=== PATIENT | male | born 1975 | race African-American/Black ===

== ENCOUNTER 2017-08-15 21:26 | Emergency (ER) | payer MEDICAID | END 2017-08-15 21:45 | disposition left against medical advice (07) | LOC: ER 21:26 | DX: Z53.21 Procedure and treatment not carried out due to patient leaving prior to being seen by health care provider (principal) ==

== ENCOUNTER 2017-10-02 15:57 | Inpatient (IN) | payer MEDICAID ==
--- NOTE | 2017-10-02 17:03 | ER Document Report ---
HPI - HPI Pain Level: 4 Past Medical History - Social History Family History: Reviewed & Not Pertinent Pulmonary Medical History: Reports: Hx Pneumonia Denies: Hx Asthma - denies Psychiatric Medical History: Reports: Hx Depression - not clinically diagnosed Infectious Medical History: Reports: Hx HIV Past Surgical History: Reports: Hx Kidney (Renal Surgery) - left removed - Immunizations Hx Diphtheria, Pertussis, Tetanus Vaccination: Yes Hx Pneumococcal Vaccination: 05/28/12 Vertical Provider Document - INFECTION CONTROL TRAVEL OUTSIDE OF THE [place] IN LAST 30 DAYS: No Discharge - Discharge Referrals: DORIE COHEN MD [Primary Care Provider] - Follow up as needed
--- NOTE | 2017-10-02 17:37 | ER Document Report ---
ED Medical Screen (RME) - General Chief Complaint: Rash Stated Complaint: POSSIBLE RASH Time Seen by Provider: 10/02/17 17:02 Mode of Arrival: Ambulatory Information source: Patient Notes: 42 yo HIV male since 1992 with hx of PCP pneumonia 2016, sent to [facility]. Woke up this morning feeling weak, thirsty, dizzy with urniation, layed back down, had his usual oxygen on 2lpm, very short of breath which is not normal on the 2lpm (PCP scarring). Coughing up mucous last night- green and thick. No fever or chills. Dry rash he noticed yesterday. oxygen now 92% on 4lpm.. Meds: Trazadone, Vireda, Tivicay, Prezcibux, valacyclovir, azithromycin. Pulse ox was 86% on room air here in room 32. 89% on 3lpm nc. TRAVEL OUTSIDE OF THE [place] IN LAST 30 DAYS: No - Related Data Allergies/Adverse Reactions: Sulfa (Sulfonamide Antibiotics) Allergy (Verified 01/30/15 15:26) Past Medical History Pulmonary Medical History: Reports: Hx Pneumonia Denies: Hx Asthma - denies Psychiatric Medical History: Reports: Hx Depression - not clinically diagnosed Infectious Medical History: Reports: Hx HIV Past Surgical History: Reports: Hx Kidney (Renal Surgery) - left removed - Immunizations Hx Diphtheria, Pertussis, Tetanus Vaccination: Yes Physical Exam - Vital signs Vitals: Temp Pulse Resp BP Pulse Ox 98.1 F 106 H 24 H 122/74 86 L 10/02/17 17:06 10/02/17 17:06 10/02/17 17:06 10/02/17 17:06 10/02/17 17:06 Course - Vital Signs Vital signs: Temp Pulse Resp BP Pulse Ox 98.1 F 106 H 24 H 122/74 86 L 10/02/17 17:06 10/02/17 17:06 10/02/17 17:06 10/02/17 17:06 10/02/17 17:06 Doctor's Discharge - Discharge Referrals: DORIE COHEN MD [Primary Care Provider] - Follow up as needed
--- NOTE | 2017-10-02 17:59 | RADIOLOGY REPORT (SQ) ---
EXAM DESCRIPTION: CHEST SINGLE VIEW COMPLETED DATE/TIME: 10/02/2017 5:48 pm REASON FOR STUDY: sob, hypoxic COMPARISON: April 2015 EXAM PARAMETERS: NUMBER OF VIEWS: One view. TECHNIQUE: Single frontal radiographic view of the chest acquired. RADIATION DOSE: NA LIMITATIONS: None. FINDINGS: LUNGS AND PLEURA: No masses or pneumothorax. No pleural effusion. There is a nonspecific prominence of interstitial markings. I cannot exclude a component of obstructive lung disease. Ther e is some minimal confluent density in the left lung base which I cannot exclude as an acute process superimposed on the chronic underlying changes MEDIASTINUM AND HILAR STRUCTURES: No masses. Contour normal. HEART AND VASCULAR STRUCTURES: Heart normal in size. Normal vasculature. BONES: No acute findings. HARDWARE: None in the chest. OTHER: No other significant finding. IMPRESSION: Chronic appearing changes as noted above. There is a minimal focal confluent density in the left lung base which I cannot exclude as an acute process superimposed on the chronic underlying changes. I cannot exclude a component of obstructive lung disease. Other findings as noted above TECHNICAL DOCUMENTATION: JOB ID: [id number] [employer]- All Rights Reserved Reading location - IP/workstation name: [email or web address]
[2017-10-02] MEDS ORDERED: NORMAL SALINE 1000 ML 1,000 ML IV ONE (18:19)
--- NOTE | 2017-10-02 18:20 | ER Document Report ---
ED General - General Chief Complaint: Shortness Of Breath Stated Complaint: POSSIBLE RASH Time Seen by Provider: 10/02/17 17:02 Mode of Arrival: Ambulatory TRAVEL OUTSIDE OF THE [place] IN LAST 30 DAYS: No - HPI Patient complains to provider of: cough, shortness of breath and rash Onset: This morning - Related Data Allergies/Adverse Reactions: Sulfa (Sulfonamide Antibiotics) Allergy (Verified 01/30/15 15:26) Past Medical History - General Information source: Patient - Social History Smoking Status: Smoker,Current Status Unk Chew tobacco use (# tins/day): No Frequency of alcohol use: None Drug Abuse: None Family History: Reviewed & Not Pertinent Patient has suicidal ideation: No Patient has homicidal ideation: No Pulmonary Medical History: Reports: Hx Pneumonia Denies: Hx Asthma - denies Renal/ Medical History: Denies: Hx Peritoneal Dialysis Psychiatric Medical History: Reports: Hx Depression - not clinically diagnosed Infectious Medical History: Reports: Hx HIV Past Surgical History: Reports: Hx Kidney (Renal Surgery) - left removed - Immunizations Hx Diphtheria, Pertussis, Tetanus Vaccination: Yes Hx Pneumococcal Vaccination: 05/28/12 Physical Exam - Vital signs Vitals: Temp Pulse Resp BP Pulse Ox 98.1 F 106 H 24 H 122/74 86 L 10/02/17 17:06 10/02/17 17:06 10/02/17 17:06 10/02/17 17:06 10/02/17 17:06 Course - Vital Signs Vital signs: Temp Pulse Resp BP Pulse Ox 98.1 F 106 H 18 122/74 95 10/02/17 17:06 10/02/17 17:06 10/02/17 18:07 10/02/17 17:06 10/02/17 18:07 - EKG Interpretation by Ms EKG shows normal: Sinus rhythm Rate: Normal - Normal axis, no appreciable ST segment changes Discharge - Discharge Referrals: DORIE COHEN MD [Primary Care Provider] - Follow up as needed
[2017-10-02 18:35] LABS: HEMATOCRIT 38.7 % (37.9-51.0); HEMOGLOBIN 12.6 g/dL (13.5-17.0); MEAN CORPUSCULAR HGB CONC 32.6 g/dL (32.0-36.0); MEAN CORPUSCULAR VOLUME 80 fl (80-97); RED BLOOD COUNT 4.86 10^6/uL (4.35-5.55); RED CELL DISTRIBUTION WIDTH 17.8 % (11.5-14.0); WHITE BLOOD COUNT 3.1 10^3/uL (4.0-10.5)
[2017-10-02 18:45] LABS: ALANINE AMINOTRANSFERASE 35 U/L (21-72); ALBUMIN 3.3 g/dL (3.5-5.0); ALKALINE PHOSPHATASE 175 U/L (38-126); ANION GAP 8 (5-19); ASPARTATE AMINO TRANSFERASE 79 U/L (17-59); BILIRUBIN,DIRECT 0.3 mg/dL (0.0-0.4); BILIRUBIN,TOTAL 0.5 mg/dL (0.2-1.3); BLOOD UREA NITROGEN 13 mg/dL (7-20); CALCIUM 8.7 mg/dL (8.4-10.2); CARBON DIOXIDE 27 mmol/L (22-30); CHLORIDE 106 mmol/L (98-107); CREATINE KINASE 130 U/L (55-170); GLUCOSE 115 mg/dL (75-110); SODIUM 140.7 mmol/L (137-145); TOTAL PROTEIN 9.2 g/dL (6.3-8.2)
[2017-10-02 18:54] LABS: PLATELET COUNT 63 10^3/uL (150-450)
[2017-10-02 18:57] LABS: CREATINE KINASE MB 1.07 ng/mL (<4.55)
[2017-10-02 18:59] LABS: TROPONIN I < 0.012 ng/mL
[2017-10-02 19:00] LABS: ABSOLUTE LYMPHOCYTES# (MANUAL) 1.1 10^3/uL (0.5-4.7); ABSOLUTE MONOCYTES # (MANUAL) 0.3 10^3/uL (0.1-1.4); ABSOLUTE NEUTROPHILS# (MANUAL) 1.6 10^3/uL (1.7-8.2); BAND NEUTROPHILS % (MANUAL) 1 % (3-5); BASOPHILS % (MANUAL) 0 % (0-2); EOSINOPHILS % (MANUAL) 5 % (0-6); LYMPHOCYTES % (MANUAL) 29 % (13-45); MONOCYTES % (MANUAL) 9 % (3-13); SEGMENTED NEUTROPHILS % (MAN) 51 % (42-78); TOTAL CELLS COUNTED 100
[2017-10-02 19:03] LABS: ANISOCYTOSIS 1+; PLATELET COMMENT DECREASED; PLATELET LARGE PRESENT
[2017-10-02] MEDS ORDERED: CEFTRIAXONE INJ 1000 MG VIAL IV ONE (19:07)
[2017-10-02] MEDS ORDERED: AZITHROMYCIN INJ 500 MG VIAL IV ONE (19:09)
--- NOTE | 2017-10-02 19:36 | ER Document Report ---
ED General - General Chief Complaint: Rash Stated Complaint: POSSIBLE RASH Time Seen by Provider: 10/02/17 17:02 Mode of Arrival: Ambulatory TRAVEL OUTSIDE OF THE [place] IN LAST 30 DAYS: No - HPI Patient complains to provider of: Shortness of breath and cough Onset: Other - This 42-year-old man presented for evaluation of shortness of breath as well as productive cough over the last 2 days and now a rash. He notes that he has a history of HIV and has had 3 episodes of pneumonia in the past once requiring BiPAP never requiring intubation. He has had similar episodes in the past which have worsened. Today he began to feel much weaker than yesterday he has got a cough which is productive of sputum he feels generally fatigued, nothing seemed to make it any better but exertion seems make it worse. He has been taking medications and does note that it appears that the rashes developed after he was sitting outside for some time. He has had episodes of shingles in the past but does not believe this is shingles that is currently not painful or itchy. - Related Data Allergies/Adverse Reactions: Sulfa (Sulfonamide Antibiotics) Allergy (Verified 01/30/15 15:26) Past Medical History - General Information source: Patient - Social History Smoking Status: Smoker,Current Status Unk Chew tobacco use (# tins/day): No Frequency of alcohol use: None Drug Abuse: None Family History: Reviewed & Not Pertinent Patient has suicidal ideation: No Patient has homicidal ideation: No - Medical History Medical History: Other - HIV Pulmonary Medical History: Reports: Hx Pneumonia Denies: Hx Asthma - denies Renal/ Medical History: Denies: Hx Peritoneal Dialysis Psychiatric Medical History: Reports: Hx Depression - not clinically diagnosed Infectious Medical History: Reports: Hx HIV Past Surgical History: Reports: Hx Kidney (Renal Surgery) - left removed - Immunizations Hx Diphtheria, Pertussis, Tetanus Vaccination: Yes Hx Pneumococcal Vaccination: 05/28/12 Review of Systems - Review of Systems -: Yes All other systems reviewed and negative Physical Exam - Vital signs Vitals: Temp Pulse Resp BP Pulse Ox 98.1 F 106 H 24 H 122/74 86 L 10/02/17 17:06 10/02/17 17:06 10/02/17 17:06 10/02/17 17:06 10/02/17 17:06 - General General appearance: Alert In distress: Mild - HEENT Head: Normocephalic Eyes: Normal - Respiratory Respiratory status: Tachypnea Chest status: Nontender Breath sounds: Rhonchi Chest palpation: Normal - Cardiovascular Rhythm: Tachycardia Heart sounds: Normal auscultation Murmur: No - Abdominal Inspection: Normal Distension: No distension Bowel sounds: Normal - Genitourinary Inspection: Normal Tenderness: Nontender - Back Back: Normal - Extremities General upper extremity: Other General lower extremity: Other - The upper and lower extremities demonstrate an erythematous slightly raised papular rash which is non-petechial and blanching - Neurological Neuro grossly intact: Yes Course - Re-evaluation Re-evalutation: 10/03/17 00:04 This 42-year-old HIV positive man presents for evaluation of productive sputum 3 days. He does note that he has had 3 episodes of pneumonia in the past and has been hospitalized for it once requiring CPAP or BiPAP to help him breathe. His developed a rash over the last day over his arms and legs which is a little bit itchy has been dried out. Says this is not reminiscent of previous episodes of zoster which she has had in the past. Clinically this patient likely has pneumonia as he does demonstrate an oxygen requirement at this time with some tachypnea and systemic signs of infection. We will initiate IV fluids for this patient as well as antibiotics as he does have an infiltrate on x-ray. Patient does have new onset thrombocytopenia as well. He has been compliant with his medications per him in the past, I am uncertain what this etiology is at this time he does not appear to be in DIC at this time however. We will plan for further monitoring, have contacted the on-call hospitalist for admission of this patient. We will plan for monitored bed administration of oxygen currently on 3 L nasal cannula, will reassess as necessary. He is not actively bleeding at this time and as such we will defer administration of platelets. - Vital Signs Vital signs: Temp Pulse Resp BP Pulse Ox 98.1 F 106 H 33 H 119/76 90 L 10/02/17 17:06 10/02/17 17:06 10/02/17 22:01 10/02/17 22:00 10/02/17 22:00 - Laboratory Result Diagrams: 10/02/17 18:03 10/02/17 18:03 Laboratory results interpreted by me: 08/08/1410/02/17 10/02/17 18:03 18:03 18:03 WBC 3.1 L Hgb 12.6 L MCH 26.0 L RDW 17.8 H Plt Count 63 L Band Neutrophils % 1 L Abs Neuts (Manual) 1.6 L D-Dimer 1.53 H Glucose 115 H AST 79 H Alkaline Phosphatase 175 H Total Protein 9.2 H Albumin 3.3 L Discharge - Discharge Clinical Impression: Pneumonia, Photosensitivity, Pneumonia, community acquired, HIV (human immunodeficiency virus infection), Hypoxic Condition: Fair Disposition: ADMITTED INPATIENT Admitting Provider: Hospitalist Unit Admitted: [facility]
[2017-10-02] MEDS ORDERED: IPRATROPIUM/ALBUTEROL 0.5-2.5 MG/3 ML AMPUL NEB PRN (20:20)
[2017-10-02] MEDS ORDERED: ACETAMINOPHEN 325 MG TABLET PO PRN (20:20)
[2017-10-02] MEDS ORDERED: EFAVIRENZ/EMTRICITAB/TENOFOVIR (600-200-300 MG) TABLET PO SCH (22:00)
--- NOTE | 2017-10-02 22:28 | EKG REPORT ---
SEVERITY:- NORMAL ECG - SINUS RHYTHM : Confirmed by: Nanette Hart MD 02-Oct-2017 22:27:49
[2017-10-02] MEDS: GUAIFENESIN 600 MG TABLET.SA PO SCH (22:49)
[2017-10-02] MEDS: NORMAL SALINE 1000 ML 1,000 ML IV PRN (22:50)
[2017-10-03] MEDS ORDERED: METHYLPREDNISOLONE INJ 125 MG/2 ML SDV IV ONE (01:22)
--- NOTE | 2017-10-03 01:22 | PDOC H&P ---
History of Present Illness Admission Date/PCP: 10/02/17 19:54 KENNETH BEE Patient complains of: Cough and weakness History of Present Illness: BART MCCRACKEN is a 42 year old -Y[place]i male with history of HIV who presented to the emergency room with acute onset of cough productive of greenish sputum with associated weakness and fatigue as well as dyspnea and wheezing for the last couple of days. He denied any fever or chills. He denies any abdominal pain or nausea or vomiting or melena or bright red bleeding per rectum. No chest pain or palpitations. Denies any diarrhea. He takes Truvada for his HIV and was sitting in the sun today when he developed maculopapular rash all over his body. When he came to the ER his EKG showed normal sinus rhythm with a rate of 79 with T-wave inversion in aVL. His vital signs reveal a temperature of 98.1 and heart rate 106 with a respiratory rate of 24, blood pressure of 122/74 and pulse oximetry of 86% on room air. As revealed mild leukopenia and thrombocytopenia. D-dimer was 1.53 and AST was 79 with alk phos 175 with lactic acid 1.7. The patient was given hydration with IV normal saline as well as IV Rocephin and from X. He will be admitted to medical monitored bed for further evaluation and management. Past Medical History Pulmonary Medical History: Reports: Pneumonia Denies: Asthma - denies Psychiatric Medical History: Reports: Depression - not clinically diagnosed Infectious Medical History: Reports: HIV Past Surgical History Past Surgical History: Reports: None Social History Smoking Status: Never Smoker Frequency of Alcohol Use: Social Hx Recreational Drug Use: No Hx Prescription Drug Abuse: No Family History Family History: CAD, CVA Parental Family History Reviewed: Yes Children Family History Reviewed: Yes Sibling(s) Family History Reviewed.: Yes Medication/Allergy Home Medications: Darunavir/Cobicistat [Prezcobix 800 mg-150 mg Tablet] 1 tab PO DAILY 10/02/17 Dolutegravir Sodium [Tivicay] 50 mg PO DAILY 10/02/17 Tenofovir Disoproxil Fumarate [Viread] 300 mg PO DAILY 10/02/17 Allergies/Adverse Reactions: Sulfa (Sulfonamide Antibiotics) Allergy (Verified 01/30/15 15:26) Review of Systems Review of Systems: As per history of present illness. All pertinent systems were reviewed above. Constitutional, HEENT, cardiovascular, respiratory, GI, , musculoskeletal, neuro, psychiatric, endocrine, integumentary and hematologic systems were reviewed and are otherwise negative/unremarkable except for positive findings mentioned above in the HPI. Physical Exam Vital Signs: Temp Pulse Resp BP Pulse Ox 98.1 F 106 H 33 H 119/76 90 L 10/02/17 17:06 10/02/17 17:06 10/02/17 22:01 10/02/17 22:00 10/02/17 22:00 Pulse Oximeter Continuous Start: 10/02/17 20: 20 Freq: RTQ4 Status: Active Document 10/03/17 00:00 EST (Rec: 10/03/17 00:14 EST [id number]) Pulse Oximetry Assessment Equipment Usage Equipment Standby Continuous SpO2 Machine # ED Exam: Generally: Pleasant middle-aged -[place] male in mild respiratory distress with conversational dyspnea. Vital signs-as listed Head - atraumatic, normocephalic. Pupils - equal, round and reactive to light and accommodation. Extraocular movements are intact. No scleral icterus. Oropharynx - moist mucous membranes and tongue. No pharyngeal erythema or exudate. Neck - supple. No JVD. Carotid pulses 2+ bilaterally. No carotid bruits. No palpable thyromegaly or lymphadenopathy. Cardiovascular - regular rate and rhythm. Normal S1 and S2. No murmurs, gallops or rubs. Lungs -bibasilar crackles with diminished bibasilar breath sounds with mild left midlung zone crackles Abdomen - soft and nontender. Positive bowel sounds. No palpable organomegaly or masses. Extremities - no pitting edema, clubbing or cyanosis. Neuro - grossly non-focal. Skin -he had diffuse macular papular eruption with mild scaling specially over both upper and lower extremities and rectal exam - deferred. Results Impressions: Chest X-Ray 10/02/17 17:38 IMPRESSION: Chronic appearing changes as noted above. There is a minimal focal confluent density in the left lung base which I cannot exclude as an acute process superimposed on the chronic underlying changes. I cannot exclude a component of obstructive lung disease. Other findings as noted above Assessment & Plan - Diagnosis (1) Pneumonia, community acquired Qualifiers: Laterality: left Is this a current diagnosis for this admission?: Yes Plan: The patient will be admitted to a medically monitored bed for community- acquired pneumonia and will be placed on IV Rocephin and Zithromax. Mucolytic therapy be provided as well as duo nebs q.i.d. and q.4 hours p.r.n.. Sputum Gram stain culture and sensitivity will be obtained. Will follow Blood Cultures. (2) HIV (human immunodeficiency virus infection) Is this a current diagnosis for this admission?: Yes Plan: His HAART will be continued (3) Hypoxic Is this a current diagnosis for this admission?: Yes Plan: O2 protocol will be provided. (4) Photosensitivity Is this a current diagnosis for this admission?: Yes Plan: This is likely the culprit for his maculopapular rash. Will add steroids, Benadryl and H2 blockers. (5) DVT prophylaxis Is this a current diagnosis for this admission?: Yes Plan: Subcutaneous Lovenox - Plan Summary Plan Summary: The plan of care was discussed in details with the patient. I answered all questions. The patient agreed to proceed with the above-mentioned plan. The patient is presumably full code. This note was created by [employer] software and may contain typo errors that may have not been proofread.
[2017-10-03] MEDS ORDERED: FAMOTIDINE 20 MG TABLET PO ONE (01:24)
[2017-10-03] MEDS ORDERED: DIPHENHYDRAMINE HCL 25 MG CAPSULE PO SCH (01:30)
--- NOTE | 2017-10-03 02:53 | RADIOLOGY REPORT (SQ) ---
EXAM DESCRIPTION: CT CHEST ANGIOGRAPHY WITH IV CONTRAST COMPLETED DATE/TME: 10/03/2017 00:00 CLINICAL HISTORY: elevated d-dimer(1.53) COMPARISON: 01/31/2015 TECHNIQUE: CTA of the chest obtained following the uncomplicated intravenous administration of 100 mL Omnipaque 350. 3-D/MIP reformatted images of the chest available for evaluation. DLP: 542.91 mGycm FINDINGS: Chest: Pulmonary arteries: Contrast bolus is adequate.No filling defects identified in the pulmonary arteries to suggest pulmonary embolus. Thyroid:No abnormalities of the visualized thyroid. Great Vessels:Great vessels have normal anatomic configuration. Thoracic Aorta:No abnormalities of the thoracic aorta identified. Heart:No cardiomegaly, significant pericardial effusion, or coronary artery atherosclerosis Lymph Nodes: Enlarged paratracheal and bilateral hilar lymph nodes. Esophagus:No abnormalities of the esophagus identified. Other: Possible residual thymus. Lungs: Diffuse groundglass opacities throughout the lungs bilaterally as well as diffuse cystic change. Linear bibasilar opacities. Pleura:No pleural effusion or pneumothorax. Trachea/Airways: Bibasilar bronchiectasis and peribronchial thickening. No acute abnormalities of the trachea. Bones:No destructive osseous lesions. Upper Abdomen: Limited images of the upper abdomen demonstrate no abnormalities of visualized liver, adrenal glands, right kidney. Postoperative change in the left upper abdomen. Splenomegaly. IMPRESSION: 1. No pulmonary embolus identified. 2. Scattered groundglass opacity and cystic change throughout the lungs as well as peribronchial interstitial thickening and mild cylindrical bronchiectasis. These findings may be postinfectious or related to chronic infection/inflammation such as chronic bronchitis or obstructive lung disease. These findings could also be seen with developing interstitial lung disease. 3. Mild hilar and mediastinal lymphadenopathy. This may be reactive. Based on these findings follow-up CT of the chest in 6-12 months recommended for continued surveillance. 4. Mild bibasilar linear opacities may be related to subsegmental atelectasis. A component of developing pneumonia is also a consideration. 5. Splenomegaly. This exam was performed according to our departmental dose-optimization program, which includes automated exposure control, adjustment of the mA and/or kV according to patient size and/or use of iterative reconstruction technique.
[2017-10-03] MEDS: METHYLPREDNISOLONE INJ 40 MG/1 ML SDV IV SCH ×3 (05:38→21:26)
[2017-10-03 06:48] LABS: HEMATOCRIT 37.6 % (37.9-51.0); HEMOGLOBIN 12.3 g/dL (13.5-17.0); MEAN CORPUSCULAR HGB CONC 32.8 g/dL (32.0-36.0); MEAN CORPUSCULAR VOLUME 79 fl (80-97); RED BLOOD COUNT 4.74 10^6/uL (4.35-5.55); RED CELL DISTRIBUTION WIDTH 17.8 % (11.5-14.0); WHITE BLOOD COUNT 2.8 10^3/uL (4.0-10.5)
[2017-10-03 07:00] LABS: ANION GAP 6 (5-19); BLOOD UREA NITROGEN 10 mg/dL (7-20); CALCIUM 8.3 mg/dL (8.4-10.2); CARBON DIOXIDE 24 mmol/L (22-30); CHLORIDE 113 mmol/L (98-107); GLUCOSE 117 mg/dL (75-110); POTASSIUM 4.8 mmol/L (3.6-5.0); SODIUM 142.8 mmol/L (137-145)
[2017-10-03 07:15] LABS: PLATELET COUNT 44 10^3/uL (150-450)
[2017-10-03 07:54] LABS: ABSOLUTE LYMPHOCYTES# (MANUAL) 0.8 10^3/uL (0.5-4.7); ABSOLUTE MONOCYTES # (MANUAL) 0.1 10^3/uL (0.1-1.4); ABSOLUTE NEUTROPHILS# (MANUAL) 1.9 10^3/uL (1.7-8.2); ANISOCYTOSIS 2+; BAND NEUTROPHILS % (MANUAL) 1 % (3-5); BASOPHILS % (MANUAL) 0 % (0-2); EOSINOPHILS % (MANUAL) 3 % (0-6); HYPOCHROMASIA SLIGHT; LYMPHOCYTES % (MANUAL) 25 % (13-45); MONOCYTES % (MANUAL) 2 % (3-13); POLYCHROMASIA SLIGHT; ROULEAUX SLIGHT; SEGMENTED NEUTROPHILS % (MAN) 66 % (42-78); TOTAL CELLS COUNTED 100
[2017-10-03 07:55] LABS: PLATELET COMMENT DECREASED
[2017-10-03] MEDS: IPRATROPIUM/ALBUTEROL 0.5-2.5 MG/3 ML AMPUL NEB SCH ×4 (08:43→20:10)
[2017-10-03] MEDS ORDERED: DAPSONE 100 MG PO SCH (10:00)
[2017-10-03] MEDS: DAPSONE 25 MG TABLET PO SCH (10:41)
[2017-10-03] MEDS: AZITHROMYCIN 500 MG in DEXTROSE 5%-WATER 250 ML IV SCH (10:41)
[2017-10-03] MEDS: GUAIFENESIN 600 MG TABLET.SA PO SCH ×2 (10:42→21:26)
[2017-10-03] MEDS: FAMOTIDINE 20 MG TABLET PO SCH ×2 (10:42→21:26)
[2017-10-03] MEDS: ENOXAPARIN SODIUM INJ 40 MG/0.4 ML DISP.SYRIN SUBCUT SCH (10:42)
[2017-10-03] MEDS: NORMAL SALINE 1000 ML 1,000 ML IV PRN ×2 (10:43→23:25)
[2017-10-03] MEDS: VALACYCLOVIR HCL 500 MG TABLET PO SCH (10:50)
[2017-10-03] MEDS: CEFTRIAXONE 2 GM/D5W RTU 2 GM/50 ML RTUPB IV SCH (13:04)
--- NOTE | 2017-10-03 17:51 | PDOC PROGRESS REPORT ---
Subjective Progress Note for:: 10/03/17 Subjective:: BART MCCRACKEN is a 42 year old -[place] male with history of HIV and PNA (2017) who wears home O2 (2-4L NC) presented to the ED 10/02/2017 with SOB. The patient was seen this morning on rounds. He is resting comfortably in bed on room air. He endorses a productive cough, but states he is too weak to expel his sputum. The patient appears in good spirits, he states his 'lungs have never been the same' since diagnosed with PNA last year. Upon assessment, rhonchi wheezing can be heard in all lung manzo. The patient is not tachypneic , his respirations are equal and symmetrical, he does not appear to be in any respiratory distress. Plan to increase steroid frequency and schedule nebulizer treatments. Reason For Visit: PNEUMONIA Physical Exam Vital Signs: Temp Pulse Resp BP Pulse Ox 97.8 F 90 18 119/68 94 10/03/17 12:10 10/03/17 14:00 10/03/17 12:10 10/03/17 12:10 10/03/17 12:10 Pulse Oximeter Continuous Start: 10/02/17 20: 20 Freq: RTQ4 Status: Active Document 10/03/17 11:41 [facility] (Rec: 10/03/17 11:49 [facility] [id number]) Pulse Oximetry Assessment Oxygen Saturation (92-100) 95 Oxygen Flow Rate (L/min) 2 Equipment Usage Equipment in Use Continuous SpO2 Machine # [id number] Intake & Output 10/02/17 10/03/17 10/04/17 06:59 06:59 06:59 Intake Total 0 1296 Output Total 0 Balance 0 1296 Weight 65.9 kg General appearance: PRESENT: no acute distress Head exam: PRESENT: atraumatic Eye exam: PRESENT: conjunctiva pink, PERRLA Mouth exam: PRESENT: moist, neck supple Neck exam: PRESENT: full ROM Respiratory exam: PRESENT: rhonchi, symmetrical, wheezes. ABSENT: tachypnea Cardiovascular exam: PRESENT: +S1, +S2 Pulses: PRESENT: normal radial pulses, normal dorsalis pedis pul GI/Abdominal exam: PRESENT: normal bowel sounds, soft. ABSENT: tenderness Rectal exam: PRESENT: deferred Extremities exam: PRESENT: full ROM Musculoskeletal exam: PRESENT: ambulatory - with o2, full ROM Neurological exam: PRESENT: alert, awake, oriented to person, oriented to place , oriented to time, oriented to situation Psychiatric exam: PRESENT: appropriate affect Skin exam: PRESENT: dry, intact, normal color Results Laboratory Results: 10/03/17 05:30 10/03/17 05:30 10/03/17 10/03/17 05:30 05:30 WBC 2.8 L RBC 4.74 Hgb 12.3 L Hct 37.6 L MCV 79 L MCH 26.0 L MCHC 32.8 RDW 17.8 H Plt Count 44 L Seg Neutrophils % Not Reportable Lymphocytes % Not Reportable Monocytes % Not Reportable Eosinophils % Not Reportable Basophils % Not Reportable Absolute Neutrophils Not Reportable Absolute Lymphocytes Not Reportable Absolute Monocytes Not Reportable Absolute Eosinophils Not Reportable Absolute Basophils Not Reportable Sodium 142.8 Potassium 4.8 Chloride 113 H Carbon Dioxide 24 Anion Gap 6 BUN 10 Creatinine 0.81 Est GFR ( Amer) > 60 Est GFR (Non-Af Amer) > 60 Glucose 117 H Calcium 8.3 L Impressions: Chest X-Ray 10/02/17 17:38 IMPRESSION: Chronic appearing changes as noted above. There is a minimal focal confluent density in the left lung base which I cannot exclude as an acute process superimposed on the chronic underlying changes. I cannot exclude a component of obstructive lung disease. Other findings as noted above Chest/Abdomen CTA 10/03/17 00:00 IMPRESSION: 1. No pulmonary embolus identified. 2. Scattered groundglass opacity and cystic change throughout the lungs as well as peribronchial interstitial thickening and mild cylindrical bronchiectasis. These findings may be postinfectious or related to chronic infection/inflammation such as chronic bronchitis or obstructive lung disease. These findings could also be seen with developing interstitial lung disease. 3. Mild hilar and mediastinal lymphadenopathy. This may be reactive. Based on these findings follow-up CT of the chest in 6-12 months recommended for continued surveillance. 4. Mild bibasilar linear opacities may be related to subsegmental atelectasis. A component of developing pneumonia is also a consideration. 5. Splenomegaly. This exam was performed according to our departmental dose-optimization program, which includes automated exposure control, adjustment of the mA and/or kV according to patient size and/or use of iterative reconstruction technique. Status: Imported from PACS Assessment & Plan - Diagnosis (1) Pneumonia Is this a current diagnosis for this admission?: Yes Plan: As seen on radiological imaging Ground glass opacities on CTA +Productive cough Scheduled and as needed duo nebs Increase frequency of IV Solu-Medrol from every 8 hours to every 6 hours for wheezing History of multidrug resistant strep pneumoniae Currently treated with Rocephin and Azithromycin for community acquired PNA but history of azithromycin resistance Discontinue azithromycin and initiate doxycycline Consulted ID for further antibiotic recommendations (2) HIV (human immunodeficiency virus infection) Is this a current diagnosis for this admission?: Yes Plan: Previously on Truvada therapy Patient's pharmacist states the patient has not refilled rx in over a month Placed on Atripla while at [facility] since Truvada is non-formulary but patient's pharmacist (at [facility]) states the patient would be better off taking no HAART therapy in order to prevent development of resistance Plan for family to bring patient's Truvada to [facility] tomorrow and resume at that time Currently, the patient is not on HAART therapy (3) Photosensitivity Is this a current diagnosis for this admission?: Yes Plan: Patient endorses spending a great deal of time outside recently Presents to [facility] with photosensitivity rash to upper extremities and posterior neck No papules, pustules, or blisters Keep skin clean with soap and water, no occlusive dressings - Time Time Spent with patient: 15-24 minutes Medications reviewed and adjusted accordingly: Yes Anticipated discharge: Home Within: within 48 hours - Inpatient Certification Based on my medical assessment, after consideration of the patient's comorbidities, presenting symptoms, or acuity I expect that the services needed warrant INPATIENT care.: Yes I certify that my determination is in accordance with my understanding of Medicare's requirements for reasonable and necessary INPATIENT services [42 CFR 412.3e].: Yes Medical Necessity: Need for IV Antibiotics, Risk of Complication if Not Cared For in Hospital - Plan Summary Plan Summary: DISCONTINUE AZITHROMYCIN DUE TO HX OF RESISTANCE. INITIATE DOXYCYCLINE. CONSULT ID.
[2017-10-04] MEDS: IPRATROPIUM/ALBUTEROL 0.5-2.5 MG/3 ML AMPUL NEB SCH ×4 (02:07→19:42)
[2017-10-04] MEDS: METHYLPREDNISOLONE INJ 40 MG/1 ML SDV IV SCH ×4 (02:41→21:42)
[2017-10-04 05:54] LABS: HEMATOCRIT 32.7 % (37.9-51.0); HEMOGLOBIN 10.6 g/dL (13.5-17.0); MEAN CORPUSCULAR HGB CONC 32.4 g/dL (32.0-36.0); MEAN CORPUSCULAR VOLUME 80 fl (80-97); RED BLOOD COUNT 4.08 10^6/uL (4.35-5.55); RED CELL DISTRIBUTION WIDTH 17.8 % (11.5-14.0); WHITE BLOOD COUNT 4.4 10^3/uL (4.0-10.5)
[2017-10-04 06:07] LABS: ANION GAP 10 (5-19); BLOOD UREA NITROGEN 11 mg/dL (7-20); CALCIUM 8.3 mg/dL (8.4-10.2); CARBON DIOXIDE 20 mmol/L (22-30); CHLORIDE 118 mmol/L (98-107); GLUCOSE 206 mg/dL (75-110); SODIUM 148.1 mmol/L (137-145)
[2017-10-04 06:09] LABS: PLATELET COUNT 66 10^3/uL (150-450)
[2017-10-04 06:16] LABS: ABSOLUTE LYMPHOCYTES# (MANUAL) 0.5 10^3/uL (0.5-4.7); ABSOLUTE MONOCYTES # (MANUAL) 0.4 10^3/uL (0.1-1.4); ABSOLUTE NEUTROPHILS# (MANUAL) 3.6 10^3/uL (1.7-8.2); BAND NEUTROPHILS % (MANUAL) 2 % (3-5); BASOPHILS % (MANUAL) 0 % (0-2); EOSINOPHILS % (MANUAL) 0 % (0-6); LYMPHOCYTES % (MANUAL) 11 % (13-45); MONOCYTES % (MANUAL) 8 % (3-13); SEGMENTED NEUTROPHILS % (MAN) 79 % (42-78); TOTAL CELLS COUNTED 100
[2017-10-04 06:18] LABS: ANISOCYTOSIS 1+; PLATELET COMMENT DECREASED
[2017-10-04 06:19] LABS: PLATELET LARGE PRESENT
[2017-10-04 06:31] LABS: POTASSIUM 3.8 mmol/L (3.6-5.0)
[2017-10-04] MEDS ORDERED: DOXYCYCLINE HYCLATE INJ 100 MG VIAL IV ONE (08:44)
[2017-10-04] MEDS: AZITHROMYCIN 500 MG in DEXTROSE 5%-WATER 250 ML IV SCH (09:20)
[2017-10-04] MEDS: FAMOTIDINE 20 MG TABLET PO SCH ×2 (09:24→21:42)
[2017-10-04] MEDS: CEFTRIAXONE 2 GM/D5W RTU 2 GM/50 ML RTUPB IV SCH (09:24)
[2017-10-04] MEDS: GUAIFENESIN 600 MG TABLET.SA PO SCH ×2 (09:24→21:42)
[2017-10-04] MEDS: VALACYCLOVIR HCL 500 MG TABLET PO SCH (09:25)
[2017-10-04] MEDS: DAPSONE 25 MG TABLET PO SCH (09:25)
[2017-10-04] MEDS: ENOXAPARIN SODIUM INJ 40 MG/0.4 ML DISP.SYRIN SUBCUT SCH (09:38)
[2017-10-04] MEDS: NORMAL SALINE 1000 ML 1,000 ML IV PRN (10:47)
[2017-10-04] MEDS: DOXYCYCLINE HYCLATE 100 MG in DEXTROSE 5%-WATER 250 ML IV SCH ×2 (10:47→21:39)
--- NOTE | 2017-10-04 13:54 | PDOC PROGRESS REPORT ---
Subjective Progress Note for:: 10/04/17 Subjective:: BART MCCRACKEN is a 42 year old -[place] male with history of HIV and PNA (2017) who wears home O2 (2-4L NC) presented to the ED 10/02/2017 with SOB. The patient was seen this morning on rounds. He is resting comfortably in bed on supplemental oxygen. He still endorses a productive cough, but states he feels so much better today. The patient appears in good spirits, he denies fever or chills. Upon assessment, rhonchi can be heard in B/L bases, wheezing has resolved. Nursing staff reports that the patient becomes tacypneic when ambulating to the restroom. Plan to consult ID for antibiotic recommendations. Reason For Visit: PNEUMONIA Physical Exam Vital Signs: Temp Pulse Resp BP Pulse Ox 98.4 F 91 16 124/69 94 10/04/17 04:22 10/04/17 08:27 10/04/17 08:27 10/04/17 04:22 10/04/17 12:39 Pulse Oximeter Continuous Start: 10/02/17 20: 20 Freq: RTQ4 Status: Active Document 10/04/17 12:39 [facility] [place]Rec: 10/04/17 12:40 [id number] Pulse Oximetry Assessment Oxygen Saturation (92-100) 94 Oxygen Flow Rate (L/min) 2 Oxygen Delivery Method Nasal Cannula Equipment Usage Equipment in Use Continuous SpO2 Machine # N 3 Intake & Output 10/03/17 10/04/17 10/05/17 06:59 06:59 06:59 Intake Total 0 3154 1050 Output Total 0 1400 Balance 0 1754 1050 Weight 65.9 kg 67.2 kg General appearance: PRESENT: no acute distress, well-developed, well-nourished Eye exam: PRESENT: conjunctiva pink, PERRLA Mouth exam: PRESENT: moist, tongue midline Neck exam: PRESENT: full ROM Respiratory exam: PRESENT: rhonchi, symmetrical, unlabored Cardiovascular exam: PRESENT: +S1, +S2 Pulses: PRESENT: normal radial pulses, normal dorsalis pedis pul GI/Abdominal exam: PRESENT: normal bowel sounds, soft. ABSENT: tenderness Rectal exam: PRESENT: deferred Extremities exam: PRESENT: full ROM Musculoskeletal exam: PRESENT: ambulatory, full ROM Neurological exam: PRESENT: alert, awake, oriented to person, oriented to place , oriented to time, oriented to situation Psychiatric exam: PRESENT: appropriate affect Skin exam: PRESENT: intact, normal color, warm Results Laboratory Results: 10/04/17 04:39 10/04/17 04:39 10/04/17 10/04/17 04:39 04:39 WBC 4.4 RBC 4.08 L Hgb 10.6 L Hct 32.7 L MCV 80 MCH 26.0 L MCHC 32.4 RDW 17.8 H Plt Count 66 L Seg Neutrophils % Not Reportable Lymphocytes % Not Reportable Monocytes % Not Reportable Eosinophils % Not Reportable Basophils % Not Reportable Absolute Neutrophils Not Reportable Absolute Lymphocytes Not Reportable Absolute Monocytes Not Reportable Absolute Eosinophils Not Reportable Absolute Basophils Not Reportable Sodium 148.1 H Potassium 3.8 D Chloride 118 H Carbon Dioxide 20 L Anion Gap 10 BUN 11 Creatinine 0.80 Est GFR ( Amer) > 60 Est GFR (Non-Af Amer) > 60 Glucose 206 H Calcium 8.3 L Impressions: Chest X-Ray 10/02/17 17:38 IMPRESSION: Chronic appearing changes as noted above. There is a minimal focal confluent density in the left lung base which I cannot exclude as an acute process superimposed on the chronic underlying changes. I cannot exclude a component of obstructive lung disease. Other findings as noted above Chest/Abdomen CTA 10/03/17 00:00 IMPRESSION: 1. No pulmonary embolus identified. 2. Scattered groundglass opacity and cystic change throughout the lungs as well as peribronchial interstitial thickening and mild cylindrical bronchiectasis. These findings may be postinfectious or related to chronic infection/inflammation such as chronic bronchitis or obstructive lung disease. These findings could also be seen with developing interstitial lung disease. 3. Mild hilar and mediastinal lymphadenopathy. This may be reactive. Based on these findings follow-up CT of the chest in 6-12 months recommended for continued surveillance. 4. Mild bibasilar linear opacities may be related to subsegmental atelectasis. A component of developing pneumonia is also a consideration. 5. Splenomegaly. This exam was performed according to our departmental dose-optimization program, which includes automated exposure control, adjustment of the mA and/or kV according to patient size and/or use of iterative reconstruction technique. Status: Imported from PACS Assessment & Plan - Diagnosis (1) Pneumonia Is this a current diagnosis for this admission?: Yes Plan: As seen on radiological imaging Ground glass opacities on CTA +Productive cough Scheduled and as needed duo nebs Continue IV Solu-Medrol from every 6 hours for wheezing, begin weaning tomorrow History of multidrug resistant strep pneumoniae Currently treated with Rocephin and doxycycline for community acquired PNA - history of azithromycin resistance Consulted ID for further antibiotic recommendations (2) HIV (human immunodeficiency virus infection) Is this a current diagnosis for this admission?: Yes Plan: Previously on Truvada therapy Patient's pharmacist states the patient has not refilled rx in over a month Placed on Atripla while at [facility] since Truvada is non-formulary but patient's pharmacist (at [facility]) states the patient would be better off taking no HAART therapy in order to prevent development of resistance Plan for [place] pharmacist to bring patient's Truvada to [facility] today Currently, the patient is not on HAART therapy ANC 1800 CD4 count pending (3) Photosensitivity Is this a current diagnosis for this admission?: Yes Plan: Patient endorses spending a great deal of time outside recently Presents to [facility] with photosensitivity rash to upper extremities and posterior neck No papules, pustules, or blisters Keep skin clean with soap and water, no occlusive dressings - Time Time Spent with patient: 15-24 minutes Medications reviewed and adjusted accordingly: Yes Anticipated discharge: Home Within: within 24 hours - Inpatient Certification Based on my medical assessment, after consideration of the patient's comorbidities, presenting symptoms, or acuity I expect that the services needed warrant INPATIENT care.: Yes I certify that my determination is in accordance with my understanding of Medicare's requirements for reasonable and necessary INPATIENT services [42 CFR 412.3e].: Yes Medical Necessity: Need for Nebulizer Therapy and Monitoring of Response, Need for IV Antibiotics, Risk of Complication if Not Cared For in Hospital - Plan Summary Plan Summary: ANTIBIOTIC RECOMMENDATIONS FROM ID. INITIATE TRUVADA HAART THERAPY.
--- NOTE | 2017-10-04 18:38 | Progress Note ---
Provider Note Provider Note: ID Consult Note Asked to review patient's chart and spoke with Nidia Juarez NP, via telephone. Pt not seen or examined. Mr. Ramírez is a 42 year old man with HIV since 1992, bacteremic pneumococcal pneumonia in April 2015, and a prior episode of PJP pneumonia in 2016. He also has some chronic hypoxic respiratory failure for which he is on home O2. Pt presented to the hospital on 10/02/17 due to increased weakness, fatigue, SOB, and wheezing x a few days prior to admission with productive cough with greenish sputum. He denied fever, chills, or GI symptoms. Pt has no fever. He was appreciated as having bibasilar crackles on admission with diminished breath sounds and hypoxia, requiring intially supplemental O2 at 4L to maintain O2 sats in the 90s. His labs were notable for mild leukopenia with WBC 3.1 on presentation and platelt count 63k. Cr normal, AST 79, ALT 35. Imaging included CXR which was read as showing nonspecific prominence of interstitial markings and minimal confluent density L lung base. CTA chest showed no PE, some enlarged paratracheal and bilateral hilar lymph nodes, and diffuse GGO b/l with diffuse cystic change that "may be postinfectious or related to chronic infection/inflammation such as chronic bronchitis or obstructive lung disease. These findings could also be seen with developing interstitial lung disease." Pt's home HIV regimen is dolutegravir, darunavir/cobicistat, and tenofovir and dapsone. Pt's most recent CD4 count is unknown, although patient recalls he had labs in July 2017. He reportedly has not picked up his prescriptions in at least 1 month. BCx were drawn, which have not shown any growth x 24h. No sputum was sent. Empirically, Rocephin and doxycycline were started along with patient's home dapsone for PJP prophylaxis. Pt is also receiving steroids. Impression: Possible PJP pneumonia vs typical causes of CAP - Pt with HIV with hypoxia, ground glass opacities, SOB. Pt is reportedly feeling much better currently on treatment for CAP, but the response might also be a reflection of steroids and dapsone that could be partially treating PJP. The patient's imaging and presentation (apart from the purulent character of his sputum) is compatible with PJP pneumonia if he is known to have a recent low CD4 count <200 and been noncompliant with all of his HIV medications, including PJP prophylaxis with dapsone. Recommendations: - Suggest contacting patient's outpatient HIV provider to confirm what his most recent CD4 count was. The fact that dapsone is listed among his home HIV medications implies that his CD4 count is probably low, but this should be confirmed with his outpatient HIV provider if possible. - Send sputum for culture since he has a productive cough with purulent sputum and the diagnosis is in question of whether the patient needs treatment for typical bacterial causes of community acquired pneumonia. - Sputum fungal stain to look for PJP but sensitivity varies widely. - Check LDH. - With the patient's sulfa allergy, the patient cannot be presumptively treated with Bactrim. Suggest starting trimethoprim 300 mg TID PO in addition to the patient's dapsone 100 mg once daily. Austin Kiran MD [facility] Infectious Diseases pager [phone]
[2017-10-05] MEDS: IPRATROPIUM/ALBUTEROL 0.5-2.5 MG/3 ML AMPUL NEB SCH ×4 (02:19→19:32)
[2017-10-05] MEDS: METHYLPREDNISOLONE INJ 40 MG/1 ML SDV IV SCH ×4 (04:42→21:30)
[2017-10-05] MEDS: NORMAL SALINE 1000 ML 1,000 ML IV PRN (05:29)
[2017-10-05 06:22] LABS: HEMATOCRIT 32.1 % (37.9-51.0); HEMOGLOBIN 10.5 g/dL (13.5-17.0); MEAN CORPUSCULAR HEMOGLOBIN 26.3 pg (27.0-33.4); MEAN CORPUSCULAR HGB CONC 32.8 g/dL (32.0-36.0); MEAN CORPUSCULAR VOLUME 80 fl (80-97); RED BLOOD COUNT 4.01 10^6/uL (4.35-5.55); RED CELL DISTRIBUTION WIDTH 17.7 % (11.5-14.0); WHITE BLOOD COUNT 4.6 10^3/uL (4.0-10.5)
[2017-10-05 06:33] LABS: ANION GAP 9 (5-19); BLOOD UREA NITROGEN 12 mg/dL (7-20); CALCIUM 8.4 mg/dL (8.4-10.2); CARBON DIOXIDE 22 mmol/L (22-30); CHLORIDE 115 mmol/L (98-107); GLUCOSE 139 mg/dL (75-110); POTASSIUM 4.4 mmol/L (3.6-5.0); SODIUM 145.9 mmol/L (137-145)
[2017-10-05 07:46] LABS: PLATELET COUNT 54 10^3/uL (150-450)
[2017-10-05 07:53] LABS: ABSOLUTE LYMPHOCYTES# (MANUAL) 0.3 10^3/uL (0.5-4.7); ABSOLUTE NEUTROPHILS# (MANUAL) 3.9 10^3/uL (1.7-8.2); BASOPHILS % (MANUAL) 0 % (0-2); EOSINOPHILS % (MANUAL) 0 % (0-6); LYMPHOCYTES % (MANUAL) 7 % (13-45); SEGMENTED NEUTROPHILS % (MAN) 85 % (42-78); TOTAL CELLS COUNTED 100
[2017-10-05 07:54] LABS: ABSOLUTE MONOCYTES # (MANUAL) 0.4 10^3/uL (0.1-1.4); ANISOCYTOSIS 1+; HYPERSEGMENTED NEUTROPHILS PRESENT; HYPOCHROMASIA SLIGHT; MONOCYTES % (MANUAL) 8 % (3-13); POLYCHROMASIA SLIGHT; ROULEAUX 1+; TOXIC GRANULATION 1+; TOXIC VACUOLATION PRESENT
[2017-10-05 07:55] LABS: PLATELET COMMENT DECREASED; PLATELET LARGE PRESENT
[2017-10-05] MEDS: CEFTRIAXONE 2 GM/D5W RTU 2 GM/50 ML RTUPB IV SCH (09:44)
[2017-10-05] MEDS: FAMOTIDINE 20 MG TABLET PO SCH ×2 (09:45→21:34)
[2017-10-05] MEDS: GUAIFENESIN 600 MG TABLET.SA PO SCH ×2 (09:46→21:34)
[2017-10-05] MEDS: DOXYCYCLINE HYCLATE 100 MG in DEXTROSE 5%-WATER 250 ML IV SCH ×2 (09:47→21:30)
[2017-10-05] MEDS: ENOXAPARIN SODIUM INJ 40 MG/0.4 ML DISP.SYRIN SUBCUT SCH (09:48)
[2017-10-05 15:16] LABS: PATH REVIEW PATHOLOGIST REVIEWED
--- NOTE | 2017-10-05 16:18 | PDOC PROGRESS REPORT ---
Subjective Progress Note for:: 10/05/17 Subjective:: BART MCCRACKEN is a 42 year old -[place] male with history of HIV and PNA (2017) who wears home O2 (2-4L NC) presented to the ED 10/02/2017 with SOB. The patient was seen this morning on rounds. He is resting comfortably in bed on room air. He still endorses a productive cough, states he was able to cough up a large green mucous specimen yesterday. The patient states he does not feel well today, his fatigue and weakness are worse today and he has not had the energy to walk around the unit today. He denies fever or chills. Upon assessment, rhonchi can be heard in B/L bases, wheezing has resolved. Talked to patient's PMD today, was able to get information about latest lab work from May 2017. CD4 count: 73. Viral load: 930. Consulted ID yesterday, recommended adding antibiotic coverage for PJP pneumonia. Reason For Visit: PNEUMONIA Physical Exam Vital Signs: Temp Pulse Resp BP Pulse Ox 97.6 F 102 H 18 121/65 90 L 10/05/17 15:03 10/05/17 15:03 10/05/17 15:03 10/05/17 15:03 10/05/17 15:03 Pulse Oximeter Continuous Start: 10/02/17 20: 20 Freq: RTQ4 Status: Active Document 10/05/17 14:40 [facility] [place]Rec: 10/05/17 14:50 [facility] [place] [id number]) Pulse Oximetry Assessment Oxygen Saturation (92-100) 91 Oxygen Delivery Method Room Air Fraction of Inspired Oxygen (FIO2) 21 Equipment Usage Equipment in Use Continuous SpO2 Machine # N 3 Intake & Output 10/04/17 10/05/17 10/06/17 06:59 06:59 06:59 Intake Total 3154 5494 700 Output Total 1400 2530 500 Balance 1754 2964 200 Weight 67.2 kg 62.9 kg General appearance: PRESENT: no acute distress, well-developed, well-nourished Eye exam: PRESENT: conjunctiva pink, PERRLA Mouth exam: PRESENT: moist, tongue midline Neck exam: PRESENT: full ROM Respiratory exam: PRESENT: rhonchi - bilateral lower bases, symmetrical, unlabored, other - +PRODUCTIVE COUGH Cardiovascular exam: PRESENT: +S1, +S2 Pulses: PRESENT: normal radial pulses, normal dorsalis pedis pul GI/Abdominal exam: PRESENT: normal bowel sounds, soft. ABSENT: tenderness Rectal exam: PRESENT: deferred Extremities exam: PRESENT: full ROM Musculoskeletal exam: PRESENT: ambulatory, full ROM Neurological exam: PRESENT: alert, awake, oriented to person, oriented to place , oriented to time, oriented to situation Psychiatric exam: PRESENT: appropriate affect Skin exam: PRESENT: dry, intact, normal color Results Laboratory Results: 10/05/17 06:02 10/05/17 06:02 10/05/17 10/05/17 06:02 06:02 WBC 4.6 RBC 4.01 L Hgb 10.5 L Hct 32.1 L MCV 80 MCH 26.3 L MCHC 32.8 RDW 17.7 H Plt Count 54 L Seg Neutrophils % Not Reportable Lymphocytes % Not Reportable Monocytes % Not Reportable Eosinophils % Not Reportable Basophils % Not Reportable Absolute Neutrophils Not Reportable Absolute Lymphocytes Not Reportable Absolute Monocytes Not Reportable Absolute Eosinophils Not Reportable Absolute Basophils Not Reportable Sodium 145.9 H Potassium 4.4 Chloride 115 H Carbon Dioxide 22 Anion Gap 9 BUN 12 Creatinine 0.78 Est GFR ( Amer) > 60 Est GFR (Non-Af Amer) > 60 Glucose 139 H Calcium 8.4 Impressions: Chest X-Ray 10/02/17 17:38 IMPRESSION: Chronic appearing changes as noted above. There is a minimal focal confluent density in the left lung base which I cannot exclude as an acute process superimposed on the chronic underlying changes. I cannot exclude a component of obstructive lung disease. Other findings as noted above Chest/Abdomen CTA 10/03/17 00:00 IMPRESSION: 1. No pulmonary embolus identified. 2. Scattered groundglass opacity and cystic change throughout the lungs as well as peribronchial interstitial thickening and mild cylindrical bronchiectasis. These findings may be postinfectious or related to chronic infection/inflammation such as chronic bronchitis or obstructive lung disease. These findings could also be seen with developing interstitial lung disease. 3. Mild hilar and mediastinal lymphadenopathy. This may be reactive. Based on these findings follow-up CT of the chest in 6-12 months recommended for continued surveillance. 4. Mild bibasilar linear opacities may be related to subsegmental atelectasis. A component of developing pneumonia is also a consideration. 5. Splenomegaly. This exam was performed according to our departmental dose-optimization program, which includes automated exposure control, adjustment of the mA and/or kV according to patient size and/or use of iterative reconstruction technique. Status: Imported from PACS Assessment & Plan - Diagnosis (1) Pneumonia Is this a current diagnosis for this admission?: Yes Plan: As seen on radiological imaging Ground glass opacities on CTA +Productive cough - sputum culture pending Scheduled and as needed duo nebs Continue IV Solu-Medrol, wean to q12h History of multidrug resistant strep pneumoniae Currently treated with Rocephin and doxycycline for community acquired PNA - history of azithromycin resistance Recent CD4 count 73 Viral load 930. After consultation with ID, Dr. Kiran, recommends initiating PO antibiotics for PJP pneumonia coverage. Initiate trimethoprim 300mg PO TID, will need 21 days of treatment (2) HIV (human immunodeficiency virus infection) Is this a current diagnosis for this admission?: Yes Plan: Continue Truvada HAART therapy ANC 1800 CD4 73 Viral load 930 (3) Photosensitivity Is this a current diagnosis for this admission?: Yes Plan: Patient endorses spending a great deal of time outside recently Presents to [facility] with photosensitivity rash to upper extremities and posterior neck No papules, pustules, or blisters Keep skin clean with soap and water, no occlusive dressings - Time Time Spent with patient: 15-24 minutes Medications reviewed and adjusted accordingly: Yes Anticipated discharge: Home - Inpatient Certification Based on my medical assessment, after consideration of the patient's comorbidities, presenting symptoms, or acuity I expect that the services needed warrant INPATIENT care.: Yes I certify that my determination is in accordance with my understanding of Medicare's requirements for reasonable and necessary INPATIENT services [42 CFR 412.3e].: Yes Medical Necessity: Need for IV Antibiotics, Risk of Complication if Not Cared For in Hospital - Plan Summary Plan Summary: INITIATE PO ANTIBIOTICS FOR PJP PNA. PLAN FOR DISCHARGE HOME IN 24-48HRS
[2017-10-05] MEDS: TRIMETHOPRIM 100 MG TABLET PO SCH (21:34)
[2017-10-05] MEDS: DAPSONE 25 MG TABLET PO SCH (21:35)
[2017-10-06] MEDS: NORMAL SALINE 1000 ML 1,000 ML IV PRN ×2 (01:35→21:42)
[2017-10-06] MEDS: IPRATROPIUM/ALBUTEROL 0.5-2.5 MG/3 ML AMPUL NEB SCH ×4 (01:37→19:48)
[2017-10-06] MEDS: METHYLPREDNISOLONE INJ 40 MG/1 ML SDV IV SCH ×3 (04:47→21:37)
[2017-10-06] MEDS: TRIMETHOPRIM 100 MG TABLET PO SCH ×3 (05:45→21:37)
[2017-10-06 07:15] LABS: HEMATOCRIT 31.5 % (37.9-51.0); HEMOGLOBIN 10.1 g/dL (13.5-17.0); MEAN CORPUSCULAR HEMOGLOBIN 25.6 pg (27.0-33.4); MEAN CORPUSCULAR HGB CONC 32.2 g/dL (32.0-36.0); MEAN CORPUSCULAR VOLUME 80 fl (80-97); RED BLOOD COUNT 3.96 10^6/uL (4.35-5.55); WHITE BLOOD COUNT 3.4 10^3/uL (4.0-10.5)
[2017-10-06 08:05] LABS: PLATELET COUNT 74 10^3/uL (150-450)
[2017-10-06] MEDS: ENOXAPARIN SODIUM INJ 40 MG/0.4 ML DISP.SYRIN SUBCUT SCH (09:18)
[2017-10-06] MEDS: DOXYCYCLINE HYCLATE 100 MG in DEXTROSE 5%-WATER 250 ML IV SCH ×2 (09:25→21:40)
[2017-10-06] MEDS: CEFTRIAXONE 2 GM/D5W RTU 2 GM/50 ML RTUPB IV SCH (09:25)
[2017-10-06] MEDS: GUAIFENESIN 600 MG TABLET.SA PO SCH ×2 (09:26→21:37)
[2017-10-06] MEDS: FAMOTIDINE 20 MG TABLET PO SCH ×2 (09:26→21:37)
[2017-10-06 12:38] LABS: % CD 4 POS LYMPH 4.1 % (30.8-58.5); ABSOLUTE CD 4 HELPER 33 /uL (359-1519); CD BASOPHILS 0 % (Not Estab.); CD EOSINOPHILS 1 % (Not Estab.); CD MONOCYTES 13 % (Not Estab.); CD NEUTROPHILS 67 % (Not Estab.); HEMOGLOBIN 10.2 g/dL (13.0-17.7); IMMATURE GRANULOCYTES 2 % (Not Estab.); IMMATURE GRANULOCYTES (ABS) 0.1 x10E3/uL (0.0-0.1); LYMPHS(ABSOLUTE) 0.8 x10E3/uL (0.7-3.1); MCH 25.1 pg (26.6-33.0); MCHC 30.7 g/dL (31.5-35.7); MCV 82 fL (79-97); MONOCYTES(ABSOLUTE) 0.6 x10E3/uL (0.1-0.9); NEUTROPHILS(ABSOLUTE) 3.3 x10E3/uL (1.4-7.0); RBC 4.06 x10E6/uL (4.14-5.80); RDW 17.4 % (12.3-15.4); WBC 4.9 x10E3/uL (3.4-10.8)
--- NOTE | 2017-10-06 17:25 | PDOC PROGRESS REPORT ---
Subjective Progress Note for:: 10/06/17 Subjective:: BART MCCRACKEN is a 42 year old -English male with history of HIV and PNA (2017) who wears home O2 (2-4L NC) presented to the ED 10/02/2017 with SOB. The patient was seen this morning on rounds. He is resting comfortably in bed on supplemental oxygen. He endorses a dry cough but states feels much better today. He denies fatigue, weakness, fever or chills. Upon assessment, rhonchi can be heard in B/L bases but it has improved since admission, wheezing has completely resolved. The patient was started on treatment for pneumocystis PNA ( PO Dapsone & trimethoprim) yesterday and has been tolerating the treatment well. Sputum culture and PJP PCR currently pending. Awaiting results. Reason For Visit: PNEUMONIA Physical Exam Vital Signs: Temp Pulse Resp BP Pulse Ox 97.8 F 93 19 122/74 92 10/06/17 11:18 10/06/17 11:18 10/06/17 11:18 10/06/17 11:18 10/06/17 12:22 Pulse Oximeter Continuous Start: 10/02/17 20: 20 Freq: RTQ4 Status: Active Document 10/06/17 12:22 [facility] [place] (Rec: 10/06/17 12:22 [facility] [place] [id number]) Pulse Oximetry Assessment Oxygen Saturation (92-100) 92 Oxygen Delivery Method Room Air Fraction of Inspired Oxygen (FIO2) 28 Equipment Usage Equipment in Use Continuous SpO2 Machine # N 3 Intake & Output 10/05/17 10/06/17 10/07/17 06:59 06:59 06:59 Intake Total 5494 3495 600 Output Total 2530 3375 1300 Balance 2964 120 -700 Weight 62.9 kg 69.7 kg General appearance: PRESENT: no acute distress, well-developed, well-nourished Eye exam: PRESENT: conjunctiva pink, PERRLA Mouth exam: PRESENT: moist, tongue midline Neck exam: PRESENT: full ROM Respiratory exam: PRESENT: rhonchi - bilateral lower bases, symmetrical, unlabored. ABSENT: tachypnea, wheezes Cardiovascular exam: PRESENT: RRR, +S1, +S2 Pulses: PRESENT: normal radial pulses, normal dorsalis pedis pul Vascular exam: PRESENT: normal capillary refill GI/Abdominal exam: PRESENT: normal bowel sounds, soft. ABSENT: tenderness Rectal exam: PRESENT: deferred Extremities exam: PRESENT: full ROM. ABSENT: joint swelling, pedal edema Musculoskeletal exam: PRESENT: ambulatory, full ROM Neurological exam: PRESENT: alert, awake, oriented to person, oriented to place , oriented to time, oriented to situation Psychiatric exam: PRESENT: appropriate affect Skin exam: PRESENT: dry, rash - ARMS AND POSTERIOR NECK. NO PAPULES, BOILS, LESIONS OR VESICLES.. ABSENT: vesicles Results Laboratory Results: 10/06/17 07:07 10/05/17 06:02 10/06/17 10/06/17 04:46 07:07 WBC Cancelled 3.4 L RBC Cancelled 3.96 L Hgb Cancelled 10.1 L Hct Cancelled 31.5 L MCV Cancelled 80 MCH Cancelled 25.6 L MCHC Cancelled 32.2 RDW Cancelled 18.0 H Plt Count Cancelled 74 L 10/04/17 18:30 Sputum Gram Stain - Final 10/04/17 18:30 Sputum Sputum Culture - Final C.albicans/C.dubliniensis Reduced Normal Radha Impressions: Chest X-Ray 10/02/17 17:38 IMPRESSION: Chronic appearing changes as noted above. There is a minimal focal confluent density in the left lung base which I cannot exclude as an acute process superimposed on the chronic underlying changes. I cannot exclude a component of obstructive lung disease. Other findings as noted above Chest/Abdomen CTA 10/03/17 00:00 IMPRESSION: 1. No pulmonary embolus identified. 2. Scattered groundglass opacity and cystic change throughout the lungs as well as peribronchial interstitial thickening and mild cylindrical bronchiectasis. These findings may be postinfectious or related to chronic infection/inflammation such as chronic bronchitis or obstructive lung disease. These findings could also be seen with developing interstitial lung disease. 3. Mild hilar and mediastinal lymphadenopathy. This may be reactive. Based on these findings follow-up CT of the chest in 6-12 months recommended for continued surveillance. 4. Mild bibasilar linear opacities may be related to subsegmental atelectasis. A component of developing pneumonia is also a consideration. 5. Splenomegaly. This exam was performed according to our departmental dose-optimization program, which includes automated exposure control, adjustment of the mA and/or kV according to patient size and/or use of iterative reconstruction technique. Assessment & Plan - Diagnosis (1) Pneumonia Is this a current diagnosis for this admission?: Yes Plan: As seen on radiological imaging Ground glass opacities on CTA Elevated LDH 309 U/L +Productive cough - sputum culture pending Scheduled and as needed duo nebs Continue IV Solu-Medrol q12h History of multidrug resistant strep pneumoniae Currently treated with Rocephin and doxycycline for community acquired PNA - history of azithromycin resistance Recent CD4 count 73 Viral load 930. After consultation with ID, Dr. Kiran, recommends initiating PO antibiotics for PJP pneumonia coverage. Continue trimethoprim 300mg PO TID and Dapsone 100mg PO daily. Will need 21 days of treatment (last day 10/26/2017). (2) HIV (human immunodeficiency virus infection) Is this a current diagnosis for this admission?: Yes Plan: Continue Truvada HAART therapy Recent lab work from MAY 2017: CD4 73. Viral load 930. Recheck while at [facility], results pending (3) Photosensitivity Is this a current diagnosis for this admission?: Yes Plan: Patient endorses spending a great deal of time outside recently Presents to [facility] with photosensitivity rash to upper extremities and posterior neck No papules, pustules, or blisters Keep skin clean with soap and water, no occlusive dressings - Time Time Spent with patient: 15-24 minutes Medications reviewed and adjusted accordingly: Yes Anticipated discharge: Home - Inpatient Certification Based on my medical assessment, after consideration of the patient's comorbidities, presenting symptoms, or acuity I expect that the services needed warrant INPATIENT care.: Yes I certify that my determination is in accordance with my understanding of Medicare's requirements for reasonable and necessary INPATIENT services [42 CFR 412.3e].: Yes Medical Necessity: Need for IV Antibiotics, Risk of Complication if Not Cared For in Hospital - Plan Summary Plan Summary: CONTINUE COVERAGE FOR CAP AND PNEUMOCYSTITIS PNA. SPUTUM STUDIES PENDING.
[2017-10-06] MEDS: DAPSONE 25 MG TABLET PO SCH (21:38)
[2017-10-07] MEDS: IPRATROPIUM/ALBUTEROL 0.5-2.5 MG/3 ML AMPUL NEB SCH ×2 (02:08→07:57)
[2017-10-07] MEDS: TRIMETHOPRIM 100 MG TABLET PO SCH ×2 (05:18→14:12)
[2017-10-07 05:44] LABS: HEMOGLOBIN 10.5 g/dL (13.5-17.0); MEAN CORPUSCULAR HEMOGLOBIN 25.8 pg (27.0-33.4); MEAN CORPUSCULAR VOLUME 80 fl (80-97)
[2017-10-07 06:47] LABS: HEMATOCRIT 32.5 % (37.9-51.0); RED BLOOD COUNT 4.08 10^6/uL (4.35-5.55); WHITE BLOOD COUNT 3.2 10^3/uL (4.0-10.5)
[2017-10-07 06:48] LABS: MEAN CORPUSCULAR HGB CONC 32.4 g/dL (32.0-36.0); RED CELL DISTRIBUTION WIDTH 17.7 % (11.5-14.0)
[2017-10-07 06:51] LABS: PLATELET COUNT 70 10^3/uL (150-450)
[2017-10-07] MEDS: CEFTRIAXONE 2 GM/D5W RTU 2 GM/50 ML RTUPB IV SCH (09:51)
[2017-10-07] MEDS: FAMOTIDINE 20 MG TABLET PO SCH (09:51)
[2017-10-07] MEDS: GUAIFENESIN 600 MG TABLET.SA PO SCH (09:51)
[2017-10-07] MEDS: METHYLPREDNISOLONE INJ 40 MG/1 ML SDV IV SCH (09:52)
[2017-10-07] MEDS: ENOXAPARIN SODIUM INJ 40 MG/0.4 ML DISP.SYRIN SUBCUT SCH (09:52)
[2017-10-07] MEDS: DOXYCYCLINE HYCLATE 100 MG in DEXTROSE 5%-WATER 250 ML IV SCH (10:52)
[2017-10-07 14:00] VITALS: BP 122/74
--- NOTE | 2017-10-16 14:24 | PDOC DISCHARGE SUMMARY ---
General - Admit/Disc Date/PCP Admission Date/Primary Care Provider: 10/02/17 19:54 MARIAH KENNETH KEITA Discharge Date: 10/07/17 - Discharge Diagnosis (1) Pneumonia Is this a current diagnosis for this admission?: Yes (2) HIV (human immunodeficiency virus infection) Is this a current diagnosis for this admission?: Yes (3) Photosensitivity Is this a current diagnosis for this admission?: Yes - Additional Information Resuscitation Status: Full Code Discharge Diet: As Tolerated Discharge Activity: Activity As Tolerated Prescriptions: Dapsone 100 mg PO DAILY #20 tablet Guaifenesin [Mucinex Sr 600 mg Tablet.sa] 600 mg PO Q12 7 Days #14 tablet.sa Prednisone 20 mg PO DAILY #41 tablet Trimethoprim [Trimpex 100 mg Tablet] 300 mg PO Q8 #180 tablet Home Medications: Darunavir/Cobicistat [Prezcobix 800 mg-150 mg Tablet] 1 tab PO DAILY 10/02/17 Dolutegravir Sodium [Tivicay] 50 mg PO DAILY 10/02/17 Tenofovir Disoproxil Fumarate [Viread] 300 mg PO DAILY 10/02/17 Valacyclovir HCl [Valacyclovir] 500 mg PO DAILY 10/03/17 Dapsone 100 mg PO DAILY #20 tablet 10/07/17 Guaifenesin [Mucinex Sr 600 mg Tablet.sa] 600 mg PO Q12 7 Days #14 tablet.sa 01/14 Prednisone 20 mg PO DAILY #41 tablet 10/07/17 Trimethoprim [Trimpex 100 mg Tablet] 300 mg PO Q8 #180 tablet 10/07/17 History of Present Illness History of Present Illness: BART MCCRACKEN is a 42 year old -[place] male with history of HIV who presented to the emergency room with acute onset of cough productive of greenish sputum with associated weakness and fatigue as well as dyspnea and wheezing for the last couple of days. He denied any fever or chills. He denies any abdominal pain or nausea or vomiting or melena or bright red bleeding per rectum. No chest pain or palpitations. Denies any diarrhea. He takes Truvada for his HIV and was sitting in the sun today when he developed maculopapular rash all over his body. When he came to the ER his EKG showed normal sinus rhythm with a rate of 79 with T-wave inversion in aVL. His vital signs reveal a temperature of 98.1 and heart rate 106 with a respiratory rate of 24, blood pressure of 122/74 and pulse oximetry of 86% on room air. As revealed mild leukopenia and thrombocytopenia. D-dimer was 1.53 and AST was 79 with alk phos 175 with lactic acid 1.7. The patient was given hydration with IV normal saline as well as IV Rocephin and from X. He will be admitted to medical monitored bed for further evaluation and management. Hospital Course Hospital Course: BART MCCRACKEN is a 42 year old -[place] male with history of HIV and PNA (2016) who wears home O2 (2-4L NC) as needed presented to the ED 10/02/2017 with SOB and a rash to bilateral upper extremities and posterior neck. Initial CXR revealed chronic interstitial lung disease and a L lung opacity, likely an acute finding superimposed on chronic lung disease. Chest CTA revealed diffuse ground glass opacities and mild bibasilar linear opacities suggestive of PNA. Looking back through the patient's records, he has a history of multidrug resistant strep pneumoniae, including resistance to azithromycin. The patient was initially placed on empiric treatment for community acquired PNA with Rocephin and doxycycline. The patient reported that he normally receives follow up care at the [facility]. They were contacted in order to obtain records regarding recent CD4 count and a up-to-date medication list. The clinic revealed that the patient has not been compliant with his HAART therapy and has not been seen by a provider in over a year. His most recent lab work was from MAY 2017 - revealing a CD4 count 73 and viral load 930. Infectious disease MD, Dr. Kiran, was consulted regarding appropriate antibiotic therapy. Given the CTA findings, recent low CD4 count (73), and lack of treatment compliance, Dr. Kiran recommended initiating PO antibiotics for PJP pneumonia coverage. The patient was placed on trimethoprim 300mg PO TID and Dapsone 100mg PO daily. He was instructed that these medications would need to be continued for 21 days (last day 10/26/2017). In addition to the antibiotics, the patient was treated with steroids (IV -> PO) for his interstitial inflammation and persistent wheezing. The patient's rash was thought to be a photosensitivity reaction. He endorsed spending a great deal of time outside recently. No papules, pustules, or blisters were present. The skin was cleaned with soap and water, no occlusive dressings required. It significantly improved over the course of his hospitalization. During his hospital stay, the retail planner and [facility] pharmacy were able to coordinate delivery of the patient's HAART therapy, Truvada. The patient received enough to last him 1 month. Arrangements were made with [facility] pharmacy to continue delivery service of his medications. After 5 days in the hospital, the patient was deemed safe for discharge. His vital signs had stabilized, he was able to tolerate ambulating without symptoms of dyspnea, and he was tolerating his antibiotic/steroid regimen. The patient received 5 days of antibiotic coverage for community acquired PNA (this was not continued post- discharge), additionally, he was started on trimethoprim and Dapsone for PJP pneumonia treatment. Arrangements were made with [facility] to get the trimethoprim, Dapsone and steroids delivered to the patient's home. The patient was instructed to [facility] with [facility]. He was instructed to return to the ED if he should develop a fever or worsening SOB. The patient received extensive counseling regarding the importance of medication compliance , he stated understanding. For further information regarding this patient's hospitalization, please refer to the EMR. Physical Exam Vital Signs: Temp Pulse Resp BP Pulse Ox 97.7 F 83 16 122/74 91 L 10/07/17 13:59 10/07/17 13:59 10/07/17 13:59 10/07/17 13:59 10/07/17 13:59 Pulse Oximeter Continuous Start: 10/02/17 20: 20 Freq: RTQ4 Status: Discharge Document 10/07/17 14:45 HCR (Rec: 10/07/17 15:02 HCR [id number]) Pulse Oximetry Assessment Equipment Usage Equipment Discontinued Continuous SpO2 Machine # 3 Results Laboratory Results: 10/07/17 05:01 10/05/17 06:02 Impressions: Chest X-Ray 10/02/17 17:38 IMPRESSION: Chronic appearing changes as noted above. There is a minimal focal confluent density in the left lung base which I cannot exclude as an acute process superimposed on the chronic underlying changes. I cannot exclude a component of obstructive lung disease. Other findings as noted above Chest/Abdomen CTA 10/03/17 00:00 IMPRESSION: 1. No pulmonary embolus identified. 2. Scattered groundglass opacity and cystic change throughout the lungs as well as peribronchial interstitial thickening and mild cylindrical bronchiectasis. These findings may be postinfectious or related to chronic infection/inflammation such as chronic bronchitis or obstructive lung disease. These findings could also be seen with developing interstitial lung disease. 3. Mild hilar and mediastinal lymphadenopathy. This may be reactive. Based on these findings follow-up CT of the chest in 6-12 months recommended for continued surveillance. 4. Mild bibasilar linear opacities may be related to subsegmental atelectasis. A component of developing pneumonia is also a consideration. 5. Splenomegaly. This exam was performed according to our departmental dose-optimization program, which includes automated exposure control, adjustment of the mA and/or kV according to patient size and/or use of iterative reconstruction technique. Status: Imported from [facility] Qual[facility] - * PATIENT BEING DISCHARGED WITH ANY OF THE FOLLOWING DIAGNOSIS: No Plan Discharge Plan: DISCHARGE HOME. CONTINUE ANTIBIOTIC THERAPY FOR A TOTAL OF 21 DAYS. FOLLOW UP AT [facility] [place]. Time Spent: Less than 30 Minutes
== END 2017-10-07 14:54 | disposition home or self-care (01) | DRG 976 ==
LOC: ER 15:57 → EH 19:54 → 3W 10-03 01:02
PROVIDERS: ADMIT Family Medicine; ATTEND Family Medicine
DX: B20 Human immunodeficiency virus [HIV] disease (principal); B59 Pneumocystosis; J18.9 Pneumonia, unspecified organism; L56.8 Other specified acute skin changes due to ultraviolet radiation; D69.6 Thrombocytopenia, unspecified; R09.02 Hypoxemia; D72.819 Decreased white blood cell count, unspecified; Z99.81 Dependence on supplemental oxygen; Z88.2 Allergy status to sulfonamides
CPT/HCPCS: 36415; 71045; 71275; 80048; 80053; 82550; 82553; 83605; 83615; 84484; 85025; 85027; 85379; 86361; 87040; 87070; 87205; 87493; 93005; 93010; 94762; 96360; 99285; C1751; J0456; J0696; J1650; J2920; J2930; J3490; J7030; J7060; J7620

== ENCOUNTER 2018-02-22 10:46 | Inpatient (IN) | payer MEDICAID ==
[2018-02-22] MEDS ORDERED: TETRACAINE HCL 0.5% OPH SOLN 4 ML OS ONE (11:35)
[2018-02-22] MEDS ORDERED: TRIFLURIDINE 1% OPH SOLN 7.5 ML OU ONE (12:40)
[2018-02-22] MEDS ORDERED: VALACYCLOVIR HCL 500 MG TABLET PO ONE (12:40)
--- NOTE | 2018-02-22 12:42 | ER Document Report ---
Addendum entered and electronically signed by DAVID OLIVIER NP 02/22/18 19:55: Procedures - Eye Procedure Left Acular drops administered: Left Fluorescein applied: Left Eyes picture: 1 - opaque- concerning for ulcer,+ fluroscein uptake, shape concerning for dendritic lesion 2 - 2 mm opacity, +fluoroscein uptake 3 - 1 mm lesion, +fluroscein uptake Addendum entered and electronically signed by DAVID OLIVIER NP 02/22/18 19:51: Course - Re-evaluation Re-evalutation: 02/22/18 19:51 Was reviewing charts and looked at patient's admission orders realizing that hospitalist had only ordered the IV acyclovir for once daily instead of the 3 times a day recommendation per infectious disease. Attempted to consult daytime hospitalist, did speak with Dr. Webster who states that he will look into it and correct the order. - Vital Signs Vital signs: Temp Pulse Resp BP Pulse Ox 97.9 F 92 17 122/91 H 96 02/22/18 17:47 02/22/18 17:47 02/22/18 17:47 02/22/18 17:47 02/22/18 17:47 - Laboratory Result Diagrams: 02/22/18 13:05 02/22/18 13:05 Laboratory results interpreted by me: 02/22/18 02/22/18 13:05 13:05 WBC 2.9 L Hgb 12.8 L MCV 77 L MCH 25.4 L RDW 18.3 H Plt Count 70 L Abs Neuts (Manual) 1.3 L AST 77 H Alkaline Phosphatase 151 H Total Protein 9.3 H Original Note: ED Eye Complaint - General Chief Complaint: Eye Problem Stated Complaint: LEFT EYE PAIN Time Seen by Provider: 02/22/18 11:24 Mode of Arrival: Ambulatory Information source: Patient Notes: Patient presents complaining of left eye redness and discomfort for the past 3 days. Patient also reports rash to the extremities that has worsened. Patient complains of discomfort to the rectal area. Patient states that he does have a history of HIV and for the most part is compliant with his antiviral medications. Patient denies any use of contact lenses and did not bring his glasses with him here today. Patient denies any fever. Patient is uncertain of his viral load or his most recent CD4 count. Patient is followed by infectious disease doctor out of [facility]. Patient states that he did miss his last infectious disease appointment in August of this year. Patient states that he chronically has problems with shingles and takes valacyclovir daily. TRAVEL OUTSIDE OF THE [place] IN LAST 30 DAYS: No - HPI Onset: Other - 3 Days Pain Level: 3 Contact lenses worn: No Associated symptoms: Pain, Redness, Blurred vision - Related Data Allergies/Adverse Reactions: Sulfa (Sulfonamide Antibiotics) Allergy (Verified 02/22/18 10:49) Past Medical History - General Information source: Patient - Social History Smoking Status: Never Smoker Frequency of alcohol use: None Drug Abuse: None Occupation: none Family History: CAD, CVA Pulmonary Medical History: Reports: Hx Pneumonia Denies: Hx Asthma - denies Renal/ Medical History: Denies: Hx Peritoneal Dialysis Psychiatric Medical History: Reports: Hx Depression - not clinically diagnosed Infectious Medical History: Reports: Hx HIV Past Surgical History: Reports: Hx Kidney (Renal Surgery) - left removed, Hx Orthopedic Surgery - Immunizations Hx Diphtheria, Pertussis, Tetanus Vaccination: Yes Hx Pneumococcal Vaccination: 05/28/12 Review of Systems - Review of Systems Constitutional: No symptoms reported. denies: Fever EENT: Eye pain, Blurred vision, Tearing. denies: Double vision Cardiovascular: No symptoms reported. denies: Chest pain Respiratory: No symptoms reported. denies: Cough, Short of breath Gastrointestinal: Other - rectal rash. denies: Nausea, Vomiting Genitourinary: No symptoms reported Male Genitourinary: No symptoms reported Musculoskeletal: No symptoms reported Skin: Rash Hematologic/Lymphatic: No symptoms reported Neurological/Psychological: No symptoms reported. denies: Confusion, Headaches Physical Exam - Vital signs Vitals: Temp Pulse Resp BP Pulse Ox 98.9 F 104 H 16 128/76 H 93 02/22/18 10:54 02/22/18 10:54 02/22/18 10:54 02/22/18 10:54 02/22/18 10:54 - General General appearance: Alert In distress: Mild - HEENT Head: Normocephalic, Other - Patient with scattered crusted ulcerations to face, between brows and to left cheek and left side of the mouth Eyes: Other - Sclera hyperemic the left eye Conjunctiva: Injected. No: Purulent discharge Cornea: Corneal ulcer, Dendrite, Flourescein stain uptake, Opacified Extraocular movements intact: Yes Eyelashes: Normal Pupils: PERRL Nasal: Normal Mouth/Lips: Normal Neck: Normal, Supple. No: Lymphadenopathy - Respiratory Respiratory status: No respiratory distress Chest status: Nontender Breath sounds: Normal. No: Rales, Rhonchi, Stridor, Wheezing Chest palpation: Normal - Cardiovascular Rhythm: Regular Heart sounds: S1 appreciated, S2 appreciated - Abdominal Inspection: Other - Scattered erythematous ulcerations to trunk Distension: No distension Bowel sounds: Normal Tenderness: Nontender Organomegaly: No organomegaly - Rectal Tenderness: Yes Hemorrhoids: Other - Condyloma acuminata perirectally - Back Back: Normal, Nontender - Extremities General upper extremity: Normal inspection, Normal ROM General lower extremity: Normal inspection, Normal ROM - Neurological Neuro grossly intact: Yes Cognition: Normal Josue Coma Scale Eye Opening: Spontaneous Josue Coma Scale Verbal: Oriented Josue Coma Scale Motor: Obeys Commands [place] Coma Scale Total: 15 - Psychological Associated symptoms: Normal affect, Normal mood - Skin Skin Temperature: Warm Skin Moisture: Dry Skin irregularity: Rash - Diffuse erythematous maculopapular rash with scattered ulcerations distributed to face, trunk and extremities Course - Re-evaluation Re-evalutation: 02/22/18 12:[address] Trent who recommends having patient on contact precautions. Spoke with Dr. oWlfe who is on for ophthalmology with concerned about ocular zoster with ulceration to cornea. Who recommends treating patient with valacyclovir 1 g orally 3 times daily as well as topical Viroptic and recommends outpatient follow-up in the office tomorrow. Did discuss with Dr. Wolfe dosing instructions for Viroptic to include 1 drop every 2 hours while awake with the next day follow-up with ophthalmology for further dosing instructions. Dr. Wolfe is aware that we are still pending infectious disease consultation. Advises following infectious disease recommendation if they advise different treatment of eye involvement. Dr. Wolfe does not recommend any topical steroids at this time. 02/22/18 14:21 call placed to [facility] transfer center. 02/22/18 14:[address] Park Vargas who is signal constructor for infectious disease at [facility]. She recommended starting patient on acyclovir 10 mg/kg 3 times daily for 7 days pending a normal renal function. Then states that he can be dropped down to valacyclovir 1 g orally 3 times a day for an additional week and then can return to his usual dose of his medication. States that there is nothing that could be performed at their facility that should not be able to be managed here and does not recommend transfer at this time. Dr. Akbar states that patient's most recent viral load was 900 and his CD4 count was 73 in May 2017. 02/22/18 14:[address] Woodard regarding need for admission for IV acyclovir given disseminated zoster at this time. ENTRY SPECIALIST Azeem Arevalo to assume care of patient. 02/22/18 15:[address] Wolfe regarding patient's planned admission at this time as patient will not be able to follow-up in the office tomorrow for recheck. 02/22/18 15:[address] Wolfe and advised that patient will be admitted here and that will need ophthalmic eval here as he will not be able to follow-up in the office as he is currently being admitted. Dr. Wolfe agreed to evaluate patient. 02/22/18 15:46 Spoke with pharmacy staff regarding need to send down order for the Viroptic since patient will be staying here as it admission and not be transferred at this time. Pharmacy staff recommend sending down hand written order for the Viroptic. RN updated regarding plan of care. 02/22/18 18:35 - Vital Signs Vital signs: Temp Pulse Resp BP Pulse Ox 98.3 F 93 18 126/79 H 97 02/22/18 16:47 02/22/18 16:47 02/22/18 16:47 02/22/18 16:47 02/22/18 16:47 - Laboratory Result Diagrams: 02/22/18 13:05 02/22/18 13:05 Laboratory results interpreted by me: 02/22/18 02/22/18 13:05 13:05 WBC 2.9 L Hgb 12.8 L MCV 77 L MCH 25.4 L RDW 18.3 H Plt Count 70 L Abs Neuts (Manual) 1.3 L AST 77 H Alkaline Phosphatase 151 H Total Protein 9.3 H Labs- Entire Visit 02/22/18 02/22/18 13:05 13:05 WBC 2.9 L RBC 5.03 Hgb 12.8 L Hct 38.7 MCV 77 L MCH 25.4 L MCHC 33.0 RDW 18.3 H Plt Count 70 L Total Counted 100 Seg Neutrophils % Not Reportable Seg Neuts % (Manual) 45 Lymphocytes % Not Reportable Lymphocytes % (Manual) 42 Monocytes % Not Reportable Monocytes % (Manual) 8 Eosinophils % Not Reportable Eosinophils % (Manual) 5 Basophils % Not Reportable Basophils % (Manual) 0 Absolute Neutrophils Not Reportable Abs Neuts (Manual) 1.3 L Absolute Lymphocytes Not Reportable Abs Lymphs (Manual) 1.2 Absolute Monocytes Not Reportable Abs Monocytes (Manual) 0.2 Absolute Eosinophils Not Reportable Absolute Eos (Manual) 0.1 Absolute Basophils Not Reportable Abs Basophils (Manual) 0.0 Platelet Comment DECREASED Sodium 137.1 Potassium 4.3 Chloride 103 Carbon Dioxide 29 Anion Gap 5 BUN 9 Creatinine 0.81 Est GFR ( Amer) > 60 Est GFR (Non-Af Amer) > 60 Glucose 100 Calcium 8.8 Total Bilirubin 0.5 Direct Bilirubin 0.2 Neonat Total Bilirubin Not Reportable Neonat Direct Bilirubin Not Reportable Neonat Indirect Bili Not Reportable AST 77 H ALT 33 Alkaline Phosphatase 151 H Total Protein 9.3 H Albumin 3.5 Discharge - Discharge Clinical Impression: HIV (human immunodeficiency virus infection), Zoster ophthalmicus, Disseminated herpes zoster Condition: Fair Disposition: ADMITTED INPATIENT Admitting Provider: Hospitalist Unit Admitted: Medical Floor
[2018-02-22 13:35] LABS: HEMATOCRIT 38.7 % (37.9-51.0); HEMOGLOBIN 12.8 g/dL (13.5-17.0); MEAN CORPUSCULAR HEMOGLOBIN 25.4 pg (27.0-33.4); MEAN CORPUSCULAR VOLUME 77 fl (80-97); RED BLOOD COUNT 5.03 10^6/uL (4.35-5.55); RED CELL DISTRIBUTION WIDTH 18.3 % (11.5-14.0); WHITE BLOOD COUNT 2.9 10^3/uL (4.0-10.5)
[2018-02-22 13:38] LABS: ALANINE AMINOTRANSFERASE 33 U/L (21-72); ALBUMIN 3.5 g/dL (3.5-5.0); ALKALINE PHOSPHATASE 151 U/L (38-126); ANION GAP 5 (5-19); ASPARTATE AMINO TRANSFERASE 77 U/L (17-59); BILIRUBIN,DIRECT 0.2 mg/dL (0.0-0.4); BILIRUBIN,TOTAL 0.5 mg/dL (0.2-1.3); BLOOD UREA NITROGEN 9 mg/dL (7-20); CALCIUM 8.8 mg/dL (8.4-10.2); CARBON DIOXIDE 29 mmol/L (22-30); CHLORIDE 103 mmol/L (98-107); GLUCOSE 100 mg/dL (75-110); POTASSIUM 4.3 mmol/L (3.6-5.0); SODIUM 137.1 mmol/L (137-145); TOTAL PROTEIN 9.3 g/dL (6.3-8.2)
[2018-02-22 14:01] LABS: PLATELET COUNT 70 10^3/uL (150-450)
[2018-02-22 14:02] LABS: ABSOLUTE LYMPHOCYTES# (MANUAL) 1.2 10^3/uL (0.5-4.7); ABSOLUTE MONOCYTES # (MANUAL) 0.2 10^3/uL (0.1-1.4); ABSOLUTE NEUTROPHILS# (MANUAL) 1.3 10^3/uL (1.7-8.2); BASOPHILS % (MANUAL) 0 % (0-2); EOSINOPHILS % (MANUAL) 5 % (0-6); LYMPHOCYTES % (MANUAL) 42 % (13-45); MONOCYTES % (MANUAL) 8 % (3-13); SEGMENTED NEUTROPHILS % (MAN) 45 % (42-78); TOTAL CELLS COUNTED 100
[2018-02-22 14:03] LABS: PLATELET COMMENT DECREASED
[2018-02-22] MEDS ORDERED: ACYCLOVIR SODIUM INJ/PF 500 MG/10 ML SDV IV ONE (14:32)
[2018-02-22] MEDS: TRIFLURIDINE 1% OPH SOLN 7.5 ML OS SCH ×4 (16:25→22:33)
[2018-02-22] MEDS ORDERED: ONDANSETRON 4 MG TAB.RAPDIS PO PRN (19:18)
[2018-02-22] MEDS ORDERED: MAG HYDROX/AL HYDROX/SIMETH SUSP 30 ML UDCUP PO PRN (19:18)
[2018-02-22] MEDS ORDERED: AZITHROMYCIN PO SCH (19:30)
--- NOTE | 2018-02-22 19:43 | PDOC H&P ---
History of Present Illness Admission Date/PCP: 02/22/18 16:07 KENNETH BEE Patient complains of: Left eye pain History of Present Illness: AGUEDA MCCRACKEN is a 42 year old male with a past medical history significant for HIV (x 15 yrs), PCP pneumonia, multiple episodes of herpes zoster. He reportedly is medication compliant with his HIV medications. He last met with his infectious disease team in October 2017. He is unaware of his most recent CD4 or viral load. He reports left eye pain that started approximately 3 days ago. Since then it has become very red and painful. His vision is preserved. There is significant watering from the eye. His eye is sensitive to light. ED provider contacted both local auto research engineer and infectious disease doctor in [place]. Recommendations from infectious disease physician was to give IV acyclovir once daily for a week followed by 1 g of valacyclovir 3 times daily for 3 weeks, and ultimately returning to his prophylactic dose of acyclovir. She reported there is no reason for transfer as it would not change care. Operative plans on seeing the patient tomorrow. He also reports symptoms and has lesions consistent with eczema that have shown up over the past 3 days. He denies symptoms of systemic infection. Denies fever chills diarrhea. Denies recent sick contacts. Reports being up-to-date on his flu vaccine. Follows with a primary care physician [place] care team, Evelyn Daniel. Past Medical History Pulmonary Medical History: Reports: Pneumonia - PCP Denies: Asthma - denies Psychiatric Medical History: Reports: Depression - not clinically diagnosed Infectious Medical History: Reports: HIV Past Surgical History Past Surgical History: Reports: Orthopedic Surgery Social History Smoking Status: Never Smoker Frequency of Alcohol Use: Rare Hx Recreational Drug Use: No Drugs: None Hx Prescription Drug Abuse: No Family History Family History: CAD, CVA Parental Family History Reviewed: Yes Children Family History Reviewed: Yes Sibling(s) Family History Reviewed.: Yes Medication/Allergy Home Medications: Darunavir/Cobicistat [Prezcobix 800 mg-150 mg Tablet] 1 tab PO DAILY 10/02/17 Dolutegravir Sodium [Tivicay] 50 mg PO DAILY 10/02/17 Tenofovir Disoproxil Fumarate [Viread] 300 mg PO DAILY 10/02/17 Valacyclovir HCl [Valacyclovir] 500 mg PO DAILY 10/03/17 Azithromycin [Zithromax 600 mg Tablet] 1,200 mg PO Q7D 02/22/18 Allergies/Adverse Reactions: Sulfa (Sulfonamide Antibiotics) Allergy (Verified 02/22/18 10:49) Review of Systems Constitutional: ABSENT: chills, fever(s), headache(s), weight gain, weight loss Eyes: PRESENT: as per HPI, other Ears: ABSENT: hearing changes Cardiovascular: ABSENT: chest pain, dyspnea on exertion, edema, orthropnea, palpitations Respiratory: ABSENT: cough, hemoptysis Gastrointestinal: ABSENT: abdominal pain, constipation, diarrhea, hematemesis, hematochezia, nausea, vomiting Genitourinary: ABSENT: dysuria, hematuria Musculoskeletal: ABSENT: joint swelling Integumentary: PRESENT: as per HPI Neurological: ABSENT: abnormal gait, abnormal speech, confusion, dizziness, focal weakness, syncope Psychiatric: ABSENT: anxiety, depression, homidical ideation, suicidal ideation Endocrine: ABSENT: cold intolerance, heat intolerance, polydipsia, polyuria Physical Exam Vital Signs: Temp Pulse Resp BP Pulse Ox 97.9 F 92 17 122/91 H 96 02/22/18 17:47 02/22/18 17:47 02/22/18 17:47 02/22/18 17:47 02/22/18 17:47 Intake & Output 02/21/18 02/22/18 02/23/18 06:59 06:59 06:59 Output Total 300 Balance -300 Weight 68.9 kg Head exam: PRESENT: atraumatic Eye exam: PRESENT: conjunctival injection, conjunctiva pink, PERRLA, other - Clear drainage. Ear exam: PRESENT: normal external ear exam Mouth exam: PRESENT: moist, tongue midline Teeth exam: PRESENT: poor dentation Respiratory exam: PRESENT: clear to auscultation ileana. ABSENT: rales, rhonchi, wheezes Cardiovascular exam: PRESENT: RRR. ABSENT: diastolic murmur, rubs, systolic murmur Pulses: PRESENT: normal dorsalis pedis pul Vascular exam: PRESENT: normal capillary refill GI/Abdominal exam: PRESENT: normal bowel sounds, soft. ABSENT: distended, guarding, mass, organolmegaly, rebound, tenderness Rectal exam: PRESENT: deferred Extremities exam: PRESENT: full ROM. ABSENT: calf tenderness, clubbing, pedal edema Musculoskeletal exam: PRESENT: full ROM, normal inspection Neurological exam: PRESENT: alert, awake, oriented to person, oriented to place, oriented to time, oriented to situation, CN II-XII grossly intact. ABSENT: motor sensory deficit Psychiatric exam: PRESENT: normal mood Skin exam: PRESENT: other - Dry scaly type lesions on extensor surfaces. Results Laboratory Results: 02/22/18 13:05 02/22/18 13:05 02/22/18 02/22/18 13:05 13:05 WBC 2.9 L RBC 5.03 Hgb 12.8 L Hct 38.7 MCV 77 L MCH 25.4 L MCHC 33.0 RDW 18.3 H Plt Count 70 L Seg Neutrophils % Not Reportable Lymphocytes % Not Reportable Monocytes % Not Reportable Eosinophils % Not Reportable Basophils % Not Reportable Absolute Neutrophils Not Reportable Absolute Lymphocytes Not Reportable Absolute Monocytes Not Reportable Absolute Eosinophils Not Reportable Absolute Basophils Not Reportable Sodium 137.1 Potassium 4.3 Chloride 103 Carbon Dioxide 29 Anion Gap 5 BUN 9 Creatinine 0.81 Est GFR ( Amer) > 60 Est GFR (Non-Af Amer) > 60 Glucose 100 Calcium 8.8 Total Bilirubin 0.5 AST 77 H ALT 33 Alkaline Phosphatase 151 H Total Protein 9.3 H Albumin 3.5 Assessment & Plan - Diagnosis (1) Eczema Is this a current diagnosis for this admission?: Yes (2) HIV (human immunodeficiency virus infection) Is this a current diagnosis for this admission?: Yes (3) Zoster ophthalmicus Is this a current diagnosis for this admission?: Yes - Time Time Spent: Greater than 70 Minutes Critical Time spent with patient: 25-34 minutes Medications reviewed and adjusted accordingly: Yes - Inpatient Certification Based on my medical assessment, after consideration of the patient's comorbidities, presenting symptoms, or acuity I expect that the services needed warrant INPATIENT care.: Yes I certify that my determination is in accordance with my understanding of Medicare's requirements for reasonable and necessary INPATIENT services [42 CFR 412.3e].: Yes - Plan Summary Plan Summary: 1. HIV -Continue home meds -Check CD4 and viral load 2. Herpes opthalmicus -Antivirals per ID recommendations. IV acyclovir 700 daily times 7 days. Followed by valacyclovir 1 g 3 times daily for 3 weeks. Followed by going back on his prophylactic dose. -Ophthalmology consult -Hydrocodone 5 every 6 hours as needed for pain -Gabapentin trial for pain -Tetracaine drops for local anesthetic 3. Eczema -IV Solu-Medrol 40 mg twice daily DVT prophylaxis not provided because the patient is ambulatory.
[2018-02-22] MEDS: HYDROCODONE/ACETAMINOPHEN 5-325 MG TABLET PO PRN (20:26)
[2018-02-22] MEDS: ACYCLOVIR SODIUM 700 MG in NORMAL SALINE 100 ML IV SCH (22:30)
[2018-02-22] MEDS: METHYLPREDNISOLONE INJ 40 MG/1 ML SDV IV SCH (22:33)
[2018-02-22] MEDS: GABAPENTIN 100 MG CAPSULE PO SCH (22:33)
[2018-02-23 05:14] LABS: HEMATOCRIT 37.8 % (37.9-51.0); HEMOGLOBIN 12.3 g/dL (13.5-17.0); MEAN CORPUSCULAR HEMOGLOBIN 25.2 pg (27.0-33.4); MEAN CORPUSCULAR HGB CONC 32.6 g/dL (32.0-36.0); MEAN CORPUSCULAR VOLUME 77 fl (80-97); RED BLOOD COUNT 4.89 10^6/uL (4.35-5.55); RED CELL DISTRIBUTION WIDTH 17.8 % (11.5-14.0); WHITE BLOOD COUNT 2.8 10^3/uL (4.0-10.5)
[2018-02-23 05:40] LABS: PLATELET COUNT 68 10^3/uL (150-450)
[2018-02-23 05:41] LABS: ABSOLUTE LYMPHOCYTES# (MANUAL) 1.2 10^3/uL (0.5-4.7); ABSOLUTE MONOCYTES # (MANUAL) 0.1 10^3/uL (0.1-1.4); ABSOLUTE NEUTROPHILS# (MANUAL) 1.5 10^3/uL (1.7-8.2); ANISOCYTOSIS 1+; BAND NEUTROPHILS % (MANUAL) 1 % (3-5); BASOPHILS % (MANUAL) 0 % (0-2); EOSINOPHILS % (MANUAL) 0 % (0-6); LYMPHOCYTES % (MANUAL) 44 % (13-45); MONOCYTES % (MANUAL) 3 % (3-13); PLATELET COMMENT DECREASED; SEGMENTED NEUTROPHILS % (MAN) 52 % (42-78); TOTAL CELLS COUNTED 100
[2018-02-23 05:58] LABS: ALANINE AMINOTRANSFERASE 28 U/L (21-72); ALBUMIN 3.5 g/dL (3.5-5.0); ALKALINE PHOSPHATASE 145 U/L (38-126); ANION GAP 7 (5-19); ASPARTATE AMINO TRANSFERASE 83 U/L (17-59); BILIRUBIN,DIRECT 0.3 mg/dL (0.0-0.4); BILIRUBIN,TOTAL 0.3 mg/dL (0.2-1.3); BLOOD UREA NITROGEN 12 mg/dL (7-20); CARBON DIOXIDE 27 mmol/L (22-30); CHLORIDE 106 mmol/L (98-107); GLUCOSE 191 mg/dL (75-110); POTASSIUM 4.9 mmol/L (3.6-5.0); SODIUM 140.3 mmol/L (137-145); TOTAL PROTEIN 9.1 g/dL (6.3-8.2)
[2018-02-23] MEDS: GABAPENTIN 100 MG CAPSULE PO SCH ×3 (06:14→21:39)
[2018-02-23] MEDS: TRIFLURIDINE 1% OPH SOLN 7.5 ML OS SCH ×9 (06:15→21:39)
[2018-02-23] MEDS: ACYCLOVIR SODIUM 700 MG in NORMAL SALINE 100 ML IV SCH ×3 (06:15→21:39)
[2018-02-23] MEDS: HYDROCODONE/ACETAMINOPHEN 5-325 MG TABLET PO PRN (08:38)
[2018-02-23] MEDS: DOCUSATE SODIUM 100 MG CAPSULE PO SCH ×2 (09:15→18:11)
[2018-02-23] MEDS: METHYLPREDNISOLONE INJ 40 MG/1 ML SDV IV SCH ×2 (09:15→21:39)
[2018-02-23] MEDS ORDERED: ACYCLOVIR SODIUM INJ/PF 500 MG/10 ML SDV IV SCH (10:00)
[2018-02-23] MEDS ORDERED: (PENDING PHARMACY ID) (Dolutegravir Sodium [Tivicay] 50 MG) PO SCH (10:00)
[2018-02-23] MEDS ORDERED: (PENDING PHARMACY ID) (Darunavir/Cobicistat [Prezcobix 800 Mg-150 Mg Tablet] 1 TAB) PO SCH (10:00)
[2018-02-23] MEDS ORDERED: TENOFOVIR DISOPROXIL FUMARATE 300 MG PO SCH (10:00)
[2018-02-23] MEDS ORDERED: ACYCLOVIR SODIUM 700 MG in NORMAL SALINE 100 ML IV SCH (10:00)
--- NOTE | 2018-02-23 14:45 | PDOC PROGRESS REPORT ---
Subjective Progress Note for:: 02/23/18 Subjective:: AGUEDA MCCRACKEN is a 42 year old male with a past medical history significant for HIV (x 15 yrs), PCP pneumonia, Hep B, multiple episodes of herpes zoster. Patient reports improvement from yesterday. He continues to have left eye pain. His eye continues to be sensitive to light. He does wear glasses at home, and reports a chronic poor vision, but does also report some changes in vision in his left eye. He reports these are primarily from excessive tearing. He feels the plaques on his arm have improved. He denies systemic symptoms of infection, fever, chills, abdominal pain, diarrhea. Ophthalmology plans to see the patient today. He reports pain is controlled with oral hydrocodone. There was some concern that the patient has not been taking his HIV medications for the past 3- 4 months when his previous clinic was contacted, but patient reports that he follows with a new clinic. He does have the prescriptions with him in his room. Reason For Visit: HERPES ZOSTER AND HIV Physical Exam Vital Signs: Temp Pulse Resp BP Pulse Ox 98.0 F 96 18 125/81 92 02/23/18 12:15 02/23/18 12:15 02/23/18 12:15 02/23/18 12:15 02/23/18 12:15 Intake & Output 02/22/18 02/23/18 02/24/18 06:59 06:59 06:59 Intake Total 114 114 Output Total 300 Balance -186 114 Weight 68.9 kg General appearance: PRESENT: no acute distress, disheveled Head exam: PRESENT: atraumatic Eye exam: PRESENT: conjunctival injection, conjunctiva pink, other - Diffuse conjunctiva erythema. Mild pain on movement. Excessive tearing. Mild visual changes. Poor vision chronically in bilateral eyes. Ear exam: PRESENT: normal external ear exam Mouth exam: PRESENT: moist, tongue midline Teeth exam: PRESENT: poor dentation Respiratory exam: PRESENT: clear to auscultation ileana. ABSENT: rales, rhonchi, wheezes Cardiovascular exam: PRESENT: diastolic murmur, RRR, systolic murmur. ABSENT: rubs Pulses: PRESENT: normal dorsalis pedis pul Vascular exam: PRESENT: normal capillary refill GI/Abdominal exam: PRESENT: normal bowel sounds, soft. ABSENT: distended, guarding, mass, organolmegaly, rebound, tenderness Rectal exam: PRESENT: deferred Extremities exam: PRESENT: full ROM. ABSENT: calf tenderness, clubbing, pedal edema Musculoskeletal exam: PRESENT: full ROM, normal inspection Neurological exam: PRESENT: alert, awake, oriented to person, oriented to place, oriented to time, oriented to situation, CN II-XII grossly intact. ABSENT: motor sensory deficit Psychiatric exam: PRESENT: normal mood Skin exam: PRESENT: other - Diffuse dry scaly plaques on bilateral upper extremities and back of neck. Results Laboratory Results: 02/23/18 04:29 02/23/18 04:29 02/23/18 02/23/18 04:29 04:29 WBC 2.8 L RBC 4.89 Hgb 12.3 L Hct 37.8 L MCV 77 L MCH 25.2 L MCHC 32.6 RDW 17.8 H Plt Count 68 L Seg Neutrophils % Not Reportable Lymphocytes % Not Reportable Monocytes % Not Reportable Eosinophils % Not Reportable Basophils % Not Reportable Absolute Neutrophils Not Reportable Absolute Lymphocytes Not Reportable Absolute Monocytes Not Reportable Absolute Eosinophils Not Reportable Absolute Basophils Not Reportable Sodium 140.3 Potassium 4.9 Chloride 106 Carbon Dioxide 27 Anion Gap 7 BUN 12 Creatinine 0.79 Est GFR ( Amer) > 60 Est GFR (Non-Af Amer) > 60 Glucose 191 H Calcium 9.0 Total Bilirubin 0.3 AST 83 H ALT 28 Alkaline Phosphatase 145 H Total Protein 9.1 H Albumin 3.5 Assessment & Plan - Diagnosis (1) Eczema Is this a current diagnosis for this admission?: Yes (2) HIV (human immunodeficiency virus infection) Is this a current diagnosis for this admission?: Yes (3) Zoster ophthalmicus Is this a current diagnosis for this admission?: Yes - Time Time Spent with patient: 25-34 minutes Medications reviewed and adjusted accordingly: Yes - Inpatient Certification Based on my medical assessment, after consideration of the patient's comorbidities, presenting symptoms, or acuity I expect that the services needed warrant INPATIENT care.: Yes I certify that my determination is in accordance with my understanding of Medicare's requirements for reasonable and necessary INPATIENT services [42 CFR 412.3e].: Yes - Plan Summary Plan Summary: 1. HIV -Continue home meds -Check CD4 and viral load 2. Herpes opthalmicus -Antivirals per ID recommendations. IV acyclovir 700 3x daily for 7 days. Followed by valacyclovir 1g 3 x daily for 3 weeks., And then the patient will go back on his prophylactic dose. -Ophthalmology consult. -Hydrocodone 5-325 q6 hours as needed for pain -Gabapentin trial for pain -Tetracaine drops for local anesthetic 3. Eczema -IV Solu-Medrol 40 mg twice daily DVT prophylaxis not provided because the patient is ambulatory.
[2018-02-23 16:38] LABS: % CD 4 POS LYMPH 6.9 % (30.8-58.5); % CD 8 POS LYMPH 70.2 % (12.0-35.5); ABSOLUTE CD 4 HELPER 76 /uL (359-1519); ABSOLUTE CD 8 SUPPRESSOR 772 /uL (109-897); CD BASOPHILS 1 % (Not Estab.); CD EOSINOPHILS 4 % (Not Estab.); CD MONOCYTES 10 % (Not Estab.); CD NEUTROPHILS 50 % (Not Estab.); EOSINOPHILS (ABSOLUTE) 0.1 x10E3/uL (0.0-0.4); HEMOGLOBIN 12.3 g/dL (13.0-17.7); IMMATURE GRANULOCYTES 0 % (Not Estab.); LYMPHS(ABSOLUTE) 1.1 x10E3/uL (0.7-3.1); MCH 25.2 pg (26.6-33.0); MCHC 32.1 g/dL (31.5-35.7); MCV 79 fL (79-97); MONOCYTES(ABSOLUTE) 0.3 x10E3/uL (0.1-0.9); NEUTROPHILS(ABSOLUTE) 1.6 x10E3/uL (1.4-7.0); PLATELETS 60 x10E3/uL (150-379); RBC 4.88 x10E6/uL (4.14-5.80); RDW 17.5 % (12.3-15.4); WBC 3.3 x10E3/uL (3.4-10.8)
[2018-02-23] MEDS: MOXIFLOXACIN HCL 0.5% OPH SOLN 3 ML OS SCH ×2 (18:12→21:39)
[2018-02-24] MEDS: GABAPENTIN 100 MG CAPSULE PO SCH (05:15)
[2018-02-24] MEDS: HYDROCODONE/ACETAMINOPHEN 5-325 MG TABLET PO PRN ×2 (05:16→11:58)
[2018-02-24] MEDS: TRIFLURIDINE 1% OPH SOLN 7.5 ML OS SCH ×9 (05:16→22:06)
[2018-02-24] MEDS: ACYCLOVIR SODIUM 700 MG in NORMAL SALINE 100 ML IV SCH ×3 (05:16→22:06)
[2018-02-24 05:54] LABS: HEMATOCRIT 35.2 % (37.9-51.0); HEMOGLOBIN 11.7 g/dL (13.5-17.0); MEAN CORPUSCULAR HEMOGLOBIN 25.7 pg (27.0-33.4); MEAN CORPUSCULAR HGB CONC 33.2 g/dL (32.0-36.0); MEAN CORPUSCULAR VOLUME 78 fl (80-97); RED BLOOD COUNT 4.54 10^6/uL (4.35-5.55); RED CELL DISTRIBUTION WIDTH 17.7 % (11.5-14.0); WHITE BLOOD COUNT 4.5 10^3/uL (4.0-10.5)
[2018-02-24 06:11] LABS: ALANINE AMINOTRANSFERASE 41 U/L (21-72); ALBUMIN 3.4 g/dL (3.5-5.0); ALKALINE PHOSPHATASE 174 U/L (38-126); ASPARTATE AMINO TRANSFERASE 96 U/L (17-59); BILIRUBIN,DIRECT 0.2 mg/dL (0.0-0.4); BILIRUBIN,TOTAL 0.3 mg/dL (0.2-1.3); TOTAL PROTEIN 8.9 g/dL (6.3-8.2)
[2018-02-24 07:30] LABS: PLATELET COUNT 85 10^3/uL (150-450)
[2018-02-24 07:34] LABS: ABSOLUTE MONOCYTES # (MANUAL) 0.3 10^3/uL (0.1-1.4); ABSOLUTE NEUTROPHILS# (MANUAL) 3.2 10^3/uL (1.7-8.2); BASOPHILS % (MANUAL) 0 % (0-2); EOSINOPHILS % (MANUAL) 0 % (0-6); LYMPHOCYTES % (MANUAL) 23 % (13-45); MONOCYTES % (MANUAL) 6 % (3-13); SEGMENTED NEUTROPHILS % (MAN) 71 % (42-78); TOTAL CELLS COUNTED 100
[2018-02-24 07:38] LABS: ANISOCYTOSIS 1+; HYPOCHROMASIA SLIGHT; POLYCHROMASIA SLIGHT
[2018-02-24 07:39] LABS: PLATELET COMMENT DECREASED
[2018-02-24] MEDS: MOXIFLOXACIN HCL 0.5% OPH SOLN 3 ML OS SCH ×4 (10:16→22:06)
[2018-02-24] MEDS: DOCUSATE SODIUM 100 MG CAPSULE PO SCH ×2 (10:16→17:06)
[2018-02-24] MEDS: METHYLPREDNISOLONE INJ 40 MG/1 ML SDV IV SCH ×2 (10:16→22:06)
[2018-02-24] MEDS ORDERED: VANCOMYCIN HCL INJ 500 MG VIAL PO SCH (10:28)
[2018-02-24] MEDS ORDERED: VANCOMYCIN HCL INJ 1000 MG VIAL IV SCH (10:30)
[2018-02-24] MEDS: VANCOMYCIN HCL 1,000 MG in DEXTROSE 5%-WATER 250 ML IV SCH ×2 (11:48→18:39)
[2018-02-24] MEDS: GABAPENTIN 300 MG CAPSULE PO SCH ×2 (13:30→22:06)
--- NOTE | 2018-02-24 15:06 | PDOC PROGRESS REPORT ---
Subjective Progress Note for:: 02/24/18 Subjective:: AGUEDA MCCRACKEN is a 42 year old male with a past medical history significant for HIV (x 15 yrs), PCP pneumonia, Hep B, multiple episodes of herpes zoster. Patient again reports improvement today. His left eye is less erythematous. He was seen by ophthalmology yesterday. He denies systemic signs or symptoms of infection. His vision in both eyes is at baseline. He is reading the newspaper upon my entrance to the room. He denies pain with movement of the eye. He is also less photosensitive. The dry scaly plaques on his skin arm far less numerous than they were on admission. He is eating well. Continues to deny night sweats and diarrhea. Reason For Visit: HERPES ZOSTER AND HIV Physical Exam Vital Signs: Temp Pulse Resp BP Pulse Ox 97.6 F 92 16 134/86 H 91 L 02/24/18 11:37 02/24/18 11:37 02/24/18 11:37 02/24/18 11:37 02/24/18 11:37 Intake & Output 02/23/18 02/24/18 02/25/18 06:59 06:59 06:59 Intake Total 114 1194 250 Output Total 300 Balance -186 1194 250 Weight 68.9 kg 68.9 kg Results Laboratory Results: 02/24/18 04:19 02/23/18 04:29 02/24/18 02/24/18 04:19 04:19 WBC 4.5 RBC 4.54 Hgb 11.7 L Hct 35.2 L MCV 78 L MCH 25.7 L MCHC 33.2 RDW 17.7 H Plt Count 85 L Seg Neutrophils % Not Reportable Lymphocytes % Not Reportable Monocytes % Not Reportable Eosinophils % Not Reportable Basophils % Not Reportable Absolute Neutrophils Not Reportable Absolute Lymphocytes Not Reportable Absolute Monocytes Not Reportable Absolute Eosinophils Not Reportable Absolute Basophils Not Reportable Total Bilirubin 0.3 AST 96 H ALT 41 Alkaline Phosphatase 174 H Total Protein 8.9 H Albumin 3.4 L Assessment & Plan - Diagnosis (1) Eczema Is this a current diagnosis for this admission?: Yes (2) HIV (human immunodeficiency virus infection) Is this a current diagnosis for this admission?: Yes (3) Zoster ophthalmicus Is this a current diagnosis for this admission?: Yes - Time Time Spent with patient: 25-34 minutes Medications reviewed and adjusted accordingly: Yes - Inpatient Certification Based on my medical assessment, after consideration of the patient's comorbidities, presenting symptoms, or acuity I expect that the services needed warrant INPATIENT care.: Yes I certify that my determination is in accordance with my understanding of Medicare's requirements for reasonable and necessary INPATIENT services [42 CFR 412.3e].: Yes - Plan Summary Plan Summary: 1. HIV -Continue home meds -CD4 and viral load pending 2. Herpes opthalmicus -Improving -Antivirals per ID recommendations. IV acyclovir 700 3x daily for 7 days. Followed by valacyclovir 1g 3 x daily for 3 weeks., And then the patient will go back on his prophylactic dose. -Ophthalmology evaluated patient on 02/23. Continue with moxifloxacin and viroptic drops per recommendations. assistance appreciated. -Pain controlled with gabapentin and hydrocodone 5-325 q6 hours as needed for pain -Tetracaine drops for local anesthetic 3. Eczema -Improving with IV Solu-Medrol 40 mg twice daily 4. Bacteremia 02/24. 02/28 cultures positive. Strep B and gram-positive cocci. VSS. No clinical symptoms. Low WBC. Seems to possibly be contaminant, however given patient's history we will go ahead and treat per recommendations. -Start IV vancomycin 1g q12 hours. If M SSA positive, vancomycin should be changed to IV nafcillin 2 g every 4 hours. -No indwelling devices, implants, or areas of suspicion for infection. 5. Elevated LFTs -Unsure of cause currently. Trending. Labs pending. 6. Hyperglycemia -Likely due to steroids. Continue to monitor. If consecutive values greater than 180 consider the initiation of sliding scale coverage. 7. Anemia -Likely chronic in nature. No overt sign of bleeding. 8. Leukopenia -Also likely chronic in nature. Could be a sign of sepsis. Monitor closely. DVT prophylaxis not provided because the patient is ambulatory.
[2018-02-25] MEDS: VANCOMYCIN HCL 1,000 MG in DEXTROSE 5%-WATER 250 ML IV SCH ×2 (02:57→09:57)
[2018-02-25] MEDS: ACYCLOVIR SODIUM 700 MG in NORMAL SALINE 100 ML IV SCH ×3 (05:10→21:51)
[2018-02-25] MEDS: GABAPENTIN 300 MG CAPSULE PO SCH ×3 (05:10→21:52)
[2018-02-25] MEDS: TRIFLURIDINE 1% OPH SOLN 7.5 ML OS SCH ×9 (05:10→21:52)
[2018-02-25 06:06] LABS: HEMATOCRIT 35.2 % (37.9-51.0); HEMOGLOBIN 11.5 g/dL (13.5-17.0); MEAN CORPUSCULAR HEMOGLOBIN 25.3 pg (27.0-33.4); MEAN CORPUSCULAR HGB CONC 32.6 g/dL (32.0-36.0); MEAN CORPUSCULAR VOLUME 78 fl (80-97); RED BLOOD COUNT 4.52 10^6/uL (4.35-5.55); WHITE BLOOD COUNT 4.2 10^3/uL (4.0-10.5)
[2018-02-25 06:11] LABS: HIV-1 RNA LOG10.. 3.394 (.); HIV-1 RNA PCR QUANT 2480 copies/mL (.)
[2018-02-25 06:16] LABS: PLATELET COUNT 87 10^3/uL (150-450)
[2018-02-25 06:26] LABS: ALANINE AMINOTRANSFERASE 42 U/L (21-72); ALBUMIN 3.4 g/dL (3.5-5.0); ALKALINE PHOSPHATASE 167 U/L (38-126); ASPARTATE AMINO TRANSFERASE 90 U/L (17-59); BILIRUBIN,DIRECT 0.3 mg/dL (0.0-0.4); BILIRUBIN,TOTAL 0.3 mg/dL (0.2-1.3); BLOOD UREA NITROGEN 14 mg/dL (7-20); CALCIUM 8.9 mg/dL (8.4-10.2); GLUCOSE 147 mg/dL (75-110); POTASSIUM 4.6 mmol/L (3.6-5.0); TOTAL PROTEIN 8.6 g/dL (6.3-8.2)
[2018-02-25 06:32] LABS: CARBON DIOXIDE 29 mmol/L (22-30); CHLORIDE 108 mmol/L (98-107); SODIUM 139.9 mmol/L (137-145)
[2018-02-25 06:37] LABS: ANION GAP 3 (5-19)
[2018-02-25 06:47] LABS: ABSOLUTE LYMPHOCYTES# (MANUAL) 0.8 10^3/uL (0.5-4.7); ABSOLUTE MONOCYTES # (MANUAL) 0.3 10^3/uL (0.1-1.4); BASOPHILS % (MANUAL) 0 % (0-2); EOSINOPHILS % (MANUAL) 0 % (0-6); LYMPHOCYTES % (MANUAL) 20 % (13-45); MONOCYTES % (MANUAL) 8 % (3-13); SEGMENTED NEUTROPHILS % (MAN) 72 % (42-78); TOTAL CELLS COUNTED 100
[2018-02-25 06:49] LABS: ANISOCYTOSIS 2+; PLATELET COMMENT DECREASED; POLYCHROMASIA 1+
[2018-02-25] MEDS: METHYLPREDNISOLONE INJ 40 MG/1 ML SDV IV SCH ×2 (09:56→21:51)
[2018-02-25] MEDS: MOXIFLOXACIN HCL 0.5% OPH SOLN 3 ML OS SCH ×4 (09:56→21:52)
[2018-02-25] MEDS: DOCUSATE SODIUM 100 MG CAPSULE PO SCH ×2 (09:56→18:21)
[2018-02-25 10:29] LABS: VANCOMYCIN,TROUGH 12.9 ug/mL (5.0-20.0)
[2018-02-25] MEDS ORDERED: NAFCILLIN SODIUM INJ 2 GM VIAL IV SCH (15:00)
--- NOTE | 2018-02-25 15:20 | PDOC PROGRESS REPORT ---
Subjective Progress Note for:: 02/25/18 Subjective:: AGUEDA MCCRACKEN is a 42 year old male with a past medical history significant for HIV (x 15 yrs), PCP pneumonia, Hep B, multiple episodes of herpes zoster. Patient saw continues to improve. He reports his vision is at baseline. He denies pain with movement. Sensitivity to the light has significantly decreased and is almost nonexistent. He denies fever, chills, or other systemic signs of infection. Tolerating oral food well. He has no obvious source of infection for the bacteremia, and understands/is agreeable to taking the antibiotics. No concerns reported by nursing. Patient has no concerns or complaints at this time. We discussed the possibility of infusing the antibiotics and antivirals at home, and patient does not have the ability/resources to do so. Reason For Visit: HERPES ZOSTER AND HIV Physical Exam Vital Signs: Temp Pulse Resp BP Pulse Ox 97.9 F 92 20 140/76 H 95 02/25/18 10:56 02/25/18 10:56 02/25/18 10:56 02/25/18 10:56 02/25/18 10:56 Intake & Output 02/24/18 02/25/18 02/26/18 06:59 06:59 06:59 Intake Total 1194 2503 1092 Output Total 100 Balance 1194 2503 992 Weight 68.9 kg 80.9 kg General appearance: PRESENT: no acute distress, cooperative, well-developed, well-nourished Head exam: PRESENT: atraumatic, normocephalic Eye exam: PRESENT: EOMI, PERRLA, other - Diffuse mild erythema edema. Minimal discharge.. ABSENT: scleral icterus Ear exam: PRESENT: normal external ear exam Mouth exam: PRESENT: moist, tongue midline Teeth exam: PRESENT: poor dentation Respiratory exam: PRESENT: clear to auscultation ileana. ABSENT: rales, rhonchi, wheezes Cardiovascular exam: PRESENT: RRR. ABSENT: diastolic murmur, rubs, systolic murmur Pulses: PRESENT: normal dorsalis pedis pul Vascular exam: PRESENT: normal capillary refill GI/Abdominal exam: PRESENT: normal bowel sounds, soft. ABSENT: distended, guarding, mass, organolmegaly, rebound, tenderness Rectal exam: PRESENT: deferred Extremities exam: PRESENT: full ROM. ABSENT: calf tenderness, clubbing, pedal edema Musculoskeletal exam: PRESENT: ambulatory, full ROM, normal inspection Neurological exam: PRESENT: alert, awake, oriented to person, oriented to place, oriented to time, oriented to situation, CN II-XII grossly intact. ABSENT: motor sensory deficit Psychiatric exam: PRESENT: appropriate affect, normal mood. ABSENT: homicidal ideation, suicidal ideation Skin exam: PRESENT: other - Dry scaly patch plaques on extensor surfaces and back of neck. Results Laboratory Results: 02/25/18 04:20 02/25/18 04:20 02/24/18 02/25/18 02/25/18 15:27 04:20 04:20 WBC 4.2 RBC 4.52 Hgb 11.5 L Hct 35.2 L MCV 78 L MCH 25.3 L MCHC 32.6 RDW 18.0 H Plt Count 87 L Seg Neutrophils % Not Reportable Lymphocytes % Not Reportable Monocytes % Not Reportable Eosinophils % Not Reportable Basophils % Not Reportable Absolute Neutrophils Not Reportable Absolute Lymphocytes Not Reportable Absolute Monocytes Not Reportable Absolute Eosinophils Not Reportable Absolute Basophils Not Reportable Sodium 139.9 Potassium 4.6 Chloride 108 H Carbon Dioxide 29 Anion Gap 3 L BUN 14 Creatinine 0.69 Est GFR ( Amer) > 60 Est GFR (Non-Af Amer) > 60 Glucose 147 H Lactic Acid 1.8 Calcium 8.9 Total Bilirubin 0.3 AST 90 H ALT 42 Alkaline Phosphatase 167 H Total Protein 8.6 H Albumin 3.4 L Assessment & Plan - Diagnosis (1) Eczema Is this a current diagnosis for this admission?: Yes (2) HIV (human immunodeficiency virus infection) Is this a current diagnosis for this admission?: Yes (3) Zoster ophthalmicus Is this a current diagnosis for this admission?: Yes - Time Time Spent with patient: 25-34 minutes Smoking Cessation Education: 3 to 10 minutes Medications reviewed and adjusted accordingly: Yes - Inpatient Certification Based on my medical assessment, after consideration of the patient's comorbidities, presenting symptoms, or acuity I expect that the services needed warrant INPATIENT care.: Yes I certify that my determination is in accordance with my understanding of Medicare's requirements for reasonable and necessary INPATIENT services [42 CFR 412.3e].: Yes - Plan Summary Plan Summary: 1. HIV -Continue home meds -CD4 pending -Viral load 2200s. 2. Herpes opthalmicus -Improving -Antivirals per ID recommendations. IV acyclovir 700mg 3x daily for 7 days. Started on02/22. followed by valacyclovir 1g 3 x daily for 3 weeks, then the patient will go back on his prophylactic home dose. -Ophthalmology evaluated patient on 02/23. Continue with moxifloxacin and viroptic drops per recommendations. assistance appreciated. -Pain controlled with gabapentin and hydrocodone 5-325 q6 hours as needed for pain -Tetracaine drops for local anesthetic 3. Eczema -Improved with IV Solu-Medrol 40 mg twice daily. Begin taper. Solu-Medrol IV 20 mg every 8 hours. 4. Bacteremia 02/24. 02/28 cultures positive. Strep B and gram-positive cocci. VSS. No clinical symptoms. Low WBC. Seems to possibly be contaminant, however given patient's history we will go ahead and treat per recommendations. Culture returned with strep B and MSSA. Discontinue vancomycin. Start nafcillin 2 g IV every 4 hours. -No indwelling devices, implants, or areas of suspicion for infection. 5. Elevated LFTs -Unsure of cause currently. Trending. Low level. Hepatitis panel pending. 6. Hyperglycemia -Likely due to steroids. Continue to monitor. If consecutive values greater than 180 consider the initiation of sliding scale coverage. 7. Anemia -Likely chronic in nature. No overt sign of bleeding. 8. Leukopenia -Resolved. Monitoring. DVT prophylaxis not provided because the patient is ambulatory.
[2018-02-25] MEDS ORDERED: VANCOMYCIN HCL 1,250 MG in DEXTROSE 5%-WATER 250 ML IV SCH (18:00)
[2018-02-25] MEDS: NAFCILLIN SODIUM 2 GM in DEXTROSE 5%-WATER 100 ML IV SCH ×2 (18:35→21:51)
[2018-02-26] MEDS: NAFCILLIN SODIUM 2 GM in DEXTROSE 5%-WATER 100 ML IV SCH ×6 (02:06→22:50)
[2018-02-26 05:48] LABS: HEMATOCRIT 34.4 % (37.9-51.0); MEAN CORPUSCULAR HEMOGLOBIN 24.9 pg (27.0-33.4); MEAN CORPUSCULAR VOLUME 78 fl (80-97); RED BLOOD COUNT 4.43 10^6/uL (4.35-5.55); WHITE BLOOD COUNT 3.4 10^3/uL (4.0-10.5)
[2018-02-26 06:02] LABS: BLOOD UREA NITROGEN 13 mg/dL (7-20); CALCIUM 9.2 mg/dL (8.4-10.2); GLUCOSE 184 mg/dL (75-110); POTASSIUM 4.4 mmol/L (3.6-5.0)
[2018-02-26 06:07] LABS: CARBON DIOXIDE 28 mmol/L (22-30); CHLORIDE 109 mmol/L (98-107); SODIUM 141.4 mmol/L (137-145)
[2018-02-26] MEDS: ACYCLOVIR SODIUM 700 MG in NORMAL SALINE 100 ML IV SCH ×2 (06:07→17:35)
[2018-02-26] MEDS: METHYLPREDNISOLONE INJ 40 MG/1 ML SDV IV SCH ×3 (06:07→22:49)
[2018-02-26] MEDS: GABAPENTIN 300 MG CAPSULE PO SCH ×3 (06:07→22:50)
[2018-02-26 06:08] LABS: PLATELET COUNT 79 10^3/uL (150-450)
[2018-02-26] MEDS: TRIFLURIDINE 1% OPH SOLN 7.5 ML OS SCH ×8 (06:08→22:49)
[2018-02-26 06:11] LABS: ABSOLUTE LYMPHOCYTES# (MANUAL) 0.9 10^3/uL (0.5-4.7); ABSOLUTE MONOCYTES # (MANUAL) 0.2 10^3/uL (0.1-1.4); ABSOLUTE NEUTROPHILS# (MANUAL) 2.2 10^3/uL (1.7-8.2); BASOPHILS % (MANUAL) 0 % (0-2); EOSINOPHILS % (MANUAL) 0 % (0-6); LYMPHOCYTES % (MANUAL) 27 % (13-45); MONOCYTES % (MANUAL) 7 % (3-13); SEGMENTED NEUTROPHILS % (MAN) 66 % (42-78); TOTAL CELLS COUNTED 100
[2018-02-26 06:12] LABS: ANISOCYTOSIS 2+; PLATELET COMMENT DECREASED; POLYCHROMASIA 1+
[2018-02-26 06:14] LABS: ANION GAP 4 (5-19)
[2018-02-26] MEDS: MOXIFLOXACIN HCL 0.5% OPH SOLN 3 ML OS SCH ×4 (12:07→22:47)
[2018-02-26] MEDS: DOCUSATE SODIUM 100 MG CAPSULE PO SCH ×2 (12:12→17:38)
[2018-02-27] MEDS: TRIFLURIDINE 1% OPH SOLN 7.5 ML OS SCH ×10 (00:04→22:22)
[2018-02-27] MEDS: ACYCLOVIR SODIUM 700 MG in NORMAL SALINE 100 ML IV SCH ×4 (01:15→23:25)
[2018-02-27] MEDS: NAFCILLIN SODIUM 2 GM in DEXTROSE 5%-WATER 100 ML IV SCH ×6 (04:02→22:21)
[2018-02-27] MEDS: METHYLPREDNISOLONE INJ 40 MG/1 ML SDV IV SCH ×3 (06:08→22:22)
[2018-02-27] MEDS: GABAPENTIN 300 MG CAPSULE PO SCH ×3 (06:08→22:21)
--- NOTE | 2018-02-27 06:32 | PDOC PROGRESS REPORT ---
Subjective Progress Note for:: 02/26/18 Subjective:: The patient is resting comfortably in bed. There is no acute distress. Reason For Visit: HERPES ZOSTER AND HIV Physical Exam Vital Signs: Temp Pulse Resp BP Pulse Ox 98.2 F 91 16 133/71 H 96 02/27/18 00:41 02/27/18 00:41 02/27/18 00:41 02/27/18 00:41 02/27/18 00:41 Intake & Output 02/25/18 02/26/18 02/27/18 06:59 06:59 06:59 Intake Total 2503 2718 2512 Output Total 1175 1150 Balance 2503 1543 1362 Weight 80.9 kg 70 kg General appearance: PRESENT: no acute distress, cooperative, well-developed Head exam: PRESENT: normocephalic Eye exam: PRESENT: conjunctival injection - On the left. Cloudy conjunctiva in the left eye as well.. ABSENT: scleral icterus Ear exam: PRESENT: normal external ear exam Mouth exam: PRESENT: moist, tongue midline Respiratory exam: PRESENT: clear to auscultation ileana, symmetrical, unlabored. ABSENT: accessory muscle use, rales, rhonchi, wheezes Cardiovascular exam: PRESENT: RRR, +S1, +S2 GI/Abdominal exam: PRESENT: normal bowel sounds, soft. ABSENT: distended, tenderness Extremities exam: ABSENT: pedal edema Neurological exam: PRESENT: alert, awake, oriented to person, oriented to place, oriented to time, oriented to situation, CN II-XII grossly intact Psychiatric exam: PRESENT: appropriate affect, normal mood. ABSENT: agitated, anxious Focused psych exam: ABSENT: restlessness Skin exam: PRESENT: rash - Scaly/flaky skin especially on arms Results Laboratory Results: 02/26/18 04:54 02/26/18 04:54 02/22/18 16:30 Blood Blood Culture - Final Group B Beta Streptococcus Staphylococcus Aureus Assessment & Plan - Diagnosis (1) Zoster ophthalmicus Is this a current diagnosis for this admission?: Yes Plan: Infectious diseases has recommended acyclovir 700 mg IV 3 times a day for 7 days and then oral valacyclovir 1 g 3 times a day for 3 weeks. He can then return to his prophylaxis home regimen. Per ophthalmology he continues on moxifloxacin and Viroptic drops Pain management with gabapentin and hydrocodone with acetaminophen as well as tetracaine drops for local anesthesia of the eye. He is also on systemic steroids for his eczema. (2) HIV (human immunodeficiency virus infection) Is this a current diagnosis for this admission?: Yes Plan: Continue baseline medications. CD4 panel is pending (3) Eczema Qualifiers: Eczema type: other Qualified Code(s): L30.8 - Other specified dermatitis Is this a current diagnosis for this admission?: Yes Plan: Currently on methylprednisolone. We will begin to taper. - Time Time Spent with patient: Less than 15 minutes Medications reviewed and adjusted accordingly: Yes Anticipated discharge: Home
[2018-02-27] MEDS: DOCUSATE SODIUM 100 MG CAPSULE PO SCH ×2 (10:10→18:21)
[2018-02-27] MEDS: MOXIFLOXACIN HCL 0.5% OPH SOLN 3 ML OS SCH ×4 (10:11→22:22)
--- NOTE | 2018-02-27 14:05 | PDOC PROGRESS REPORT ---
Subjective Progress Note for:: 02/27/18 - Progress note for Tuesday, February 27, 2018 Subjective:: Patient is resting comfortably sitting up in a chair reading the newspaper. Reason For Visit: HERPES ZOSTER AND HIV Physical Exam Vital Signs: Temp Pulse Resp BP Pulse Ox 98.2 F 91 16 133/71 H 96 02/27/18 00:41 02/27/18 00:41 02/27/18 00:41 02/27/18 00:41 02/27/18 00:41 Intake & Output 02/26/18 02/27/18 02/28/18 06:59 06:59 06:59 Intake Total 2718 3309 314 Output Total 1175 2625 Balance 1543 684 314 Weight 70 kg General appearance: PRESENT: no acute distress, well-developed Head exam: PRESENT: normocephalic Eye exam: PRESENT: conjunctival injection - Improved, other - Slight improvement in the left eye. Respiratory exam: PRESENT: clear to auscultation ileana, symmetrical, unlabored. ABSENT: rales, rhonchi, wheezes Cardiovascular exam: PRESENT: RRR, +S1, +S2 GI/Abdominal exam: PRESENT: normal bowel sounds, soft. ABSENT: distended, tenderness Musculoskeletal exam: PRESENT: ambulatory Neurological exam: PRESENT: alert, awake, oriented to person, oriented to place, oriented to time, oriented to situation, CN II-XII grossly intact Psychiatric exam: PRESENT: appropriate affect, normal mood. ABSENT: agitated, anxious Focused psych exam: ABSENT: restlessness Skin exam: PRESENT: rash - Dry scaly rash consistent with his eczema predominantly on his arms and the dorsum of his feet Results Laboratory Results: 02/26/18 04:54 02/26/18 04:54 02/22/18 16:30 Blood Blood Culture - Final Group B Beta Streptococcus Staphylococcus Aureus Assessment & Plan - Diagnosis (1) Zoster ophthalmicus Is this a current diagnosis for this admission?: Yes Plan: Continue IV acyclovir for a total of 7 days. Infectious diseases requests valacyclovir 1 g 3 times a day for 3 weeks. His current dose of valacyclovir is 500 mg daily. Continue current eyedrops as well. He reports no significant pain which is markedly improved from the beginning of his treatment (2) HIV (human immunodeficiency virus infection) Is this a current diagnosis for this admission?: Yes Plan: Unfortunately his medications come in a blister pack. He does not have any loose medications and so he has not been getting his anti-retroviral medications during his stay. He will resume his regimen at discharge. (3) Eczema Qualifiers: Eczema type: other Qualified Code(s): L30.8 - Other specified dermatitis Is this a current diagnosis for this admission?: Yes Plan: He is on systemic steroids. We will initiate a trial of Aquaphor. He may need topical steroids going forward. - Time Time Spent with patient: Less than 15 minutes Medications reviewed and adjusted accordingly: Yes Anticipated discharge: Home
[2018-02-27] MEDS: PANTOT AC/MIN OIL/PET HY-PHL OINT 50 GM TOP SCH (18:26)
[2018-02-28] MEDS: NAFCILLIN SODIUM 2 GM in DEXTROSE 5%-WATER 100 ML IV SCH ×4 (02:13→14:34)
[2018-02-28] MEDS: GABAPENTIN 300 MG CAPSULE PO SCH ×2 (05:10→14:35)
[2018-02-28] MEDS: TRIFLURIDINE 1% OPH SOLN 7.5 ML OS SCH ×6 (05:11→16:05)
[2018-02-28] MEDS: ACYCLOVIR SODIUM 700 MG in NORMAL SALINE 100 ML IV SCH ×2 (06:20→14:34)
[2018-02-28] MEDS: MOXIFLOXACIN HCL 0.5% OPH SOLN 3 ML OS SCH ×2 (10:37→14:00)
[2018-02-28] MEDS: METHYLPREDNISOLONE INJ 40 MG/1 ML SDV IV SCH (10:38)
[2018-02-28] MEDS: DOCUSATE SODIUM 100 MG CAPSULE PO SCH (10:39)
[2018-02-28] MEDS: PANTOT AC/MIN OIL/PET HY-PHL OINT 50 GM TOP SCH ×2 (10:39→14:34)
[2018-02-28 16:50] VITALS: BP 129/85
[2018-02-28 17:36] LABS: HEPATITIS A AB IGM Negative (Negative); HEPATITIS B CORE AB IGM Negative (Negative)
--- NOTE | 2018-02-28 19:38 | PDOC DISCHARGE SUMMARY ---
General - Admit/Disc Date/PCP Admission Date/Primary Care Provider: 02/22/18 16:07 MARIAH KEITAKENNETH Discharge Date: 02/28/18 - Discharge Diagnosis (1) Zoster ophthalmicus Is this a current diagnosis for this admission?: Yes Summary: The patient received 7 days of IV acyclovir as recommended by the infectious disease doctor. He also will complete the eyedrops ordered. Post discharge recommendation is valacyclovir 1 g 3 times a day (2) HIV (human immunodeficiency virus infection) Is this a current diagnosis for this admission?: Yes Summary: I did call the pharmacy at [facility]. The patient reports that he gets his medications in bubble packs from the pharmacy. I was going to try and adjust the valacyclovir dose as per the instructions of the infectious disease physicians. The pharmacy informed me that the patient has not had prescriptions filled since November. They are waiting for a follow-up visit before prescribing any more medications. Clearly the patient is noncompliant. Hopefully he will fill the prescription for the valacyclovir due to the potential devastating causes of the herpes ophthalmicus. (3) Eczema Is this a current diagnosis for this admission?: Yes Summary: The patient states that the trial of Aquaphor was very helpful. Therefore I will stop the steroids. I did give him a prescription for Aquaphor to continue use on his eczema. - Additional Information Discharge Diet: As Tolerated, Regular Discharge Activity: Activity As Tolerated Prescriptions: Gabapentin [Neurontin 300 mg Capsule] 300 mg PO Q8 15 Days #45 capsule Pantot AC/Min Oil/Pet Hy-Phl [Aquaphor W-Sally Heal Oint 50 gm] 1 applic TOP TID 30 Days #120 tube Valacyclovir HCl [Valtrex] 1,000 mg PO TID 21 Days #63 tablet Home Medications: Darunavir/Cobicistat [Prezcobix 800 mg-150 mg Tablet] 1 tab PO DAILY 10/02/17 Dolutegravir Sodium [Tivicay] 50 mg PO DAILY 10/02/17 Tenofovir Disoproxil Fumarate [Viread] 300 mg PO DAILY 10/02/17 Valacyclovir HCl [Valacyclovir] 500 mg PO DAILY 10/03/17 Azithromycin [Zithromax 600 mg Tablet] 1,200 mg PO Q7D 02/22/18 Docusate Sodium [Colace 100 mg Capsule] 100 mg PO BID capsule 02/28/18 Gabapentin [Neurontin 300 mg Capsule] 300 mg PO Q8 15 Days #45 capsule 02/28/18 Moxifloxacin HCl [Vigamox 0.5% Oph Soln 3 ml] 1 drop OS QID bottle 02/28/18 Pantot AC/Min Oil/Pet Hy-Phl [Aquaphor W-Sally Heal Oint 50 gm] 1 applic TOP TID 30 Days #120 tube 02/28/18 Trifluridine [Viroptic 1% Oph Soln 7.5 ml] 1 drop OS Q2HWA bottle 02/28/18 Valacyclovir HCl [Valtrex] 1,000 mg PO TID 21 Days #63 tablet 02/28/18 History of Present Illness Patient complains of: Pain in the left eye with photophobia History of Present Illness: BART MCCRACKEN is a 43 year old male with a history of HIV positivity for approximately 15 years. He has had multiple cases of zoster over the years. The patient began to have severe left eye pain with increased watering of the eye. He had photophobia. He presented to the emergency department. Infectious diseases and I believe ophthalmology were consulted. They recommended plan will be to admit the hospital for 7 days of acyclovir and then oral valacyclovir at higher doses for 3 weeks. Hospital Course Hospital Course: Unremarkable hospital course. Tolerated IV acyclovir for 7 days. Will be discharged on valacyclovir as noted above. He did receive a short course of steroids with improvement in his eczema. He will continue treatment with Aquaphor as an outpatient. The bill had of her pharmacy reported that he will not receive any prescriptions until he follows up with his physicians. We did asked that an appointment be made at the time of discharge. Physical Exam Vital Signs: Temp Pulse Resp BP Pulse Ox 98.7 F 103 H 14 129/85 H 94 02/28/18 16:47 02/28/18 16:47 02/28/18 16:47 02/28/18 16:47 02/28/18 16:47 Intake & Output 02/27/18 02/28/18 03/01/18 06:59 06:59 06:59 Intake Total 3309 1874 428 Output Total 2625 390 550 Balance 684 1484 -122 Weight 73.6 kg General appearance: PRESENT: no acute distress, well-developed Head exam: PRESENT: normocephalic Eye exam: PRESENT: other - Minimal clouding of the left conjunctiva. Ear exam: PRESENT: normal external ear exam Respiratory exam: PRESENT: clear to auscultation ileana, symmetrical, unlabored. ABSENT: rales, rhonchi, wheezes Cardiovascular exam: PRESENT: RRR, +S1, +S2 GI/Abdominal exam: PRESENT: normal bowel sounds, soft. ABSENT: tenderness Musculoskeletal exam: PRESENT: ambulatory Neurological exam: PRESENT: alert, awake, oriented to person, oriented to place, oriented to time, oriented to situation, CN II-XII grossly intact Psychiatric exam: PRESENT: appropriate affect, normal mood. ABSENT: agitated, anxious Focused psych exam: ABSENT: restlessness Skin exam: PRESENT: rash - Dry scaly rash on both arms (and dorsum of feet) consistent with his eczema. Results Laboratory Results: 02/26/18 04:54 02/26/18 04:54 02/22/18 19:16 Blood Blood Culture - Final NO GROWTH IN 5 DAYS Qualifiers - * PATIENT BEING DISCHARGED WITH ANY OF THE FOLLOWING DIAGNOSIS: No Plan Discharge Plan: Follow-up with physicians at [facility]. Prescription given for outpatient course of valacyclovir and a prescription for Aquaphor. Time Spent: Less than 30 Minutes
[2018-03-01 07:09] LABS: HEPATITIS C VIRUS ANTIBODY 0.2 s/co ratio (0.0-0.9)
[2018-03-01 07:10] LABS: HEPATITS B SURFACE ANTIGEN Positive (Negative)
== END 2018-02-28 16:50 | disposition home or self-care (01) | DRG 977 ==
LOC: ER 10:46 → EH 16:07 → 4S 18:06
PROVIDERS: ADMIT Internal Medicine; ATTEND Internal Medicine
DX: B02.30 Zoster ocular disease, unspecified (principal); B20 Human immunodeficiency virus [HIV] disease; R78.81 Bacteremia; L30.9 Dermatitis, unspecified; D64.9 Anemia, unspecified; D72.819 Decreased white blood cell count, unspecified; R73.9 Hyperglycemia, unspecified; R94.5 Abnormal results of liver function studies; Z86.19 Personal history of other infectious and parasitic diseases; Z90.5 Acquired absence of kidney
CPT/HCPCS: 36415; 80048; 80053; 80074; 80076; 80202; 83605; 85025; 86360; 87040; 87077; 87186; 87536; 99284; J0133; J2920; J3370; J3490; J7060; S0032

== ENCOUNTER 2018-06-04 11:41 | Emergency (ER) | payer MEDICAID ==
[2018-06-04] MEDS ORDERED: EPINEPHRINE INJ/PF 1 MG/1 ML AMPULE SUBCUT ONE (11:46)
--- NOTE | 2018-06-04 11:48 | ER Document Report ---
ED General - General Stated Complaint: SHORTNESS OF BREATH Time Seen by Provider: 06/04/18 11:46 Primary Care Provider: MARIAH KEITA FNP [Primary Care Provider] - Follow up as needed Notes: 41-year-old male with HIV presents with acute onset shortness of breath and hives, occurred after being exposed to mowing the grass. He has a history of HIV, TRAVEL OUTSIDE OF THE [place] IN LAST 30 DAYS: No - Related Data Allergies/Adverse Reactions: Sulfa (Sulfonamide Antibiotics) Allergy (Verified 02/22/18 10:49) Past Medical History - Social History Smoking Status: Former Smoker Family History: CAD, CVA Pulmonary Medical History: Reports: Hx Pneumonia - PCP Denies: Hx Asthma - denies Renal/ Medical History: Denies: Hx Peritoneal Dialysis Psychiatric Medical History: Reports: Hx Depression - not clinically diagnosed Infectious Medical History: Reports: Hx HIV Past Surgical History: Reports: Hx Kidney (Renal Surgery) - left removed, Hx Orthopedic Surgery - Immunizations Hx Diphtheria, Pertussis, Tetanus Vaccination: Yes Hx Pneumococcal Vaccination: 05/28/12 Physical Exam - Vital signs Vitals: Resp 22 H 06/04/18 11:46 Course - Re-evaluation Re-evalutation: 06/04/18 12:52 Presents with hives itching and acute respiratory issues. He has been given some medications for anaphylaxis from EMS. I gave him an epinephrine dose, and added Pepcid. Initially I was going down the route of anaphylaxis, however in speaking with him more he actually has a history of HIV AIDS had PCP pneumonia is currently taking azithromycin "for a bacterial infection" and apparently was diagnosed with pneumonia about a week ago. He is on home oxygen, 2 L, but here in the 80s requiring 4 to be comfortable. His x-ray here shows a right middle lobe infiltrate. I do not have a recent x-ray to compare to so given this given his HIV status and given his clinical status I am going to culture him, give him a dose of cefepime, he is already gotten steroids in case this ends up being PCP, but he is unfortunately allergic to Bactrim 06/04/18 14:30 Patient was discussed with pharmacist at [facility]. Pentamadine would be indicated if you were concerned about PCP. Also added Vanco mycin because apparently he had a history of MRSA. Discussed with Dr. Ruggiero at [facility] for transfer under Dr. Louie hospitalist. 06/04/18 14:31 When he received steroids. - Vital Signs Vital signs: Temp Pulse Resp BP Pulse Ox 98.4 F 31 H 127/87 H 93 06/04/18 12:01 06/04/18 13:01 06/04/18 13:01 06/04/18 13:01 - Laboratory Result Diagrams: 06/04/18 11:47 06/04/18 11:47 Laboratory results interpreted by me: 06/04/18 06/04/18 11:47 11:47 Hgb 11.7 L Hct 35.9 L MCV 78 L MCH 25.3 L RDW 16.7 H Monocytes % (Manual) 14 H Sodium 135.1 L Anion Gap 4 L - Diagnostic Test Radiology reviewed: Image reviewed, Reports reviewed Critical Care Note - Critical Care Note Total time excluding time spent on procedures (mins): 40 Comments: The above patient is critically ill. Not including procedures, but including direct re-evaluations, speaking with patient and/or consultants, interpreting results, and documenting, I spent the total amount of minute listed listed above on critical care time Discharge - Discharge Clinical Impression: Right middle lobe pneumonia Qualifiers: Pneumonia type: due to unspecified organism Qualified Code(s): J18.1 - Lobar pneumonia, unspecified organism Condition: Fair Disposition: [facility] Referrals: MARIAH KEITA FNP [Primary Care Provider] - Follow up as needed
[2018-06-04 12:11] LABS: HEMATOCRIT 35.9 % (37.9-51.0); HEMOGLOBIN 11.7 g/dL (13.5-17.0); MEAN CORPUSCULAR HEMOGLOBIN 25.3 pg (27.0-33.4); MEAN CORPUSCULAR HGB CONC 32.6 g/dL (32.0-36.0); MEAN CORPUSCULAR VOLUME 78 fl (80-97); PLATELET COUNT 172 10^3/uL (150-450); RED BLOOD COUNT 4.62 10^6/uL (4.35-5.55); RED CELL DISTRIBUTION WIDTH 16.7 % (11.5-14.0); WHITE BLOOD COUNT 4.4 10^3/uL (4.0-10.5)
--- NOTE | 2018-06-04 12:25 | RADIOLOGY REPORT (SQ) ---
EXAM DESCRIPTION: CHEST SINGLE VIEW COMPLETED DATE/TIME: 06/04/2018 12:12 pm REASON FOR STUDY: sob ihv pna COMPARISON: 05/02/2015 EXAM PARAMETERS: NUMBER OF VIEWS: One view. TECHNIQUE: Single frontal radiographic view of the chest acquired. RADIATION DOSE: NA LIMITATIONS: None. FINDINGS: LUNGS AND PLEURA: Multifocal mixed interstitial and airspace disease in the right lung, m ay represent pneumonia. The left lung is clear. No pneumothorax or pleural effusion. MEDIASTINUM AND HILAR STRUCTURES: No masses. Contour normal. HEART AND VASCULAR STRUCTURES: Heart normal in size. Normal vasculature. BONES: No acute findings. HARDWARE: None in the chest. OTHER: No other significant finding. IMPRESSION: 1. Multifocal next interstitial and airspace disease in the right lung, may be on the b asis of pneumonia. TECHNICAL DOCUMENTATION: JOB ID: [id number] [employer]- All Rights Reserved Reading location - IP/workstation name: [email or web address]
[2018-06-04 12:33] LABS: BLOOD UREA NITROGEN 9 mg/dL (7-20); CALCIUM 8.6 mg/dL (8.4-10.2); CARBON DIOXIDE 27 mmol/L (22-30); GLUCOSE 89 mg/dL (75-110); POTASSIUM 4.3 mmol/L (3.6-5.0)
[2018-06-04 12:39] LABS: ABSOLUTE LYMPHOCYTES# (MANUAL) 1.4 10^3/uL (0.5-4.7); ABSOLUTE MONOCYTES # (MANUAL) 0.6 10^3/uL (0.1-1.4); ABSOLUTE NEUTROPHILS# (MANUAL) 2.2 10^3/uL (1.7-8.2); BASOPHILS % (MANUAL) 0 % (0-2); CHLORIDE 104 mmol/L (98-107); EOSINOPHILS % (MANUAL) 4 % (0-6); LYMPHOCYTES % (MANUAL) 32 % (13-45); MONOCYTES % (MANUAL) 14 % (3-13); SEGMENTED NEUTROPHILS % (MAN) 50 % (42-78); SODIUM 135.1 mmol/L (137-145); TOTAL CELLS COUNTED 100
[2018-06-04 12:41] LABS: ANISOCYTOSIS 1+; HYPOCHROMASIA SLIGHT; OVALOCYTES 1+; POIKILOCYTOSIS 1+
[2018-06-04 12:42] LABS: PLATELET COMMENT ADEQUATE; ROULEAUX 1+
[2018-06-04 12:44] LABS: ANION GAP 4 (5-19)
[2018-06-04] MEDS ORDERED: CEFEPIME 1 GM/D5W RTU 1 GM/50 ML RTUPB IV ONE (12:48)
[2018-06-04] MEDS ORDERED: VANCOMYCIN HCL INJ 1000 MG VIAL IV ONE (13:14)
[2018-06-04] MEDS ORDERED: AZITHROMYCIN PO SCH (22:30)
[2018-06-05] MEDS ORDERED: CEFEPIME 1 GM/D5W RTU 1 GM/50 ML RTUPB IV ONE (02:00)
[2018-06-05] MEDS: PANTOT AC/MIN OIL/PET HY-PHL OINT 50 GM TOP SCH ×3 (09:49→18:07)
[2018-06-05] MEDS ORDERED: [UNRECOGNIZED DRUG - OTHER] PO SCH (10:00)
[2018-06-05] MEDS ORDERED: COBICISTAT PO SCH (10:00)
[2018-06-05] MEDS ORDERED: TENOFOVIR DISOPROXIL FUMARATE PO SCH (10:00)
[2018-06-05] MEDS ORDERED: DARUNAVIR PO SCH (10:00)
[2018-06-05] MEDS ORDERED: (PENDING PHARMACY ID) (Dolutegravir Sodium [Tivicay] 50 MG) PO SCH (10:00)
[2018-06-05] MEDS ORDERED: ATOVAQUONE 1500 MG PO SCH (10:00)
[2018-06-05] MEDS ORDERED: IPRATROPIUM/ALBUTEROL 0.5-2.5 MG/3 ML AMPUL NEB ONE (10:05)
--- NOTE | 2018-06-05 10:07 | ER Document Report ---
Doctor's Note Notes: 06/05/18 10:05 Patient seen and examined. Chart reviewed. He is an HIV-positive patient, found to have right middle lobe pneumonia. He came in complaining of shortness of breath. He states he still feels short of breath, states he had some help after breathing treatment. Otherwise he denies any pain. Currently awaiting transfer. Vital signs reviewed and as charted. Head is normocephalic and atraumatic. Heart is regular rate and rhythm, lungs show coarse breath sounds but no wheezes, rales, rhonchi appreciated. Abdomen is soft and nontender. Extremities without cyanosis or clubbing. Assessment is right middle lobe pneumonia in an HIV-positive patient. Awaiting transfer. Patient is medically stable, will follow.
[2018-06-05 11:09] LABS: HEMATOCRIT 35.3 % (37.9-51.0); HEMOGLOBIN 11.4 g/dL (13.5-17.0); MEAN CORPUSCULAR HEMOGLOBIN 25.1 pg (27.0-33.4); MEAN CORPUSCULAR HGB CONC 32.2 g/dL (32.0-36.0); MEAN CORPUSCULAR VOLUME 78 fl (80-97); PLATELET COUNT 127 10^3/uL (150-450); RED BLOOD COUNT 4.52 10^6/uL (4.35-5.55); RED CELL DISTRIBUTION WIDTH 16.7 % (11.5-14.0); WHITE BLOOD COUNT 4.2 10^3/uL (4.0-10.5)
[2018-06-05 11:35] LABS: ANION GAP 7 (5-19); BLOOD UREA NITROGEN 13 mg/dL (7-20); CALCIUM 8.7 mg/dL (8.4-10.2); CARBON DIOXIDE 24 mmol/L (22-30); CHLORIDE 108 mmol/L (98-107); GLUCOSE 185 mg/dL (75-110); POTASSIUM 4.1 mmol/L (3.6-5.0); SODIUM 139.2 mmol/L (137-145)
[2018-06-05 11:36] LABS: ABSOLUTE LYMPHOCYTES# (MANUAL) 0.5 10^3/uL (0.5-4.7); ABSOLUTE MONOCYTES # (MANUAL) 0.3 10^3/uL (0.1-1.4); ABSOLUTE NEUTROPHILS# (MANUAL) 3.3 10^3/uL (1.7-8.2); BAND NEUTROPHILS % (MANUAL) 1 % (3-5); BASOPHILS % (MANUAL) 0 % (0-2); EOSINOPHILS % (MANUAL) 0 % (0-6); LYMPHOCYTES % (MANUAL) 13 % (13-45); MONOCYTES % (MANUAL) 8 % (3-13); SEGMENTED NEUTROPHILS % (MAN) 78 % (42-78); TOTAL CELLS COUNTED 100
[2018-06-05 11:39] LABS: ANISOCYTOSIS 1+; HYPOCHROMASIA SLIGHT; OVALOCYTES SLIGHT; PLATELET COMMENT DECREASED; TOXIC GRANULATION SLIGHT; TOXIC VACUOLATION PRESENT
[2018-06-06] MEDS: PANTOT AC/MIN OIL/PET HY-PHL OINT 50 GM TOP SCH ×2 (11:09→14:51)
--- NOTE | 2018-06-06 20:35 | ER Document Report ---
Doctor's Note Notes: 06/06/18 20:35 Quickly, the patient is HIV positive who presented with respiratory distress currently with pneumonia and possible sepsis. Patient is currently safe for transport.
[2018-06-06 20:37] VITALS: BP 112/78
== END 2018-06-06 20:45 | disposition short-term general hospital (02) ==
LOC: ER 11:41
DX: J18.1 Lobar pneumonia, unspecified organism (principal); R06.02 Shortness of breath; L50.9 Urticaria, unspecified; Z21 Asymptomatic human immunodeficiency virus [HIV] infection status; Z88.2 Allergy status to sulfonamides; Z87.891 Personal history of nicotine dependence; Z99.81 Dependence on supplemental oxygen; Z86.14 Personal history of Methicillin resistant Staphylococcus aureus infection
CPT/HCPCS: 94640; 99291; 96372; 96365; 96367; 36415; 87040; 85025; 80048; 71045; J0171; J3490; J3370; J7620; J0692 ×2

== ENCOUNTER 2018-07-03 14:22 | Emergency (ER) | payer MEDICAID ==
[2018-07-03 15:01] LABS: APPEARANCE,URINE CLEAR; BILIRUBIN,URINE NEGATIVE (NEGATIVE); COLOR,URINE YELLOW; GLUCOSE, URINE NEGATIVE (NEGATIVE); KETONES,URINE NEGATIVE (NEGATIVE); LEUKOCYTE ESTERASE,URINE NEGATIVE (NEGATIVE); NITRITE,URINE NEGATIVE (NEGATIVE); PROTEIN,URINE NEGATIVE (NEGATIVE); URINE SPECIFIC GRAVITY 1.017; UROBILINOGEN,URINE NEGATIVE mg/dL (<2.0)
[2018-07-03 15:13] LABS: ALANINE AMINOTRANSFERASE 79 U/L (21-72); ALBUMIN 3.6 g/dL (3.5-5.0); ALKALINE PHOSPHATASE 218 U/L (38-126); ANION GAP 5 (5-19); ASPARTATE AMINO TRANSFERASE 83 U/L (17-59); BILIRUBIN,DIRECT 0.2 mg/dL (0.0-0.4); BILIRUBIN,TOTAL 0.2 mg/dL (0.2-1.3); BLOOD UREA NITROGEN 10 mg/dL (7-20); CALCIUM 9.2 mg/dL (8.4-10.2); CARBON DIOXIDE 29 mmol/L (22-30); CHLORIDE 104 mmol/L (98-107); GLUCOSE 96 mg/dL (75-110); POTASSIUM 4.1 mmol/L (3.6-5.0); SODIUM 138.1 mmol/L (137-145); TOTAL PROTEIN 8.4 g/dL (6.3-8.2)
--- NOTE | 2018-07-03 16:21 | RADIOLOGY REPORT (SQ) ---
EXAM DESCRIPTION: CHEST SINGLE VIEW COMPLETED DATE/TIME: 07/03/2018 4:09 pm REASON FOR STUDY: difficulty breathing COMPARISON: 06/04/2018 EXAM PARAMETERS: NUMBER OF VIEWS: One view. TECHNIQUE: Single frontal radiographic view of the chest acquired. RADIATION DOSE: NA LIMITATIONS: None. FINDINGS: LUNGS AND PLEURA: No opacities, masses or pneumothorax. No pleural effusion. MEDIASTINUM AND HILAR STRUCTURES: No masses. Contour normal. HEART AND VASCULAR STRUCTURES: Heart normal in size. Normal vasculature. BONES: No acute findings. HARDWARE: None in the chest. OTHER: No other significant finding. IMPRESSION: NO ACUTE RADIOGRAPHIC FINDING IN THE CHEST. TECHNICAL DOCUMENTATION: JOB ID: [id number] [employer]- All Rights Reserved Reading location - IP/workstation name: [email or web address]
[2018-07-03 16:47] LABS: ABSOLUTE EOSINOPHILS # (AUTO) 0.1 10^3/uL (0.0-0.6); ABSOLUTE LYMPHOCYTES (AUTO) 0.5 10^3/uL (0.5-4.7); ABSOLUTE MONOCYTES (AUTO) 0.3 10^3/uL (0.1-1.4); ABSOLUTE NEUT (AUTO) 1.5 10^3/uL (1.7-8.2); BASOPHILS % (AUTO) 0.7 % (0-2); EOSINOPHILS % (AUTO) 4.1 % (0-6); HEMATOCRIT 35.9 % (37.9-51.0); HEMOGLOBIN 11.4 g/dL (13.5-17.0); LYMPHOCYTES % (AUTO) 21.2 % (13-45); MEAN CORPUSCULAR HEMOGLOBIN 24.3 pg (27.0-33.4); MEAN CORPUSCULAR HGB CONC 31.7 g/dL (32.0-36.0); MEAN CORPUSCULAR VOLUME 77 fl (80-97); MONOCYTES % (AUTO) 11.4 % (3-13); PLATELET COUNT 105 10^3/uL (150-450); RED BLOOD COUNT 4.68 10^6/uL (4.35-5.55); RED CELL DISTRIBUTION WIDTH 17.9 % (11.5-14.0); SEGMENTED NEUTROPHILS % (AUTO) 62.6 % (42-78); TOTAL CELLS COUNTED % (AUTO) 100 %; WHITE BLOOD COUNT 2.4 10^3/uL (4.0-10.5)
--- NOTE | 2018-07-03 17:04 | ER Document Report ---
ED General <DOE BRITO - Last Filed: 07/03/18 21:16> - General Mode of Arrival: Medic Information source: Patient TRAVEL OUTSIDE OF THE [place] IN LAST 30 DAYS: No <MARVIN SHIN - Last Filed: 07/06/18 10:15> - General Chief Complaint: Shortness Of Breath Stated Complaint: DIFFICULTY BREATHING Time Seen by Provider: 07/03/18 16:27 Primary Care Provider: MARIAH KEITA FNP [Primary Care Provider] - Follow up tomorrow Notes: Patient is a 43-year-old male history of HIV, PCP pneumonia who presents to the ED with increased difficulty breathing. Patient was seen in the ED here on 06/04 and transferred to [facility] with diagnosis of pneumonia and possible sepsis. Patient had to be transferred to the ICU and was intubated. Patient reports he was discharged from [facility] on 06/21. He even had a follow-up appointment on 06/[address] Montoya and reported symptom improvement. However, this morning he noticed audible wheezing, increased difficulty breathing and weakness. Patient is on home oxygen of 2 L by nasal cannula. He has been taking all of his discharge medications as advised including clindamycin, dapsone, azithromycin as well as his HIV meds. Last CD4 count was 64. Denies fever, head injury, neck pain, headache, changes in vision/speech/mentation/hearing, URI, sore throat, chest pain, palpitations, syncope, abdominal pain, nausea/vomiting/diarrhea, urinary retention, dysuria, hematuria, saddle anesthesia, muscle paralysis/weakness, or rash. (MARVIN SHIN) - Related Data Allergies/Adverse Reactions: Sulfa (Sulfonamide Antibiotics) Allergy (Verified 06/04/18 22:28) Past Medical History - Social History Smoking Status: Never Smoker Family History: CAD, CVA Patient has suicidal ideation: No Patient has homicidal ideation: No Pulmonary Medical History: Reports: Hx Pneumonia - PCP Denies: Hx Asthma - denies Renal/ Medical History: Denies: Hx Peritoneal Dialysis Psychiatric Medical History: Reports: Hx Depression - not clinically diagnosed Infectious Medical History: Reports: Hx HIV Past Surgical History: Reports: Hx Kidney (Renal Surgery) - left removed, Hx Orthopedic Surgery - Immunizations Hx Diphtheria, Pertussis, Tetanus Vaccination: Yes Hx Pneumococcal Vaccination: 05/28/12 <MARVIN SHIN - Last Filed: 07/06/18 10:15> Review of Systems - Review of Systems -: Yes All other systems reviewed and negative <MARVIN SHIN - Last Filed: 07/06/18 10:15> Physical Exam <MARVIN SHIN - Last Filed: 07/06/18 10:15> - Vital signs Vitals: Pulse Ox 94 07/03/18 14:25 - Notes Notes: PHYSICAL EXAMINATION: GENERAL: Well-appearing, well-nourished and in mild resp distress. HEAD: Atraumatic, normocephalic. EYES: Pupils equal round and reactive to light, extraocular movements intact, sclera anicteric, conjunctiva are normal. ENT: Nares patent and without discharge. oropharynx clear without exudates. No tonsilar hypertrophy or erythema. Moist mucous membranes. NECK: Normal range of motion, supple without lymphadenopathy LUNGS: wheezes and rhonchi throughout. No obvious retractions. + tachypnea HEART: Regular rate and rhythm without murmurs, rubs, gallops. ABDOMEN: Soft, nontender, nondistended abdomen. No guarding, no rebound. No masses appreciated. Normal bowel sounds present. No CVA tenderness bilaterally. Musculoskeletal: FROM to passive/active. Strength 5+/5. Jose neg. No asymmetry to LE's. Extremities: No cyanosis, clubbing, or edema b/l. Peripheral pulses 2+. Capillary refill less than 3 seconds. NEUROLOGICAL: Normal speech, normal gait. PSYCH: Normal mood, normal affect. SKIN: hands/feet/neck have a maculopapular lesions with scabbing noted. Non- tender. No erythema or fluctuance. (MARVIN SHIN) Course - Laboratory Result Diagrams: 07/03/18 16:40 07/03/18 14:30 <DOE BRITO - Last Filed: 07/03/18 21:16> - Laboratory Result Diagrams: 07/03/18 16:40 07/03/18 14:30 <MARVIN SHIN - Last Filed: 07/06/18 10:15> - Re-evaluation Re-evalutation: 07/03/18 21:16 Venous blood gas unremarkable. Patient re-evaluated at bedside. He states he does feel better. He states he would be fine with either admission or going ho la. Discussed with Dr. Victoria. He recommends steroids for COPD, discharge, close followup, return precautions. I discussed with Dr. Goyal and he is in agreement with this, patient states satisfaction and agreement with this plan. (DOE BRITO) 07/03/18 20:15 Patient is an afebrile, well-hydrated, 43-year-old male who presents emergency department with suspected COPD exacerbation. Patient has been given magnesium, solumedrol, and breathing treatments. Patient states that he is feeling better than when he first arrived, but does not feel comfortable going home and is remaining condition. It was discussed of possible BiPAP, but patient states that he is no longer in the distress that he was in prior to previous treatments. Lab work is otherwise unremarkable at this time. Chest x-ray and CTA of his chest showed pulmonary emphysema. Patient has an extensive history with being intubated less than a month ago and having PCP pneumonia and having to be transferred. He had a 2-week hospital admission and [facility]. Patient's comorbidities to add to his case for admission. This was reviewed with Dr. Goyal who is in agreement with admit/plan. I did speak with Dr. Victoria, hospitalist, who would like an ABG prior to accepting for admission. Transfer of care to [facility] (MARVIN SHIN) - Vital Signs Vital signs: Temp Pulse Resp BP Pulse Ox 98.8 F 86 21 H 132/80 H 94 07/03/18 21:45 07/03/18 19:49 07/03/18 21:45 07/03/18 21:45 07/03/18 21:45 - Laboratory Laboratory results interpreted by me: 07/03/18 07/03/18 07/03/18 14:30 16:40 18:15 WBC 2.4 L Hgb 11.4 L 11.2 L Hct 35.9 L 35.7 L MCV 77 L 77 L MCH 24.3 L 24.3 L MCHC 31.7 L 31.4 L RDW 17.9 H 17.1 H Plt Count 105 L Absolute Neutrophils 1.5 L 1.3 L Carbonic Acid ABG pCO2 ABG pO2 ABG HCO3 ABG Total CO2 AST 83 H ALT 79 H Alkaline Phosphatase 218 H Total Protein 8.4 H Platelet Count 107 L Total WBC 2.6 L % CD4 Cells 4.0 L Absolute CD4 Count 40 L T-Lymph CD4/CD8 Ratio 0.06 L % CD8 Cells 63.7 H 07/03/18 21:07 WBC Hgb Hct MCV MCH MCHC RDW Plt Count Absolute Neutrophils Carbonic Acid 1.43 H ABG pCO2 47.5 H ABG pO2 77.6 L ABG HCO3 27.5 H ABG Total CO2 28.9 H AST ALT Alkaline Phosphatase Total Protein Platelet Count Total WBC % CD4 Cells Absolute CD4 Count T-Lymph CD4/CD8 Ratio % CD8 Cells Discharge <DOE BRITO - Last Filed: 07/03/18 21:16> <MARVIN SHIN - Last Filed: 07/06/18 10:15> - Discharge Clinical Impression: COPD exacerbation, Wheezing Condition: Stable Disposition: HOME, SELF-CARE Additional Instructions: Your workup does not show pneumonia at this time. Your symptoms appear to be coming from an exacerbation of your COPD. Continue current medications and inhalers, take prednisone as prescribed. Follow up with your Primary Care tomorrow or return to the Emergency Department if you worsen in any way (difficulty breathing, fever, severe headache, vomiting, etc). Prescriptions: RX: Prednisone [Deltasone 20 mg Tablet] 3 tab PO DAILY 4 Days #12 tablet Referrals: MARIAH KEITA FNP [Primary Care Provider] - Follow up tomorrow
[2018-07-03 17:07] LABS: NT PRO BNP 28 pg/mL (<125)
[2018-07-03 17:08] LABS: TROPONIN I < 0.012 ng/mL
[2018-07-03] MEDS ORDERED: METHYLPREDNISOLONE INJ 125 MG/2 ML SDV IV ONE (17:08)
[2018-07-03] MEDS ORDERED: MAGNESIUM SULFATE/D5W 1 GM/100 ML RTUPB IV ONE ×2 (17:08→17:09)
[2018-07-03] MEDS ORDERED: IPRATROPIUM/ALBUTEROL 0.5-2.5 MG/3 ML AMPUL NEB ONE (17:08)
[2018-07-03 18:32] LABS: VENOUS BLOOD BASE EXCESS 2.7 mmol/L; VENOUS BLOOD HCO3 29.4 mmol/L (20-32); VENOUS BLOOD PCO2 54.7 mmHg (35-63); VENOUS BLOOD PH 7.35 (7.30-7.42)
--- NOTE | 2018-07-03 19:29 | RADIOLOGY REPORT (SQ) ---
EXAM DESCRIPTION: CTA CHEST COMPLETED DATE/TIME: 07/03/2018 7:09 pm REASON FOR STUDY: sob COMPARISON: 10/03/2017 TECHNIQUE: CT scan of the chest performed using helical scanning technique with dynamic intravenous contrast injection. Images reviewed with lung, soft tissue and bone windows. Reconstructed coronal and sagittal MPR images reviewed. Additional 3 dimensional post-processing performed to develop Maximal Intensity Projection images ([place] P). All images stored on PACS. All CT scanners at this facility use dose modulation, iterative reconstruction, and/or weight based d osing when appropriate to reduce radiation dose to as low as reasonably achievable (ALARA). [facility]: Dose Right [facility]: CareDose [facility]: Dose Right [facility]: Teradose 4D [facility]: [employer] CONTRAST TYPE AND DOSE: contrast/concentration: Isovue 300.00 mg/ml; Total Contrast Delivered: 80.0 ml; Total Saline Delivered: 71.0 ml Contrast bolus adequate for pulmonary arteries and aorta. RENAL FUNCTION: BUN 10 creatinine 0.87 RADIATION DOSE: CT Rad equipment meets quality standard of care and radiation dose reduction techniq ues were employed. CTDIvol: 14.6 - 19.8 mGy. DLP: 672 mGy-cm. . LIMITATIONS: None. FINDINGS: LUNGS AND PLEURA: Mild centrilobular emphysematous changes in the right middle lobe and lo wer lobes. Cannot exclude mild bronchiectasis bilaterally. Mild scarring in the right base. Mild t ree in bud changes bilaterally. AORTA AND GREAT VESSELS: No aneurysm. No dissection. HEART: No pericardial effusion. No significant coronary artery calcifications. PULMONARY ARTERIES: No emboli visualized in the main pulmonary arteries or the segmental branches. HILAR AND MEDIASTINAL STRUCTURES: Small nonspecific mediastinal nodes are present. HARDWARE: None in the chest. UPPER ABDOMEN: Possible splenomegaly. THYROID AND OTHER SOFT TISSUES: No masses. No adenopathy. BONES: No acute or significant finding. 3D MIPS: Confirm above findings. OTHER: No other significant finding. IMPRESSION: Mild pulmonary emphysema. Scarring in the right base. Mild bronchiectasis is suggested in the lower lobes. There is no evidence of pulmonary embolus. There is no aortic aneurysm or diss ection. Possible splenomegaly. COMMENT: Quality ID # [id number]: Final reports with documentation of one or more dose reduction techniques (e.g., Automated exposure control, adjustment of the mA and/or kV according to patient size, use of iterative reconstruction technique) TECHNICAL DOCUMENTATION: JOB ID: [id number] [email or web address]- All Rights Reserved Reading location - IP/workstation name: [email or web address]
[2018-07-03] MEDS ORDERED: ALBUTEROL SULFATE 0.083% NEB 2.5 MG/3 ML AMPUL NEB ONE (19:53)
[2018-07-03 21:23] LABS: ARTERIAL BLOOD BASE EXCESS 1.8 mmol/L; ARTERIAL BLOOD H2CO3 1.43 mmol/L (1.05-1.35); ARTERIAL BLOOD HCO3 27.5 mmol/L (20-24); ARTERIAL BLOOD O2 SATURATION 95.2 % (94-98); ARTERIAL BLOOD PCO2 47.5 mmHg (35-45); ARTERIAL BLOOD PH 7.38 (7.35-7.45); ARTERIAL BLOOD PO2 77.6 mmHg (80-100); ARTERIAL BLOOD TOTAL CO2 28.9 mmol/L (23-27)
[2018-07-03 21:24] LABS: ARTERIAL BLOOD FIO2 4L
[2018-07-03 21:52] VITALS: BP 132/80
--- NOTE | 2018-07-03 22:33 | EKG REPORT ---
SEVERITY:- NORMAL ECG - SINUS RHYTHM : Confirmed by: Nanette Hart MD 03-Jul-2018 22:32:32
[2018-07-05 12:37] LABS: % CD 8 POS LYMPH 63.7 % (12.0-35.5); ABSOLUTE CD 4 HELPER 40 /uL (359-1519); ABSOLUTE CD 8 SUPPRESSOR 637 /uL (109-897); CD BASOPHILS 0 % (Not Estab.); CD EOSINOPHILS 4 % (Not Estab.); CD MONOCYTES 8 % (Not Estab.); CD NEUTROPHILS 49 % (Not Estab.); CD4/CD8 RATIO 0.06 (0.92-3.72); EOSINOPHILS (ABSOLUTE) 0.1 x10E3/uL (0.0-0.4); HEMOGLOBIN 11.2 g/dL (13.0-17.7); IMMATURE GRANULOCYTES 0 % (Not Estab.); MCH 24.3 pg (26.6-33.0); MCHC 31.4 g/dL (31.5-35.7); MCV 77 fL (79-97); MONOCYTES(ABSOLUTE) 0.2 x10E3/uL (0.1-0.9); NEUTROPHILS(ABSOLUTE) 1.3 x10E3/uL (1.4-7.0); RBC 4.61 x10E6/uL (4.14-5.80); RDW 17.1 % (12.3-15.4); WBC 2.6 x10E3/uL (3.4-10.8)
[2018-07-05 13:24] LABS: PLATELETS 107 x10E3/uL (150-379)
== END 2018-07-03 22:12 | disposition home or self-care (01) ==
LOC: ER 14:22
DX: J44.1 Chronic obstructive pulmonary disease with (acute) exacerbation (principal); B20 Human immunodeficiency virus [HIV] disease; Z88.2 Allergy status to sulfonamides
CPT/HCPCS: 93005; 94640 ×2; 99285; 96374; 96375; 86360; 36415; 82803 ×2; 85025; 80053; 81001; 84484; 83880; 71045; 71275; 93010; 36600; J2930; J3475; J7620

== ENCOUNTER 2018-10-09 10:49 | Emergency (ER) | payer MEDICAID ==
[2018-10-09] MEDS ORDERED: PREDNISONE 20 MG TABLET PO ONE (11:12)
[2018-10-09] MEDS ORDERED: IPRATROPIUM/ALBUTEROL 0.5-2.5 MG/3 ML AMPUL NEB ONE (11:12)
[2018-10-09] MEDS ORDERED: NORMAL SALINE 1000 ML 1,000 ML IV ONE (11:13)
--- NOTE | 2018-10-09 11:14 | ER Document Report ---
ED Medical Screen (RME) - General Chief Complaint: Wheezing >1yr age Stated Complaint: EYE IRRITATION Time Seen by Provider: 10/09/18 11:11 Primary Care Provider: MARIAH KEITA FNP [Primary Care Provider] - Follow up as needed Mode of Arrival: Wheelchair Information source: Patient Notes: Patient presents complaining of right eye drainage for the past 3 days. Patient reports chronic cough that has worsened over the past several days. Patient complains of exertional shortness of breath. No fever. Patient also has sacral tenderness and is concerned about possible hemorrhoids. Patient does have a history of COPD and is currently on 2 L of oxygen although his sat is 87%. Patient also has history of HIV. I have greeted and performed a rapid initial assessment of this patient. A comprehensive ED assessment and evaluation of the patient, analysis of test results and completion of the medical decision making process will be conducted by additional ED providers. TRAVEL OUTSIDE OF THE [place] IN LAST 30 DAYS: No - Related Data Allergies/Adverse Reactions: Sulfa (Sulfonamide Antibiotics) Allergy (Verified 10/09/18 10:53) Past Medical History Pulmonary Medical History: Reports: Hx Pneumonia - PCP Denies: Hx Asthma - denies Renal/ Medical History: Denies: Hx Peritoneal Dialysis Psychiatric Medical History: Reports: Hx Depression - not clinically diagnosed Infectious Medical History: Reports: Hx HIV Past Surgical History: Reports: Hx Kidney (Renal Surgery) - left removed, Hx Orthopedic Surgery - Immunizations Hx Diphtheria, Pertussis, Tetanus Vaccination: Yes History of Influenza Vaccine for 11/2016 - 04/2017 Season: Unknown Physical Exam - Vital signs Vitals: Temp Pulse Resp BP Pulse Ox 98.7 F 106 H 18 125/74 87 L 10/09/18 11:04 10/09/18 11:04 10/09/18 11:04 10/09/18 11:04 10/09/18 11:04 - Respiratory Breath sounds: Nonproductive cough, Rhonchi, Wheezing Course - Vital Signs Vital signs: Temp Pulse Resp BP Pulse Ox 98.7 F 106 H 18 125/74 87 L 10/09/18 11:04 10/09/18 11:04 10/09/18 11:04 10/09/18 11:04 10/09/18 11:04 Doctor's Discharge - Discharge Referrals: KEITA,LESHONDA, STUDENT AFFAIRS VICE PRESIDENT [Primary Care Provider] - Follow up as needed
[2018-10-09] MEDS: ALBUTEROL SULFATE 0.083% NEB 2.5 MG/3 ML AMPUL NEB SCH ×2 (11:22→12:37)
--- NOTE | 2018-10-09 12:16 | RADIOLOGY REPORT (SQ) ---
EXAM DESCRIPTION: CHEST 2 VIEWS COMPLETED DATE/TIME: 10/09/2018 12:08 pm REASON FOR STUDY: cough COMPARISON: 07/03/2018 EXAM PARAMETERS: NUMBER OF VIEWS: two views TECHNIQUE: Digital Frontal and Lateral radiographic views of the chest acquired. RADIATION DOSE: NA LIMITATIONS: none FINDINGS: LUNGS AND PLEURA: No opacities, masses or pneumothorax. No pleural effusion. Stable left basilar right mid lung linear opacities likely pleural thickening and scarring MEDIASTINUM AND HILAR STRUCTURES: No masses or contour abnormalities. HEART AND VASCULAR STRUCTURES: Heart normal size. No evidence for failure. BONES: No acute findings. HARDWARE: Surgical clips overlie upper abdomen. OTHER: No other significant finding. IMPRESSION: No evidence of acute cardiopulmonary process. TECHNICAL DOCUMENTATION: JOB ID: [id number] [employer]- All Rights Reserved Reading location - IP/workstation name: [email or web address]
[2018-10-09 12:21] LABS: ABSOLUTE EOSINOPHILS # (AUTO) 0.2 10^3/uL (0.0-0.6); ABSOLUTE MONOCYTES (AUTO) 0.3 10^3/uL (0.1-1.4); ABSOLUTE NEUT (AUTO) 1.8 10^3/uL (1.7-8.2); BASOPHILS % (AUTO) 0.6 % (0-2); HEMATOCRIT 33.8 % (37.9-51.0); HEMOGLOBIN 10.5 g/dL (13.5-17.0); LYMPHOCYTES % (AUTO) 29.8 % (13-45); MEAN CORPUSCULAR HEMOGLOBIN 23.3 pg (27.0-33.4); MEAN CORPUSCULAR HGB CONC 31.2 g/dL (32.0-36.0); MEAN CORPUSCULAR VOLUME 75 fl (80-97); MONOCYTES % (AUTO) 9.4 % (3-13); RED BLOOD COUNT 4.52 10^6/uL (4.35-5.55); RED CELL DISTRIBUTION WIDTH 19.2 % (11.5-14.0); SEGMENTED NEUTROPHILS % (AUTO) 55.2 % (42-78); TOTAL CELLS COUNTED % (AUTO) 100 %; WHITE BLOOD COUNT 3.3 10^3/uL (4.0-10.5)
[2018-10-09 12:31] LABS: ALBUMIN 3.5 g/dL (3.5-5.0); ALKALINE PHOSPHATASE 192 U/L (38-126); ANION GAP 5 (5-19); ASPARTATE AMINO TRANSFERASE 67 U/L (17-59); BILIRUBIN,DIRECT 0.3 mg/dL (0.0-0.4); BILIRUBIN,TOTAL 0.4 mg/dL (0.2-1.3); BLOOD UREA NITROGEN 9 mg/dL (7-20); CALCIUM 8.7 mg/dL (8.4-10.2); CARBON DIOXIDE 31 mmol/L (22-30); CHLORIDE 106 mmol/L (98-107); GLUCOSE 110 mg/dL (75-110); POTASSIUM 3.8 mmol/L (3.6-5.0); TOTAL PROTEIN 9.5 g/dL (6.3-8.2)
[2018-10-09 12:50] LABS: PLATELET COUNT 83 10^3/uL (150-450)
[2018-10-09 13:32] LABS: ARTERIAL BLOOD BASE EXCESS -0.9 mmol/L; ARTERIAL BLOOD FIO2 2L; ARTERIAL BLOOD H2CO3 1.21 mmol/L (1.05-1.35); ARTERIAL BLOOD O2 SATURATION 93.7 % (94-98); ARTERIAL BLOOD PCO2 40.3 mmHg (35-45); ARTERIAL BLOOD PH 7.39 (7.35-7.45); ARTERIAL BLOOD PO2 68.8 mmHg (80-100); ARTERIAL BLOOD TOTAL CO2 25.2 mmol/L (23-27)
[2018-10-09] MEDS ORDERED: TETRACAINE HCL 0.5% OPH SOLN 4 ML OD ONE (13:40)
[2018-10-09] MEDS ORDERED: TETRACAINE HCL 0.5% OPH SOLN 4 ML ONE (13:42)
--- NOTE | 2018-10-09 14:04 | ER Document Report ---
ED General <MOE FLORENCE - Last Filed: 10/09/18 16:02> - General Mode of Arrival: Wheelchair TRAVEL OUTSIDE OF THE [place] IN LAST 30 DAYS: No <NATHALIEKIARA A - Last Filed: 10/09/18 16:54> - General Chief Complaint: Wheezing >1yr age Stated Complaint: EYE IRRITATION Time Seen by Provider: 10/09/18 11:11 Primary Care Provider: TRINITY MIKE MD [ACTIVE STAFF] - Follow up tomorrow MARIAH KEITA FNP [Primary Care Provider] - Follow up as needed - [facility] Notes: 43-year-old male with a history of HIV, COPD, PACU NURSE pneumonia presents to the ED with complaints of eye redness that started approximately 4 days ago. Patient typically wears 2 L nasal cannula at home, on triage patient was not wearing any oxygen, was 87%, was given 3 nebulizers, patient is 96% on 2 L [place], which is where he typically stays. Patient states since he has not had his oxygen on that he is feeling short of breath however with oxygen he does feel better. Patient does follow with the HIV clinic twice a month, does take antiviral medication. Patient states he started with the eye pain approximately 4 days ago, reports some blurred vision and photophobia. 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 Denies fevers, chills, chest pain,palpitations, shortness of breath, dyspnea, nausea, vomiting, diarrhea, abdominal pain, hematuria,blurred vision, double vision, loss of vision, speech changes, LH, dizziness, syncope, headaches, wheezing, ST, URI, neck pain, weakness, bowel or bladder dysfunction, saddle anesthesia, numbness or tingling in bilateral upper or lower extremities equally, muscle paralysis, weakness in bilateral upper or lower extremities equally or rash. Patient's CD4 count recently was 112 (KIARA ZELAYA) - Related Data Allergies/Adverse Reactions: Sulfa (Sulfonamide Antibiotics) Allergy (Verified 10/09/18 10:53) Past Medical History - General Information source: Patient - Social History Smoking Status: Unknown if Ever Smoked Frequency of alcohol use: None Drug Abuse: None Family History: CAD, CVA Patient has suicidal ideation: No Patient has homicidal ideation: No Pulmonary Medical History: Reports: Hx COPD, Hx Pneumonia - PCP Comment Only: Hx Asthma - denies Renal/ Medical History: Denies: Hx Peritoneal Dialysis Psychiatric Medical History: Reports: Hx Depression - not clinically diagnosed Infectious Medical History: Reports: Hx HIV Past Surgical History: Reports: Hx Kidney (Renal Surgery) - left removed, Hx Orthopedic Surgery - Immunizations Hx Diphtheria, Pertussis, Tetanus Vaccination: Yes Hx Pneumococcal Vaccination: 05/28/12 <KIARA ZELAYA - Last Filed: 10/09/18 16:54> Review of Systems - Review of Systems Constitutional: No symptoms reported EENT: Eye discharge Cardiovascular: No symptoms reported Respiratory: Cough Gastrointestinal: No symptoms reported Genitourinary: No symptoms reported Male Genitourinary: No symptoms reported Musculoskeletal: No symptoms reported Skin: No symptoms reported Hematologic/Lymphatic: No symptoms reported Neurological/Psychological: No symptoms reported <KIARA ZELAYA - Last Filed: 10/09/18 16:54> Physical Exam <KIARA ZELAYA - Last Filed: 10/09/18 16:54> - Vital signs Vitals: Temp Pulse Resp BP Pulse Ox 98.7 F 106 H 18 125/74 87 L 10/09/18 11:04 10/09/18 11:04 10/09/18 11:04 10/09/18 11:04 10/09/18 11:04 - Notes Notes: PHYSICAL EXAMINATION: GENERAL: Well-appearing, well-nourished and in no acute distress. HEAD: Atraumatic, normocephalic. EYES: Fluostain with minimal uptake at 6 o'clock with purulent drainage on the right. noted ruptured lesions at medial canthus on right. PERRLA, normal accommodation, EMOI, peripheral vision bilaterally and equally. red reflex wnl. fluostain negative for foreign body, dendrites, or bilaterally, questionable corneal ulceration on right. Normal fundi and optic discs. Corneas grossly clear. No nystagmus bilaterally. No ptosis, photophobia. visual acuity 200/20 (right, wears glasses but forgot them today), 20/70 (L), 20/70 (bilaterally). see course notes for slit lamp examination by Dr. Florence ENT: Nares patent, oropharynx clear without exudates. Moist mucous membranes. NECK: Normal range of motion, supple without lymphadenopathy LUNGS: Breath sounds clear to auscultation bilaterally and equal. No wheezes rales or rhonchi. HEART: Regular rate and rhythm without murmurs ABDOMEN: Soft, nontender, nondistended abdomen. No guarding, no rebound. No masses appreciated. Musculoskeletal: Normal range of motion, no pitting or edema. No cyanosis. NEUROLOGICAL: Cranial nerves grossly intact. Normal speech, normal gait. Normal sensory, motor exams PSYCH: Normal mood, normal affect. SKIN: Warm, Dry, normal turgor, no rashes or lesions noted. (KIARA ZELAYA) Course - Laboratory Result Diagrams: 10/09/18 11:49 10/09/18 11:49 <MOE FLORENCE - Last Filed: 10/09/18 16:02> - Laboratory Result Diagrams: 10/09/18 11:49 10/09/18 11:49 - EKG Interpretation by Me EKG shows normal: Sinus rhythm Rate: Normal Rhythm: NSR When compared to previous EKG there are: No significant change - No STEMI <KIARA ZELAYA - Last Filed: 10/09/18 16:54> - Re-evaluation Re-evalutation: 10/09/18 15:47 I did personally seen and examined this patient in conjunction with nurse practitioner Trinidad Zelaya. Patient has been having some pain, discharge and blurry vision from his right eye for the past 4 to 5 days. Patient has history of HIV, he is very compliant with his treatment, CD4 counts have been normal and viral load has been undetectable. Patient also has a history of ocular herpes zoster in the past. On slit-lamp examination patient has a very injected conjunctiva with 2 different areas of ulceration 1 of which appears dendritic from approximately the 1 to 2 o'clock position around the outer edge of the iris and a second area at about the 6 o'clock position of again along the outer edge of the iris, this 1 is not dendritic in appearance. Around the eyelid itself near the medial canthus there is purulent drainage and there are some lesions that appear to be ruptured vesicles however no vesicles are left. Visual acuity is poor out of the right eye however he does not have his glasses and cannot compare this to baseline. I am concerned about the possibility of dendritic ulcers and have a phone call out to ophthalmology. 10/09/18 16:02 I discussed this with Dr. Kimmy Reese who graciously accepted consult from [facility] eye care, she recommends treating with oral antivirals and topical Vigamox and they will work him into the office schedule tomorrow for recheck. (MOE FLORENCE) 43-year-old male afebrile with stable remains on 2 L nasal cannula with pulse ox at 96%. When this provider listen to patient's lung, he is already received 3 nebulizing treatments, his lungs are clear on auscultation Dr. Florence, ER supervising attending at bedside to perform slit-lamp and did notice the injury to take lesions on the medial canthus as well as ulcerations at 6:00 and 1 o'clock position with inflammation around iris. Dr. Florence did consult with Dr. Kimmy Mahmood at [facility], see her message above. CBC was negative for leukocytosis, CMP negative for renal dysfunction, no electrolyte disturbances, elevated ALT and alk phos. Patient is well connected with providers, he does see the HIV clinic twice a month as long with his primary care provider. Hayden nt is not wheezing or rhonchorous on examination of his lungs. Chest x-ray does show some cardiomegaly, otherwise is negative aside from some scarring that has been stable with routine chest x-rays. Vital signs are stable, afebrile. Patient does have oxygen at home. Patient states that he does feel confident in going home, does not feel that he does need to stay. Patient was not complaining of any cardiac issues for the last several days, troponin was negative. Patient has remained in normal sinus rhythm. After performing a Medical Screening Examination, I estimate there is LOW risk for RUPTURED ESOPHAGUS, PNEUMOTHORAX, PULMONARY EMBOLISM, ACUTE CORONARY SYNDROME, OR THORACIC AORTIC DISSECTION, thus I consider the discharge disposition reasonable. I have reevaluated this patient multiple times and no significant life threatening changes are noted. The patient and I have discussed the diagnosis and risks, and we agree with discharging home with close follow-up. We also discussed returning to the Emergency Department immediately if new or worsening symptoms occur. We have discussed the symptoms which are most concerning (e.g., bloody sputum, worsening pain or shortness of breath) that necessitate immediate return. (KIARA ZELAYA) - Vital Signs Vital signs: Temp Pulse Resp BP Pulse Ox 98.7 F 106 H 28 H 123/76 95 10/09/18 11:04 10/09/18 11:04 10/09/18 14:01 10/09/18 14:00 10/09/18 14:01 - Laboratory Laboratory results interpreted by me: 10/09/18 10/09/18 10/09/18 11:49 11:49 13:18 WBC 3.3 L Hgb 10.5 L Hct 33.8 L MCV 75 L MCH 23.3 L MCHC 31.2 L RDW 19.2 H Plt Count 83 L ABG pO2 68.8 L ABG O2 Saturation 93.7 L Carbon Dioxide 31 H AST 67 H Alkaline Phosphatase 192 H Total Protein 9.5 H Urine Urobilinogen 10/09/18 16:20 WBC Hgb Hct MCV MCH MCHC RDW Plt Count ABG pO2 ABG O2 Saturation Carbon Dioxide AST Alkaline Phosphatase Total Protein Urine Urobilinogen 4.0 H Discharge <MOE FLORENCE - Last Filed: 10/09/18 16:02> <KIARA ZELAYA - Last Filed: 10/09/18 16:54> - Discharge Clinical Impression: Zoster ophthalmicus, HIV (human immunodeficiency virus infection), Wheezing Condition: Stable Disposition: HOME, SELF-CARE Instructions: Opthalmic Herpes Simplex ([facility]) Additional Instructions: Start Vigamox as directed as well as valacyclovir. Follow-up with eye doctor tomorrow call first thing in the morning to see if they can fit you in, they did agree to it today. Return immediately for any new or worsening symptoms. Follow up with primary care provider, call tomorrow to make followup appointment. Prescriptions: Moxifloxacin HCl [Vigamox 0.5% Oph Soln 3 ml] 1 drop OP Q8H PRN 7 Days #1 bottle PRN Reason: Valacyclovir HCl [Valacyclovir] 1,000 mg PO Q8H #21 tablet Referrals: MARIAH KEITA FNP [Primary Care Provider] - Follow up as needed TRINITY MIKE MD [ACTIVE STAFF] - Follow up tomorrow
[2018-10-09] MEDS ORDERED: VALACYCLOVIR HCL 500 MG TABLET PO ONE (16:01)
[2018-10-09 16:41] LABS: APPEARANCE,URINE CLEAR; BILIRUBIN,URINE NEGATIVE (NEGATIVE); COLOR,URINE YELLOW; GLUCOSE, URINE NEGATIVE (NEGATIVE); KETONES,URINE NEGATIVE (NEGATIVE); LEUKOCYTE ESTERASE,URINE NEGATIVE (NEGATIVE); NITRITE,URINE NEGATIVE (NEGATIVE); PROTEIN,URINE NEGATIVE (NEGATIVE); URINE SPECIFIC GRAVITY 1.012
[2018-10-09 17:11] VITALS: BP 130/78
--- NOTE | 2018-10-10 14:53 | EKG REPORT ---
SEVERITY:- NORMAL ECG - SINUS RHYTHM : Confirmed by: Jazzmine Shirley 10-Oct-2018 14:52:59
== END 2018-10-09 17:10 | disposition home or self-care (01) ==
LOC: ER 10:49
DX: B02.30 Zoster ocular disease, unspecified (principal); J44.9 Chronic obstructive pulmonary disease, unspecified; R05 Cough; Z99.81 Dependence on supplemental oxygen; Z21 Asymptomatic human immunodeficiency virus [HIV] infection status; Z79.899 Other long term (current) drug therapy; Z88.2 Allergy status to sulfonamides
CPT/HCPCS: 93005; 94640 ×2; 99284; 96360; 96361; 36415; 82803; 85025; 80053; 81001; 84484; 71046; 93010; J7512; J7030; J3490; J7620

== ENCOUNTER 2018-10-29 10:16 | Emergency (ER) | payer MEDICAID ==
[2018-10-29] MEDS ORDERED: IPRATROPIUM/ALBUTEROL 0.5-2.5 MG/3 ML AMPUL NEB ONE (10:45)
[2018-10-29 10:55] LABS: HEMATOCRIT 33.2 % (37.9-51.0); HEMOGLOBIN 10.3 g/dL (13.5-17.0); MEAN CORPUSCULAR HEMOGLOBIN 22.9 pg (27.0-33.4); MEAN CORPUSCULAR HGB CONC 31.1 g/dL (32.0-36.0); MEAN CORPUSCULAR VOLUME 74 fl (80-97); PLATELET COUNT 126 10^3/uL (150-450); RED BLOOD COUNT 4.51 10^6/uL (4.35-5.55); RED CELL DISTRIBUTION WIDTH 18.5 % (11.5-14.0); WHITE BLOOD COUNT 3.5 10^3/uL (4.0-10.5)
[2018-10-29 11:06] LABS: ALBUMIN 3.5 g/dL (3.5-5.0); ALKALINE PHOSPHATASE 144 U/L (38-126); ASPARTATE AMINO TRANSFERASE 58 U/L (17-59); BILIRUBIN,DIRECT 0.2 mg/dL (0.0-0.4); BILIRUBIN,TOTAL 0.3 mg/dL (0.2-1.3); BLOOD UREA NITROGEN 10 mg/dL (7-20); CALCIUM 8.7 mg/dL (8.4-10.2); GLUCOSE 125 mg/dL (75-110); POTASSIUM 4.1 mmol/L (3.6-5.0); TOTAL PROTEIN 9.3 g/dL (6.3-8.2)
[2018-10-29 11:11] LABS: ANION GAP 5 (5-19); CARBON DIOXIDE 31 mmol/L (22-30); CHLORIDE 102 mmol/L (98-107)
[2018-10-29 11:39] LABS: ABSOLUTE LYMPHOCYTES# (MANUAL) 1.5 10^3/uL (0.5-4.7); ABSOLUTE MONOCYTES # (MANUAL) 0.2 10^3/uL (0.1-1.4); BASOPHILS % (MANUAL) 1 % (0-2); EOSINOPHILS % (MANUAL) 9 % (0-6); LYMPHOCYTES % (MANUAL) 40 % (13-45); MONOCYTES % (MANUAL) 5 % (3-13); SEGMENTED NEUTROPHILS % (MAN) 43 % (42-78); TOTAL CELLS COUNTED 100
[2018-10-29 11:40] LABS: ANISOCYTOSIS 2+; HYPOCHROMASIA SLIGHT; PLATELET COMMENT DECREASED; POLYCHROMASIA SLIGHT; ROULEAUX 1+; TARGET CELLS SLIGHT
--- NOTE | 2018-10-29 11:51 | RADIOLOGY REPORT (SQ) ---
EXAM DESCRIPTION: CHEST 2 VIEWS COMPLETED DATE/TIME: 10/29/2018 11:32 am REASON FOR STUDY: SOB COMPARISON: 10/09/2018. EXAM PARAMETERS: NUMBER OF VIEWS: two views TECHNIQUE: Digital Frontal and Lateral radiographic views of the chest acquired. RADIATION DOSE: NA LIMITATIONS: none FINDINGS: LUNGS AND PLEURA: Mild focal scarring. No opacities, masses or pneumothorax. No pleural e ffusion. MEDIASTINUM AND HILAR STRUCTURES: No masses or contour abnormalities. HEART AND VASCULAR STRUCTURES: Heart normal size. No evidence for failure. BONES: No acute findings. HARDWARE: None in the chest. OTHER: No other significant finding. IMPRESSION: NO ACUTE RADIOGRAPHIC FINDING IN THE CHEST. TECHNICAL DOCUMENTATION: JOB ID: [id number] [employer]- All Rights Reserved Reading location - IP/workstation name: [email or web address]
--- NOTE | 2018-10-29 12:11 | ER Document Report ---
ED Respiratory Problem - General Chief Complaint: Breathing Difficulty Stated Complaint: DIFFICULTY BREATHING Time Seen by Provider: 10/29/18 10:35 Primary Care Provider: MARIAH KEITA FNP [Primary Care Provider] - Follow up as needed Notes: Patient is a 43-year-old male history of HIV COPD with one kidney presents to the emergency department in respiratory distress. Patient voices that he is typically on oxygen 2 L/min all the time. States today he did not have his oxygen on while he was doing dishes and "working around the kitchen." Patient states he think he overworked himself and became short of breath. 911 was alerted and gave the patient 1 albuterol treatments and 125 mg of Solu-Medrol IV. Patient states upon arrival to the emergency department he overall feels a lot better. Patient voices he no longer feels short of breath. Patient's denying any cough or congestion, denies any fevers. Patient denies any chest pain at any time. TRAVEL OUTSIDE OF THE [place] IN LAST 30 DAYS: No - Related Data Allergies/Adverse Reactions: Sulfa (Sulfonamide Antibiotics) Allergy (Verified 10/09/18 10:53) Past Medical History - General Information source: Patient - Social History Smoking Status: Former Smoker Frequency of alcohol use: None Drug Abuse: None Family History: CAD, CVA Patient has suicidal ideation: No Patient has homicidal ideation: No Pulmonary Medical History: Reports: Hx COPD, Hx Pneumonia - PCP Comment Only: Hx Asthma - denies Renal/ Medical History: Denies: Hx Peritoneal Dialysis Psychiatric Medical History: Reports: Hx Depression - not clinically diagnosed Infectious Medical History: Reports: Hx HIV Past Surgical History: Reports: Hx Kidney (Renal Surgery) - left removed, Hx Orthopedic Surgery - Immunizations Hx Diphtheria, Pertussis, Tetanus Vaccination: Yes Hx Pneumococcal Vaccination: 05/28/12 Review of Systems - Review of Systems Constitutional: denies: Fever EENT: See HPI Cardiovascular: See HPI Respiratory: See HPI Gastrointestinal: No symptoms reported Genitourinary: No symptoms reported Male Genitourinary: No symptoms reported Musculoskeletal: No symptoms reported Skin: No symptoms reported Hematologic/Lymphatic: No symptoms reported Neurological/Psychological: No symptoms reported Physical Exam - Vital signs Vitals: Resp Pulse Ox 25 H 90 L 10/29/18 10:22 10/29/18 10:22 - Notes Notes: GENERAL: Alert, interacts well. No acute distress. Nasal cannula in place, 2 L/min. HEAD: Normocephalic, atraumatic. EYES: Pupils equal, round, and reactive to light. Extraocular movements intact. ENT: Oral mucosa moist, tongue midline. NECK: Full range of motion. Supple. Trachea midline. LUNGS: Slight expiratory wheeze heard bilateral bases no discernible rales, or rhonchi. No respiratory distress. HEART: Regular rate and rhythm. No murmur ABDOMEN: Soft, non-tender. Non-distended. Bowel sounds present in all 4 quadrants. EXTREMITIES: Moves all 4 extremities spontaneously. No edema, normal radial and dorsalis pedis pulses bilaterally. No cyanosis. BACK: no cervical, thoracic, lumbar midline tenderness. No saddle anesthesia, normal distal neurovascular exam. NEUROLOGICAL: Alert and oriented x3. Normal speech. cranial nerves II through XII grossly intact PSYCH: Normal affect, normal mood. SKIN: Warm, dry, normal turgor. No rashes or lesions noted. Course - Re-evaluation Re-evalutation: 10/29/18 12:07 Patient is on 2 L of oxygen all the time. Patient voices his normal oxygen saturation is 91%. Patient voices he feels a lot better after treatments in the emergency department. Patient will be ambulated with pulse ox and discharged as needed. Nursing staff states patient was able to ambulate and oxygen saturation went down to 86%. Again patient's baseline is 91%. Patient voices he is not short of breath continues without chest pain. States he overall feels a lot better than when he arrived to the emergency department. Labs do show anemia with a decreased MCV. In reviewing charts. Likely this is patient's baseline, patient denies being on iron supplements. Discussed with patient continued use of albuterol, steroids, follow-up with [facility] provider. At this time will discharge with return precautions and follow-up [facility]. Verbal discharge instructions given a the bedside and opportunity for questions given. Medication warnings reviewed. Patient is in agreement with this plan and has verbalized understanding of return precautions and the need for primary care follow-up in the next 24-72 hours. This medical record was dictated with voice recognizing software. There may be grammatical, syntax errors that are unintended. - Vital Signs Vital signs: Temp Pulse Resp BP Pulse Ox 97.9 F 22 H 130/94 H 94 10/29/18 14:20 10/29/18 14:01 10/29/18 14:01 10/29/18 14:01 - Laboratory Result Diagrams: 10/29/18 10:30 10/29/18 10:30 Laboratory results interpreted by me: 10/29/18 10/29/18 10:30 10:30 WBC 3.5 L Hgb 10.3 L Hct 33.2 L MCV 74 L MCH 22.9 L MCHC 31.1 L RDW 18.5 H Plt Count 126 L Eosinophils % (Manual) 9 H Abs Neuts (Manual) 1.5 L Carbon Dioxide 31 H Glucose 125 H Alkaline Phosphatase 144 H Total Protein 9.3 H Discharge - Discharge Clinical Impression: Wheezing, Shortness of breath Anemia Qualifiers: Anemia type: iron deficiency Iron deficiency anemia type: unspecified iron deficiency Qualified Code(s): D50.9 - Iron deficiency anemia, unspecified Condition: Stable Disposition: HOME, SELF-CARE Instructions: Anemia, Iron Deficiency ([facility]), Bronchospasm ([facility]) Additional Instructions: As we discussed you have been seen and treated in the emergency department for your respiratory distress. Please make sure you are using albuterol inhaler every 4 hours for the next 3 days. Please also make sure you are taking steroids as prescribed. Please also start taking iron supplement. Please follow-up with your primary care provider in the next 24 to 48 hours for continued care. Return to the emergency room for any further concerns. Prescriptions: Ferrous Sulfate [Albafort] 325 mg PO DAILY #15 tablet Prednisone [Deltasone 20 mg Tablet] 3 tab PO DAILY 5 Days tablet Albuterol Sulfate [Proair HFA Inhalation Aerosol 8.5 gm MDI] 2 puff IH Q4H PRN #1 mdi PRN Reason: Referrals: MARIAH KEITA FNP [Primary Care Provider] - Follow up as needed
[2018-10-29] MEDS ORDERED: ALBUTEROL SULFATE HFA (90 MCG/PUFF) 8 GM MDI (1 MDI/ER DISP) IH ONE (13:59)
[2018-10-29 14:18] VITALS: BP 130/94
== END 2018-10-29 14:27 | disposition home or self-care (01) ==
LOC: ER 10:16
DX: D50.9 Iron deficiency anemia, unspecified (principal); R06.2 Wheezing; R06.02 Shortness of breath; J44.9 Chronic obstructive pulmonary disease, unspecified; Z21 Asymptomatic human immunodeficiency virus [HIV] infection status; Z87.891 Personal history of nicotine dependence
CPT/HCPCS: 94640; 99285; 36415; 85025; 80053; 71046; J3490; J7620

== ENCOUNTER 2018-12-09 14:57 | Inpatient (IN) | payer MEDICAID ==
[2018-12-09] MEDS ORDERED: IPRATROPIUM/ALBUTEROL 0.5-2.5 MG/3 ML AMPUL NEB ONE ×2 (15:12→16:29)
--- NOTE | 2018-12-09 15:15 | ER Document Report ---
ED Medical Screen (RME) - General Chief Complaint: Leg Swelling Stated Complaint: SWELLING FEET Time Seen by Provider: 12/09/18 15:09 Primary Care Provider: MARIAH KEITA FNP [Primary Care Provider] - Follow up as needed Mode of Arrival: Ambulatory Information source: Patient Notes: Patient presents with bilateral lower extremity swelling for the past 4 days. P atient states that he has had a productive cough that is different from his cough that he typically has with COPD. Patient denies any fever. Patient does report a history of HIV as well. I have greeted and performed a rapid initial assessment of this patient. A comprehensive ED assessment and evaluation of the patient, analysis of test results and completion of the medical decision making process will be conducted by additional ED providers. TRAVEL OUTSIDE OF THE [place] IN LAST 30 DAYS: No - Related Data Allergies/Adverse Reactions: Sulfa (Sulfonamide Antibiotics) Allergy (Verified 10/09/18 10:53) Past Medical History - Social History Frequency of alcohol use: None Pulmonary Medical History: Reports: Hx COPD, Hx Pneumonia - PCP Comment Only: Hx Asthma - denies Renal/ Medical History: Denies: Hx Peritoneal Dialysis Psychiatric Medical History: Reports: Hx Depression - not clinically diagnosed Infectious Medical History: Reports: Hx HIV Past Surgical History: Reports: Hx Kidney (Renal Surgery) - left removed, Hx Orthopedic Surgery - Immunizations Hx Diphtheria, Pertussis, Tetanus Vaccination: Yes Physical Exam - Vital signs Vitals: Temp Pulse BP Pulse Ox 99.6 F 115 H 129/70 H 86 L 12/09/18 15:04 12/09/18 15:04 12/09/18 15:04 12/09/18 15:04 - General Notes: Peripheral edema extending up to mid calf bilaterally - Respiratory Breath sounds: Productive cough, Rales, Rhonchi Course - Vital Signs Vital signs: Temp Pulse Resp BP Pulse Ox 99.6 F 115 H 129/70 H 86 L 12/09/18 15:04 12/09/18 15:04 12/09/18 15:04 12/09/18 15:04 Doctor's Discharge - Discharge Referrals: MARIAH KEITA FNP [Primary Care Provider] - Follow up as needed
--- NOTE | 2018-12-09 15:36 | RADIOLOGY REPORT (SQ) ---
EXAM DESCRIPTION: CHEST 2 VIEWS COMPLETED DATE/TIME: 12/09/2018 3:26 pm REASON FOR STUDY: cough COMPARISON: 10/29/2018 EXAM PARAMETERS: NUMBER OF VIEWS: two views TECHNIQUE: Digital Frontal and Lateral radiographic views of the chest acquired. RADIATION DOSE: NA LIMITATIONS: none FINDINGS: LUNGS AND PLEURA: Segmental airspace disease in the right lower lobe. The left lung is cl ear. MEDIASTINUM AND HILAR STRUCTURES: No masses or contour abnormalities. HEART AND VASCULAR STRUCTURES: Heart normal size. No evidence for failure. BONES: No acute findings. HARDWARE: None in the chest. OTHER: No other significant finding. IMPRESSION: Right lower lobe pneumonia. TECHNICAL DOCUMENTATION: JOB ID: [id number] [employer]- All Rights Reserved Reading location - IP/workstation name: [email or web address]
[2018-12-09 15:55] LABS: ABSOLUTE EOSINOPHILS # (AUTO) 0.2 10^3/uL (0.0-0.6); ABSOLUTE LYMPHOCYTES (AUTO) 0.8 10^3/uL (0.5-4.7); ABSOLUTE MONOCYTES (AUTO) 0.7 10^3/uL (0.1-1.4); ABSOLUTE NEUT (AUTO) 4.2 10^3/uL (1.7-8.2); BASOPHILS % (AUTO) 0.5 % (0-2); EOSINOPHILS % (AUTO) 3.7 % (0-6); HEMATOCRIT 30.6 % (37.9-51.0); HEMOGLOBIN 9.4 g/dL (13.5-17.0); LYMPHOCYTES % (AUTO) 13.8 % (13-45); MEAN CORPUSCULAR HGB CONC 30.7 g/dL (32.0-36.0); MEAN CORPUSCULAR VOLUME 72 fl (80-97); MONOCYTES % (AUTO) 11.7 % (3-13); PLATELET COUNT 130 10^3/uL (150-450); RED BLOOD COUNT 4.28 10^6/uL (4.35-5.55); RED CELL DISTRIBUTION WIDTH 18.3 % (11.5-14.0); SEGMENTED NEUTROPHILS % (AUTO) 70.3 % (42-78); TOTAL CELLS COUNTED % (AUTO) 100 %
[2018-12-09] MEDS ORDERED: AZITHROMYCIN 250 MG TABLET PO ONE (16:03)
[2018-12-09] MEDS ORDERED: CEFTRIAXONE 1 GM/D5W RTU 1 GM/50 ML RTUPB IV ONE (16:03)
[2018-12-09 16:04] LABS: APPEARANCE,URINE CLEAR; BILIRUBIN,URINE NEGATIVE (NEGATIVE); COLOR,URINE YELLOW; GLUCOSE, URINE NEGATIVE (NEGATIVE); KETONES,URINE NEGATIVE (NEGATIVE); LEUKOCYTE ESTERASE,URINE NEGATIVE (NEGATIVE); NITRITE,URINE NEGATIVE (NEGATIVE); PROTEIN,URINE NEGATIVE (NEGATIVE); URINE SPECIFIC GRAVITY 1.016; UROBILINOGEN,URINE NEGATIVE mg/dL (<2.0)
[2018-12-09 16:12] LABS: ALBUMIN 3.5 g/dL (3.5-5.0); ALKALINE PHOSPHATASE 152 U/L (38-126); ANION GAP 6 (5-19); ASPARTATE AMINO TRANSFERASE 54 U/L (17-59); BILIRUBIN,DIRECT 0.2 mg/dL (0.0-0.4); BILIRUBIN,TOTAL 0.4 mg/dL (0.2-1.3); BLOOD UREA NITROGEN 12 mg/dL (7-20); CALCIUM 8.7 mg/dL (8.4-10.2); CARBON DIOXIDE 29 mmol/L (22-30); CHLORIDE 105 mmol/L (98-107); GLUCOSE 148 mg/dL (75-110); POTASSIUM 4.1 mmol/L (3.6-5.0); TOTAL PROTEIN 9.5 g/dL (6.3-8.2)
[2018-12-09 16:22] LABS: NT PRO BNP 68 pg/mL (<125)
[2018-12-09 16:24] LABS: TROPONIN I < 0.012 ng/mL
--- NOTE | 2018-12-09 16:36 | ER Document Report ---
ED General - General Chief Complaint: Leg Swelling Stated Complaint: SWELLING FEET Time Seen by Provider: 12/09/18 15:09 Mode of Arrival: Ambulatory Information source: Patient, Relative, [facility] Records Notes: 43-year-old male with HIV, COPD, iron deficiency anemia, one kidney presents with complaint of cough, shortness of breath, left lower extremity swelling. Patient reports that he has been on azithromycin at thousand milligrams daily for several months. He states that he has noticed swelling into his left lower extremity 4 days prior to arrival. He denies any previous history of DVT, PE. Reports he has been treated for pneumonia within the last 3 months. Does take his antiviral medications as scheduled. Patient reports that his last infectious disease appointment was approximately 3 months ago and states that his CD4 count was 109. At that time is when he was placed on daily azithromycin. He does have a sulfa allergy. TRAVEL OUTSIDE OF THE [place] IN LAST 30 DAYS: No - HPI Onset: Other Onset/Duration: Gradual, Persistent Quality of pain: Achy, Throbbing Severity: Moderate Associated symptoms: Chest pain - With coughing only, Productive cough, Leg swelling, Shortness of breath. denies: Fever, Headache, Nausea, Vomiting, Weakness Exacerbated by: Denies Relieved by: Denies Similar symptoms previously: Yes Recently seen / treated by doctor: Yes - Related Data Allergies/Adverse Reactions: Sulfa (Sulfonamide Antibiotics) Allergy (Verified 10/09/18 10:53) Past Medical History - General Information source: Patient - Social History Smoking Status: Former Smoker Frequency of alcohol use: None Drug Abuse: None Lives with: Family Family History: CAD, CVA Patient has suicidal ideation: No Patient has homicidal ideation: No Pulmonary Medical History: Reports: Hx COPD, Hx Pneumonia - PCP Comment Only: Hx Asthma - denies Renal/ Medical History: Denies: Hx Peritoneal Dialysis Psychiatric Medical History: Reports: Hx Depression - not clinically diagnosed Infectious Medical History: Reports: Hx HIV Past Surgical History: Reports: Hx Kidney (Renal Surgery) - left removed, Hx O rthopedic Surgery - Immunizations Hx Diphtheria, Pertussis, Tetanus Vaccination: Yes Hx Pneumococcal Vaccination: 05/28/12 Review of Systems - Review of Systems Notes: REVIEW OF SYSTEMS: CONSTITUTIONAL : Denies fever, chills, or sweats. Denies recent illness. Denies weight loss, recent hospitalizations. EENT: Denies visual changes, eye pain. Denies sore throat, oral lesions, difficulty swallowing. CARDIOVASCULAR: Denies chest pain. Denies palpitations. Denies lower extremity edema. RESPIRATORY: + cough. + shortness of breath, wheezing. GASTROINTESTINAL: Denies abdominal pain or distention. Denies nausea, vomiting, or diarrhea. Denies blood in vomitus, stools, or per rectum. Denies black, tarry stools. Denies constipation. GENITOURINARY: Denies difficulty urinating, painful urination, frequency, blood in urine, testicular pain or penile discharge. MUSCULOSKELETAL: Denies back or neck pain or stiffness. Denies joint pain + leg swelling. SKIN: Denies rash, lesions or sores. HEMATOLOGIC : Denies easy bruising or bleeding. LYMPHATIC: Denies swollen glands. NEUROLOGICAL: Denies confusion or altered mental status. Denies loss of co nsciousness. Denies dizziness or lightheadedness. Denies headache. Denies weakness or paralysis. Denies problems difficulty with ambulation, slurred speech. Denies sensory loss, numbness, or tingling. Denies seizures. PSYCHIATRIC: Denies anxiety or stress. Denies depression, suicidal ideation, or Physical Exam - Vital signs Vitals: Temp Pulse BP Pulse Ox 99.6 F 115 H 129/70 H 86 L 12/09/18 15:04 12/09/18 15:04 12/09/18 15:04 12/09/18 15:04 - Notes Notes: PHYSICAL EXAMINATION: GENERAL: Well-appearing, well-nourished and in no acute distress. HEAD: Atraumatic, normocephalic. EYES: Pupils equal round and reactive to light, extraocular movements intact, sc xiomara anicteric, conjunctiva are normal. ENT: Nares patent, oropharynx clear without exudates. Moist mucous membranes. NECK: Normal range of motion, supple without lymphadenopathy LUNGS: Breath sounds clear to auscultation bilaterally and equal. Right lower lobe rhonchi. HEART: Regular rate and rhythm without murmurs ABDOMEN: Soft, nontender, nondistended abdomen. No guarding, no rebound. No masses appreciated. Musculoskeletal: Normal range of motion, no pitting or edema. No cyanosis. NEUROLOGICAL: Cranial nerves grossly intact. Normal speech, normal gait. Normal sensory, motor exams PSYCH: Normal mood, normal affect. SKIN: Warm, Dry, normal turgor, no rashes or lesions noted. Course - Re-evaluation Re-evalutation: Laboratory 12/09/18 12/09/18 12/09/18 15:31 15:31 15:31 WBC 6.0 RBC 4.28 L Hgb 9.4 L Hct 30.6 L MCV 72 L MCH 22.0 L MCHC 30.7 L RDW 18.3 H Plt Count 130 L Lymph % (Auto) 13.8 Wall[place] % (Auto) 11.7 Eos % (Auto) 3.7 Baso % (Auto) 0.5 Absolute Neuts (auto) 4.2 Absolute Lymphs (auto) 0.8 Absolute Monos (auto) 0.7 Absolute Eos (auto) 0.2 Absolute Basos (auto) 0.0 Seg Neutrophils % 70.3 VBG pH VBG pCO2 VBG HCO3 VBG Base Excess Sodium 140.2 Potassium 4.1 Chloride 105 Carbon Dioxide 29 Anion Gap 6 BUN 12 Creatinine 0.86 Est GFR ( Amer) > 60 Est GFR (MDRD) Non-Af > 60 Glucose 148 H Lactic Acid Calcium 8.7 Total Bilirubin 0.4 Direct Bilirubin 0.2 Neonat Total Bilirubin Not Reportable Neonat Direct Bilirubin Not Reportable Neonat Indirect Bili Not Reportable AST 54 ALT 22 Alkaline Phosphatase 152 H Troponin I < 0.012 NT-Pro-B Natriuret Pep 68 Total Protein 9.5 H Albumin 3.5 Urine Color Urine Appearance Urine pH Ur Specific [place] Urine Protein Urine Glucose (UA) Urine Ketones Urine Blood Urine Nitrite Urine Bilirubin Urine Urobilinogen Ur Leukocyte Esterase Urine WBC (Auto) Urine RBC (Auto) Squamous Epi Cells Auto Urine Ascorbic Acid 12/09/18 12/09/18 12/09/18 15:35 16:15 16:15 WBC RBC Hgb Hct MCV MCH MCHC RDW Plt Count Lymph % (Auto) [place] % (Auto) Eos % (Auto) Baso % (Auto) Absolute Neuts (auto) Absolute Lymphs (auto) Absolute Monos (auto) Absolute Eos (auto) Absolute Basos (auto) Seg Neutrophils % VBG pH 7.36 VBG pCO2 50.1 VBG HCO3 27.7 VBG Base Excess 1.7 Sodium Potassium Chloride Carbon Dioxide Anion Gap BUN Creatinine Est GFR ( Amer) Est GFR (MDRD) Non-Af Glucose Lactic Acid 1.7 Calcium Total Bilirubin Direct Bilirubin Neonat Total Bilirubin Neonat Direct Bilirubin Neonat Indirect Bili AST ALT Alkaline Phosphatase Troponin I NT-Pro-B Natriuret Pep Total Protein Albumin Urine Color YELLOW Urine Appearance CLEAR Urine pH 6.0 Ur Specific [place] 1.016 Urine Protein NEGATIVE Urine Glucose (UA) NEGATIVE Urine Ketones NEGATIVE Urine Blood NEGATIVE Urine Nitrite NEGATIVE Urine Bilirubin NEGATIVE Urine Urobilinogen NEGATIVE Ur Leukocyte Esterase NEGATIVE Urine WBC (Auto) 1 Urine RBC (Auto) 1 Squamous Epi Cells Auto <1 Urine Ascorbic Acid NEGATIVE Chest X-Ray 12/09/18 15:13 IMPRESSION: Right lower lobe pneumonia. Chest/Abdomen CTA 12/09/18 16:30 IMPRESSION: No pulmonary embolism. Patchy bibasilar consolidation with air bronchograms compatible with pneumonia in the appropriate clinical setting Temp Pulse Resp BP Pulse Ox 99.6 F 115 H 34 H 128/77 H 93 12/09/18 15:04 12/09/18 15:04 12/09/18 15:33 12/09/18 15:32 12/09/18 15:37 12/09/18 17:54 43-year-old male with HIV, COPD, iron deficiency anemia, one kidney presents with complaint of cough, shortness of breath, left lower extremity swelling. Patient reports that he has been on azithromycin 1000mg daily for several months. He states that he has noticed swelling into his left lower extremity 4 days prior to arrival. He denies any previous history of DVT, PE. Reports he has been treated for pneumonia within the last 3 months. Patient is on continuous oxygen 2 L at home. He denies any need for increased oxygen. Reports he is hypoxic at baseline. Vital signs reviewed and patient is afebrile, but tachycardic, tachypneic and hypoxic . He has no increased work of breathing, but does have coarse breath sounds bilaterally. CMP is without electrolyte abnormality, evidence of renal insufficiency. BMP is within normal limits. Troponin within normal limits. CTA was obtained and showed no evidence of pulmonary embolism but does show bibasilar consolidation consistent with pneumonia. Patient did receive Rocephin 1 g IV, DuoNeb's. 12/09/18 17:59 Previous medical records were reviewed including patient's imaging from June 2018 and no previous documented pneumonia was seen on CTA or chest x-rays. Patient is likely on azithromycin continuously due to his low CD4 count. CBC is without leukocytosis, does show a stable anemia. Spoke to patient regarding admission and his comfort with discharge home. Patient states that he does not feel that he can go home at this time. I did speak to Dr. Rivera who has accepted the patient for admission. Still awaiting left lower extremity Doppler. 12/09/18 18:14 - Vital Signs Vital signs: Temp Pulse Resp BP Pulse Ox 99.6 F 115 H 34 H 128/77 H 93 12/09/18 15:04 12/09/18 15:04 12/09/18 15:33 12/09/18 15:32 12/09/18 15:37 - Laboratory Result Diagrams: 12/09/18 15:31 12/09/18 15:31 Laboratory results interpreted by me: 12/09/18 12/09/18 15:31 15:31 RBC 4.28 L Hgb 9.4 L Hct 30.6 L MCV 72 L MCH 22.0 L MCHC 30.7 L RDW 18.3 H Plt Count 130 L Glucose 148 H Alkaline Phosphatase 152 H Total Protein 9.5 H - Diagnostic Test Radiology reviewed: Image reviewed, Reports reviewed - EKG Interpretation by Me EKG shows normal: Sinus rhythm Rate: Tachycardia Rhythm: NSR When compared to previous EKG there are: No significant change Discharge - Discharge Clinical Impression: Wheezing, Hypoxic, Tachycardia HIV (human immunodeficiency virus infection) Qualifiers: HIV symptom status: unspecified Qualified Code(s): B20 - Human immunodeficiency virus [HIV] disease Pneumonia Qualifiers: Pneumonia type: due to unspecified organism Laterality: bilateral Lung location: unspecified part of lung Qualified Code(s): J18.9 - Pneumonia, unspecified organism Condition: Stable Disposition: ADMITTED INPATIENT Admitting Provider: Nicole (Hospitalist) Unit Admitted: Telemetry
[2018-12-09 16:42] LABS: VENOUS BLOOD BASE EXCESS 1.7 mmol/L; VENOUS BLOOD HCO3 27.7 mmol/L (20-32); VENOUS BLOOD PCO2 50.1 mmHg (35-63); VENOUS BLOOD PH 7.36 (7.30-7.42)
--- NOTE | 2018-12-09 17:34 | RADIOLOGY REPORT (SQ) ---
EXAM DESCRIPTION: CTA CHEST COMPLETED DATE/TIME: 12/09/2018 5:15 pm REASON FOR STUDY: LEG SWELLING TACHY, HYPOXIC COMPARISON: Chest radiographs 12/09/2018. CTA chest 07/03/2018 TECHNIQUE: CT scan of the chest performed using helical scanning technique with dynamic intravenous contrast injection. Images reviewed with lung, soft tissue and bone windows. Reconstructed coronal and sagittal MPR images reviewed. Additional 3 dimensional post-processing performed to develop Maximal Intensity Projection images (MT P). All images stored on PACS. All CT scanners at this facility use dose modulation, iterative reconstruction, and/or weight based d osing when appropriate to reduce radiation dose to as low as reasonably achievable (ALARA). [facility]: Dose Right [facility]: CareDose [facility]: Dose Right [facility]: Teradose 4D [facility]: [employer] CONTRAST TYPE AND DOSE: contrast/concentration: Isovue 300.00 mg/ml; Total Contrast Delivered: 54.0 ml; Total Saline Delivered: 79.0 ml 54 mL Isovue 300- low osmolar. Contrast bolus optimized for the pulmonary arteries. Not diagnostic for the aorta. RENAL FUNCTION: BUN 12, creatinine 0.86 RADIATION DOSE: CT Rad equipment meets quality standard of care and radiation dose reduction techniq ues were employed. CTDIvol: 3.3 - 14.3 mGy. DLP: 585 mGy-cm. . LIMITATIONS: None. FINDINGS: LUNGS AND PLEURA: Patchy bibasilar consolidation with air bronchograms. Background centri lobular/paraseptal emphysema and diffuse cylindrical bronchiectasis. AORTA AND GREAT VESSELS: No aneurysm. Contrast bolus not optimized for the aorta. HEART: No pericardial effusion. No significant coronary artery calcifications. PULMONARY ARTERIES: No emboli visualized in the main pulmonary arteries or the segmental branches. HILAR AND MEDIASTINAL STRUCTURES: No identified masses or abnormal nodes. HARDWARE: None in the chest. UPPER ABDOMEN: Left nephrectomy. Unchanged splenomegaly. THYROID AND OTHER SOFT TISSUES: No masses. No adenopathy. BONES: No acute or significant finding. 3D MIPS: Confirm above findings. OTHER: No other significant finding. IMPRESSION: No pulmonary embolism. Patchy bibasilar consolidation with air bronchograms compatible with pneumonia in the appropriate cli nical setting COMMENT: Quality ID # [id number]: Final reports with documentation of one or more dose reduction techniques (e.g., Automated exposure control, adjustment of the mA and/or kV according to patient size, use of iterative reconstruction technique) TECHNICAL DOCUMENTATION: JOB ID: [id number] [employer]- All Rights Reserved Reading location - IP/workstation name: [email or web address]
--- NOTE | 2018-12-09 18:07 | EKG REPORT ---
SEVERITY:- OTHERWISE NORMAL ECG - SINUS TACHYCARDIA : Confirmed by: Peter Witt MD 09-Dec-2018 18:06:25
--- NOTE | 2018-12-09 18:54 | PDOC H&P ---
History of Present Illness Admission Date/PCP: 12/09/18 18:25 KENNETH BEE Patient complains of: leg swelling History of Present Illness: BART MCCRACKEN is a 43 year old male with a past medical history of HIV on , COPD not on home O2, iron deficiency anemia and solitary kidney who is presenting with leg swelling. Patient says that he has been apparently fine until almost a week ago when he started having swelling in both legs but he has noticed that the left leg has been more swollen in the past 2 to 3 days. He says he has also been having mild exertional shortness of breath. He has say he has minimally productive cough but also has chronic cough from his COPD. He denies fever or chills. He denies prior history of CHF or DVT. He denies PND. No exertional chest pain. No orthopnea. He does say he was placed on steroids recently for COPD and and pneumonia and just got off the steroids more than a week ago. Past Medical History Pulmonary Medical History: Reports: Chronic Obstructive Pulmonary Disease (COPD), Pneumonia - PCP Comment Only: Asthma - denies Psychiatric Medical History: Reports: Depression - not clinically diagnosed Infectious Medical History: Reports: HIV Past Surgical History Past Surgical History: Reports: Orthopedic Surgery Social History Lives with: Family Smoking Status: Former Smoker Frequency of Alcohol Use: Rare Hx Recreational Drug Use: No Drugs: None Hx Prescription Drug Abuse: No Family History Family History: CAD, CVA Parental Family History Reviewed: Yes - No premature CAD Children Family History Reviewed: No Sibling(s) Family History Reviewed.: No Medication/Allergy Home Medications: Pantot AC/Min Oil/Pet Hy-Phl [Aquaphor W-Sally Heal Oint 50 gm] 1 applic TOP TID 30 Days #120 tube 02/28/18 Atovaquone 1,500 mg PO DAILY 06/04/18 Azithromycin 1,200 mg PO Q7D 06/04/18 Darunavir/Cobicistat [Prezcobix 800 mg-150 mg Tablet] 1 each PO DAILY 06/04/18 Dolutegravir Sodium [Tivicay] 50 mg PO DAILY 06/04/18 Tenofovir Disoproxil Fumarate 3,000 mg PO DAILY 06/04/18 Prednisone [Deltasone 20 mg Tablet] 3 tab PO DAILY 4 Days #12 tablet 07/03/18 Moxifloxacin HCl [Vigamox 0.5% Oph Soln 3 ml] 1 drop OP Q8H PRN 7 Days #1 bottle 10/09/18 Valacyclovir HCl [Valacyclovir] 1,000 mg PO Q8H #21 tablet 10/09/18 Albuterol Sulfate [Proair HFA Inhalation Aerosol 8.5 gm MDI] 2 puff IH Q4H PRN #1 mdi 10/29/18 Ferrous Sulfate [Albafort] 325 mg PO DAILY #15 tablet 10/29/18 Prednisone [Deltasone 20 mg Tablet] 3 tab PO DAILY 5 Days tablet 10/29/18 Allergies/Adverse Reactions: Sulfa (Sulfonamide Antibiotics) Allergy (Verified 10/09/18 10:53) Review of Systems All systems: reviewed and no additional remarkable complaints except as stated - As mentioned in HPI Physical Exam Vital Signs: Temp Pulse Resp BP Pulse Ox 99.6 F 115 H 34 H 128/77 H 93 12/09/18 15:04 12/09/18 15:04 12/09/18 15:33 12/09/18 15:32 12/09/18 15:37 Intake & Output 12/08/18 12/09/18 12/10/18 06:59 06:59 06:59 Intake Total 50 Balance 50 Weight 162 lb 0.636 oz General appearance: PRESENT: no acute distress, well-developed, well-nourished Head exam: PRESENT: atraumatic, normocephalic Eye exam: PRESENT: conjunctiva pink, EOMI, PERRLA. ABSENT: scleral icterus Ear exam: PRESENT: normal external ear exam Mouth exam: PRESENT: moist, tongue midline Neck exam: ABSENT: carotid bruit, JVD, lymphadenopathy, thyromegaly Respiratory exam: PRESENT: rhonchi. ABSENT: rales, wheezes Cardiovascular exam: PRESENT: RRR. ABSENT: diastolic murmur, rubs, systolic murmur Pulses: PRESENT: normal dorsalis pedis pul GI/Abdominal exam: PRESENT: normal bowel sounds, soft. ABSENT: distended, guarding, mass, organolmegaly, rebound, tenderness Rectal exam: PRESENT: deferred Extremities exam: PRESENT: +2 edema Neurological exam: PRESENT: alert, awake, oriented to person, oriented to place, oriented to time, oriented to situation, CN II-XII grossly intact. ABSENT: motor sensory deficit Results Laboratory Results: 12/09/18 15:31 12/09/18 15:31 12/09/18 12/09/18 12/09/18 15:31 15:31 15:35 WBC 6.0 RBC 4.28 L Hgb 9.4 L Hct 30.6 L MCV 72 L MCH 22.0 L MCHC 30.7 L RDW 18.3 H Plt Count 130 L Seg Neutrophils % 70.3 VBG pH VBG pCO2 VBG HCO3 VBG Base Excess Sodium 140.2 Potassium 4.1 Chloride 105 Carbon Dioxide 29 Anion Gap 6 BUN 12 Creatinine 0.86 Est GFR ( Amer) > 60 Glucose 148 H Lactic Acid Calcium 8.7 Total Bilirubin 0.4 AST 54 Alkaline Phosphatase 152 H Total Protein 9.5 H Albumin 3.5 Urine Color YELLOW Urine Appearance CLEAR Urine pH 6.0 Ur Specific [place] 1.016 Urine Protein NEGATIVE Urine Glucose (UA) NEGATIVE Urine Ketones NEGATIVE Urine Blood NEGATIVE Urine Nitrite NEGATIVE Ur Leukocyte Esterase NEGATIVE Urine WBC (Auto) 1 Urine RBC (Auto) 1 12/09/18 12/09/18 16:15 16:15 WBC RBC Hgb Hct MCV MCH MCHC RDW Plt Count Seg Neutrophils % VBG pH 7.36 VBG pCO2 50.1 VBG HCO3 27.7 VBG Base Excess 1.7 Sodium Potassium Chloride Carbon Dioxide Anion Gap BUN Creatinine Est GFR ( Amer) Glucose Lactic Acid 1.7 Calcium Total Bilirubin AST Alkaline Phosphatase Total Protein Albumin Urine Color Urine Appearance Urine pH Ur Specific [place] Urine Protein Urine Glucose (UA) Urine Ketones Urine Blood Urine Nitrite Ur Leukocyte Esterase Urine WBC (Auto) Urine RBC (Auto) 12/09/18 15:31 Troponin I < 0.012 NT-Pro-B Natriuret Pep 68 Impressions: Chest X-Ray 12/09/18 15:13 IMPRESSION: Right lower lobe pneumonia. Chest/Abdomen CTA 12/09/18 16:30 IMPRESSION: No pulmonary embolism. Patchy bibasilar consolidation with air bronchograms compatible with pneumonia in the appropriate clinical setting Assessment and Plan - Diagnosis (1) Localized swelling of both lower legs Is this a current diagnosis for this admission?: Yes Plan: Suspect steroid-induced fluid retention causing bilateral edema. Ultrasound dup calvin already ordered and is pending. Will start Lasix if ultrasound duplex is negative. (2) Fluid overload Is this a current diagnosis for this admission?: Yes Plan: As per #1. (3) Pneumonia Qualifiers: Pneumonia type: due to unspecified organism Laterality: bilateral Lung location: unspecified part of lung Qualified Code(s): J18.9 - Pneumonia, unspecified organism Is this a current diagnosis for this admission?: Yes Plan: Chest CTA showed bibasilar consolidation. Start Rocephin and azithromycin. Sputum culture ordered. (4) HIV (human immunodeficiency virus infection) Is this a current diagnosis for this admission?: Yes Plan: Patient says he took his HIV meds today. Resume home meds for tomorrow once verified. CD4 count pending. - Time Time Spent with patient: 25-34 minutes
--- NOTE | 2018-12-09 18:55 | ADVANCED CARE ---
- Diagnosis (1) Fluid overload Diagnosis Current: Yes (2) HIV (human immunodeficiency virus infection) Diagnosis Current: Yes (3) Localized swelling of both lower legs Diagnosis Current: Yes (4) Pneumonia Diagnosis Current: Yes Resuscitation Status: Full Code Discussion: Discussed with patient. He says he is a full code and prefers to receive chest compressions, defibrillation and mechanical ventilation if the need arises. He says his mother, Cara Ramírez is his surrogate medical decision maker.
[2018-12-09] MEDS ORDERED: FUROSEMIDE INJ/PF 20 MG/2 ML SDV IV ONE (19:45)
[2018-12-09] MEDS: HEPARIN SOD (PORCINE) 5,000 UNIT/ML 1 ML VIAL SUBCUT SCH (21:55)
[2018-12-10] MEDS: IPRATROPIUM/ALBUTEROL 0.5-2.5 MG/3 ML AMPUL NEB PRN ×2 (08:27→16:54)
--- NOTE | 2018-12-10 10:04 | XCELERA REPORT ---
[address] [place] [facility] [address] Lower Extremity Venous Evaluation Procedure: Color flow and duplex imaging of the veins of the left lower extremity as well as the right Common Femoral vein. Right Sided Venous Evaluation The right common femoral vein is fully compressible. Spontaneous and phasic flow is present in the right common femoral vein. 3.9 x 2.5 x 0.9 cms lymph node. Left Sided Venous Evaluation 4 x 2.0 x 0.8 cms lymph node. Normal vessel filling wall to wall, compression and augmentation as well as Colour flow down to the infrageniculate veins. Interpretation Summary No duplex evidence of DVT or obstruction in the left lower extremity nor in the right Common Femoral vein. Enlarged groin nodes. Name: BART MCCRACKEN Age: 43 yrs Gender: Male : 1975 Patient Status: Inpatient Patient Location: [address] [place] [address] Study Date: 12/09/2018 06:27 PM Reason For Study: lle SWELLING Ordering Physician: ANNE HESTER Performed By: Eva Stringer : ANNE HESTER > Giullaume Ramsey
[2018-12-10] MEDS: HEPARIN SOD (PORCINE) 5,000 UNIT/ML 1 ML VIAL SUBCUT SCH ×2 (11:20→22:21)
[2018-12-10] MEDS: VALACYCLOVIR HCL 500 MG TABLET PO SCH (11:20)
[2018-12-10] MEDS: FUROSEMIDE INJ/PF 20 MG/2 ML SDV IV SCH ×2 (11:20→22:22)
[2018-12-10] MEDS: AZITHROMYCIN 250 MG TABLET PO SCH (11:20)
[2018-12-10] MEDS: CEFTRIAXONE 1 GM/D5W RTU 1 GM/50 ML RTUPB IV SCH (11:27)
--- NOTE | 2018-12-10 12:35 | PDOC PROGRESS REPORT ---
Subjective Progress Note for:: 12/10/18 Subjective:: This is a 43 year old male with a past medical history of HIV on , COPD not on home O2, iron deficiency anemia and solitary kidney who is presenting with leg swelling. Patient says that he has been apparently fine until almost a week ago when he started having swelling in both legs but he has noticed that the left leg has been more swollen in the past 2 to 3 days. He says he has also been having mild exertional shortness of breath. He has say he has minimally productive cough but also has chronic cough from his COPD. He denies fever or chills. He denies prior history of CHF or DVT. He denies PND. No exertional chest pain. No orthopnea. He does say he was placed on steroids recently for COPD and pneumonia and just got off the steroids more than a week ago. 12/10: No acute event overnight. He says his SOB has improved today with the Lasix. His swelling has also improved. Sputum culture and CD4 count pending. Anticipate discharge in the next 24 hrs if he continues to improve. Reason For Visit: FLUID OVERLOAD PNEUMONIA Physical Exam Vital Signs: Temp Pulse Resp BP Pulse Ox 98.1 F 94 21 H 144/73 H 95 12/10/18 11:36 12/10/18 11:36 12/10/18 11:36 12/10/18 11:36 12/10/18 11:36 Intake & Output 12/09/18 12/10/18 12/11/18 06:59 06:59 06:59 Intake Total 50 Output Total 850 Balance -800 Weight 171 lb 4.787 oz General appearance: PRESENT: no acute distress, well-developed, well-nourished Head exam: PRESENT: atraumatic, normocephalic Eye exam: PRESENT: conjunctiva pink, EOMI, PERRLA. ABSENT: scleral icterus Ear exam: PRESENT: normal external ear exam Mouth exam: PRESENT: moist, tongue midline Neck exam: ABSENT: carotid bruit, JVD, lymphadenopathy, thyromegaly Respiratory exam: PRESENT: rhonchi. ABSENT: rales, wheezes Cardiovascular exam: PRESENT: RRR. ABSENT: diastolic murmur, rubs, systolic m urmur Pulses: PRESENT: normal dorsalis pedis pul GI/Abdominal exam: PRESENT: normal bowel sounds, soft. ABSENT: distended, guarding, mass, organolmegaly, rebound, tenderness Rectal exam: PRESENT: deferred Extremities exam: PRESENT: +1 edema Neurological exam: PRESENT: alert, awake, oriented to person, oriented to place, oriented to time, oriented to situation, CN II-XII grossly intact. ABSENT: motor sensory deficit Results Laboratory Results: 12/09/18 15:31 12/09/18 15:31 12/09/18 12/09/18 12/09/18 15:31 15:31 15:35 WBC 6.0 RBC 4.28 L Hgb 9.4 L Hct 30.6 L MCV 72 L MCH 22.0 L MCHC 30.7 L RDW 18.3 H Plt Count 130 L Seg Neutrophils % 70.3 VBG pH VBG pCO2 VBG HCO3 VBG Base Excess Sodium 140.2 Potassium 4.1 Chloride 105 Carbon Dioxide 29 Anion Gap 6 BUN 12 Creatinine 0.86 Est GFR ( Amer) > 60 Glucose 148 H Lactic Acid Calcium 8.7 Total Bilirubin 0.4 AST 54 Alkaline Phosphatase 152 H Total Protein 9.5 H Albumin 3.5 Urine Color YELLOW Urine Appearance CLEAR Urine pH 6.0 Ur Specific [place] 1.016 Urine Protein NEGATIVE Urine Glucose (UA) NEGATIVE Urine Ketones NEGATIVE Urine Blood NEGATIVE Urine Nitrite NEGATIVE Ur Leukocyte Esterase NEGATIVE Urine WBC (Auto) 1 Urine RBC (Auto) 1 12/09/18 12/09/18 16:15 16:15 WBC RBC Hgb Hct MCV MCH MCHC RDW Plt Count Seg Neutrophils % VBG pH 7.36 VBG pCO2 50.1 VBG HCO3 27.7 VBG Base Excess 1.7 Sodium Potassium Chloride Carbon Dioxide Anion Gap BUN Creatinine Est GFR ( Amer) Glucose Lactic Acid 1.7 Calcium Total Bilirubin AST Alkaline Phosphatase Total Protein Albumin Urine Color Urine Appearance Urine pH Ur Specific [place] Urine Protein Urine Glucose (UA) Urine Ketones Urine Blood Urine Nitrite Ur Leukocyte Esterase Urine WBC (Auto) Urine RBC (Auto) 12/09/18 15:31 Troponin I < 0.012 NT-Pro-B Natriuret Pep 68 Impressions: Chest X-Ray 12/09/18 15:13 IMPRESSION: Right lower lobe pneumonia. Chest/Abdomen CTA 12/09/18 16:30 IMPRESSION: No pulmonary embolism. Patchy bibasilar consolidation with air bronchograms compatible with pneumonia in the appropriate clinical setting Assessment and Plan - Diagnosis (1) Localized swelling of both lower legs Is this a current diagnosis for this admission?: Yes Plan: Suspect steroid-induced fluid retention causing bilateral edema. Ultrasound duplex negative. Continue IV Lasix today. May likely be switched to PO tomorrow. Consider outpatient echo. (2) Fluid overload Is this a current diagnosis for this admission?: Yes Plan: As per #1. (3) Pneumonia Qualifiers: Pneumonia type: due to unspecified organism Laterality: bilateral Lung location: unspecified part of lung Qualified Code(s): J18.9 - Pneumonia, unspecified organism Is this a current diagnosis for this admission?: Yes Plan: Chest CTA showed bibasilar consolidation. Continue Rocephin and azithromycin. Sputum culture pending. (4) HIV (human immunodeficiency virus infection) Qualifiers: HIV symptom status: unspecified Qualified Code(s): B20 - Human immunodeficiency virus [HIV] disease Is this a current diagnosis for this admission?: Yes Plan: Resume HIV meds. CD4 count pending. - Time Time Spent with patient: 15-24 minutes
[2018-12-10] MEDS: IPRATROPIUM/ALBUTEROL 0.5-2.5 MG/3 ML AMPUL NEB SCH (19:51)
[2018-12-10] MEDS: TRAZODONE HCL 50 MG TABLET PO SCH (22:22)
[2018-12-11] MEDS: IPRATROPIUM/ALBUTEROL 0.5-2.5 MG/3 ML AMPUL NEB SCH ×3 (08:10→20:14)
[2018-12-11] MEDS: HEPARIN SOD (PORCINE) 5,000 UNIT/ML 1 ML VIAL SUBCUT SCH ×2 (09:04→22:10)
[2018-12-11] MEDS: FUROSEMIDE INJ/PF 20 MG/2 ML SDV IV SCH ×2 (09:06→22:13)
[2018-12-11] MEDS: CEFTRIAXONE 1 GM/D5W RTU 1 GM/50 ML RTUPB IV SCH (09:08)
[2018-12-11] MEDS: FERROUS SULFATE 325 MG TABLET PO SCH (09:10)
[2018-12-11] MEDS: VALACYCLOVIR HCL 500 MG TABLET PO SCH (09:10)
[2018-12-11] MEDS: AZITHROMYCIN 250 MG TABLET PO SCH (09:11)
[2018-12-11] MEDS ORDERED: TENOFOVIR DISOPROXIL FUMARATE 300 MG PO SCH (10:00)
[2018-12-11] MEDS ORDERED: (PENDING PHARMACY ID) (Dolutegravir Sodium [Tivicay] 50 MG) PO SCH (10:00)
[2018-12-11] MEDS ORDERED: DARUNAVIR PO SCH (10:00)
[2018-12-11] MEDS ORDERED: COBICISTAT PO SCH (10:00)
--- NOTE | 2018-12-11 11:45 | PDOC PROGRESS REPORT ---
Subjective Progress Note for:: 12/11/18 Subjective:: 12/11/2018. Patient was admitted to the hospital for right lower lobe pneumonia seen on CAT scan and chest x-ray. he developed some edema secondary to steroids and is now on Lasix with good results. Is scheduled to go home either tomorrow or Reason For Visit: FLUID OVERLOAD PNEUMONIA Physical Exam Vital Signs: Temp Pulse Resp BP Pulse Ox 98.3 F 90 18 146/69 H 94 12/11/18 08:00 12/11/18 08:10 12/11/18 08:10 12/11/18 08:00 12/11/18 08:10 Intake & Output 12/10/18 12/11/18 12/12/18 06:59 06:59 06:59 Intake Total 50 1795 667 Output Total 850 2400 700 Balance -800 -605 -33 Weight 77.7 kg 77.3 kg General appearance: PRESENT: no acute distress Respiratory exam: PRESENT: clear to auscultation ileana. ABSENT: rales, rhonchi, wheezes Cardiovascular exam: PRESENT: RRR. ABSENT: diastolic murmur, rubs, systolic murmur Neurological exam: PRESENT: alert, awake, oriented to person, oriented to place, oriented to time, oriented to situation, CN II-XII grossly intact. ABSENT: motor sensory deficit Psychiatric exam: PRESENT: appropriate affect, normal mood, other - Patient in good spirits. ABSENT: homicidal ideation, suicidal ideation Results Laboratory Results: 12/09/18 15:31 12/09/18 15:31 12/09/18 15:31 Troponin I < 0.012 NT-Pro-B Natriuret Pep 68 Impressions: Chest X-Ray 12/09/18 15:13 IMPRESSION: Right lower lobe pneumonia. Chest/Abdomen CTA 12/09/18 16:30 IMPRESSION: No pulmonary embolism. Patchy bibasilar consolidation with air bronchograms compatible with pneumonia in the appropriate clinical setting Assessment and Plan - Diagnosis (1) HIV (human immunodeficiency virus infection) Qualifiers: HIV symptom status: unspecified Qualified Code(s): B20 - Human immunodeficiency virus [HIV] disease Is this a current diagnosis for this admission?: Yes Plan: Resume HIV meds. CD4 count pending. 12/11/2018 patient is on his home meds (2) Pneumonia Qualifiers: Pneumonia type: due to unspecified organism Laterality: bilateral Lung location: unspecified part of lung Qualified Code(s): J18.9 - Pneumonia, unspecified organism Is this a current diagnosis for this admission?: Yes Plan: Chest CTA showed bibasilar consolidation. Continue Rocephin and azithromycin. Sputum culture pending. 12/11/2018 patient is coughing up green sputum for the last week now. Patient uses oxygen at home 2 L, patient is requesting a pulse oximeter meter for home. Day # 3 of IV antibiotics - Plan Summary Summary: We will continue IV antibiotics while patient is in the hospital. Patient home on some p.o. antibiotics. Continue p.o. Lasix vital signs are stable. Count is normal electrolytes are normal CD4 is pending. Patient is growing out gram-positive cocci in his sputum, blood culture showed no growth in 24 hours - Time Time Spent with patient: 35 or more minutes
[2018-12-11 13:37] LABS: % CD 4 POS LYMPH 7.2 % (30.8-58.5); ABSOLUTE CD 4 HELPER 50 /uL (359-1519); ABSOLUTE CD 8 SUPPRESSOR 504 /uL (109-897); CD BASOPHILS 0 % (Not Estab.); CD EOSINOPHILS 3 % (Not Estab.); CD MONOCYTES 10 % (Not Estab.); CD NEUTROPHILS 68 % (Not Estab.); EOSINOPHILS (ABSOLUTE) 0.2 x10E3/uL (0.0-0.4); IMMATURE GRANULOCYTES 3 % (Not Estab.); IMMATURE GRANULOCYTES (ABS) 0.1 x10E3/uL (0.0-0.1); LYMPHS(ABSOLUTE) 0.7 x10E3/uL (0.7-3.1); MCHC 29.5 g/dL (31.5-35.7); MCV 74 fL (79-97); RBC 3.66 x10E6/uL (4.14-5.80); RDW 16.3 % (12.3-15.4); WBC 4.5 x10E3/uL (3.4-10.8)
[2018-12-11 13:40] LABS: PLATELETS 62 x10E3/uL (150-450)
[2018-12-11] MEDS: TRAZODONE HCL 50 MG TABLET PO SCH (22:13)
[2018-12-12] MEDS: IPRATROPIUM/ALBUTEROL 0.5-2.5 MG/3 ML AMPUL NEB SCH ×3 (08:12→20:49)
[2018-12-12] MEDS: HEPARIN SOD (PORCINE) 5,000 UNIT/ML 1 ML VIAL SUBCUT SCH ×2 (09:13→23:05)
[2018-12-12] MEDS: VALACYCLOVIR HCL 500 MG TABLET PO SCH (09:18)
[2018-12-12] MEDS: FERROUS SULFATE 325 MG TABLET PO SCH (09:18)
[2018-12-12] MEDS: AZITHROMYCIN 250 MG TABLET PO SCH (09:18)
[2018-12-12] MEDS: FUROSEMIDE INJ/PF 20 MG/2 ML SDV IV SCH ×2 (09:20→23:08)
[2018-12-12] MEDS: CEFTRIAXONE 1 GM/D5W RTU 1 GM/50 ML RTUPB IV SCH (09:22)
--- NOTE | 2018-12-12 10:40 | PDOC PROGRESS REPORT ---
Subjective Progress Note for:: 12/12/18 Reason For Visit: FLUID OVERLOAD PNEUMONIA Physical Exam Vital Signs: Temp Pulse Resp BP Pulse Ox 98.7 F 89 16 120/68 92 12/12/18 07:17 12/12/18 08:14 12/12/18 08:14 12/12/18 07:17 12/12/18 08:14 Intake & Output 12/11/18 12/12/18 12/13/18 06:59 06:59 06:59 Intake Total 1795 3836 50 Output Total 2400 3425 Balance -605 411 50 Weight 77.3 kg 80.4 kg Results Laboratory Results: 12/09/18 15:31 12/09/18 15:31 12/10/18 07:09 Sputum Gram Stain - Final 12/09/18 12/11/18 15:31 14:45 Troponin I < 0.012 NT-Pro-B Natriuret Pep 68 31 Impressions: Chest X-Ray 12/09/18 15:13 IMPRESSION: Right lower lobe pneumonia. Chest/Abdomen CTA 12/09/18 16:30 IMPRESSION: No pulmonary embolism. Patchy bibasilar consolidation with air bronchograms compatible with pneumonia in the appropriate clinical setting Assessment and Plan - Diagnosis (1) HIV (human immunodeficiency virus infection) Qualifiers: HIV symptom status: unspecified Qualified Code(s): B20 - Human immunodeficiency virus [HIV] disease Is this a current diagnosis for this admission?: Yes (2) Pneumonia Qualifiers: Pneumonia type: due to unspecified organism Laterality: bilateral Lung location: unspecified part of lung Qualified Code(s): J18.9 - Pneumonia, unspecified organism Is this a current diagnosis for this admission?: Yes (3) Fluid overload Is this a current diagnosis for this admission?: Yes Plan: As per #1. 12/12/2018 she is currently on Lasix 20 mg IV every 12 hours patient diuresed 600 mL's yesterday and 800 mL's a day before, edema is improving (4) Localized swelling of both lower legs Is this a current diagnosis for this admission?: Yes Plan: Suspect steroid-induced fluid retention causing bilateral edema. Ultrasound duplex negative. Continue IV Lasix today. May likely be switched to PO tomorrow. Consider outpatient echo. 12/12/2018 continue Lasix as IV as long as patient is in the hospital will change to p.o. at time of discharge BNP is double digits 68 on admission 31 yesterday, this edema truly is steroids related - Plan Summary Summary: We will continue IV antibiotics while patient is in the hospital. Patient home on some p.o. antibiotics. Continue p.o. Lasix vital signs are stable. Count is normal electrolytes are normal CD4 is pending. Patient is growing out gram-positive cocci in his sputum, blood culture showed no growth in 24 hours 12/12/2018 Patient on Lasix 20 mg IV every 12 hours, electrolytes and BNP are normal, sputum culture shows gram-positive cocci, patient is on IV Zithromax - Time Time Spent with patient: 25-34 minutes
[2018-12-12] MEDS: TRAZODONE HCL 50 MG TABLET PO SCH (23:06)
[2018-12-13] MEDS: IPRATROPIUM/ALBUTEROL 0.5-2.5 MG/3 ML AMPUL NEB SCH ×3 (08:14→19:51)
[2018-12-13] MEDS: HEPARIN SOD (PORCINE) 5,000 UNIT/ML 1 ML VIAL SUBCUT SCH ×3 (10:11→22:18)
[2018-12-13] MEDS: FUROSEMIDE INJ/PF 20 MG/2 ML SDV IV SCH ×2 (10:20→21:23)
[2018-12-13] MEDS: CEFTRIAXONE 1 GM/D5W RTU 1 GM/50 ML RTUPB IV SCH (10:22)
[2018-12-13] MEDS: AZITHROMYCIN 250 MG TABLET PO SCH (10:26)
[2018-12-13] MEDS: VALACYCLOVIR HCL 500 MG TABLET PO SCH (10:26)
[2018-12-13] MEDS: FERROUS SULFATE 325 MG TABLET PO SCH (10:26)
--- NOTE | 2018-12-13 14:02 | PDOC PROGRESS REPORT ---
Subjective Progress Note for:: 12/13/18 Subjective:: 12/11/2018. Patient was admitted to the hospital for right lower lobe pneumonia seen on CAT scan and chest x-ray. he developed some edema secondary to steroids and is now on Lasix with good results. Is scheduled to go home either tomorrow or 12/13/2018 Patient is currently on Rocephin and Zithromax IV. Patient is growing out staph aureus on his sputum. Recent CD4 count is 50. Patient is slowly improving requiring less oxygen now on 4 L nasal cannula and try to wean down to 3 Blood pressure 125/70 afebrile 98.3. Heart rates up around 100 Reason For Visit: FLUID OVERLOAD PNEUMONIA Physical Exam Vital Signs: Temp Pulse Resp BP Pulse Ox 98.3 F 103 H 19 125/70 94 12/13/18 12:09 12/13/18 12:09 12/13/18 12:09 12/13/18 12:09 12/13/18 12:09 Intake & Output 12/12/18 12/13/18 12/14/18 06:59 06:59 06:59 Intake Total 3836 3660 50 Output Total 3425 4025 Balance 411 -365 50 Weight 80.4 kg 79.1 kg General appearance: PRESENT: no acute distress, other - Talking in full sentences ambulating in the hallway with assistance Respiratory exam: PRESENT: rhonchi - Both bases, mild Cardiovascular exam: PRESENT: RRR. ABSENT: diastolic murmur, rubs, systolic murmur Neurological exam: PRESENT: alert, awake, oriented to person, oriented to place, oriented to time, oriented to situation, CN II-XII grossly intact. ABSENT: motor sensory deficit Psychiatric exam: PRESENT: appropriate affect, normal mood. ABSENT: homicidal ideation, suicidal ideation Results Laboratory Results: 12/09/18 15:31 12/09/18 15:31 12/10/18 07:09 Sputum Gram Stain - Final 12/10/18 07:09 Sputum Sputum Culture - Final Staphylococcus Aureus Normal Radha 12/09/18 12/11/18 15:31 14:45 Troponin I < 0.012 NT-Pro-B Natriuret Pep 68 31 Impressions: Chest X-Ray 12/09/18 15:13 IMPRESSION: Right lower lobe pneumonia. Chest/Abdomen CTA 12/09/18 16:30 IMPRESSION: No pulmonary embolism. Patchy bibasilar consolidation with air bronchograms compatible with pneumonia in the appropriate clinical setting Assessment and Plan - Diagnosis (1) HIV (human immunodeficiency virus infection) Qualifiers: HIV symptom status: unspecified Qualified Code(s): B20 - Human immunodeficiency virus [HIV] disease Is this a current diagnosis for this admission?: Yes (2) Pneumonia Qualifiers: Pneumonia type: due to unspecified organism Laterality: bilateral Lung location: unspecified part of lung Qualified Code(s): J18.9 - Pneumonia, unspecified organism Is this a current diagnosis for this admission?: Yes (3) Fluid overload Is this a current diagnosis for this admission?: Yes (4) Localized swelling of both lower legs Is this a current diagnosis for this admission?: Yes - Plan Summary Summary: We will continue IV antibiotics while patient is in the hospital. Patient home on some p.o. antibiotics. Continue p.o. Lasix vital signs are stable. Count is normal electrolytes are normal CD4 is pending. Patient is growing out gram-positive cocci in his sputum, blood culture showed no growth in 24 hours 12/12/2018 Patient on Lasix 20 mg IV every 12 hours, electrolytes and BNP are normal, sputum culture shows gram-positive cocci, patient is on IV Zithromax and Rocephin 12/13/2018 Vital signs are stable, try to wean down oxygen, though yesterday with ambulation on room air his sats dropped down into the mid 80s. We will repeat chest x-ray today 2 views as well as CBC - Time Time Spent with patient: 25-34 minutes
[2018-12-13 14:57] LABS: HEMATOCRIT 29.5 % (37.9-51.0); HEMOGLOBIN 9.2 g/dL (13.5-17.0); MEAN CORPUSCULAR HEMOGLOBIN 21.9 pg (27.0-33.4); MEAN CORPUSCULAR HGB CONC 31.3 g/dL (32.0-36.0); MEAN CORPUSCULAR VOLUME 70 fl (80-97); PLATELET COUNT 148 10^3/uL (150-450); RED BLOOD COUNT 4.22 10^6/uL (4.35-5.55); RED CELL DISTRIBUTION WIDTH 18.3 % (11.5-14.0); WHITE BLOOD COUNT 3.5 10^3/uL (4.0-10.5)
[2018-12-13 15:30] LABS: ABSOLUTE MONOCYTES # (MANUAL) 0.2 10^3/uL (0.1-1.4); BAND NEUTROPHILS % (MANUAL) 1 % (3-5); BASOPHILS % (MANUAL) 0 % (0-2); EOSINOPHILS % (MANUAL) 3 % (0-6); LYMPHOCYTES % (MANUAL) 29 % (13-45); MONOCYTES % (MANUAL) 6 % (3-13); NUCLEATED RED BLOOD CELLS 1 /100 WBC (0); SEGMENTED NEUTROPHILS % (MAN) 61 % (42-78); TOTAL CELLS COUNTED 100
[2018-12-13 15:31] LABS: PLATELET CLUMPS PRESENT; PLATELET COMMENT DECREASED; RBC MORPHOLOGY COMMENT NORMO-CYTIC/CHROMIC
--- NOTE | 2018-12-13 15:38 | RADIOLOGY REPORT (SQ) ---
EXAM DESCRIPTION: CHEST 2 VIEWS COMPLETED DATE/TIME: 12/13/2018 3:25 pm REASON FOR STUDY: pneumonia COMPARISON: 12/09/2018. EXAM PARAMETERS: NUMBER OF VIEWS: two views TECHNIQUE: Digital Frontal and Lateral radiographic views of the chest acquired. RADIATION DOSE: NA LIMITATIONS: none FINDINGS: LUNGS AND PLEURA: Right lower lobe infiltrate, perhaps slightly improved. Streaky density in the left lung base. No pleural effusion. No pneumothorax. MEDIASTINUM AND HILAR STRUCTURES: No masses or contour abnormalities. HEART AND VASCULAR STRUCTURES: Heart normal size. No evidence for failure. BONES: No acute findings. HARDWARE: None in the chest. OTHER: No other significant finding. IMPRESSION: PREVIOUSLY SEEN RIGHT LOWER LOBE INFILTRATE MAY BE SLIGHTLY IMPROVED. TECHNICAL DOCUMENTATION: JOB ID: [id number] [employer]- All Rights Reserved Reading location - IP/workstation name: [email or web address]
[2018-12-13] MEDS: TRAZODONE HCL 50 MG TABLET PO SCH (21:09)
[2018-12-14] MEDS: IPRATROPIUM/ALBUTEROL 0.5-2.5 MG/3 ML AMPUL NEB SCH ×3 (08:01→20:09)
[2018-12-14] MEDS: FUROSEMIDE INJ/PF 20 MG/2 ML SDV IV SCH ×2 (09:43→22:13)
[2018-12-14] MEDS: VALACYCLOVIR HCL 500 MG TABLET PO SCH (09:43)
[2018-12-14] MEDS: CEFTRIAXONE 1 GM/D5W RTU 1 GM/50 ML RTUPB IV SCH (09:43)
[2018-12-14] MEDS: AZITHROMYCIN 250 MG TABLET PO SCH (09:43)
[2018-12-14] MEDS: HEPARIN SOD (PORCINE) 5,000 UNIT/ML 1 ML VIAL SUBCUT SCH (09:43)
[2018-12-14] MEDS: FERROUS SULFATE 325 MG TABLET PO SCH (09:43)
--- NOTE | 2018-12-14 16:38 | PDOC PROGRESS REPORT ---
Subjective Progress Note for:: 12/14/18 Subjective:: 12/11/2018. Patient was admitted to the hospital for right lower lobe pneumonia seen on CAT scan and chest x-ray. he developed some edema secondary to steroids and is now on Lasix with good results. Is scheduled to go home either tomorrow or 12/13/2018 Patient is currently on Rocephin and Zithromax IV. Patient is growing out staph aureus on his sputum. Recent CD4 count is 50. Patient is slowly improving requiring less oxygen now on 4 L nasal cannula and try to wean down to 3 Blood pressure 125/70 afebrile 98.3. Heart rates up around 100 12/14/2018 Patient doing much better each day now down to 2 L nasal cannula with sats around 92% - 95% Blood pressure 108/82 temperature 98.5. Patient I have talked about going home and we are shooting for maybe 48 hours from now. Reason For Visit: FLUID OVERLOAD PNEUMONIA Physical Exam Vital Signs: Temp Pulse Resp BP Pulse Ox 98.5 F 117 H 20 108/82 92 12/14/18 11:19 12/14/18 14:00 12/14/18 13:45 12/14/18 11:19 12/14/18 15:33 Intake & Output 12/13/18 12/14/18 12/15/18 06:59 06:59 06:59 Intake Total 3660 949 530 Output Total 4025 2225 Balance -365 -1896 530 Weight 79.1 kg 80 kg General appearance: PRESENT: no acute distress Respiratory exam: PRESENT: clear to auscultation ileana. ABSENT: rales, rhonchi, wheezes Cardiovascular exam: PRESENT: RRR. ABSENT: diastolic murmur, rubs, systolic murmur Extremities exam: PRESENT: other - No significant peripheral edema Neurological exam: PRESENT: alert, awake, oriented to person, oriented to place, oriented to time, oriented to situation, CN II-XII grossly intact. ABSENT: motor sensory deficit Psychiatric exam: PRESENT: appropriate affect, normal mood. ABSENT: homicidal ideation, suicidal ideation Results Laboratory Results: 12/13/18 14:34 12/09/18 15:31 12/09/18 12/11/18 15:31 14:45 Troponin I < 0.012 NT-Pro-B Natriuret Pep 68 31 Impressions: Chest/Abdomen CTA 12/09/18 16:30 IMPRESSION: No pulmonary embolism. Patchy bibasilar consolidation with air bronchograms compatible with pneumonia in the appropriate clinical setting Chest X-Ray 12/13/18 00:00 IMPRESSION: PREVIOUSLY SEEN RIGHT LOWER LOBE INFILTRATE MAY BE SLIGHTLY IMPROVED. Assessment and Plan - Diagnosis (1) HIV (human immunodeficiency virus infection) Qualifiers: HIV symptom status: unspecified Qualified Code(s): B20 - Human immunodeficiency virus [HIV] disease Is this a current diagnosis for this admission?: Yes (2) Pneumonia Qualifiers: Pneumonia type: due to unspecified organism Laterality: bilateral Lung location: unspecified part of lung Qualified Code(s): J18.9 - Pneumonia, unspecified organism Is this a current diagnosis for this admission?: Yes (3) Fluid overload Is this a current diagnosis for this admission?: Yes (4) Localized swelling of both lower legs Is this a current diagnosis for this admission?: Yes - Plan Summary Summary: We will continue IV antibiotics while patient is in the hospital. Patient home on some p.o. antibiotics. Continue p.o. Lasix vital signs are stable. Count is normal electrolytes are normal CD4 is pending. Patient is growing out gram-positive cocci in his sputum, blood culture showed no growth in 24 hours 12/12/2018 Patient on Lasix 20 mg IV every 12 hours, electrolytes and BNP are normal, sputu m culture shows gram-positive cocci, patient is on IV Zithromax and Rocephin 12/13/2018 Vital signs are stable, try to wean down oxygen, though yesterday with ambulation on room air his sats dropped down into the mid 80s. We will repeat chest x-ray today 2 views as well as CBC 12/14/2018 Chest x-ray shows slight improvement in the right lower lobe pneumonia. White blood cell count 3500 Day 5 of IV antibiotics, day 5 of IV Lasix 20 mg twice daily We will plan for outpatient pulmonary rehab - Time Time Spent with patient: 25-34 minutes
[2018-12-14] MEDS: TRAZODONE HCL 50 MG TABLET PO SCH (22:19)
[2018-12-15] MEDS: IPRATROPIUM/ALBUTEROL 0.5-2.5 MG/3 ML AMPUL NEB SCH ×3 (08:29→19:33)
[2018-12-15] MEDS: AZITHROMYCIN 250 MG TABLET PO SCH (09:09)
[2018-12-15] MEDS: FUROSEMIDE INJ/PF 20 MG/2 ML SDV IV SCH ×2 (09:09→22:04)
[2018-12-15] MEDS: FERROUS SULFATE 325 MG TABLET PO SCH (09:09)
[2018-12-15] MEDS: VALACYCLOVIR HCL 500 MG TABLET PO SCH (09:09)
[2018-12-15] MEDS: CEFTRIAXONE 1 GM/D5W RTU 1 GM/50 ML RTUPB IV SCH (09:10)
[2018-12-15] MEDS: HEPARIN SOD (PORCINE) 5,000 UNIT/ML 1 ML VIAL SUBCUT SCH ×2 (09:14→22:02)
[2018-12-15] MEDS: TRAZODONE HCL 50 MG TABLET PO SCH (22:04)
[2018-12-16 08:02] VITALS: BP 133/75
[2018-12-16] MEDS: IPRATROPIUM/ALBUTEROL 0.5-2.5 MG/3 ML AMPUL NEB SCH (08:11)
[2018-12-16] MEDS: CEFTRIAXONE 1 GM/D5W RTU 1 GM/50 ML RTUPB IV SCH (09:03)
[2018-12-16] MEDS: VALACYCLOVIR HCL 500 MG TABLET PO SCH (09:04)
[2018-12-16] MEDS: AZITHROMYCIN 250 MG TABLET PO SCH (09:04)
[2018-12-16] MEDS: HEPARIN SOD (PORCINE) 5,000 UNIT/ML 1 ML VIAL SUBCUT SCH (09:04)
[2018-12-16] MEDS: FUROSEMIDE INJ/PF 20 MG/2 ML SDV IV SCH (09:04)
[2018-12-16] MEDS: FERROUS SULFATE 325 MG TABLET PO SCH (09:04)
--- NOTE | 2018-12-16 10:28 | PDOC PROGRESS REPORT ---
Subjective Progress Note for:: 12/15/18 Subjective:: 12/11/2018. Patient was admitted to the hospital for right lower lobe pneumonia seen on CAT scan and chest x-ray. he developed some edema secondary to steroids and is now on Lasix with good results. Is scheduled to go home either tomorrow or 12/13/2018 Patient is currently on Rocephin and Zithromax IV. Patient is growing out staph aureus on his sputum. Recent CD4 count is 50. Patient is slowly improving requiring less oxygen now on 4 L nasal cannula and try to wean down to 3 Blood pressure 125/70 afebrile 98.3. Heart rates up around 100 12/14/2018 Patient doing much better each day now down to 2 L nasal cannula with sats around 92% - 95% Blood pressure 108/82 temperature 98.5. Patient and I have talked about going home and we are shooting for maybe 48 hours from now. 12/15/2018\ Patient is doing much better every day I believe his baseline saturations is anywhere from 90-93 even on 2 L. We will try to get discharge planning to get a pulse oximeter for home. Discharge him on antibiotics by mouth Reason For Visit: FLUID OVERLOAD PNEUMONIA Physical Exam Vital Signs: Temp Pulse Resp BP Pulse Ox 98.8 F 97 16 136/72 H 91 L 12/15/18 08:24 12/15/18 08:29 12/15/18 08:29 12/15/18 08:24 12/15/18 08:29 Intake & Output 12/14/18 12/15/18 12/16/18 06:59 06:59 06:59 Intake Total 949 1551 290 Output Total 2225 1440 Balance -1276 111 290 Weight 80 kg 80.2 kg General appearance: PRESENT: no acute distress Respiratory exam: PRESENT: clear to auscultation ileana. ABSENT: rales, rhonchi, wheezes Cardiovascular exam: PRESENT: RRR. ABSENT: diastolic murmur, rubs, systolic murmur Neurological exam: PRESENT: alert, awake, oriented to person, oriented to place, oriented to time, oriented to situation, CN II-XII grossly intact. ABSENT: motor sensory deficit Psychiatric exam: PRESENT: appropriate affect, normal mood. ABSENT: homicidal ideation, suicidal ideation Results Laboratory Results: 12/13/18 14:34 12/09/18 15:31 12/09/18 17:45 Blood Blood Culture - Final NO GROWTH IN 5 DAYS 12/09/18 16:15 Blood Blood Culture - Final NO GROWTH IN 5 DAYS 12/09/18 12/11/18 15:31 14:45 Troponin I < 0.012 NT-Pro-B Natriuret Pep 68 31 Impressions: Chest/Abdomen CTA 12/09/18 16:30 IMPRESSION: No pulmonary embolism. Patchy bibasilar consolidation with air bronchograms compatible with pneumonia in the appropriate clinical setting Chest X-Ray 12/13/18 00:00 IMPRESSION: PREVIOUSLY SEEN RIGHT LOWER LOBE INFILTRATE MAY BE SLIGHTLY IMPROVED. Assessment and Plan - Diagnosis (1) HIV (human immunodeficiency virus infection) Qualifiers: HIV symptom status: unspecified Qualified Code(s): B20 - Human immunodeficiency virus [HIV] disease Is this a current diagnosis for this admission?: Yes (2) Pneumonia Qualifiers: Pneumonia type: due to unspecified organism Laterality: bilateral Lung location: unspecified part of lung Qualified Code(s): J18.9 - Pneumonia, unspecified organism Is this a current diagnosis for this admission?: Yes (3) Fluid overload Is this a current diagnosis for this admission?: Yes (4) Localized swelling of both lower legs Is this a current diagnosis for this admission?: Yes - Plan Summary Summary: We will continue IV antibiotics while patient is in the hospital. Patient home on some p.o. antibiotics. Continue p.o. Lasix vital signs are stable. Count is normal electrolytes are normal CD4 is pending. Patient is growing out gram-positive cocci in his sputum, blood culture showed no growth in 24 hours 12/12/2018 Patient on Lasix 20 mg IV every 12 hours, electrolytes and BNP are normal, sputum culture shows gram-positive cocci, patient is on IV Zithromax and Rocephin 12/13/2018 Vital signs are stable, try to wean down oxygen, though yesterday with ambulation on room air his sats dropped down into the mid 80s. We will repeat chest x-ray today 2 views as well as CBC 12/14/2018 Chest x-ray shows slight improvement in the right lower lobe pneumonia. White blood cell count 3500 Day 5 of IV antibiotics, day 5 of IV Lasix 20 mg twice daily We will plan for outpatient pulmonary rehab
== END 2018-12-16 12:38 | disposition home or self-care (01) | DRG 975 ==
LOC: ER 14:57 → OBSVTOIN 18:25 → INTOOBSV 18:25 → EH 18:25 → 4N 20:11
PROVIDERS: ADMIT Internal Medicine; ATTEND Internal Medicine
DX: B20 Human immunodeficiency virus [HIV] disease (principal); J15.211 Pneumonia due to Methicillin susceptible Staphylococcus aureus; Q60.0 Renal agenesis, unilateral; M79.89 Other specified soft tissue disorders; D50.9 Iron deficiency anemia, unspecified; E87.70 Fluid overload, unspecified
CPT/HCPCS: 36415; 71046; 71275; 80053; 81001; 82803; 83605; 83880; 84484; 85025; 86360; 87040; 87070; 87077; 87186; 87205; 93005; 93010; 93971; 94640; 96360; 99285; G0378; J0696; J1644; J1940; J3490; J7620

== ENCOUNTER 2019-02-08 09:05 | Inpatient (IN) | payer MEDICAID ==
[2019-02-08 10:23] LABS: ABSOLUTE EOSINOPHILS # (AUTO) 0.2 10^3/uL (0.0-0.6); ABSOLUTE LYMPHOCYTES (AUTO) 0.7 10^3/uL (0.5-4.7); ABSOLUTE MONOCYTES (AUTO) 0.1 10^3/uL (0.1-1.4); ABSOLUTE NEUT (AUTO) 1.5 10^3/uL (1.7-8.2); BASOPHILS % (AUTO) 0.5 % (0-2); EOSINOPHILS % (AUTO) 7.1 % (0-6); HEMOGLOBIN 8.8 g/dL (13.5-17.0); LYMPHOCYTES % (AUTO) 26.1 % (13-45); MEAN CORPUSCULAR HEMOGLOBIN 21.3 pg (27.0-33.4); MEAN CORPUSCULAR HGB CONC 30.2 g/dL (32.0-36.0); MEAN CORPUSCULAR VOLUME 71 fl (80-97); MONOCYTES % (AUTO) 4.8 % (3-13); RED CELL DISTRIBUTION WIDTH 19.8 % (11.5-14.0); SEGMENTED NEUTROPHILS % (AUTO) 61.5 % (42-78); TOTAL CELLS COUNTED % (AUTO) 100 %; WHITE BLOOD COUNT 2.5 10^3/uL (4.0-10.5)
[2019-02-08 10:41] LABS: ALBUMIN 3.3 g/dL (3.5-5.0); ALKALINE PHOSPHATASE 167 U/L (38-126); ANION GAP 8 (5-19); ASPARTATE AMINO TRANSFERASE 69 U/L (17-59); BILIRUBIN,DIRECT 0.2 mg/dL (0.0-0.4); BILIRUBIN,TOTAL 0.3 mg/dL (0.2-1.3); BLOOD UREA NITROGEN 13 mg/dL (7-20); CALCIUM 8.6 mg/dL (8.4-10.2); CARBON DIOXIDE 29 mmol/L (22-30); CHLORIDE 102 mmol/L (98-107); CREATINE KINASE 70 U/L (55-170); GLUCOSE 138 mg/dL (75-110); TOTAL PROTEIN 9.2 g/dL (6.3-8.2)
--- NOTE | 2019-02-08 10:51 | RADIOLOGY REPORT (SQ) ---
EXAM DESCRIPTION: CHEST SINGLE VIEW COMPLETED DATE/TIME: 02/08/2019 10:40 am REASON FOR STUDY: sob COMPARISON: 12/13/2018 EXAM PARAMETERS: NUMBER OF VIEWS: One view. TECHNIQUE: Single frontal radiographic view of the chest acquired. RADIATION DOSE: NA LIMITATIONS: None. FINDINGS: LUNGS AND PLEURA: Interstitial markings are prominent bilaterally. Most marked in the lef t base. Atelectasis previously described in the lung bases and/or pneumonia has resolved. No effusi ons. MEDIASTINUM AND HILAR STRUCTURES: No masses. Contour normal. HEART AND VASCULAR STRUCTURES: Heart normal in size. Normal vasculature. BONES: No acute findings. HARDWARE: None in the chest. OTHER: No other significant finding. IMPRESSION: Prominent interstitial markings bilaterally. No focal consolidation. Changes most like ly are related to chronic interstitial lung disease. TECHNICAL DOCUMENTATION: JOB ID: [id number] [employer] All Rights Reserved Reading location - IP/workstation name: [email or web address]
--- NOTE | 2019-02-08 10:52 | ER Document Report ---
ED Medical Screen (RME) - General Chief Complaint: Shortness Of Breath Stated Complaint: DIFFICULTY BREATHING Time Seen by Provider: 02/08/19 10:43 Primary Care Provider: MARIAH KEITA FNP [Primary Care Provider] - Follow up as needed Information source: Patient Notes: Patient presents complaining of shortness of breath and lower extremity swelling for the past 3 days. Patient reports history of HIV and COPD and wears chronic oxygen at 2 L. Patient had low oxygen saturation at home of 83%. Patient was given nebulizer treatments and placed on oxygen here. Patient reports no detec table viral load. I have greeted and performed a rapid initial assessment of this patient. A comprehensive ED assessment and evaluation of the patient, analysis of test results and completion of the medical decision making process will be conducted by additional ED providers. TRAVEL OUTSIDE OF THE [place] IN LAST 30 DAYS: No - Related Data Allergies/Adverse Reactions: Sulfa (Sulfonamide Antibiotics) Allergy (Verified 10/09/18 10:53) Past Medical History - Social History Chew tobacco use (# tins/day): No Frequency of alcohol use: None Drug Abuse: None Pulmonary Medical History: Reports: Hx COPD, Hx Pneumonia - PCP Comment Only: Hx Asthma - denies Renal/ Medical History: Denies: Hx Peritoneal Dialysis Psychiatric Medical History: Reports: Hx Depression - NOT CLINICALLY DX Infectious Medical History: Reports: Hx HIV Past Surgical History: Reports: Hx Kidney (Renal Surgery) - left removed, Hx Orthopedic Surgery - Immunizations Hx Diphtheria, Pertussis, Tetanus Vaccination: Yes Physical Exam - Vital signs Vitals: Temp Pulse Resp BP Pulse Ox 99.4 F 115 H 20 139/71 H 89 L 02/08/19 09:16 02/08/19 09:16 02/08/19 09:16 02/08/19 09:16 02/08/19 09:16 - General General appearance: Alert - Respiratory Respiratory status: No respiratory distress Breath sounds: Nonproductive cough, Rales Chest palpation: Normal Course - Vital Signs Vital signs: Temp Pulse Resp BP Pulse Ox 99.4 F 115 H 20 139/71 H 89 L 02/08/19 09:16 02/08/19 09:16 02/08/19 09:16 02/08/19 09:16 02/08/19 09:16 - Laboratory Result Diagrams: 02/08/19 10:05 02/08/19 10:05 Laboratory results interpreted by me: 02/08/19 10:05 Glucose 138 H AST 69 H Alkaline Phosphatase 167 H Total Protein 9.2 H Albumin 3.3 L Doctor's Discharge - Discharge Referrals: MARIAH KEITA FNP [Primary Care Provider] - Follow up as needed
[2019-02-08 10:54] LABS: TROPONIN I < 0.012 ng/mL
[2019-02-08 11:24] LABS: PLATELET COUNT 83 10^3/uL (150-450)
[2019-02-08 12:24] LABS: APPEARANCE,URINE CLEAR; BILIRUBIN,URINE NEGATIVE (NEGATIVE); COLOR,URINE YELLOW; GLUCOSE, URINE NEGATIVE (NEGATIVE); KETONES,URINE NEGATIVE (NEGATIVE); LEUKOCYTE ESTERASE,URINE NEGATIVE (NEGATIVE); NITRITE,URINE NEGATIVE (NEGATIVE); PROTEIN,URINE 30 mg/dL (NEGATIVE); URINE SPECIFIC GRAVITY 1.013
[2019-02-08] MEDS ORDERED: IPRATROPIUM/ALBUTEROL 0.5-2.5 MG/3 ML AMPUL NEB ONE (13:49)
--- NOTE | 2019-02-08 13:50 | ER Document Report ---
ED Respiratory Problem - General Chief Complaint: Shortness Of Breath Stated Complaint: DIFFICULTY BREATHING Time Seen by Provider: 02/08/19 10:43 TRAVEL OUTSIDE OF THE [place] IN LAST 30 DAYS: No - HPI Notes: 43-year-old male with history of HIV, chronic interstitial lung disease, on 2 L of oxygen continuously to the emergency department via EMS with complaints of acute and progressively worsening shortness of breath for the past 24 hours. He states that he noticed bilateral leg swelling about 2 days ago and has been getting a little bit more short of breath since yesterday. He states that this morning he became acutely short of breath and called the medics. When medics arrived to his home he was 83% on his normal 2 L of oxygen. Patient states that he is normally 91 to 94% on his 2 L. However, he has not typically below that. He admits that he has been coughing. He states that he was admitted in the hospital in November for something similar. He states that he is not currently on any antibiotics but has been on azithromycin daily. He is unsure of what his CD4 count and viral load are. Review of the chart shows that his last CD4 count in November was 50. He states that most of his medical care is coordinated through his infectious disease doctor. He states that he cannot get up and walk around without getting significantly short of breath. This is an atypical thing for him. He states that he has never seen a bushel worker. States that the last time he was admitted he was given Lasix for his leg swelling. He states he currently does not have Lasix. He states he is never had an echo of his heart. He does not smoke. He states that he used to smoke cigars but has not in several years. He has been on oxygen for 2 years. - Related Data Allergies/Adverse Reactions: Sulfa (Sulfonamide Antibiotics) Allergy (Verified 10/09/18 10:53) Past Medical History - General Information source: Patient - Social History Smoking Status: Former Smoker - Cigars Chew tobacco use (# tins/day): No Frequency of alcohol use: None Drug Abuse: None Family History: CAD, CVA Patient has suicidal ideation: No Patient has homicidal ideation: No - Past Medical History Cardiac Medical History: Reports: Hx Congestive Heart Failure Pulmonary Medical History: Reports: Hx COPD, Hx Pneumonia - PCP Comment Only: Hx Asthma - denies Renal/ Medical History: Denies: Hx Peritoneal Dialysis Psychiatric Medical History: Reports: Hx Depression - NOT CLINICALLY DX Infectious Medical History: Reports: Hx HIV Past Surgical History: Reports: Hx Kidney (Renal Surgery) - left removed, Hx Orthopedic Surgery - Immunizations Hx Diphtheria, Pertussis, Tetanus Vaccination: Yes Hx Pneumococcal Vaccination: 05/28/12 Review of Systems - Review of Systems Constitutional: denies: Chills, Fever EENT: No symptoms reported Cardiovascular: See HPI, Edema. denies: Chest pain, Syncope, Dizziness, Lightheaded Respiratory: See HPI, Cough, Short of breath Gastrointestinal: denies: Abdominal pain, Diarrhea, Nausea, Vomiting Genitourinary: No symptoms reported Musculoskeletal: No symptoms reported Skin: No symptoms reported Hematologic/Lymphatic: No symptoms reported Neurological/Psychological: No symptoms reported -: Yes All other systems reviewed and negative Physical Exam - Vital signs Vitals: Temp Pulse Resp BP Pulse Ox 99.4 F 115 H 20 139/71 H 89 L 02/08/19 09:16 02/08/19 09:16 02/08/19 09:16 02/08/19 09:16 02/08/19 09:16 Interpretation: Tachycardic, Hypoxic, Tachypneic - General General appearance: Alert Notes: Chronically ill-appearing gentleman. On 2 L of oxygen. - HEENT Head: Normocephalic, Atraumatic Eyes: Normal Pupils: PERRL Ears: Normal External canal: Normal Tympanic membrane: Normal Sinus: Normal Nasal: Normal Mouth/Lips: Normal Mucous membranes: Normal Pharynx: Normal. No: Potential airway comprom. Neck: Normal, Supple. No: Lymphadenopathy, Meningismus - Respiratory Respiratory status: No respiratory distress Chest status: Nontender. No: Accessory muscle use Breath sounds: Decreased air movement, Rales - Bilateral rales up to mid back on each side. Positive productive cough decreased air movement throughout. Slight wheezing in the left lower lobe when patient is sitting up. Patient gets noticeably breathy and short of breath when going from laying to sitting., Wheezing Chest palpation: Normal. No: Subcutaneous emphysema - Cardiovascular Rhythm: Regular Heart sounds: Normal auscultation Murmur: No Notes: 2+ pitting edema bilaterally - Abdominal Inspection: Normal Distension: No distension Bowel sounds: Normal Tenderness: Nontender Organomegaly: No organomegaly - Neurological Neuro grossly intact: Yes Cognition: Normal Orientation: AAOx4 [place] Coma Scale Eye Opening: Spontaneous Josue Coma Scale Verbal: Oriented Josue Coma Scale Motor: Obeys Commands Josue Coma Scale Total: 15 Speech: Normal Cranial nerves: Normal Cerebellar coordination: Normal Motor strength normal: LUE, RUE, LLE, RLE 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 No: Pronator drift Sensory: Normal - Psychological Associated symptoms: Normal affect, Normal mood - Skin Skin Temperature: Warm Skin Moisture: Dry Skin Color: Normal Course - Re-evaluation Re-evalutation: Chest X-Ray 02/08/19 09:39 IMPRESSION: Prominent interstitial markings bilaterally. No focal consolidation. Changes most likely are related to chronic interstitial lung disease. Chest/Abdomen CTA 02/08/19 13:49 IMPRESSION: 1. Examination for pulmonary embolism is significantly limited by breath motion artifact, particularly in the bilateral lung bases. Within this limitation, there no evidence of pulmonary embolism in the bilateral upper lobes or through the proximal segmental artery level in the lower lobes. 2. There is extensive bibasilar heterogeneous airspace opacity, superimposed upo n moderate centrilobular emphysema in an unusual, bibasilar dependent pattern. There is extensive bilateral dependent bronchial wall thickening. Findings are generally consistent with infection or aspiration, and unusual pattern of emphysema, advanced for patient age, suggests alpha 1 antitrypsin deficiency. 3. Status post left nephrectomy. Splenomegaly. Noted CTA findings. Patient has lactic acid of 3.8. Discussed patient with Dr. Hammond, ER attending. He agrees with plan for antibiotics as well as admission. We agree that we will start patient on bank and give Rocephin as well. Spoke with Dr. Terrell, hospitalist. He would like for the patient to go to the [facility]. He is aware of the patient's white count, vital signs, difficulty with ambulation and getting hypoxic. He is also aware of CTA. He is aware that the patient is getting antibioticsVanco and Rocephin. He is also aware of last sputum culture result which showed staph aureus. He agrees with plan for admission and accepts patient onto his service. - Vital Signs Vital signs: Temp Pulse Resp BP Pulse Ox 98.6 F 115 H 24 H 116/66 99 02/08/19 16:15 02/08/19 09:16 02/08/19 14:01 02/08/19 14:01 02/08/19 14:01 - Laboratory Result Diagrams: 02/08/19 10:05 02/08/19 10:05 Laboratory results interpreted by me: 02/08/19 02/08/19 02/08/19 10:05 10:05 12:12 WBC 2.5 L RBC 4.10 L Hgb 8.8 L Hct 29.0 L MCV 71 L MCH 21.3 L MCHC 30.2 L RDW 19.8 H Plt Count 83 L Eos % (Auto) 7.1 H Absolute Neuts (auto) 1.5 L Glucose 138 H Lactic Acid (Sepsis) AST 69 H Alkaline Phosphatase 167 H Total Protein 9.2 H Albumin 3.3 L Urine Protein 30 H Urine Urobilinogen 2.0 H 02/08/19 14:10 WBC RBC Hgb Hct MCV MCH MCHC RDW Plt Count Eos % (Auto) Absolute Neuts (auto) Glucose Lactic Acid (Sepsis) 3.8 H AST Alkaline Phosphatase Total Protein Albumin Urine Protein Urine Urobilinogen - Diagnostic Test Radiology reviewed: Image reviewed, Reports reviewed Discharge - Discharge Clinical Impression: Hypoxia, Leg swelling Pneumonia Qualifiers: Pneumonia type: due to unspecified organism Laterality: bilateral Lung location: lower lobe of lung Qualified Code(s): J18.9 - Pneumonia, unspecified organism Condition: Stable Disposition: ADMITTED INPATIENT Admitting Provider: Shonda (Hospitalist) Unit Admitted: [facility]
--- NOTE | 2019-02-08 14:55 | RADIOLOGY REPORT (SQ) ---
EXAM DESCRIPTION: CTA CHEST COMPLETED DATE/TIME: 02/08/2019 2:40 pm REASON FOR STUDY: SOB COMPARISON: 12/09/2018 TECHNIQUE: CT scan of the chest performed using helical scanning technique with dynamic intravenous contrast injection. Images reviewed with lung, soft tissue and bone windows. Reconstructed coronal and sagittal MPR images reviewed. Additional 3 dimensional post-processing performed to develop Maximal Intensity Projection images (ME P). All images stored on PACS. All CT scanners at this facility use dose modulation, iterative reconstruction, and/or weight based d osing when appropriate to reduce radiation dose to as low as reasonably achievable (ALARA). [facility]: Dose Right [facility]: CareDose [facility]: Dose Right [facility]: Teradose 4D [facility]: Ellie CONTRAST TYPE AND DOSE: contrast/concentration: Isovue 350.00 mg/ml; Total Contrast Delivered: 55.0 ml; Total Saline Delivered: 70.0 ml Contrast bolus optimized for the pulmonary arteries. Not diagnostic for the aorta. RENAL FUNCTION: None required. The patient is less than 50 years old. RADIATION DOSE: CT Rad equipment meets quality standard of care and radiation dose reduction techniq ues were employed. CTDIvol: 9.9 - 16.7 mGy. DLP: 686 mGy-cm. . LIMITATIONS: Breath motion artifact. FINDINGS: LUNGS AND PLEURA: There is extensive bibasilar heterogeneous airspace opacity, superimpose d upon moderate centrilobular emphysema in an unusual, bibasilar dependent pattern. There is extensi ve bilateral dependent bronchial wall thickening AORTA AND GREAT VESSELS: No aneurysm. Contrast bolus not optimized for the aorta. HEART: No pericardial effusion. No significant coronary artery calcifications. PULMONARY ARTERIES: Examination for pulmonary embolism is significantly limited by breath motion delio fact, particularly in the bilateral lung bases. Within this limitation, there no evidence of pulmona ry embolism in the bilateral upper lobes or through the proximal segmental artery level in the lower lobes. HILAR AND MEDIASTINAL STRUCTURES: No identified masses or abnormal nodes. HARDWARE: None in the chest. UPPER ABDOMEN: Partially imaged findings of left nephrectomy. Splenomegaly. THYROID AND OTHER SOFT TISSUES: No masses. No adenopathy. BONES: No acute or significant finding. 3D MIPS: Confirm above findings. OTHER: No other significant finding. IMPRESSION: 1. Examination for pulmonary embolism is significantly limited by breath motion artifact , particularly in the bilateral lung bases. Within this limitation, there no evidence of pulmonary e mbolism in the bilateral upper lobes or through the proximal segmental artery level in the lower lobe s. 2. There is extensive bibasilar heterogeneous airspace opacity, superimposed upon moderate centrilobu lar emphysema in an unusual, bibasilar dependent pattern. There is extensive bilateral dependent bro nchial wall thickening. Findings are generally consistent with infection or aspiration, and unusual pattern of emphysema, advanced for patient age, suggests alpha 1 antitrypsin deficiency. 3. Status post left nephrectomy. Splenomegaly. COMMENT: Quality ID # [id number]: Final reports with documentation of one or more dose reduction techniques (e.g., Automated exposure control, adjustment of the mA and/or kV according to patient size, use of iterative reconstruction technique) TECHNICAL DOCUMENTATION: JOB ID: [id number] [employer]- All Rights Reserved Reading location - IP/workstation name: [email or web address]
[2019-02-08] MEDS ORDERED: VANCOMYCIN HCL INJ 1000 MG VIAL IV ONE (15:00)
[2019-02-08] MEDS ORDERED: NORMAL SALINE 1000 ML 1,000 ML IV ONE (15:04)
[2019-02-08] MEDS ORDERED: CEFTRIAXONE 1 GM/D5W RTU 1 GM/50 ML RTUPB IV ONE (15:04)
[2019-02-08] MEDS ORDERED: GUAIFENESIN SYRP 200 MG/10 ML UDC PO PRN (17:15)
[2019-02-08] MEDS ORDERED: LEVALBUTEROL HCL NEB 0.63 MG/3 ML AMPUL NEB PRN (17:15)
[2019-02-08] MEDS ORDERED: NORMAL SALINE 1000 ML 1,000 ML IV PRN ×2 (17:15→20:21)
[2019-02-08] MEDS ORDERED: PHARMACY COMMUNICATION ORDER MC NR (17:15)
[2019-02-08] MEDS ORDERED: VANCOMYCIN HCL 0 MG in DEXTROSE 5%-WATER 250 ML IV NR (17:15)
[2019-02-08] MEDS ORDERED: ACETAMINOPHEN 325 MG TABLET PO PRN (17:15)
[2019-02-08] MEDS: PANTOT AC/MIN OIL/PET HY-PHL OINT 50 GM TOP SCH (19:27)
[2019-02-08] MEDS: PIPERACILLIN SODIUM/TAZOBACTAM 4.5 GM in NORMAL SALINE 100 ML IV SCH (19:43)
--- NOTE | 2019-02-08 20:46 | PDOC H&P ---
History of Present Illness Admission Date/PCP: 02/08/19 15:43 KENNETH BEE Patient complains of: Increased shortness of breath History of Present Illness: BART MCCRACKEN is a 43 year old male with positive HIV status on therapy. He is on home oxygen typically at 2 to 3 L/min. He was recently hospitalized in November of this year. The patient states that his primary symptom has been increasing shortness of breath over the last several days. He began to appreciate swelling in both lower extremities. The shortness of breath was accompanied by nonproductive cough. He had an episode of chills but does not think he had a fever. He did report an episode of night sweats. He did call EMS and his oxygen saturation was only 83% on 2 L nasal cannula. It was also noted that he had bilateral lower extremity edema. Chest x-ray revealed interst itial disease. CT angiogram revealed no evidence of pulmonary embolus. He was started antibiotics and referred to the hospital service for admission. Past Medical History Cardiac Medical History: Reports: Congestive Heart Failure Pulmonary Medical History: Reports: Chronic Obstructive Pulmonary Disease (COPD), Pneumonia - PCP Comment Only: Asthma - denies EENT Medical History: Reports: None Neurological Medical History: Reports: None Endocrine Medical History: Reports: None Malignancy Medical History: Reports: None GI Medical History: Reports: None Musculoskeltal Medical History: Reports: None Skin Medical History: Reports: None Psychiatric Medical History: Reports: Depression Traumatic Medical History: Reports: None Hematology: Reports: Anemia Infectious Medical History: Reports: HIV Past Surgical History Past Surgical History: Reports: Orthopedic Surgery, Other - Left nephrectomy Social History Information Source: Patient, [facility] Records Lives with: Family Smoking Status: Former Smoker Electronic Cigarette use?: No Frequency of Alcohol Use: Social Hx Recreational Drug Use: No Drugs: None Hx Prescription Drug Abuse: No - Advance Directive Resuscitation Status: Full Code Family History Family History: CAD, CVA Parental Family History Reviewed: Yes Children Family History Reviewed: Yes Sibling(s) Family History Reviewed.: Yes Medication/Allergy Home Medications: Darunavir/Cobicistat [Prezcobix 800 mg-150 mg Tablet] 1 each PO DAILY 02/08/19 Dolutegravir Sodium [Tivicay] 50 mg PO DAILY 02/08/19 Allergies/Adverse Reactions: Sulfa (Sulfonamide Antibiotics) Allergy (Verified 10/09/18 10:53) Review of Systems Constitutional: PRESENT: chills, night sweats - Last night Eyes: ABSENT: visual disturbances Ears: ABSENT: hearing changes Nose, Mouth, and Throat: ABSENT: mouth pain, sore throat Cardiovascular: PRESENT: edema - Bilateral lower extremities. ABSENT: chest pain, palpitations Respiratory: PRESENT: dyspnea. ABSENT: cough, hemoptysis, sputum Gastrointestinal: ABSENT: abdominal pain, diarrhea, heartburn, melena, nausea, vomiting Genitourinary: ABSENT: difficulty urinating, dysuria Integumentary: PRESENT: other - Dry skin Neurological: ABSENT: abnormal gait, abnormal speech, confusion, frequent falls, memory loss, syncope Psychiatric: PRESENT: depression. ABSENT: anxiety, hallucinations Endocrine: ABSENT: cold intolerance, heat intolerance, polydipsia, polyphagia, polyuria Hematologic/Lymphatic: ABSENT: easy bleeding, easy bruising Physical Exam Vital Signs: Temp Pulse Resp BP Pulse Ox 98.3 F 101 H 22 H 134/76 H 98 02/08/19 17:55 02/08/19 18:42 02/08/19 17:55 02/08/19 17:55 02/08/19 17:55 Intake & Output 02/07/19 02/08/19 02/09/19 06:59 06:59 06:59 Weight 73.8 kg General appearance: PRESENT: cooperative, mild distress, well-developed, other - Eating cold soup out of a can while sitting in bed. Head exam: PRESENT: atraumatic, normocephalic Eye exam: PRESENT: conjunctiva pale. ABSENT: scleral icterus Ear exam: PRESENT: normal external ear exam. ABSENT: bleeding, drainage Mouth exam: PRESENT: moist, tongue midline Respiratory exam: PRESENT: rales - Bilateral. Left greater than right., rhonchi - At bases, symmetrical, unlabored. ABSENT: prolonged expiratory phas, stridor, tachypnea, wheezes Cardiovascular exam: PRESENT: RRR, +S1, +S2 GI/Abdominal exam: PRESENT: normal bowel sounds, soft. ABSENT: distended, guarding, tenderness Rectal exam: PRESENT: deferred Gentrourinary exam: ABSENT: indwelling catheter Extremities exam: PRESENT: +1 edema. ABSENT: joint swelling Musculoskeletal exam: PRESENT: ambulatory, full ROM. ABSENT: deformity Neurological exam: PRESENT: alert, awake, oriented to person, oriented to place, oriented to time, oriented to situation, CN II-XII grossly intact Psychiatric exam: PRESENT: appropriate affect. ABSENT: agitated, anxious Skin exam: PRESENT: other - Dry scaly skin on both legs Results Laboratory Results: 02/08/19 10:05 02/08/19 10:05 02/08/19 02/08/19 02/08/19 10:05 10:05 12:12 WBC 2.5 L RBC 4.10 L Hgb 8.8 L Hct 29.0 L MCV 71 L MCH 21.3 L MCHC 30.2 L RDW 19.8 H Plt Count 83 L Seg Neutrophils % 61.5 Sodium 139.0 Potassium 4.0 Chloride 102 Carbon Dioxide 29 Anion Gap 8 BUN 13 Creatinine 0.80 Est GFR ( Amer) > 60 Glucose 138 H Calcium 8.6 Total Bilirubin 0.3 AST 69 H Alkaline Phosphatase 167 H Total Protein 9.2 H Albumin 3.3 L Urine Color YELLOW Urine Appearance CLEAR Urine pH 6.0 Ur Specific [place] 1.013 Urine Protein 30 H Urine Glucose (UA) NEGATIVE Urine Ketones NEGATIVE Urine Blood NEGATIVE Urine Nitrite NEGATIVE Ur Leukocyte Esterase NEGATIVE Urine WBC (Auto) 2 Urine RBC (Auto) 1 02/08/19 02/08/19 02/08/19 10:05 10:05 10:05 Creatine Kinase 70 CK-MB (CK-2) 0.50 Troponin I < 0.012 NT-Pro-B Natriuret Pep 73 02/08/19 13:56 Creatine Kinase CK-MB (CK-2) Troponin I < 0.012 NT-Pro-B Natriuret Pep Impressions: Chest X-Ray 02/08/19 09:39 IMPRESSION: Prominent interstitial markings bilaterally. No focal consolidation. Changes most likely are related to chronic interstitial lung disease. Chest/Abdomen CTA 02/08/19 13:49 IMPRESSION: 1. Examination for pulmonary embolism is significantly limited by breath motion artifact, particularly in the bilateral lung bases. Within this limitation, there no evidence of pulmonary embolism in the bilateral upper lobes or through the proximal segmental artery level in the lower lobes. 2. There is extensive bibasilar heterogeneous airspace opacity, superimposed upon moderate centrilobular emphysema in an unusual, bibasilar dependent pattern. There is extensive bilateral dependent bronchial wall thickening. Findings are generally consistent with infection or aspiration, and unusual pattern of emphysema, advanced for patient age, suggests alpha 1 antitrypsin deficiency. 3. Status post left nephrectomy. Splenomegaly. Assessment and Plan - Diagnosis (1) Acute and chronic respiratory failure with hypoxia Is this a current diagnosis for this admission?: Yes Plan: 02/08/2019-the patient typically has an oxygen saturation between 94 and 96% at rest on 2 L oxygen at home. EMS found him to be 83% on his 2 L. He exhibited tachypnea and increased work of breathing. We will increase his oxygen therapy and provide nebulizer treatments and monitor his oxygen saturation closely. We will attempt to wean oxygen as tolerated. Oxygen saturation between 93 and 95% would be acceptable. (2) Sepsis due to pneumonia Is this a current diagnosis for this admission?: Yes Plan: 02/08/2019-with his increased work of breathing and oxygen requirement greater than his baseline. He has thrombocytopenia as well. The hypoxia and thrombocytopenia qualify the patient for sepsis diagnosis. He will be given fluid resuscitation. We need to be mindful of his edema and potential for pulmonary edema. We will continue to monitor his lactic acid levels closely. He will be placed on triple antibiotic therapy (Zosyn, azithromycin and vancomycin). The spectrum can always be narrowed based on his response. There are no sputum cultures available. Blood cultures were drawn. With his underlying HIV there are multiple possibilities including MRSA and atypical infections but I believe this is a bacterial infection. (3) Pneumonia, community acquired Qualifiers: Laterality: unspecified laterality Qualified Code(s): J18.9 - Pneumonia, unspecified organism Is this a current diagnosis for this admission?: Yes Plan: 02/08/2019-Per diagnostic imaging there is bilateral lower lobe infiltrates. As noted above there is a high probability of bacterial infection. Triple antibiotic therapy instituted. (4) Neutropenic sepsis Is this a current diagnosis for this admission?: Yes Plan: 02/18/2019-the patient's white blood cell count was only 2.4. Absolute neutrophil count was only 1500. The patient will be placed on neutropenic precautions. (5) Thrombocytopenia associated with AIDS Is this a current diagnosis for this admission?: Yes Plan: 02/08/2019-the patient does have thrombocytopenia. It is most likely HIV- associated however sepsis has likely worsened. We will continue to monitor. No evidence of any bleeding. (6) Localized swelling of both lower legs Is this a current diagnosis for this admission?: Yes Plan: 02/08/2019-this was a similar presentation to his previous illness. He does need aggressive fluid resuscitation for sepsis. We will need to monitor his edema. He will have AGA stockings and leg elevation when possible. At some point we may need to add diuretic therapy. His albumin is low at 3.3 but the patient should not require nor benefit from albumin. (7) HIV (human immunodeficiency virus infection) Qualifiers: HIV symptom status: unspecified Qualified Code(s): B20 - Human immunodeficiency virus [HIV] disease Is this a current diagnosis for this admission?: Yes Plan: 02/08/2019-CD count from his previous admission was quite low. He reports compliance with his medications. I have asked that the patient be able to continue his own medications. - Plan Summary Summary: 02/08/2019-aggressive antibiotic therapy in this pleasant 43-year-old male HIV patient with advanced lung disease for his age. We will cover him with triple antibiotic therapy. In addition we will utilize aggressive nebulizers and eventually try and taper his oxygen therapy back to baseline. Interestingly, with his diagnosis of COPD he is not on any inhaler therapy at home that I know of. He will be on reverse precautions for his neutropenia. He is admitted to the [facility]. - Time Time Spent with patient: 35 or more minutes Medications reviewed and adjusted accordingly: Yes - Inpatient Certification Based on my medical assessment, after consideration of the patient's comorbidities, presenting symptoms, or acuity I expect that the services needed warrant INPATIENT care.: Yes I certify that my determination is in accordance with my understanding of Medicare's requirements for reasonable and necessary INPATIENT services [42 CFR 412.3e].: Yes Medical Necessity: Significant Comorbidiites Make Outpatient Treatment Too Risky, Need For IV Fluids, Need for Nebulizer Therapy and Monitoring of Response, Need for IV Antibiotics, Risk of Complication if Not Cared For in Hospital Post Hospital Care: D/C Logistics Coordinator Documentation
--- NOTE | 2019-02-08 21:57 | EKG REPORT ---
SEVERITY:- OTHERWISE NORMAL ECG - SINUS TACHYCARDIA : Confirmed by: Peter Witt MD 08-Feb-2019 21:56:52
[2019-02-08] MEDS: GUAIFENESIN 600 MG TABLET.SA PO SCH (22:09)
[2019-02-08] MEDS: DARUNAVIR PO SCH (22:11)
[2019-02-08] MEDS: COBICISTAT PO SCH (22:11)
[2019-02-08] MEDS: HEPARIN SOD (PORCINE) 5,000 UNIT/ML 1 ML VIAL SUBCUT SCH (22:11)
[2019-02-08] MEDS: Dolutegravir Sodium [Tivicay] 50 MG PO SCH (22:12)
[2019-02-08] MEDS: AZITHROMYCIN 500 MG in DEXTROSE 5%-WATER 250 ML IV SCH (22:15)
[2019-02-09] MEDS: PIPERACILLIN SODIUM/TAZOBACTAM 4.5 GM in NORMAL SALINE 100 ML IV SCH ×5 (00:05→23:07)
[2019-02-09] MEDS: IPRATROPIUM/ALBUTEROL 0.5-2.5 MG/3 ML AMPUL NEB SCH ×3 (00:40→15:39)
[2019-02-09] MEDS: VANCOMYCIN HCL 1,000 MG in DEXTROSE 5%-WATER 250 ML IV SCH ×3 (02:44→18:26)
[2019-02-09] MEDS: HEPARIN SOD (PORCINE) 5,000 UNIT/ML 1 ML VIAL SUBCUT SCH ×3 (05:15→21:20)
[2019-02-09 07:21] LABS: HEMATOCRIT 25.8 % (37.9-51.0); MEAN CORPUSCULAR HEMOGLOBIN 21.3 pg (27.0-33.4); MEAN CORPUSCULAR HGB CONC 30.6 g/dL (32.0-36.0); MEAN CORPUSCULAR VOLUME 70 fl (80-97); RED BLOOD COUNT 3.71 10^6/uL (4.35-5.55); RED CELL DISTRIBUTION WIDTH 19.7 % (11.5-14.0); WHITE BLOOD COUNT 2.1 10^3/uL (4.0-10.5)
[2019-02-09 07:24] LABS: HEMOGLOBIN 7.9 g/dL (13.5-17.0)
[2019-02-09 07:25] LABS: PLATELET COUNT 59 10^3/uL (150-450)
[2019-02-09 07:40] LABS: ALKALINE PHOSPHATASE 148 U/L (38-126); ANION GAP 9 (5-19); ASPARTATE AMINO TRANSFERASE 93 U/L (17-59); BILIRUBIN,DIRECT 0.1 mg/dL (0.0-0.4); BILIRUBIN,TOTAL 0.2 mg/dL (0.2-1.3); BLOOD UREA NITROGEN 12 mg/dL (7-20); CALCIUM 8.3 mg/dL (8.4-10.2); CARBON DIOXIDE 27 mmol/L (22-30); CHLORIDE 107 mmol/L (98-107); GLUCOSE 167 mg/dL (75-110); POTASSIUM 3.9 mmol/L (3.6-5.0); TOTAL PROTEIN 8.5 g/dL (6.3-8.2)
[2019-02-09 08:32] LABS: ABSOLUTE LYMPHOCYTES# (MANUAL) 0.2 10^3/uL (0.5-4.7); ABSOLUTE MONOCYTES # (MANUAL) 0.1 10^3/uL (0.1-1.4); BASOPHILS % (MANUAL) 0 % (0-2); EOSINOPHILS % (MANUAL) 0 % (0-6); LYMPHOCYTES % (MANUAL) 8 % (13-45); MONOCYTES % (MANUAL) 5 % (3-13); SEGMENTED NEUTROPHILS % (MAN) 87 % (42-78); TOTAL CELLS COUNTED 100
[2019-02-09 08:35] LABS: ANISOCYTOSIS 2+; HYPOCHROMASIA 2+; OVALOCYTES SLIGHT; PLATELET COMMENT DECREASED; POIKILOCYTOSIS SLIGHT
[2019-02-09] MEDS: LACTOBACILLUS ACIDOPHILUS 250 MG TAB PO SCH ×2 (09:28→18:26)
[2019-02-09] MEDS: PANTOT AC/MIN OIL/PET HY-PHL OINT 50 GM TOP SCH ×2 (09:29→18:31)
[2019-02-09] MEDS: GUAIFENESIN 600 MG TABLET.SA PO SCH ×2 (09:29→21:20)
[2019-02-09] MEDS ORDERED: COBICISTAT PO SCH (10:00)
[2019-02-09] MEDS ORDERED: (PENDING PHARMACY ID) (Dolutegravir Sodium [Tivicay] 50 MG) PO SCH (10:00)
[2019-02-09] MEDS ORDERED: DARUNAVIR PO SCH (10:00)
--- NOTE | 2019-02-09 10:21 | PDOC PROGRESS REPORT ---
Subjective Progress Note for:: 02/09/19 Subjective:: Patient was comfortable today. States he uses 2 L of oxygen at home but often drops down into the 80s sometimes into the 70s on 2 L when he ambulates in the recent. Has some cough. Endorses compliance with his heart regimen since last discharge. States that his last CD4 count was done here during his last visit. Reason For Visit: PNEUMONIA,HIV Physical Exam Vital Signs: Temp Pulse Resp BP Pulse Ox 97.5 F 85 16 119/80 96 02/09/19 08:02 02/09/19 08:05 02/09/19 08:05 02/09/19 08:02 02/09/19 08:05 Pulse Oximeter Continuous Start: 02/08/19 17:15 Freq: RTQ4 Status: Active Protocol: Document 02/09/19 08:05 LDA (Rec: 02/09/19 10:02 LDA [id number]) Pulse Oximetry Assessment Oxygen Saturation (92-100) 96 Oxygen Flow Rate (L/min) 2 Oxygen Delivery Method Nasal Cannula Fraction of Inspired Oxygen (FIO2) 28 Equipment Usage Equipment in Use Continuous SpO2 Machine # [id number] Intake & Output 02/08/19 02/09/19 02/10/19 06:59 06:59 06:59 Intake Total 1362 1100 Output Total 1050 Balance 312 1100 Weight 74.9 kg General appearance: PRESENT: no acute distress, cooperative Head exam: PRESENT: normocephalic Eye exam: PRESENT: EOMI Neck exam: ABSENT: JVD Respiratory exam: PRESENT: crackles - Right lung base, symmetrical, unlabored. ABSENT: tachypnea, wheezes Cardiovascular exam: PRESENT: RRR, +S1, +S2. ABSENT: tachycardia GI/Abdominal exam: PRESENT: normal bowel sounds, soft. ABSENT: guarding, rebound, rigid, tenderness Musculoskeletal exam: PRESENT: ambulatory Neurological exam: PRESENT: alert, awake, oriented to person, oriented to place, oriented to time, oriented to situation Results Laboratory Results: 02/09/19 06:42 02/09/19 06:42 02/08/19 02/08/19 02/08/19 10:05 10:05 12:12 WBC 2.5 L RBC 4.10 L Hgb 8.8 L Hct 29.0 L MCV 71 L MCH 21.3 L MCHC 30.2 L RDW 19.8 H Plt Count 83 L Seg Neutrophils % 61.5 Sodium 139.0 Potassium 4.0 Chloride 102 Carbon Dioxide 29 Anion Gap 8 BUN 13 Creatinine 0.80 Est GFR ( Amer) > 60 Glucose 138 H Calcium 8.6 Total Bilirubin 0.3 AST 69 H Alkaline Phosphatase 167 H Total Protein 9.2 H Albumin 3.3 L Urine Color YELLOW Urine Appearance CLEAR Urine pH 6.0 Ur Specific [place] 1.013 Urine Protein 30 H Urine Glucose (UA) NEGATIVE Urine Ketones NEGATIVE Urine Blood NEGATIVE Urine Nitrite NEGATIVE Ur Leukocyte Esterase NEGATIVE Urine WBC (Auto) 2 Urine RBC (Auto) 1 02/09/19 02/09/19 06:42 06:42 WBC 2.1 L RBC 3.71 L Hgb 7.9 L Hct 25.8 L MCV 70 L MCH 21.3 L MCHC 30.6 L RDW 19.7 H Plt Count 59 L Seg Neutrophils % Not Reportable Sodium 143.3 Potassium 3.9 Chloride 107 Carbon Dioxide 27 Anion Gap 9 BUN 12 Creatinine 0.84 Est GFR ( Amer) > 60 Glucose 167 H Calcium 8.3 L Total Bilirubin 0.2 AST 93 H Alkaline Phosphatase 148 H Total Protein 8.5 H Albumin 3.0 L Urine Color Urine Appearance Urine pH Ur Specific [place] Urine Protein Urine Glucose (UA) Urine Ketones Urine Blood Urine Nitrite Ur Leukocyte Esterase Urine WBC (Auto) Urine RBC (Auto) 02/08/19 02/08/19 02/08/19 10:05 10:05 10:05 Creatine Kinase 70 CK-MB (CK-2) 0.50 Troponin I < 0.012 NT-Pro-B Natriuret Pep 73 02/08/19 13:56 Creatine Kinase CK-MB (CK-2) Troponin I < 0.012 NT-Pro-B Natriuret Pep Impressions: Chest X-Ray 02/08/19 09:39 IMPRESSION: Prominent interstitial markings bilaterally. No focal consolidation. Changes most likely are related to chronic interstitial lung disease. Chest/Abdomen CTA 02/08/19 13:49 IMPRESSION: 1. Examination for pulmonary embolism is significantly limited by breath motion artifact, particularly in the bilateral lung bases. Within this limitation, there no evidence of pulmonary embolism in the bilateral upper lobes or through the proximal segmental artery level in the lower lobes. 2. There is extensive bibasilar heterogeneous airspace opacity, superimposed upon moderate centrilobular emphysema in an unusual, bibasilar dependent pattern. There is extensive bilateral dependent bronchial wall thickening. Findings are generally consistent with infection or aspiration, and unusual pattern of emphysema, advanced for patient age, suggests alpha 1 antitrypsin deficiency. 3. Status post left nephrectomy. Splenomegaly. Assessment and Plan - Diagnosis (1) Acute and chronic respiratory failure with hypoxia Is this a current diagnosis for this admission?: Yes Plan: 02/08/2019-the patient typically has an oxygen saturation between 94 and 96% at rest on 2 L oxygen at home. EMS found him to be 83% on his 2 L. He exhibited tachypnea and increased work of breathing. We will increase his oxygen therapy and provide nebulizer treatments and monitor his oxygen saturation closely. We will attempt to wean oxygen as tolerated. Oxygen saturation between 93 and 95% would be acceptable. 02/09/2019-patient currently tolerating his baseline 2 L nasal cannula with good oxygen sats. We will continue with this supplementation. (2) Pneumonia, community acquired Qualifiers: Laterality: unspecified laterality Qualified Code(s): J18.9 - Pneumonia, unspecified organism Is this a current diagnosis for this admission?: Yes Plan: 02/08/2019-Per diagnostic imaging there is bilateral lower lobe infiltrates. As noted above there is a high probability of bacterial infection. Triple antibiotic therapy instituted. 02/09/2019-Patient was placed on triple antibiotic therapy yesterday given his immunocompromised nature and risk of MRSA. I will also check CD4 count since he has not had one done outpatient since last hospitalization. If CD4 count is still below 200, I will start on atovaquone for empiric PCP coverage since he has a sulfa allergy. However, though patient's infiltrates seems to be somewhat reticular, it does not exactly fit the pattern for PCP. (3) Sepsis due to pneumonia Is this a current diagnosis for this admission?: Yes Plan: 02/08/2019-with his increased work of breathing and oxygen requirement greater than his baseline. He has thrombocytopenia as well. The hypoxia and thrombocytopenia qualify the patient for sepsis diagnosis. He will be given fluid resuscitation. We need to be mindful of his edema and potential for pulmonary edema. We will continue to monitor his lactic acid levels closely. He will be placed on triple antibiotic therapy (Zosyn, azithromycin and vancomycin). The spectrum can always be narrowed based on his response. There are no sputum cultures available. Blood cultures were drawn. With his underlying HIV there are multiple possibilities including MRSA and atypical infections but I believe this is a bacterial infection. 02/09/2019-lactic acid is normalized now. (4) Thrombocytopenia associated with AIDS Is this a current diagnosis for this admission?: Yes Plan: 02/08/2019-the patient does have thrombocytopenia. It is most likely HIV- associated however sepsis has likely worsened. We will continue to monitor. No evidence of any bleeding. 02/09/2019-platelet count trended down to the 50s today. May have some dilutional component from receiving fluids yesterday. However now off fluids past lactic acidosis is resolved. Neutropenia is likely from patient's AIDS and worsened by sepsis. If platelet count drops below 50 K, Heparin prophylaxis will need to be discontinued as well. We will continue to monitor with CBC. (5) HIV (human immunodeficiency virus infection) Qualifiers: HIV symptom status: unspecified Qualified Code(s): B20 - Human im munodeficiency virus [HIV] disease Is this a current diagnosis for this admission?: Yes Plan: 02/08/2019-CD count from his previous admission was quite low. He reports compliance with his medications. I have asked that the patient be able to continue his own medications. 02/09/2019-continue Prezcobix and Tivicay regimen - Time Time Spent with patient: 15-24 minutes
[2019-02-09 18:15] LABS: VANCOMYCIN,TROUGH 14.7 ug/mL (5.0-20.0)
[2019-02-09] MEDS: COBICISTAT PO SCH (21:20)
[2019-02-09] MEDS: VALACYCLOVIR HCL 500 MG TABLET PO SCH (21:20)
[2019-02-09] MEDS: DARUNAVIR PO SCH (21:20)
[2019-02-09] MEDS: AZITHROMYCIN 500 MG in DEXTROSE 5%-WATER 250 ML IV SCH (21:20)
[2019-02-09] MEDS: Dolutegravir Sodium [Tivicay] 50 MG PO SCH (21:20)
[2019-02-09] MEDS ORDERED: TENOFOVIR DISOPROXIL FUMARATE 300 MG PO SCH ×2 (22:00)
[2019-02-10] MEDS: VANCOMYCIN HCL 1,000 MG in DEXTROSE 5%-WATER 250 ML IV SCH ×3 (01:08→18:39)
[2019-02-10] MEDS: IPRATROPIUM/ALBUTEROL 0.5-2.5 MG/3 ML AMPUL NEB SCH ×4 (01:12→23:44)
[2019-02-10] MEDS: PIPERACILLIN SODIUM/TAZOBACTAM 4.5 GM in NORMAL SALINE 100 ML IV SCH ×3 (05:18→18:05)
[2019-02-10] MEDS: HEPARIN SOD (PORCINE) 5,000 UNIT/ML 1 ML VIAL SUBCUT SCH ×3 (05:22→22:31)
[2019-02-10 05:50] LABS: MEAN CORPUSCULAR HEMOGLOBIN 21.2 pg (27.0-33.4); MEAN CORPUSCULAR HGB CONC 30.6 g/dL (32.0-36.0); MEAN CORPUSCULAR VOLUME 69 fl (80-97); RED BLOOD COUNT 3.75 10^6/uL (4.35-5.55); WHITE BLOOD COUNT 2.9 10^3/uL (4.0-10.5)
[2019-02-10 05:57] LABS: ANION GAP 6 (5-19); BLOOD UREA NITROGEN 10 mg/dL (7-20); CALCIUM 8.6 mg/dL (8.4-10.2); CARBON DIOXIDE 29 mmol/L (22-30); CHLORIDE 110 mmol/L (98-107); GLUCOSE 106 mg/dL (75-110)
[2019-02-10 07:01] LABS: PLATELET COUNT 63 10^3/uL (150-450)
[2019-02-10 07:03] LABS: HEMOGLOBIN 7.9 g/dL (13.5-17.0)
[2019-02-10 07:07] LABS: ABSOLUTE LYMPHOCYTES# (MANUAL) 0.6 10^3/uL (0.5-4.7); ABSOLUTE MONOCYTES # (MANUAL) 0.1 10^3/uL (0.1-1.4); BAND NEUTROPHILS % (MANUAL) 4 % (3-5); BASOPHILS % (MANUAL) 0 % (0-2); EOSINOPHILS % (MANUAL) 0 % (0-6); LYMPHOCYTES % (MANUAL) 22 % (13-45); MONOCYTES % (MANUAL) 4 % (3-13); SEGMENTED NEUTROPHILS % (MAN) 70 % (42-78); TOTAL CELLS COUNTED 100
[2019-02-10 07:08] LABS: ANISOCYTOSIS 2+; HYPOCHROMASIA 1+
[2019-02-10 07:15] LABS: PLATELET COMMENT DECREASED
[2019-02-10] MEDS: LACTOBACILLUS ACIDOPHILUS 250 MG TAB PO SCH ×2 (09:40→18:42)
[2019-02-10] MEDS: GUAIFENESIN 600 MG TABLET.SA PO SCH ×2 (09:40→22:15)
[2019-02-10] MEDS: PANTOT AC/MIN OIL/PET HY-PHL OINT 50 GM TOP SCH ×2 (11:44→18:42)
--- NOTE | 2019-02-10 14:14 | PDOC PROGRESS REPORT ---
Subjective Progress Note for:: 02/10/19 Subjective:: No adverse events overnight. No new complaints. He said he had had a rash on his extremities but he thinks it is actually cleared up. He has not had much of an appetite. He still feels very short of breath with mild exertion. Reason For Visit: PNEUMONIA,HIV Physical Exam Vital Signs: Temp Pulse Resp BP Pulse Ox 97.8 F 93 18 134/78 H 100 02/10/19 08:12 02/10/19 08:12 02/10/19 08:12 02/10/19 08:12 02/10/19 08:12 Pulse Oximeter Continuous Start: 02/08/19 17:15 Freq: RTQ4 Status: Active Protocol: Document 02/10/19 12:00 LDA (Rec: 02/10/19 12:05 LDA [id number]) Pulse Oximetry Assessment Equipment Usage Equipment Standby Continuous SpO2 Machine # 5 Intake & Output 02/09/19 02/10/19 02/11/19 06:59 06:59 06:59 Intake Total 1362 3820 250 Output Total 1050 1150 Balance 312 2670 250 Weight 74.9 kg 74.9 kg General appearance: PRESENT: no acute distress, cooperative, disheveled Respiratory exam: PRESENT: symmetrical, tachypnea. ABSENT: accessory muscle use, chest wall tenderness, clear to auscultation ileana - Breath sounds are c oarse, crackles, prolonged expiratory phas, rhonchi, unlabored, wheezes Cardiovascular exam: PRESENT: RRR, +S1, +S2 Pulses: PRESENT: normal carotid pulses Vascular exam: PRESENT: normal capillary refill GI/Abdominal exam: PRESENT: normal bowel sounds, soft. ABSENT: distended, guarding, rebound, tenderness Extremities exam: ABSENT: clubbing, pedal edema Musculoskeletal exam: PRESENT: normal inspection. ABSENT: deformity Neurological exam: PRESENT: alert, awake, oriented to person, oriented to place, oriented to situation Psychiatric exam: PRESENT: appropriate affect, normal mood Skin exam: PRESENT: rash - He has what appears to be a diffuse rash consisting of multiple small papules that are covering large areas of skin on the distal lower extremities and on the upper extremities as well, including an area on the back of his neck that seems to go in a linear fashion with the skin lines on the back of the neck Results Laboratory Results: 02/10/19 05:16 02/10/19 05:16 02/10/19 02/10/19 05:16 05:16 WBC 2.9 L RBC 3.75 L Hgb 7.9 L Hct 26.0 L MCV 69 L MCH 21.2 L MCHC 30.6 L RDW 20.0 H Plt Count 63 L Seg Neutrophils % Not Reportable Sodium 145.2 H Potassium 4.0 Chloride 110 H Carbon Dioxide 29 Anion Gap 6 BUN 10 Creatinine 0.96 Est GFR ( Amer) > 60 Glucose 106 Calcium 8.6 02/08/19 02/08/19 02/08/19 10:05 10:05 10:05 Creatine Kinase 70 CK-MB (CK-2) 0.50 Troponin I < 0.012 NT-Pro-B Natriuret Pep 73 02/08/19 13:56 Creatine Kinase CK-MB (CK-2) Troponin I < 0.012 NT-Pro-B Natriuret Pep Impressions: Chest X-Ray 02/08/19 09:39 IMPRESSION: Prominent interstitial markings bilaterally. No focal consolidation. Changes most likely are related to chronic interstitial lung disease. Chest/Abdomen CTA 02/08/19 13:49 IMPRESSION: 1. Examination for pulmonary embolism is significantly limited by b reath motion artifact, particularly in the bilateral lung bases. Within this limitation, there no evidence of pulmonary embolism in the bilateral upper lobes or through the proximal segmental artery level in the lower lobes. 2. There is extensive bibasilar heterogeneous airspace opacity, superimposed upon moderate centrilobular emphysema in an unusual, bibasilar dependent pattern. There is extensive bilateral dependent bronchial wall thickening. Findings are generally consistent with infection or aspiration, and unusual pattern of emphysema, advanced for patient age, suggests alpha 1 antitrypsin deficiency. 3. Status post left nephrectomy. Splenomegaly. Assessment and Plan - Diagnosis (1) Rash Is this a current diagnosis for this admission?: Yes Plan: I am concerned that the patient has Kaposi's sarcoma. Will talk to pathology about what is the best specimen to confirm the diagnosis. He said that he is never had it biopsied or evaluated before. (2) Acute and chronic respiratory failure with hypoxia Is this a current diagnosis for this admission?: Yes Plan: We will continue supplemental O2 to maintain SPO2 greater than 90% (3) Sepsis due to pneumonia Is this a current diagnosis for this admission?: Yes Plan: Currently on broad-spectrum antibiotics, awaiting a CD4 count to see if we need to start treatment for pneumocystis pneumonia. It is noted that he is allergic to sulfa. (4) Thrombocytopenia associated with AIDS Is this a current diagnosis for this admission?: Yes Plan: Currently his blood counts are stable, will monitor closely (5) HIV (human immunodeficiency virus infection) Qualifiers: HIV symptom status: unspecified Qualified Code(s): B20 - Human immunodeficiency virus [HIV] disease Is this a current diagnosis for this admission?: Yes Plan: Awaiting a CD4 count, he says he has been taking his antiretrovirals as prescribed. He said he has been on them for about a month. - Time Time Spent with patient: 25-34 minutes
[2019-02-10] MEDS ORDERED: TENOFOVIR DISOPROXIL FUMARATE 300 MG PO SCH (22:00)
[2019-02-10] MEDS: AZITHROMYCIN 500 MG in DEXTROSE 5%-WATER 250 ML IV SCH (22:15)
[2019-02-10] MEDS: Dolutegravir Sodium [Tivicay] 50 MG PO SCH (22:15)
[2019-02-10] MEDS: COBICISTAT PO SCH (22:15)
[2019-02-10] MEDS: VALACYCLOVIR HCL 500 MG TABLET PO SCH (22:15)
[2019-02-10] MEDS: DARUNAVIR PO SCH (22:15)
[2019-02-11] MEDS: PIPERACILLIN SODIUM/TAZOBACTAM 4.5 GM in NORMAL SALINE 100 ML IV SCH ×5 (00:02→23:46)
[2019-02-11] MEDS: VANCOMYCIN HCL 1,000 MG in DEXTROSE 5%-WATER 250 ML IV SCH ×3 (02:02→18:46)
[2019-02-11] MEDS: HEPARIN SOD (PORCINE) 5,000 UNIT/ML 1 ML VIAL SUBCUT SCH ×3 (05:02→21:27)
[2019-02-11] MEDS: IPRATROPIUM/ALBUTEROL 0.5-2.5 MG/3 ML AMPUL NEB SCH ×2 (08:41→16:09)
[2019-02-11] MEDS: LACTOBACILLUS ACIDOPHILUS 250 MG TAB PO SCH ×2 (09:19→17:49)
[2019-02-11] MEDS: GUAIFENESIN 600 MG TABLET.SA PO SCH ×2 (09:20→21:31)
[2019-02-11] MEDS: PANTOT AC/MIN OIL/PET HY-PHL OINT 50 GM TOP SCH ×2 (09:23→17:49)
[2019-02-11 09:28] LABS: HEMATOCRIT 27.9 % (37.9-51.0); HEMOGLOBIN 8.5 g/dL (13.5-17.0); MEAN CORPUSCULAR HEMOGLOBIN 21.3 pg (27.0-33.4); MEAN CORPUSCULAR HGB CONC 30.6 g/dL (32.0-36.0); MEAN CORPUSCULAR VOLUME 70 fl (80-97); RED CELL DISTRIBUTION WIDTH 19.9 % (11.5-14.0); WHITE BLOOD COUNT 2.2 10^3/uL (4.0-10.5)
[2019-02-11 09:51] LABS: PLATELET COUNT 59 10^3/uL (150-450)
[2019-02-11 09:57] LABS: ABSOLUTE LYMPHOCYTES# (MANUAL) 0.6 10^3/uL (0.5-4.7); ABSOLUTE MONOCYTES # (MANUAL) 0.2 10^3/uL (0.1-1.4); BASOPHILS % (MANUAL) 1 % (0-2); EOSINOPHILS % (MANUAL) 4 % (0-6); LYMPHOCYTES % (MANUAL) 29 % (13-45); MONOCYTES % (MANUAL) 9 % (3-13); SEGMENTED NEUTROPHILS % (MAN) 57 % (42-78); TOTAL CELLS COUNTED 100
[2019-02-11 09:58] LABS: ANISOCYTOSIS 2+; PLATELET COMMENT DECREASED
[2019-02-11 10:06] LABS: POIKILOCYTOSIS 2+; POLYCHROMASIA SLIGHT; TARGET CELLS 2+; TEAR DROP CELLS SLIGHT
--- NOTE | 2019-02-11 15:30 | PDOC PROGRESS REPORT ---
Subjective Progress Note for:: 02/11/19 Subjective:: No adverse events overnight. No new complaints. He says he feels like the rash on his extremities has improved. He said he was using an ammonium lactate lotion to make it go away. Says his breathing is felt better. He had a little bit of a cough but he has not really been able to cough anything up Reason For Visit: PNEUMONIA,HIV Physical Exam Vital Signs: Temp Pulse Resp BP Pulse Ox 98.4 F 90 17 125/73 97 02/11/19 11:21 02/11/19 11:21 02/11/19 11:21 02/11/19 11:21 02/11/19 11:21 Pulse Oximeter Continuous Start: 02/08/19 17:15 Freq: RTQ4 Status: Active Protocol: Document 02/11/19 12:00 LDA (Rec: 02/11/19 12:23 LDA [id number]) Pulse Oximetry Assessment Equipment Usage Equipment Standby Continuous SpO2 Machine # 5 Intake & Output 02/10/19 02/11/19 02/12/19 06:59 06:59 06:59 Intake Total 3820 2843 1070 Output Total 1150 1530 300 Balance 2670 1313 770 Weight 74.9 kg 74.7 kg General appearance: PRESENT: no acute distress, cooperative, disheveled Respiratory exam: PRESENT: symmetrical, tachypnea. ABSENT: accessory muscle use, chest wall tenderness, clear to auscultation ileana - Breath sounds are coarse, crackles, prolonged expiratory phas, rhonchi, unlabored, wheezes Cardiovascular exam: PRESENT: RRR, +S1, +S2 Pulses: PRESENT: normal carotid pulses Vascular exam: PRESENT: normal capillary refill GI/Abdominal exam: PRESENT: normal bowel sounds, soft. ABSENT: distended, guarding, rebound, tenderness Extremities exam: ABSENT: clubbing, pedal edema Musculoskeletal exam: PRESENT: normal inspection. ABSENT: deformity Neurological exam: PRESENT: alert, awake, oriented to person, oriented to place, oriented to situation Psychiatric exam: PRESENT: appropriate affect, normal mood Skin exam: PRESENT: rash -he has an improvement in the overall appearance of the rash as described yesterday, the papules are less prominent Results Laboratory Results: 02/11/19 09:03 02/10/19 05:16 02/11/19 09:03 WBC 2.2 L RBC 4.00 L Hgb 8.5 L Hct 27.9 L MCV 70 L MCH 21.3 L MCHC 30.6 L RDW 19.9 H Plt Count 59 L Seg Neutrophils % Not Reportable 02/08/19 02/08/19 02/08/19 10:05 10:05 10:05 Creatine Kinase 70 CK-MB (CK-2) 0.50 Troponin I < 0.012 NT-Pro-B Natriuret Pep 73 02/08/19 13:56 Creatine Kinase CK-MB (CK-2) Troponin I < 0.012 NT-Pro-B Natriuret Pep Impressions: Chest X-Ray 02/08/19 09:39 IMPRESSION: Prominent interstitial markings bilaterally. No focal consolidation. Changes most likely are related to chronic interstitial lung disease. Chest/Abdomen CTA 02/08/19 13:49 IMPRESSION: 1. Examination for pulmonary embolism is significantly limited by breath motion artifact, particularly in the bilateral lung bases. Within this limitation, there no evidence of pulmonary embolism in the bilateral upper lobes or through the proximal segmental artery level in the lower lobes. 2. There is extensive bibasilar heterogeneous airspace opacity, superimposed upon moderate centrilobular emphysema in an unusual, bibasilar dependent pattern. There is extensive bilateral dependent bronchial wall thickening. Findings are generally consistent with infection or aspiration, and unusual lb nicci of emphysema, advanced for patient age, suggests alpha 1 antitrypsin deficiency. 3. Status post left nephrectomy. Splenomegaly. Assessment and Plan - Diagnosis (1) Rash Is this a current diagnosis for this admission?: Yes Plan: This is improved. He is got a lotion he has been using it seems to be helping. I do not know if the response is causal or coincidental. (2) Acute and chronic respiratory failure with hypoxia Is this a current diagnosis for this admission?: Yes Plan: We will continue supplemental O2 to maintain SPO2 greater than 90% (3) Sepsis due to pneumonia Is this a current diagnosis for this admission?: Yes Plan: Currently on broad-spectrum antibiotics, awaiting a CD4 count to see if we need to start treatment for pneumocystis pneumonia. It is noted that he is allergic to sulfa. (4) Thrombocytopenia associated with AIDS Is this a current diagnosis for this admission?: Yes Plan: Currently his blood counts are stable, will monitor closely (5) HIV (human immunodeficiency virus infection) Qualifiers: HIV symptom status: unspecified Qualified Code(s): B20 - Human immunodeficiency virus [HIV] disease Is this a current diagnosis for this admission?: Yes Plan: Awaiting a CD4 count, he says he has been taking his antiretrovirals as prescribed. He said he has been on them for about a month. - Time Time Spent with patient: 15-24 minutes
[2019-02-11] MEDS: AZITHROMYCIN 500 MG in DEXTROSE 5%-WATER 250 ML IV SCH (21:30)
[2019-02-11] MEDS: VALACYCLOVIR HCL 500 MG TABLET PO SCH (21:31)
[2019-02-11] MEDS: COBICISTAT PO SCH (21:31)
[2019-02-11] MEDS: DARUNAVIR PO SCH (21:31)
[2019-02-11] MEDS: Dolutegravir Sodium [Tivicay] 50 MG PO SCH (21:31)
[2019-02-12] MEDS: VANCOMYCIN HCL 1,000 MG in DEXTROSE 5%-WATER 250 ML IV SCH ×3 (01:43→17:35)
[2019-02-12] MEDS: PIPERACILLIN SODIUM/TAZOBACTAM 4.5 GM in NORMAL SALINE 100 ML IV SCH ×4 (05:13→23:51)
[2019-02-12] MEDS: HEPARIN SOD (PORCINE) 5,000 UNIT/ML 1 ML VIAL SUBCUT SCH ×3 (05:14→21:44)
[2019-02-12] MEDS: IPRATROPIUM/ALBUTEROL 0.5-2.5 MG/3 ML AMPUL NEB SCH ×3 (07:41→16:11)
[2019-02-12] MEDS: PANTOT AC/MIN OIL/PET HY-PHL OINT 50 GM TOP SCH ×2 (09:11→17:38)
[2019-02-12] MEDS: GUAIFENESIN 600 MG TABLET.SA PO SCH ×2 (09:13→21:43)
[2019-02-12] MEDS: LACTOBACILLUS ACIDOPHILUS 250 MG TAB PO SCH ×2 (09:13→17:45)
[2019-02-12 12:36] LABS: % CD 4 POS LYMPH 13.5 % (30.8-58.5); % CD 8 POS LYMPH 48.1 % (12.0-35.5); ABSOLUTE CD 4 HELPER 81 /uL (359-1519); ABSOLUTE CD 8 SUPPRESSOR 289 /uL (109-897); CD BASOPHILS 0 % (Not Estab.); CD EOSINOPHILS 0 % (Not Estab.); CD MONOCYTES 8 % (Not Estab.); CD NEUTROPHILS 67 % (Not Estab.); CD4/CD8 RATIO 0.28 (0.92-3.72); HEMOGLOBIN 7.6 g/dL (13.0-17.7); IMMATURE GRANULOCYTES 4 % (Not Estab.); IMMATURE GRANULOCYTES (ABS) 0.1 x10E3/uL (0.0-0.1); LYMPHS(ABSOLUTE) 0.6 x10E3/uL (0.7-3.1); MCHC 30.5 g/dL (31.5-35.7); MCV 70 fL (79-97)
--- NOTE | 2019-02-12 14:16 | PDOC PROGRESS REPORT ---
Subjective Progress Note for:: 02/12/19 Subjective:: No adverse events overnight. No new complaints. Breathing is at baseline. Apparently he uses oxygen at home. Rashes stable. Reason For Visit: PNEUMONIA,HIV Physical Exam Vital Signs: Temp Pulse Resp BP Pulse Ox 98.2 F 91 18 118/67 95 02/12/19 10:34 02/12/19 10:34 02/12/19 10:34 02/12/19 10:34 02/12/19 10:34 Pulse Oximeter Continuous Start: 02/08/19 17:15 Freq: RTQ4 Status: Active Protocol: Document 02/12/19 07:42 CMI (Rec: 02/12/19 07:45 CMI [id number]) Pulse Oximetry Assessment Oxygen Saturation (92-100) 92 Oxygen Flow Rate (L/min) 2 Oxygen Delivery Method Nasal Cannula Fraction of Inspired Oxygen (FIO2) 28 Equipment Usage Equipment Standby Continuous SpO2 Machine # 5 Intake & Output 02/11/19 02/12/19 02/13/19 06:59 06:59 06:59 Intake Total 2843 2480 830 Output Total 1530 1725 750 Balance 1313 755 80 Weight 74.7 kg 74.7 kg General appearance: PRESENT: no acute distress, cooperative, disheveled Respiratory exam: PRESENT: symmetrical, tachypnea. ABSENT: accessory muscle use, chest wall tenderness, clear to auscultation ileana - Breath sounds are coarse, crackles, prolonged expiratory phas, rhonchi, unlabored, wheezes Cardiovascular exam: PRESENT: RRR, +S1, +S2 Pulses: PRESENT: normal carotid pulses Vascular exam: PRESENT: normal capillary refill GI/Abdominal exam: PRESENT: normal bowel sounds, soft. ABSENT: distended, guarding, rebound, tenderness Extremities exam: ABSENT: clubbing, pedal edema Musculoskeletal exam: PRESENT: normal inspection. ABSENT: deformity Neurological exam: PRESENT: alert, awake, oriented to person, oriented to place, oriented to situation Psychiatric exam: PRESENT: appropriate affect, normal mood Skin exam: PRESENT: rash -he has an improvement in the overall appearance of the rash mostly looks like some dry skin with some macules and papules Results Laboratory Results: 02/11/19 09:03 02/10/19 05:16 02/08/19 02/08/19 02/08/19 10:05 10:05 10:05 Creatine Kinase 70 CK-MB (CK-2) 0.50 Troponin I < 0.012 NT-Pro-B Natriuret Pep 73 02/08/19 13:56 Creatine Kinase CK-MB (CK-2) Troponin I < 0.012 NT-Pro-B Natriuret Pep Impressions: Chest X-Ray 02/08/19 09:39 IMPRESSION: Prominent interstitial markings bilaterally. No focal consolidation. Changes most likely are related to chronic interstitial lung disease. Chest/Abdomen CTA 02/08/19 13:49 IMPRESSION: 1. Examination for pulmonary embolism is significantly limited by breath motion artifact, particularly in the bilateral lung bases. Within this limitation, there no evidence of pulmonary embolism in the bilateral upper lobes or through the proximal segmental artery level in the lower lobes. 2. There is extensive bibasilar heterogeneous airspace opacity, superimposed upon moderate centrilobular emphysema in an unusual, bibasilar dependent pattern. There is extensive bilateral dependent bronchial wall thickening. Findings are generally consistent with infection or aspiration, and unusual pattern of emphysema, advanced for patient age, suggests alpha 1 antitrypsin deficiency. 3. Status post left nephrectomy. Splenomegaly. Assessment and Plan - Diagnosis (1) Rash Is this a current diagnosis for this admission?: Yes Plan: This is improved. He is got a lotion he has been using it seems to be helping. I do not know if the response is causal or coincidental. (2) Acute and chronic respiratory failure with hypoxia Is this a current diagnosis for this admission?: Yes Plan: We will continue supplemental O2 to maintain SPO2 greater than 90% (3) Sepsis due to pneumonia Is this a current diagnosis for this admission?: Yes Plan: Currently on broad-spectrum antibiotics, awaiting a CD4 count to see if we need to start treatment for pneumocystis pneumonia. It is noted that he is allergic to sulfa. (4) Thrombocytopenia associated with AIDS Is this a current diagnosis for this admission?: Yes Plan: Currently his blood counts are stable, will monitor closely (5) HIV (human immunodeficiency virus infection) Qualifiers: HIV symptom status: unspecified Qualified Code(s): B20 - Human immunodeficiency virus [HIV] disease Is this a current diagnosis for this admission?: Yes Plan: Awaiting a CD4 count, he says he has been taking his antiretrovirals as prescribed. He said he has been on them for about a month. - Time Time Spent with patient: 15-24 minutes
[2019-02-12 14:20] LABS: PLATELETS 40 x10E3/uL (150-450); RBC 3.58 x10E6/uL (4.14-5.80); WBC 2.8 x10E3/uL (3.4-10.8)
[2019-02-12] MEDS: COBICISTAT PO SCH (21:43)
[2019-02-12] MEDS: Dolutegravir Sodium [Tivicay] 50 MG PO SCH (21:43)
[2019-02-12] MEDS: DARUNAVIR PO SCH (21:43)
[2019-02-12] MEDS: VALACYCLOVIR HCL 500 MG TABLET PO SCH (21:43)
[2019-02-12] MEDS: AZITHROMYCIN 500 MG in DEXTROSE 5%-WATER 250 ML IV SCH (21:43)
[2019-02-13] MEDS: IPRATROPIUM/ALBUTEROL 0.5-2.5 MG/3 ML AMPUL NEB SCH ×3 (00:54→16:09)
[2019-02-13] MEDS: VANCOMYCIN HCL 1,000 MG in DEXTROSE 5%-WATER 250 ML IV SCH ×3 (02:48→18:01)
[2019-02-13] MEDS: PIPERACILLIN SODIUM/TAZOBACTAM 4.5 GM in NORMAL SALINE 100 ML IV SCH ×4 (05:05→23:18)
[2019-02-13] MEDS: HEPARIN SOD (PORCINE) 5,000 UNIT/ML 1 ML VIAL SUBCUT SCH ×3 (05:06→22:00)
[2019-02-13] MEDS: PANTOT AC/MIN OIL/PET HY-PHL OINT 50 GM TOP SCH ×2 (10:07→18:01)
[2019-02-13] MEDS: GUAIFENESIN 600 MG TABLET.SA PO SCH ×2 (10:09→22:04)
[2019-02-13] MEDS: LACTOBACILLUS ACIDOPHILUS 250 MG TAB PO SCH ×2 (10:09→18:01)
--- NOTE | 2019-02-13 16:45 | PDOC PROGRESS REPORT ---
Subjective Progress Note for:: 02/13/19 Subjective:: No adverse events overnight. No new complaints. Breathing is at baseline. Feels better overall. Rashes stable. Reason For Visit: PNEUMONIA,HIV Physical Exam Vital Signs: Temp Pulse Resp BP Pulse Ox 98.3 F 87 16 128/73 H 98 02/13/19 15:31 02/13/19 16:09 02/13/19 16:09 02/13/19 15:31 02/13/19 16:09 Pulse Oximeter Continuous Start: 02/08/19 17:15 Freq: RTQ4 Status: Active Protocol: Document 02/13/19 16:09 [facility] (Rec: 02/13/19 16:18 [facility] [id number]) Pulse Oximetry Assessment Oxygen Saturation (92-100) 98 Oxygen Flow Rate (L/min) 2 Oxygen Delivery Method Nasal Cannula Fraction of Inspired Oxygen (FIO2) 28 Equipment Usage Equipment Standby Continuous SpO2 Machine # 5 Intake & Output 02/12/19 02/13/19 02/14/19 06:59 06:59 06:59 Intake Total 2480 2555 1070 Output Total 1725 1826 300 Balance 755 729 770 Weight 74.7 kg 74.4 kg General appearance: PRESENT: no acute distress, cooperative, disheveled Respiratory exam: PRESENT: symmetrical, tachypnea. ABSENT: accessory muscle use, chest wall tenderness, clear to auscultation ileana - Breath sounds are coarse, crackles, prolonged expiratory phas, rhonchi, unlabored, wheezes Cardiovascular exam: PRESENT: RRR, +S1, +S2 Pulses: PRESENT: normal carotid pulses Vascular exam: PRESENT: normal capillary refill GI/Abdominal exam: PRESENT: normal bowel sounds, soft. ABSENT: distended, guarding, rebound, tenderness Extremities exam: ABSENT: clubbing, pedal edema Musculoskeletal exam: PRESENT: normal inspection. ABSENT: deformity Neurological exam: PRESENT: alert, awake, oriented to person, oriented to place, oriented to situation Psychiatric exam: PRESENT: appropriate affect, normal mood Skin exam: PRESENT: rash -he has an improvement in the overall appearance of the rash mostly looks like some dry skin with some macules and papules Results Laboratory Results: 02/11/19 09:03 02/10/19 05:16 02/08/19 14:50 Blood Blood Culture - Final NO GROWTH IN 5 DAYS 02/08/19 14:10 Blood Blood Culture - Final NO GROWTH IN 5 DAYS 02/08/19 02/08/19 02/08/19 10:05 10:05 10:05 Creatine Kinase 70 CK-MB (CK-2) 0.50 Troponin I < 0.012 NT-Pro-B Natriuret Pep 73 02/08/19 13:56 Creatine Kinase CK-MB (CK-2) Troponin I < 0.012 NT-Pro-B Natriuret Pep Impressions: Chest X-Ray 02/08/19 09:39 IMPRESSION: Prominent interstitial markings bilaterally. No focal consolidation. Changes most likely are related to chronic interstitial lung disease. Chest/Abdomen CTA 02/08/19 13:49 IMPRESSION: 1. Examination for pulmonary embolism is significantly limited by breath motion artifact, particularly in the bilateral lung bases. Within this limitation, there no evidence of pulmonary embolism in the bilateral upper lobes or through the proximal segmental artery level in the lower lobes. 2. There is extensive bibasilar heterogeneous airspace opacity, superimposed upon moderate centrilobular emphysema in an unusual, bibasilar dependent pattern. There is extensive bilateral dependent bronchial wall thickening. Findings are generally consistent with infection or aspiration, and unusual pattern of emphysema, advanced for patient age, suggests alpha 1 antitrypsin deficiency. 3. Status post left nephrectomy. Splenomegaly. Assessment and Plan - Diagnosis (1) Rash Is this a current diagnosis for this admission?: Yes Plan: This is improved. He is got a lotion he has been using it seems to be helping. I do not know if the response is causal or coincidental. (2) Acute and chronic respiratory failure with hypoxia Is this a current diagnosis for this admission?: Yes Plan: We will continue supplemental O2 to maintain SPO2 greater than 90% (3) Sepsis due to pneumonia Is this a current diagnosis for this admission?: Yes Plan: Currently on broad-spectrum antibiotics, anticipate that he will be able to get the medication that he needs tomorrow which is atovaquone and the outpatient pharmacy will have it for him tomorrow afternoon. He will take that for 21 days along with prednisone. (4) Thrombocytopenia associated with AIDS Is this a current diagnosis for this admission?: Yes Plan: Currently his blood counts are stable, will monitor closely (5) HIV (human immunodeficiency virus infection) Qualifiers: HIV symptom status: unspecified Qualified Code(s): B20 - Human immunodef iciency virus [HIV] disease Is this a current diagnosis for this admission?: Yes Plan: CD4 count is 81, he says he has been taking his antiretrovirals as prescribed. He said he has been on them for about a month. (6) AIDS (acquired immune deficiency syndrome) Is this a current diagnosis for this admission?: Yes Plan: CD4 count of 81, suspected pneumocystis pneumonia, rash of uncertain etiology. We will make sure that he has follow-up with infectious disease in short order. - Time Time Spent with patient: 25-34 minutes
[2019-02-13] MEDS: DARUNAVIR PO SCH (22:05)
[2019-02-13] MEDS: AZITHROMYCIN 500 MG in DEXTROSE 5%-WATER 250 ML IV SCH (22:05)
[2019-02-13] MEDS: VALACYCLOVIR HCL 500 MG TABLET PO SCH (22:05)
[2019-02-13] MEDS: Dolutegravir Sodium [Tivicay] 50 MG PO SCH (22:05)
[2019-02-13] MEDS: COBICISTAT PO SCH (22:05)
[2019-02-14] MEDS: IPRATROPIUM/ALBUTEROL 0.5-2.5 MG/3 ML AMPUL NEB SCH ×2 (00:52→07:59)
[2019-02-14] MEDS: VANCOMYCIN HCL 1,000 MG in DEXTROSE 5%-WATER 250 ML IV SCH ×2 (01:37→09:24)
[2019-02-14] MEDS: HEPARIN SOD (PORCINE) 5,000 UNIT/ML 1 ML VIAL SUBCUT SCH (05:18)
[2019-02-14] MEDS: PIPERACILLIN SODIUM/TAZOBACTAM 4.5 GM in NORMAL SALINE 100 ML IV SCH ×2 (05:28→11:55)
[2019-02-14] MEDS: LACTOBACILLUS ACIDOPHILUS 250 MG TAB PO SCH (09:24)
[2019-02-14] MEDS: PANTOT AC/MIN OIL/PET HY-PHL OINT 50 GM TOP SCH (09:25)
[2019-02-14] MEDS: GUAIFENESIN 600 MG TABLET.SA PO SCH (09:25)
[2019-02-14 10:47] VITALS: BP 125/75
--- NOTE | 2019-02-14 15:22 | PDOC DISCHARGE SUMMARY ---
Impression - Admit/DC Date/PCP Admission Date/Primary Care Provider: 02/08/19 15:43 KENNETH BEE Discharge Date: 02/14/19 - Discharge Diagnosis (1) Rash Is this a current diagnosis for this admission?: Yes (2) Acute and chronic respiratory failure with hypoxia Is this a current diagnosis for this admission?: Yes (3) Sepsis due to pneumonia Is this a current diagnosis for this admission?: Yes (4) Thrombocytopenia associated with AIDS Is this a current diagnosis for this admission?: Yes (5) HIV (human immunodeficiency virus infection) Is this a current diagnosis for this admission?: Yes (6) AIDS (acquired immune deficiency syndrome) Is this a current diagnosis for this admission?: Yes - Additional Information Resuscitation Status: Full Code Discharge Diet: Cardiac Discharge Activity: Activity As Tolerated, Balance Activity w/Rest Referrals: MARIAH KEITA FNP [Primary Care Provider] - 02/28/19 11:30 am (left a message to call us) Prescriptions: Atovaquone 750 mg PO BID #210 ml Prednisone [Deltasone 20 mg Tablet] 20 mg PO ASDIR #31 tablet Home Medications: Darunavir/Cobicistat [Prezcobix 800 mg-150 mg Tablet] 1 each PO QHS 02/08/19 Dolutegravir Sodium [Tivicay] 50 mg PO QHS 02/08/19 Tenofovir Disoproxil Fumarate [Viread 300 mg Tablet] 300 mg PO QHS 02/09/19 Valacyclovir HCl [Valtrex] 1,000 mg PO BID@0600,1400 02/09/19 Valacyclovir HCl [Valtrex] 500 mg PO QHS 02/09/19 Atovaquone 750 mg PO BID #210 ml 02/14/19 Prednisone [Deltasone 20 mg Tablet] 20 mg PO ASDIR #31 tablet 02/14/19 History of Present Illiness History of Present Illness: BART MCCRACKEN is a 43 year old male with positive HIV status on therapy. He is on home oxygen typically at 2 to 3 L/min. He was recently hospitalized in November of this year. The patient states that his primary symptom has been increasing shortness of breath over the last several days. He began to appreciate swelling in both lower extremities. The shortness of breath was accompanied by nonproductive cough. He had an episode of chills but does not think he had a fever. He did report an episode of night sweats. He did call EMS and his oxygen saturation was only 83% on 2 L nasal cannula. It was also noted that he had bilateral lower extremity edema. Chest x-ray revealed interstitial disease. CT angiogram revealed no evidence of pulmonary embolus. He was started antibiotics and referred to the hospital service for admission. Hospital Course Hospital Course: He was put on broad-spectrum antibiotics and has had about a week of those, but nothing ever grew out of his cultures. He said he does feel like his breathing is better and is back to baseline. He is also been started on some steroids during that time. His CD4 came back at 81, and so we want to cover him for pneumocystis pneumonia. He had a fairly severe reaction to sulfa drugs years ago so we chose atovaquone. He will take this twice a day for 21 days, along with prednisone. He is already on some oxygen at home and will continue that. He said he is been taking antiretroviral therapy for about a month now. He has close follow-up with his infectious disease specialist. He was encouraged to take the customary precautions. He is also had a rash here that has improved to some degree but I recommended that he have his infectious disease provider checked this out as well. At one point he was told it was scabies but this is not the like scabies infestation me. If it does not resolve it may need a biopsy. This point was discussed with him. His labs and examination were reassuring and he was discharged in stable condition. Physical Exam Vital Signs: Temp Pulse Resp BP Pulse Ox 98.4 F 85 16 125/75 96 02/14/19 10:44 02/14/19 10:44 02/14/19 10:44 02/14/19 10:44 02/14/19 10:44 Pulse Oximeter Continuous Start: 02/08/19 17:15 Freq: RTQ4 Status: Discharge Protocol: Document 02/14/19 08:00 BEBETO (Rec: 02/14/19 09:10 BEBETO [id number]) Pulse Oximetry Assessment Equipment Usage Equipment Standby Continuous SpO2 Machine # 5 Intake & Output 02/13/19 02/14/19 02/15/19 06:59 06:59 06:59 Intake Total 1212 2902 250 Output Total 1826 2700 Balance 729 202 250 Weight 74.4 kg 75.6 kg General appearance: PRESENT: no acute distress, cooperative, disheveled Respiratory exam: PRESENT: symmetrical, tachypnea. ABSENT: accessory muscle use, chest wall tenderness, clear to auscultation ileana - Breath sounds are coarse, crackles, prolonged expiratory phas, rhonchi, unlabored, wheezes Cardiovascular exam: PRESENT: RRR, +S1, +S2 Pulses: PRESENT: normal carotid pulses Vascular exam: PRESENT: normal capillary refill GI/Abdominal exam: PRESENT: normal bowel sounds, soft. ABSENT: distended, guarding, rebound, tenderness Extremities exam: ABSENT: clubbing, pedal edema Musculoskeletal exam: PRESENT: normal inspection. ABSENT: deformity Neurological exam: PRESENT: alert, awake, oriented to person, oriented to place, oriented to situation Psychiatric exam: PRESENT: appropriate affect, normal mood Skin exam: PRESENT: rash -he has an improvement in the overall appearance of the rash mostly looks like some dry skin with some macules and papules Results Laboratory Results: WBC 2.2 10^3/uL (4.0-10.5) L 02/11/19 09:03 RBC 4.00 10^6/uL (4.35-5.55) L 02/11/19 09:03 Hgb 8.5 g/dL (13.5-17.0) L 02/11/19 09:03 Hct 27.9 % (37.9-51.0) L 02/11/19 09:03 MCV 70 fl (80-97) L 02/11/19 09:03 MCH 21.3 pg (27.0-33.4) L 02/11/19 09:03 MCHC 30.6 g/dL (32.0-36.0) L 02/11/19 09:03 RDW 19.9 % (11.5-14.0) H 02/11/19 09:03 Plt Count 59 10^3/uL (150-450) L 02/11/19 09:03 Lymph % (Auto) Not Reportable 02/11/19 09:03 Pershing % (Auto) Not Reportable 02/11/19 09:03 Eos % (Auto) Not Reportable 02/11/19 09:03 Baso % (Auto) Not Reportable 02/11/19 09:03 Absolute Neuts (auto) Not Reportable 02/11/19 09:03 Absolute Lymphs (auto) Not Reportable 02/11/19 09:03 Absolute Monos (auto) Not Reportable 02/11/19 09:03 Absolute Eos (auto) Not Reportable 02/11/19 09:03 Absolute Basos (auto) Not Reportable 02/11/19 09:03 Total Counted 100 02/11/19 09:03 Seg Neutrophils % Not Reportable 02/11/19 09:03 Seg Neuts % (Manual) 57 % (42-78) 02/11/19 09:03 Band Neutrophils % 4 % (3-5) 02/10/19 05:16 Lymphocytes % (Manual) 29 % (13-45) 02/11/19 09:03 Monocytes % (Manual) 9 % (3-13) 02/11/19 09:03 Eosinophils % (Manual) 4 % (0-6) 02/11/19 09:03 Basophils % (Manual) 1 % (0-2) 02/11/19 09:03 Immature Granulocytes 4 % (Not Estab.) 02/10/19 05:16 Immature Gran # 0.1 x10E3/uL (0.0-0.1) 02/10/19 05:16 Abs Neuts (Manual) 1.3 10^3/uL (1.7-8.2) L 02/11/19 09:03 Abs Lymphs (Manual) 0.6 10^3/uL (0.5-4.7) 02/11/19 09:03 Abs Monocytes (Manual) 0.2 10^3/uL (0.1-1.4) 02/11/19 09:03 Absolute Eos (Manual) 0.1 10^3/uL (0.0-0.6) 02/11/19 09:03 Abs Basophils (Manual) 0.0 10^3/uL (0.0-0.2) 02/11/19 09:03 Nucleated RBCs 1 % (0 - 0) H 02/10/19 05:16 Immature Blood Cells TNP 02/10/19 05:16 Platelet Comment DECREASED 02/11/19 09:03 Polychromasia SLIGHT 02/11/19 09:03 Hypochromasia 1+ 02/10/19 05:16 Poikilocytosis 2+ 02/11/19 09:03 Anisocytosis 2+ 02/11/19 09:03 Microcytosis 2+ 02/11/19 09:03 Target Cells 2+ 02/11/19 09:03 Tear Drop Cells SLIGHT 02/11/19 09:03 Ovalocytes SLIGHT 02/09/19 06:42 Sodium 145.2 mmol/L (137-145) H 02/10/19 05:16 Potassium 4.0 mmol/L (3.6-5.0) 02/10/19 05:16 Chloride 110 mmol/L (98-107) H 02/10/19 05:16 Carbon Dioxide 29 mmol/L (22-30) 02/10/19 05:16 Anion Gap 6 (5-19) 02/10/19 05:16 BUN 10 mg/dL (7-20) 02/10/19 05:16 Creatinine 1.05 mg/dL (0.52-1.25) 02/14/19 10:17 Est GFR ( Amer) > 60 (>60) 02/14/19 10:17 Est GFR (MDRD) Non-Af > 60 (>60) 02/14/19 10:17 Glucose 106 mg/dL (75-110) 02/10/19 05:16 POC Glucose 109 mg/dL (70-110) 02/10/19 17:01 Lactic Acid (Sepsis) 1.9 mmol/L (0.7-2.1) 02/08/19 23:13 Calcium 8.6 mg/dL (8.4-10.2) 02/10/19 05:16 Total Bilirubin 0.2 mg/dL (0.2-1.3) 02/09/19 06:42 Direct Bilirubin 0.1 mg/dL (0.0-0.4) 02/09/19 06:42 Neonat Total Bilirubin Not Reportable 02/09/19 06:42 Neonat Direct Bilirubin Not Reportable 02/09/19 06:42 Neonat Indirect Bili Not Reportable 02/09/19 06:42 AST 93 U/L (17-59) H 02/09/19 06:42 ALT 42 U/L (<50) 02/09/19 06:42 Alkaline Phosphatase 148 U/L (38-126) H 02/09/19 06:42 Creatine Kinase 70 U/L (55-170) 02/08/19 10:05 CK-MB (CK-2) 0.50 ng/mL (<4.55) 02/08/19 10:05 Troponin I < 0.012 ng/mL 02/08/19 13:56 NT-Pro-B Natriuret Pep 73 pg/mL (<125) 02/08/19 10:05 Total Protein 8.5 g/dL (6.3-8.2) H 02/09/19 06:42 Albumin 3.0 g/dL (3.5-5.0) L 02/09/19 06:42 Urine Color YELLOW 02/08/19 12:12 Urine Appearance CLEAR 02/08/19 12:12 Urine pH 6.0 (5.0-9.0) 02/08/19 12:12 Ur Specific [place] 1.013 02/08/19 12:12 Urine Protein 30 mg/dL (NEGATIVE) H 02/08/19 12:12 Urine Glucose (UA) NEGATIVE mg/dL (NEGATIVE) 02/08/19 12:12 Urine Ketones NEGATIVE mg/dL (NEGATIVE) 02/08/19 12:12 Urine Blood NEGATIVE (NEGATIVE) 02/08/19 12:12 Urine Nitrite NEGATIVE (NEGATIVE) 02/08/19 12:12 Urine Bilirubin NEGATIVE (NEGATIVE) 02/08/19 12:12 Urine Urobilinogen 2.0 mg/dL (<2.0) H 02/08/19 12:12 Ur Leukocyte Esterase NEGATIVE (NEGATIVE) 02/08/19 12:12 Urine WBC (Auto) 2 /HPF 02/08/19 12:12 Urine RBC (Auto) 1 /HPF 02/08/19 12:12 Squamous Epi Cells Auto <1 /HPF 02/08/19 12:12 Urine Mucus (Auto) RARE /LPF 02/08/19 12:12 Urine Ascorbic Acid NEGATIVE (NEGATIVE) 02/08/19 12:12 Time Trough Drawn Cancelled 02/14/19 10:17 Vancomycin Trough Cancelled 02/14/19 10:17 RBC 3.58 x10E6/uL (4.14-5.80) L 02/10/19 05:16 Hgb 7.6 g/dL (13.0-17.7) L 02/10/19 05:16 Hct 24.9 % (37.5-51.0) L 02/10/19 05:16 MCV 70 fL (79-97) L 02/10/19 05:16 MCH 21.2 pg (26.6-33.0) L 02/10/19 05:16 MCHC 30.5 g/dL (31.5-35.7) L 02/10/19 05:16 RDW 17.0 % (12.3-15.4) H 02/10/19 05:16 Platelet Count 40 x10E3/uL (150-450) L 02/10/19 05:16 Total WBC 2.8 x10E3/uL (3.4-10.8) L 02/10/19 05:16 Neutrophils 67 % (Not Estab.) 02/10/19 05:16 Lymphocytes 21 % (Not Estab.) 02/10/19 05:16 Monocytes 8 % (Not Estab.) 02/10/19 05:16 Eosinophils 0 % (Not Estab.) 02/10/19 05:16 Basophils 0 % (Not Estab.) 02/10/19 05:16 Absolute Neutrophils 1.9 x10E3/uL (1.4-7.0) 02/10/19 05:16 Absolute Lymphocytes 0.6 x10E3/uL (0.7-3.1) L 02/10/19 05:16 Absolute Monocytes 0.2 x10E3/uL (0.1-0.9) 02/10/19 05:16 Absolute Eosinophils 0.0 x10E3/uL (0.0-0.4) 02/10/19 05:16 Absolute Basophils 0.0 x10E3/uL (0.0-0.2) 02/10/19 05:16 Hematology Comment Note: (.) 02/10/19 05:16 % CD4 Cells 13.5 % (30.8-58.5) L 02/10/19 05:16 Absolute CD4 Count 81 /uL (359-1519) L 02/10/19 05:16 T-Lymph CD4/CD8 Ratio 0.28 (0.92-3.72) L 02/10/19 05:16 % CD8 Cells 48.1 % (12.0-35.5) H 02/10/19 05:16 Absolute CD8 Count 289 /uL (109-897) 02/10/19 05:16 02/08/19 02/08/19 02/08/19 10:05 10:05 13:56 CK-MB (CK-2) 0.50 Troponin I < 0.012 < 0.012 NT-Pro-B Natriuret Pep 73 Impressions: Chest X-Ray 02/08/19 09:39 IMPRESSION: Prominent interstitial markings bilaterally. No focal consolidation. Changes most likely are related to chronic interstitial lung disease. Chest/Abdomen CTA 02/08/19 13:49 IMPRESSION: 1. Examination for pulmonary embolism is significantly limited by breath motion artifact, particularly in the bilateral lung bases. Within this limitation, there no evidence of pulmonary embolism in the bilateral upper lobes or through the proximal segmental artery level in the lower lobes. 2. There is extensive bibasilar heterogeneous airspace opacity, superimposed upon moderate centrilobular emphysema in an unusual, bibasilar dependent pattern. There is extensive bilateral dependent bronchial wall thickening. Findings are generally consistent with infection or aspiration, and unusual pattern of emphysema, advanced for patient age, suggests alpha 1 antitrypsin deficiency. 3. Status post left nephrectomy. Splenomegaly. Plan Time Spent: Greater than 30 Minutes Stroke Is this a Stroke Patient?: No Acute Heart Failure - Is this a Heart Failure Patient?: No
== END 2019-02-14 12:56 | disposition home or self-care (01) | DRG 974 ==
LOC: ER 09:05 → EH 15:43 → 3W 17:26
PROVIDERS: ADMIT Hospitalist; ATTEND Hospitalist
DX: B20 Human immunodeficiency virus [HIV] disease (principal); B59 Pneumocystosis; J96.21 Acute and chronic respiratory failure with hypoxia; A41.9 Sepsis, unspecified organism; D69.59 Other secondary thrombocytopenia; R21 Rash and other nonspecific skin eruption; F32.9 Major depressive disorder, single episode, unspecified; I50.9 Heart failure, unspecified; Z79.899 Other long term (current) drug therapy; Z88.2 Allergy status to sulfonamides; Z90.5 Acquired absence of kidney; Z87.891 Personal history of nicotine dependence; Z82.49 Family history of ischemic heart disease and other diseases of the circulatory system; Z82.3 Family history of stroke
CPT/HCPCS: 36415; 71045; 71275; 80048; 80053; 80202; 81001; 82550; 82553; 82565; 82962; 83605; 83880; 84484; 85025; 86360; 87040; 93005; 93010; 94640; 94762; 99285; J0456; J0696; J2543; J3370; J3490; J7030; J7050; J7060; J7620

== ENCOUNTER 2019-04-10 20:42 | Emergency (ER) | payer MEDICAID ==
--- NOTE | 2019-04-10 21:28 | ER Document Report ---
ED Medical Screen (RME) - General Stated Complaint: ANUS PIN Time Seen by Provider: 04/10/19 21:24 Primary Care Provider: MARIAH KEITA FNP [Primary Care Provider] - Follow up as needed Mode of Arrival: Wheelchair Information source: Patient Notes: 44-year-old male positive HIV on oxygen presents to the emergency department with anal warts. Reports he supposed to have them surgically removed in 2 weeks but he cannot stand the pain. He also noticed some blood. He reports he was seen at [facility] they gave him some cream but he still hurting he is used all the cream. Denies fever vomiting diarrhea. I have greeted and performed a rapid initial assessment of this patient. A comprehensive ED assessment and evaluation of the patient, analysis of test results and completion of the medical decision making process will be conducted by additional ED providers. TRAVEL OUTSIDE OF THE [place] IN LAST 30 DAYS: No - Related Data Allergies/Adverse Reactions: Sulfa (Sulfonamide Antibiotics) Allergy (Verified 04/10/19 21:23) Past Medical History - Past Medical History Cardiac Medical History: Reports: Hx Congestive Heart Failure Pulmonary Medical History: Reports: Hx COPD, Hx Pneumonia - PCP Comment Only: Hx Asthma - denies Renal/ Medical History: Denies: Hx Peritoneal Dialysis Psychiatric Medical History: Reports: Hx Depression Infectious Medical History: Reports: Hx HIV Past Surgical History: Reports: Hx Kidney (Renal Surgery) - left removed, Hx Orthopedic Surgery, Other - Left nephrectomy - Immunizations Hx Diphtheria, Pertussis, Tetanus Vaccination: Yes Physical Exam - Vital signs Vitals: Temp Pulse Resp BP Pulse Ox 98.7 F 91 22 H 134/77 H 94 04/10/19 21:17 04/10/19 21:17 04/10/19 21:17 04/10/19 21:17 04/10/19 21:17 Course - Vital Signs Vital signs: Temp Pulse Resp BP Pulse Ox 98.7 F 91 22 H 134/77 H 94 04/10/19 21:17 04/10/19 21:17 04/10/19 21:17 04/10/19 21:17 04/10/19 21:17 Doctor's Discharge - Discharge Referrals: MARIAH KEITA FNP [Primary Care Provider] - Follow up as needed
--- NOTE | 2019-04-11 02:07 | ER Document Report ---
HPI - HPI Time Seen by Provider: 04/10/19 21:24 Pain Level: 5 Context: Patient is a 44-year-old male with a history of HIV who presents the emergency department with anal pain. Patient states that he was diagnosed with anal warts. He is waiting to have them removed in 2 weeks. He was given triamcinolone/nystatin ointment. He states that he ran out yesterday. He states that he noticed some bleeding. - CONSTITUTIONAL Constitutional: DENIES: Fever, Chills - EENT EENT: DENIES: Sore Throat, Ear Pain - NEURO Neurology: DENIES: Headache - CARDIOVASCULAR Cardiovascular: DENIES: Chest pain - RESPIRATORY Respiratory: DENIES: Trouble Breathing, Coughing - GASTROINTESTINAL Gastrointestinal: DENIES: Abdominal Pain, Nausea, Patient vomiting Notes: Anal warts and irritation to anal area - REPRODUCTIVE Reproductive: DENIES: : - DERM Skin Color: Normal Skin Problems: Rash - Anal area Past Medical History - General Information source: Patient - Social History Smoking Status: Never Smoker Family History: CAD, CVA Patient has suicidal ideation: No Patient has homicidal ideation: No - Past Medical History Cardiac Medical History: Reports: Hx Congestive Heart Failure Pulmonary Medical History: Reports: Hx COPD, Hx Pneumonia - PCP Comment Only: Hx Asthma - denies Renal/ Medical History: Denies: Hx Peritoneal Dialysis Psychiatric Medical History: Reports: Hx Depression Infectious Medical History: Reports: Hx HIV Past Surgical History: Reports: Hx Kidney (Renal Surgery) - left removed, Hx Orthopedic Surgery, Other - Left nephrectomy - Immunizations Hx Diphtheria, Pertussis, Tetanus Vaccination: Yes Hx Pneumococcal Vaccination: 05/28/12 Vertical Provider Document - CONSTITUTIONAL Agree With Documented VS: Yes Exam Limitations: No Limitations General Appearance: No Apparent Distress - INFECTION CONTROL TRAVEL OUTSIDE OF THE [place] IN LAST 30 DAYS: No - HEENT HEENT: Atraumatic, Normocephalic - NECK Neck: Normal Inspection - RESPIRATORY Respiratory: No Respiratory Distress - CARDIOVASCULAR Cardiovascular: Regular Rate, Regular Rhythm Pulses: Normal: Radial - GI/ABDOMEN Gastrointestinal: Abdomen Soft Notes: Anal warts noted - REPRODUCTIVE Male Genitalia: Abnormal Inspection - Irritation noted to left scrotal area near inguinal area and to buttock area - MUSCULOSKELETAL/EXTREMETIES Musculoskeletal/Extremeties: FROM - NEURO Level of Consciousness: Awake, Alert, Appropriate - DERM Integumentary: Warm, Dry, Rash - Anal/perineum Course - Re-evaluation Re-evalutation: 04/11/19 02:11 Exam done with MATIAS Mosher at bedside. Patient has irritation to the area. I will re-prescribe his nystatin/triamcinolone cream. I directed him on how to use the cream. He will follow-up with his primary care provider and the surgeon at [facility] to anal warts. I have a very low suspicion for necrotizing fasciitis. Follow-up precautions were given. Verbal discharge instructions were given to the patient. They verbalized understanding. They are stable for discharge. - Vital Signs Vital signs: Temp Pulse Resp BP Pulse Ox 98.4 F 87 20 120/63 95 04/11/19 01:09 04/11/19 01:09 04/11/19 01:09 04/11/19 01:09 04/11/19 01:09 Discharge - Discharge Clinical Impression: Rash, Anal warts Condition: Stable Disposition: HOME, SELF-CARE Additional Instructions: You were seen today in the emergency department for a rash to your anal/perineal area. You are being represcribed to your ointment you were on before. Please continue to place this to the area. Please follow-up with the surgeon that will remove your anal warts. Follow-up with your primary care provider. Prescriptions: Nystatin/Triamcin [Mycolog-II Cream 15 gm] 15 applic TP ASDIR PRN #1 tube PRN Reason: Referrals: MARIAH KEITA FNP [Primary Care Provider] - Follow up in 3-5 days
[2019-04-11 02:13] VITALS: BP 121/63
== END 2019-04-11 02:30 | disposition home or self-care (01) ==
LOC: ER 20:42
DX: A63.0 Anogenital (venereal) warts (principal); R21 Rash and other nonspecific skin eruption; B20 Human immunodeficiency virus [HIV] disease; I50.9 Heart failure, unspecified; J44.9 Chronic obstructive pulmonary disease, unspecified; Z90.5 Acquired absence of kidney

== ENCOUNTER 2019-06-09 11:58 | Emergency (ER) | payer MEDICAID ==
[2019-06-09 12:52] LABS: HEMATOCRIT 23.7 % (37.9-51.0); MEAN CORPUSCULAR HEMOGLOBIN 21.2 pg (27.0-33.4); MEAN CORPUSCULAR HGB CONC 31.3 g/dL (32.0-36.0); MEAN CORPUSCULAR VOLUME 68 fl (80-97); RED CELL DISTRIBUTION WIDTH 21.4 % (11.5-14.0)
[2019-06-09 12:54] LABS: ALBUMIN 3.3 g/dL (3.5-5.0); ALKALINE PHOSPHATASE 310 U/L (38-126); BILIRUBIN,DIRECT 0.1 mg/dL (0.0-0.4); BILIRUBIN,TOTAL 0.3 mg/dL (0.2-1.3); BLOOD UREA NITROGEN 14 mg/dL (7-20); CALCIUM 7.9 mg/dL (8.4-10.2); GLUCOSE 189 mg/dL (75-110); POTASSIUM 4.1 mmol/L (3.6-5.0)
[2019-06-09 12:59] LABS: CARBON DIOXIDE 25 mmol/L (22-30); CHLORIDE 109 mmol/L (98-107)
[2019-06-09 13:08] LABS: ASPARTATE AMINO TRANSFERASE 1071 U/L (17-59)
[2019-06-09 13:09] LABS: ANION GAP 5 (5-19)
[2019-06-09 13:34] LABS: PLATELET COUNT 87 10^3/uL (150-450)
[2019-06-09 13:37] LABS: ABSOLUTE LYMPHOCYTES# (MANUAL) 0.7 10^3/uL (0.5-4.7); BASOPHILS % (MANUAL) 0 % (0-2); EOSINOPHILS % (MANUAL) 4 % (0-6); LYMPHOCYTES % (MANUAL) 34 % (13-45); MONOCYTES % (MANUAL) 2 % (3-13); SEGMENTED NEUTROPHILS % (MAN) 60 % (42-78); TOTAL CELLS COUNTED 50
[2019-06-09 13:38] LABS: APPEARANCE,URINE CLEAR; BILIRUBIN,URINE NEGATIVE (NEGATIVE); COLOR,URINE YELLOW; GLUCOSE, URINE NEGATIVE (NEGATIVE); KETONES,URINE TRACE mg/dL (NEGATIVE); LEUKOCYTE ESTERASE,URINE NEGATIVE (NEGATIVE); NITRITE,URINE NEGATIVE (NEGATIVE); PROTEIN,URINE 30 mg/dL (NEGATIVE); URINE SPECIFIC GRAVITY 1.018; UROBILINOGEN,URINE NEGATIVE mg/dL (<2.0)
[2019-06-09 13:41] LABS: ANISOCYTOSIS 3+; HYPOCHROMASIA 1+; PLATELET CLUMPS D; PLATELET GIANT PRESENT; POLYCHROMASIA SLIGHT
[2019-06-09 13:42] LABS: HEMOGLOBIN 7.4 g/dL (13.5-17.0)
[2019-06-09 13:52] LABS: PLATELET COMMENT DECREASED
--- NOTE | 2019-06-09 14:46 | ER Document Report ---
ED General - General Chief Complaint: Edema Stated Complaint: LEG SWELLING Time Seen by Provider: 06/09/19 14:42 Primary Care Provider: MARIAH KEITA FNP [Primary Care Provider] - Follow up as needed TRAVEL OUTSIDE OF THE [place] IN LAST 30 DAYS: No - HPI Notes: Chief complaint: Swelling of lower legs and feet 44-year-old male with history of HIV, CHF and COPD was previously on treatment with Lasix but is been out of this for about 1 month. Presents today with progressively worsening lower extremity edema over the past 2 weeks. No chest pain. Wheezing intermittently. He is chronically on nasal O2 2 L/min at home. He denies fever. He denies sputum production. Usual home meds: Darunavir/Cobicistat [Prezcobix 800 mg-150 mg Tablet] 1 each PO QHS 02/08/19 Dolutegravir Sodium [Tivicay] 50 mg PO QHS 02/08/19 Tenofovir Disoproxil Fumarate [Viread 300 mg Tablet] 300 mg PO QHS 02/09/19 Valacyclovir HCl [Valtrex] 1,000 mg PO BID@0600,1400 02/09/19 Valacyclovir HCl [Valtrex] 500 mg PO QHS 02/09/19 Atovaquone 750 mg PO BID #210 ml 02/14/19 - Related Data Allergies/Adverse Reactions: Sulfa (Sulfonamide Antibiotics) Allergy (Verified 04/10/19 21:23) Home Medications: Patient unable to clarify home medication list at this time Past Medical History - General Information source: Patient, [facility] Records - Social History Smoking Status: Former Smoker Frequency of alcohol use: Occasional Drug Abuse: None Family History: CAD, CVA Patient has suicidal ideation: No Patient has homicidal ideation: No - Past Medical History Cardiac Medical History: Reports: Hx Congestive Heart Failure Pulmonary Medical History: Reports: Hx COPD, Hx Pneumonia - PCP Comment Only: Hx Asthma - denies Renal/ Medical History: Denies: Hx Peritoneal Dialysis Psychiatric Medical History: Reports: Hx Depression Infectious Medical History: Reports: Hx HIV Past Surgical History: Reports: Hx Kidney (Renal Surgery) - left removed, Hx Orthopedic Surgery, Other - Left nephrectomy - Immunizations Hx Diphtheria, Pertussis, Tetanus Vaccination: Yes Hx Pneumococcal Vaccination: 05/28/12 Review of Systems - Review of Systems Notes: Constitutional: Negative for fever. HENT: Negative for sore throat. Eyes: Negative for visual changes. Cardiovascular: Negative for chest pain. Respiratory: As per HPI. Gastrointestinal: Negative for abdominal pain, vomiting or diarrhea. Genitourinary: Negative for dysuria. Musculoskeletal: Negative for back pain. Skin: Negative for rash. Neurological: Negative for headaches, weakness or numbness. 10 point ROS negative except as marked above and in HPI. Physical Exam - Vital signs Vitals: Resp 22 H 06/09/19 12:00 - Notes Notes: GENERAL: Chronically ill-appearing middle-aged male in no acute distress. SKIN: Is very dry with chronic maculopapular eruption both forearms. HEAD: Normocephalic atraumatic. EYES: PERRLA. EOMI. Conjunctivae and sclerae clear. EARS: CANALS AND TMS CLEAR. NOSE: CLEAR. MOUTH: Moist mucosa. Good dentition. No stridor or edema. No drooling. NECK: Supple. No masses or thyromegaly. No adenopathy. Carotids 2+ without bruits. No JVD. BACK: Symmetrical without tenderness. CHEST: Respirations unlabored. Few scattered wheezes bilaterally. HEART: Regular rhythm. No murmur gallop or rub. ABDOMEN: Soft nontender without masses, organomegaly or rebound. Bowel sounds normally active. No bruits. GENITALIA: Deferred. EXTREMITIES: 3+ bilateral pretibial edema. No calf tenderness. Cap refill less than 1.5 seconds. Dorsalis pedis and posterior tibial pulses 3+ and symmetrical. NEUROLOGICAL: GCS 15. Alert and oriented x3. Normal gait. Fluent speech. Cranial nerves II through XII intact. Sensorimotor and cerebellar normal. Normal tone. PSYCHIATRIC: Appropriate affect. Course - Re-evaluation Re-evalutation: 06/09/19 14:58 Patient is chronically anemic and his hemoglobin here today is 7.4 g. I am c hecking a BNP and a troponin and these remain pending. We will also get an EKG and a chest x-ray. I am doing this man some IV Lasix 40 mg. 06/09/19 17:02 Patient has been off his Lasix and clinically was fluid overloaded. His vital signs are stable. He is oxygenating normally. His troponin is normal and his EKG shows no acute changes. Chest x-ray is normal. He was given IV Lasix with brisk diuresis and feels much better. He will be restarted on his oral Lasix at home and I think he is stable for discharge. - Vital Signs Vital signs: Temp Pulse Resp BP Pulse Ox 98.2 F 84 19 120/81 97 06/09/19 12:06 06/09/19 12:06 06/09/19 16:01 06/09/19 16:00 06/09/19 16:01 - Laboratory Result Diagrams: 06/09/19 12:03 06/09/19 12:03 Laboratory results interpreted by me: 06/09/19 06/09/19 06/09/19 12:03 12:03 12:03 WBC 2.0 L RBC 3.50 L Hgb 7.4 L Hct 23.7 L MCV 68 L MCH 21.2 L MCHC 31.3 L RDW 21.4 H Plt Count 87 L Monocytes % (Manual) 2 L Abs Neuts (Manual) 1.2 L Abs Monocytes (Manual) 0.0 L Chloride 109 H Glucose 189 H Calcium 7.9 L AST 1071 H ALT 451 H Alkaline Phosphatase 310 H NT-Pro-B Natriuret Pep 223 H Total Protein 9.0 H Albumin 3.3 L Urine Protein Urine Ketones 06/09/19 13:23 WBC RBC Hgb Hct MCV MCH MCHC RDW Plt Count Monocytes % (Manual) Abs Neuts (Manual) Abs Monocytes (Manual) Chloride Glucose Calcium AST ALT Alkaline Phosphatase NT-Pro-B Natriuret Pep Total Protein Albumin Urine Protein 30 H Urine Ketones TRACE H Discharge - Discharge Clinical Impression: Chronic anemia Congestive heart failure (CHF) Qualifiers: Heart failure type: unspecified Heart failure chronicity: unspecified Qualified Code(s): I50.9 - Heart failure, unspecified HIV (human immunodeficiency virus infection) Qualifiers: HIV symptom status: unspecified Qualified Code(s): B20 - Human immunodeficiency virus [HIV] disease Condition: Stable Disposition: HOME, SELF-CARE Additional Instructions: Restart your fluid medication (Lasix) as instructed. Follow-up with your doctor this week regarding your swelling and your worsening chronic anemia. Prescriptions: Furosemide [Lasix 40 mg Tablet] 40 mg PO QAM #30 tablet Referrals: MARIAH KEITA FNP [Primary Care Provider] - Follow up as needed
[2019-06-09] MEDS ORDERED: FUROSEMIDE INJ/PF 20 MG/2 ML SDV IV ONE (14:52)
[2019-06-09 15:26] LABS: NT PRO BNP 223 pg/mL (<125)
[2019-06-09 15:27] LABS: TROPONIN I < 0.012 ng/mL
--- NOTE | 2019-06-09 15:33 | RADIOLOGY REPORT (SQ) ---
EXAM DESCRIPTION: CHEST SINGLE VIEW IMAGES COMPLETED DATE/TIME: 06/09/2019 3:22 pm REASON FOR STUDY: dyspnea COMPARISON: 02/08/2019 EXAM PARAMETERS: NUMBER OF VIEWS: One view. TECHNIQUE: Single frontal radiographic view of the chest acquired. RADIATION DOSE: NA LIMITATIONS: None. FINDINGS: LUNGS AND PLEURA: No opacities, masses or pneumothorax. No pleural effusion. MEDIASTINUM AND HILAR STRUCTURES: No masses. Contour normal. HEART AND VASCULAR STRUCTURES: Heart normal in size. Normal vasculature. BONES: No acute findings. HARDWARE: None in the chest. OTHER: No other significant finding. IMPRESSION: NO ACUTE RADIOGRAPHIC FINDING IN THE CHEST. TECHNICAL DOCUMENTATION: JOB ID: [id number] 2010 [employer]- All Rights Reserved Reading location - IP/workstation name: [email or web address]
[2019-06-09 16:30] VITALS: BP 120/81
--- NOTE | 2019-06-09 22:30 | EKG REPORT ---
SEVERITY:- NORMAL ECG - SINUS RHYTHM : Confirmed by: Nanette Hart MD 09-Jun-2019 22:30:03
== END 2019-06-09 17:46 | disposition home or self-care (01) ==
LOC: ER 11:58
DX: I50.9 Heart failure, unspecified (principal); D64.9 Anemia, unspecified; J44.9 Chronic obstructive pulmonary disease, unspecified; Z21 Asymptomatic human immunodeficiency virus [HIV] infection status; Z79.899 Other long term (current) drug therapy; Z88.2 Allergy status to sulfonamides; Z87.891 Personal history of nicotine dependence
CPT/HCPCS: 93005; 99284; 96374; 36415; 85025; 80053; 81001; 84484; 83880; 71045; 93010; J1940

== ENCOUNTER 2019-08-25 20:03 | Emergency (ER) | payer MEDICAID ==
[2019-08-26] MEDS ORDERED: ERYTHROMYCIN 0.5% OPH OINT 1 GM UNIT DOSE OU ONE (00:17)
--- NOTE | 2019-08-26 00:53 | ER Document Report ---
ED General - General Chief Complaint: Shortness Of Breath Stated Complaint: RESPIRATORY DISTRESS Time Seen by Provider: 08/26/19 00:09 Primary Care Provider: MARIAH KEITA FNP [Primary Care Provider] - Follow up as needed TRAVEL OUTSIDE OF THE [place] IN LAST 30 DAYS: No - HPI Notes: Patient is a 44-year-old male with a history of HIV, congestive heart failure, who presents to the emergency department for evaluation of shortness of breath. He states that shortness of breath started yesterday when he went to get in the shower. He has had it for 24 hours. He states now he has absolutely no symptoms. He had has a GI of this trip because minimal cough. He states he has gotten some edema that seems to be worse to him. He has been taking his medications as prescribed, except for some antibiotics, which were discontinued because of a recent colonoscopy. Evidently his preps were inadequate, and he will need to have another one. He states otherwise he is developed some eye discharge over the last 48 hours. He states he has had similar in the past. He states he had luck with erythromycin ointment. He denies any pain at this time. He denies any lisandro fevers, states he has had some chills. - Related Data Allergies/Adverse Reactions: Sulfa (Sulfonamide Antibiotics) Allergy (Verified 04/10/19 21:23) Home Medications: lasix 30mg daily Past Medical History - General Information source: Patient - Social History Smoking Status: Former Smoker Chew tobacco use (# tins/day): No Frequency of alcohol use: None Drug Abuse: None Family History: CAD, CVA Patient has homicidal ideation: No - Past Medical History Cardiac Medical History: Reports: Hx Congestive Heart Failure Pulmonary Medical History: Reports: Hx COPD, Hx Pneumonia - PCP Comment Only: Hx Asthma - denies Renal/ Medical History: Denies: Hx Peritoneal Dialysis Psychiatric Medical History: Reports: Hx Depression Infectious Medical History: Reports: Hx HIV Past Surgical History: Reports: Hx Kidney (Renal Surgery) - left removed, Hx Orthopedic Surgery, Other - Left nephrectomy - Immunizations Hx Diphtheria, Pertussis, Tetanus Vaccination: Yes Hx Pneumococcal Vaccination: 05/28/12 Review of Systems - Review of Systems Constitutional: See HPI EENT: See HPI Cardiovascular: See HPI Respiratory: See HPI Skin: Rash - Chronic and ongoing, being seen by providers for this -: Yes All other systems reviewed and negative Physical Exam - Vital signs Vitals: Temp 98.3 F 08/25/19 20:03 - Notes Notes: This is a 44-year-old male appears stated age. He is lying in the bed, oxygen on per nasal cannula, no acute distress. He is resting comfortably. Vital s igns reviewed, please refer to chart. Head is normocephalic, atraumatic. Pupils equal round, reactive to light. He has conjunctival injection bilaterally, left greater than right. He has green crusting with some skin breakdown on bilateral eyelids, left greater than right, inferior greater than superior. Neck is supple without meningismus. Heart is regular rate and rhythm. Lungs reveal occasional rhonchi and mildly diminished expiratory breath sounds.. Abdomen is soft, nontender, normoactive bowel sounds throughout. Extremities without cyanosis, clubbing. Posterior calves are nontender. Peripheral pulses are equal. Skin is warm and dry. Patient is awake, alert, neurological exam is nonfocal. Course - Re-evaluation Re-evalutation: 08/26/19 00:52 Patient presents to the emergency department for evaluation. He is on oxygen by nasal cannula. He had been on a nitroglycerin drip in route. EKG, blood work, x-ray ordered. Patient is stable and asymptomatic at this time, we will continue to monitor. 08/26/19 02:08 Patient's laboratory investigations revealed pancytopenia, other chronic abnormalities, but nothing new. His chest x-ray is unremarkable. His EKG fails to show any ST elevation. At this point, the only significant finding I have identified is conjunctivitis. He is treated with erythromycin ophthalmic ointment. I will send him home with a prescription for same. He is to follow- up with primary care this week, return to the emergency department with worsening or new concerning symptoms of any sort. - Vital Signs Vital signs: Temp Pulse Resp BP Pulse Ox 98.3 F 93 21 H 138/88 H 97 08/25/19 20:25 08/25/19 20:25 08/26/19 02:01 08/26/19 02:01 08/26/19 02:01 - Laboratory Result Diagrams: 08/26/19 00:38 08/26/19 00:38 Laboratory results interpreted by me: 08/26/19 08/26/19 00:38 00:38 WBC 2.8 L RBC 4.19 L Hgb 8.3 L Hct 28.0 L MCV 67 L MCH 19.8 L MCHC 29.6 L RDW 20.1 H Plt Count 71 L Eos % (Auto) 9.7 H Anion Gap 4 L Calcium 8.2 L Alkaline Phosphatase 203 H Total Protein 9.6 H Albumin 3.4 L - Diagnostic Test Radiology reviewed: Image reviewed, Reports reviewed Radiology results interpreted by me: 08/26/19 02:08 Chest X-Ray 08/26/19 00:17 IMPRESSION: 1. No acute pulmonary findings. - EKG Interpretation by Me Additional EKG results interpreted by me: 08/26/19 02:08 Sinus mechanism with a rate of 80 bpm. Normal axis and intervals. Nonspecific ST changes, but no acute elevation concerning for infarction. No significant change compared to prior study. Discharge - Discharge Clinical Impression: Dyspnea Qualifiers: Dyspnea type: unspecified Qualified Code(s): R06.00 - Dyspnea, unspecified Bilateral conjunctivitis Qualifiers: Conjunctivitis type: acute Acute conjunctivitis type: unspecified Qualified Code(s): H10.33 - Unspecified acute conjunctivitis, bilateral Condition: Stable Disposition: HOME, SELF-CARE Instructions: Dyspnea, Nonspecific ([facility]), Conjunctivitis ([facility]) Additional Instructions: Apply erythromycin ointment 4 times a day to bilateral eyes for the next week. Follow-up with primary care this week. No clear cause was found for your shortness of breath. If you develop worsening or new concerning symptoms of any sort, return immediately to the emergency department for evaluation. Referrals: MARIAH KEITA FNP [Primary Care Provider] - Follow up as needed
[2019-08-26 00:58] LABS: VENOUS BLOOD BASE EXCESS 1.3 mmol/L; VENOUS BLOOD HCO3 27.5 mmol/L (20-32); VENOUS BLOOD PCO2 52.2 mmHg (35-63); VENOUS BLOOD PH 7.34 (7.30-7.42)
--- NOTE | 2019-08-26 01:06 | RADIOLOGY REPORT (SQ) ---
EXAM DESCRIPTION: [facility]: XR CHEST 1 VIEW CLINICAL HISTORY: 44 years Male; dyspnea; COMPARISON: 06/09/2019 FINDINGS: Lungs: Lungs are clear, with no focal infiltrate, pneumothorax, or pleural effusion. Mediastinum: Mediastinum is within normal limits for this positioning. Bones: Bony structures are unremarkable. IMPRESSION: 1. No acute pulmonary findings.
[2019-08-26 01:07] LABS: INTERNATIONAL RATION (INR) 1.11; PROTHROMBIN TIME 14.4 SEC (11.4-15.4)
[2019-08-26 01:12] LABS: ABSOLUTE EOSINOPHILS # (AUTO) 0.3 10^3/uL (0.0-0.6); ABSOLUTE LYMPHOCYTES (AUTO) 0.5 10^3/uL (0.5-4.7); ABSOLUTE MONOCYTES (AUTO) 0.2 10^3/uL (0.1-1.4); ABSOLUTE NEUT (AUTO) 1.7 10^3/uL (1.7-8.2); BASOPHILS % (AUTO) 0.9 % (0-2); EOSINOPHILS % (AUTO) 9.7 % (0-6); HEMOGLOBIN 8.3 g/dL (13.5-17.0); LYMPHOCYTES % (AUTO) 18.8 % (13-45); MEAN CORPUSCULAR HEMOGLOBIN 19.8 pg (27.0-33.4); MEAN CORPUSCULAR HGB CONC 29.6 g/dL (32.0-36.0); MEAN CORPUSCULAR VOLUME 67 fl (80-97); MONOCYTES % (AUTO) 7.9 % (3-13); RED BLOOD COUNT 4.19 10^6/uL (4.35-5.55); RED CELL DISTRIBUTION WIDTH 20.1 % (11.5-14.0); SEGMENTED NEUTROPHILS % (AUTO) 62.7 % (42-78); TOTAL CELLS COUNTED % (AUTO) 100 %; WHITE BLOOD COUNT 2.8 10^3/uL (4.0-10.5)
[2019-08-26 01:39] LABS: PLATELET COUNT 71 10^3/uL (150-450)
[2019-08-26 01:40] LABS: ALBUMIN 3.4 g/dL (3.5-5.0); ALKALINE PHOSPHATASE 203 U/L (38-126); ASPARTATE AMINO TRANSFERASE 54 U/L (17-59); BILIRUBIN,TOTAL 0.2 mg/dL (0.2-1.3); BLOOD UREA NITROGEN 7 mg/dL (7-20); CALCIUM 8.2 mg/dL (8.4-10.2); GLUCOSE 100 mg/dL (75-110); POTASSIUM 4.7 mmol/L (3.6-5.0); TOTAL PROTEIN 9.6 g/dL (6.3-8.2)
[2019-08-26 01:45] LABS: CARBON DIOXIDE 30 mmol/L (22-30); CHLORIDE 107 mmol/L (98-107)
[2019-08-26 01:46] LABS: APPEARANCE,URINE CLEAR; BILIRUBIN,URINE NEGATIVE (NEGATIVE); COLOR,URINE YELLOW; GLUCOSE, URINE NEGATIVE (NEGATIVE); KETONES,URINE NEGATIVE (NEGATIVE); PROTEIN,URINE NEGATIVE (NEGATIVE); UROBILINOGEN,URINE NEGATIVE mg/dL (<2.0)
[2019-08-26 01:47] LABS: ANION GAP 4 (5-19)
[2019-08-26 01:50] LABS: NT PRO BNP 49 pg/mL (<125)
[2019-08-26 01:55] LABS: TROPONIN I < 0.012 ng/mL
[2019-08-26 02:08] VITALS: BP 138/88
--- NOTE | 2019-08-26 08:07 | EKG REPORT ---
SEVERITY:- BORDERLINE ECG - SINUS RHYTHM : Confirmed by: Jazzmine Shirley 26-Aug-2019 08:06:52
== END 2019-08-26 02:30 | disposition home or self-care (01) ==
LOC: ER 20:03
DX: J44.9 Chronic obstructive pulmonary disease, unspecified (principal); I50.9 Heart failure, unspecified; H10.33 Unspecified acute conjunctivitis, bilateral; R68.83 Chills (without fever); R21 Rash and other nonspecific skin eruption; D61.818 Other pancytopenia; Z79.899 Other long term (current) drug therapy; Z21 Asymptomatic human immunodeficiency virus [HIV] infection status; Z88.2 Allergy status to sulfonamides; Z87.01 Personal history of pneumonia (recurrent)
CPT/HCPCS: 93005; 99285; 36415; 87040; 83605; 85025; 85610; 80053; 81001; 84484; 82803; 83880; 71045; 93010; J3490

== ENCOUNTER 2019-09-15 12:03 | Emergency (ER) | payer MEDICAID ==
[2019-09-15 12:34] LABS: ABSOLUTE EOSINOPHILS # (AUTO) 0.1 10^3/uL (0.0-0.6); ABSOLUTE LYMPHOCYTES (AUTO) 0.5 10^3/uL (0.5-4.7); ABSOLUTE MONOCYTES (AUTO) 0.3 10^3/uL (0.1-1.4); ABSOLUTE NEUT (AUTO) 1.4 10^3/uL (1.7-8.2); BASOPHILS % (AUTO) 0.8 % (0-2); EOSINOPHILS % (AUTO) 5.6 % (0-6); LYMPHOCYTES % (AUTO) 20.7 % (13-45); MEAN CORPUSCULAR HEMOGLOBIN 19.5 pg (27.0-33.4); MEAN CORPUSCULAR HGB CONC 29.9 g/dL (32.0-36.0); MEAN CORPUSCULAR VOLUME 65 fl (80-97); MONOCYTES % (AUTO) 12.2 % (3-13); RED BLOOD COUNT 3.99 10^6/uL (4.35-5.55); RED CELL DISTRIBUTION WIDTH 19.6 % (11.5-14.0); SEGMENTED NEUTROPHILS % (AUTO) 60.7 % (42-78); TOTAL CELLS COUNTED % (AUTO) 100 %; WHITE BLOOD COUNT 2.4 10^3/uL (4.0-10.5)
[2019-09-15 12:42] LABS: ALBUMIN 3.6 g/dL (3.5-5.0); ALKALINE PHOSPHATASE 161 U/L (38-126); ANION GAP 5 (5-19); ASPARTATE AMINO TRANSFERASE 54 U/L (17-59); BILIRUBIN,TOTAL 0.9 mg/dL (0.2-1.3); BLOOD UREA NITROGEN 11 mg/dL (7-20); CALCIUM 8.5 mg/dL (8.4-10.2); CARBON DIOXIDE 26 mmol/L (22-30); CHLORIDE 108 mmol/L (98-107); GLUCOSE 113 mg/dL (75-110); POTASSIUM 3.8 mmol/L (3.6-5.0); TOTAL PROTEIN 9.3 g/dL (6.3-8.2)
[2019-09-15 12:52] LABS: PLATELET COUNT 77 10^3/uL (150-450)
[2019-09-15 12:54] LABS: HEMOGLOBIN 7.8 g/dL (13.5-17.0)
--- NOTE | 2019-09-15 13:15 | ER Document Report ---
Entered by MAGGIE HINSON SCRIBE 09/15/19 1225 Acting as scribe for:DUSTIN TAYLOR MD ED Respiratory Problem - General Stated Complaint: SHORTNESS OF BREATH Time Seen by Provider: 09/15/19 12:19 Primary Care Provider: MARIAH KEITA FNP [Primary Care Provider] - Follow up as needed Information source: Patient Notes: This 44 year old male patient with HIV presents to the emergency department today with complaints of a rash on his right chest wall which is consistent with herpes zoster. Patient states the rash itches and olea. Patient reported shortness of breath prior to arrival which has since subsided. Patient is already taking 1000 mg of valcyclovir daily for his shingles. The patient thinks the shortness of breath may have been due to anxiety about his shingles. He is normally on 2 L nasal cannula at home, in the emergency room his pulse oximetry reading is 100% on 2 L nasal cannula. TRAVEL OUTSIDE OF THE [place] IN LAST 30 DAYS: No - Related Data Allergies/Adverse Reactions: Sulfa (Sulfonamide Antibiotics) Allergy (Verified 09/15/19 12:20) Past Medical History - General Information source: Patient, [facility] Records - Social History Smoking Status: Former Smoker Cigarette use (# per day): No Frequency of alcohol use: None Drug Abuse: None Occupation: unemployed Family History: CAD, CVA - Past Medical History Cardiac Medical History: Reports: Hx Congestive Heart Failure Pulmonary Medical History: Reports: Hx COPD, Hx Pneumonia - PCP Psychiatric Medical History: Reports: Hx Depression Infectious Medical History: Reports: Hx HIV Past Surgical History: Reports: Hx Kidney (Renal Surgery) - left nephrectomy, Hx Orthopedic Surgery - Immunizations Hx Diphtheria, Pertussis, Tetanus Vaccination: Yes Hx Pneumococcal Vaccination: 05/28/12 Review of Systems - Review of Systems Constitutional: No symptoms reported EENT: No symptoms reported Cardiovascular: No symptoms reported Respiratory: See HPI, Short of breath - prior to arrival, none now Gastrointestinal: No symptoms reported Genitourinary: No symptoms reported Male Genitourinary: No symptoms reported Musculoskeletal: No symptoms reported Skin: No symptoms reported Hematologic/Lymphatic: No symptoms reported Neurological/Psychological: No symptoms reported -: Yes All other systems reviewed and negative Physical Exam - Vital signs Vitals: Resp Pulse Ox 21 H 99 09/15/19 12:12 09/15/19 12:12 - Notes Notes: Physical Exam: General: Alert, appears well. HEENT: Normocephalic. Atraumatic. PERRL. Extraocular movements intact. Oropharynx clear. Neck: Supple. Non-tender. Respiratory: No respiratory distress. Faint wheezing bilaterally. Saturating 100% on 2L via nasal cannula which is baseline for patient. Cardiovascular: Regular rate and rhythm. Abdominal: Normal Inspection. Non-tender. No distension. Normal Bowel Sounds. Back: No gross abnormalities. Extremities: Moves all four extremities. Upper extremities: Normal inspection. Normal ROM. Lower extremities: Normal inspection. No edema. Normal ROM. Neurological: Normal cognition. AAOx4. Normal speech. Psychological: Normal affect. Normal Mood. Skin: Typical herpes zoster rash in the T9 distribution on the right. Vesicles have ruptured and began crusting over. Course - Vital Signs Vital signs: Temp Pulse Resp BP Pulse Ox 98.6 F 94 21 H 121/72 100 09/15/19 12:21 09/15/19 12:21 09/15/19 13:01 09/15/19 13:01 09/15/19 13:01 - Laboratory Result Diagrams: 09/15/19 12:14 09/15/19 12:14 Laboratory results interpreted by me: 09/15/19 09/15/19 12:14 12:14 WBC 2.4 L RBC 3.99 L Hgb 7.8 L Hct 26.0 L MCV 65 L MCH 19.5 L MCHC 29.9 L RDW 19.6 H Plt Count 77 L Absolute Neuts (auto) 1.4 L Chloride 108 H Glucose 113 H Alkaline Phosphatase 161 H Total Protein 9.3 H Discharge - Discharge Clinical Impression: Shortness of breath, Peripheral edema Shingles rash Qualifiers: Herpes zoster complications: without complications Qualified Code(s): B02.9 - Zoster without complications Condition: Stable Disposition: HOME, SELF-CARE Additional Instructions: Shingles You have shingles. Shingles is caused by the chicken pox virus, The virus has been surviving dormant in a nerve cell since you had chicken pox years ago. The virus has spread down a nerve root to reach the skin. Typically, an band-like area of pain and skin sensitivity develops, then small blisters erupt in the area. Shingles lasts two or three weeks, but sometimes leaves persistent pain. You are contagious -- you can give children chicken pox. But you can't give anyone shingles. Antiviral medicines (such as acyclovir or famciclovir) can help, but the rash usually worsens for about a week. Pain medication is often given if the area hurts. Antihistamines such as Benadryl may be necessary for itching if it does not respond to soda baths and calamine lotion. Sometimes cortisone medicine or nerve-block shots are necessary if pain is severe. If the area remains severely painful as the sores heal, or if you suspect an infection developing in the sores, see your doctor. Edema, Peripheral You have swelling in your legs. This is called peripheral edema. It can be caused by "leaky capillaries," inflammation, disease of the leg veins, or excess salt and water in your body. Edema may be a sign of heart, kidney, or liver disease. A medical evaluation can determine if there is a serious underlying ca use for your edema. Avoid prolonged standing. If you must sit for a long time, occasionally get up and walk around or elevate your legs. Support stockings can be helpful in limiting swelling. Often diuretic or water pills are used to remove excess salt and water from your body. Call the doctor or return if you develop increased swelling, pain, or redness, shortness of breath, chest pain, or any other significant change. Continue the Valtrex you are taking. Try to avoid foods that are high in sodium in your diet, and do not use the saltshaker. You may use salt substitutes. Elevate your legs as much as possible to help reduce the swelling, and consider trying compression stockings when you are up and about. Follow-up with your primary care provider as needed. RETURN TO THE EMERGENCY ROOM IF ANY NEW OR WORSENING SYMPTOMS. Referrals: MARIAH KEITA FNP [Primary Care Provider] - Follow up as needed I personally performed the services described in the documentation, reviewed and edited the documentation which was dictated to the scribe in my presence, and it accurately records my words and actions.
[2019-09-15 13:57] VITALS: BP 111/69
== END 2019-09-15 13:58 | disposition home or self-care (01) ==
LOC: ER 12:03
DX: J44.9 Chronic obstructive pulmonary disease, unspecified (principal); B02.9 Zoster without complications; R60.9 Edema, unspecified; R06.02 Shortness of breath; Z99.81 Dependence on supplemental oxygen; Z21 Asymptomatic human immunodeficiency virus [HIV] infection status; Z87.891 Personal history of nicotine dependence; Z87.01 Personal history of pneumonia (recurrent); Z88.2 Allergy status to sulfonamides
CPT/HCPCS: 36415; 80053; 85025; 99284

== ENCOUNTER 2019-10-06 14:02 | Emergency (ER) | payer MEDICAID ==
[2019-10-06] MEDS ORDERED: DEXAMETHASONE SOD PHOS INJ 10 MG/1 ML VIAL IM ONE (16:25)
[2019-10-06] MEDS ORDERED: IPRATROPIUM/ALBUTEROL 0.5-2.5 MG/3 ML AMPUL NEB ONE (16:25)
--- NOTE | 2019-10-06 17:21 | RADIOLOGY REPORT (SQ) ---
EXAM DESCRIPTION: CHEST SINGLE VIEW IMAGES COMPLETED DATE/TIME: 10/06/2019 4:59 pm REASON FOR STUDY: Shortness of breath COMPARISON: Chest x-ray 08/26/2019, 06/09/2019. EXAM PARAMETERS: NUMBER OF VIEWS: One view. TECHNIQUE: Single frontal radiographic view of the chest acquired. RADIATION DOSE: NA LIMITATIONS: None. FINDINGS: LUNGS AND PLEURA: No consolidation, pneumothorax or pleural effusion. Hyperlucent lungs a re suggestive of emphysema. MEDIASTINUM AND HILAR STRUCTURES: No masses. Contour normal. HEART AND VASCULAR STRUCTURES: Heart normal in size. Normal vasculature. BONES: No acute findings. HARDWARE: None in the chest. IMPRESSION: Emphysema. No acute radiographic finding in the chest. TECHNICAL DOCUMENTATION: JOB ID: [id number] 2010 [employer]- All Rights Reserved Reading location - IP/workstation name: [email or web address]
[2019-10-06] MEDS ORDERED: DEXAMETHASONE SOD PHOSPHATE INJ 4 MG/1 ML VIAL ONE (18:08)
[2019-10-06 19:05] LABS: ABSOLUTE EOSINOPHILS # (AUTO) 0.2 10^3/uL (0.0-0.6); ABSOLUTE LYMPHOCYTES (AUTO) 0.5 10^3/uL (0.5-4.7); ABSOLUTE MONOCYTES (AUTO) 0.2 10^3/uL (0.1-1.4); ABSOLUTE NEUT (AUTO) 1.1 10^3/uL (1.7-8.2); BASOPHILS % (AUTO) 0.4 % (0-2); EOSINOPHILS % (AUTO) 11.7 % (0-6); HEMATOCRIT 28.9 % (37.9-51.0); HEMOGLOBIN 8.5 g/dL (13.5-17.0); LYMPHOCYTES % (AUTO) 25.1 % (13-45); MEAN CORPUSCULAR HGB CONC 29.5 g/dL (32.0-36.0); MEAN CORPUSCULAR VOLUME 68 fl (80-97); MONOCYTES % (AUTO) 10.3 % (3-13); RED BLOOD COUNT 4.26 10^6/uL (4.35-5.55); RED CELL DISTRIBUTION WIDTH 22.5 % (11.5-14.0); SEGMENTED NEUTROPHILS % (AUTO) 52.5 % (42-78); TOTAL CELLS COUNTED % (AUTO) 100 %
[2019-10-06 19:21] LABS: ALBUMIN 3.6 g/dL (3.5-5.0); ALKALINE PHOSPHATASE 177 U/L (38-126); ASPARTATE AMINO TRANSFERASE 60 U/L (17-59); BILIRUBIN,TOTAL 0.4 mg/dL (0.2-1.3); BLOOD UREA NITROGEN 11 mg/dL (7-20); CALCIUM 8.6 mg/dL (8.4-10.2); GLUCOSE 81 mg/dL (75-110); POTASSIUM 4.1 mmol/L (3.6-5.0); TOTAL PROTEIN 9.5 g/dL (6.3-8.2)
[2019-10-06 19:25] LABS: PLATELET COUNT 94 10^3/uL (150-450)
[2019-10-06 19:26] LABS: CARBON DIOXIDE 33 mmol/L (22-30); CHLORIDE 104 mmol/L (98-107)
[2019-10-06 19:31] LABS: ANION GAP 4 (5-19)
--- NOTE | 2019-10-06 20:37 | ER Document Report ---
ED Respiratory Problem - General Chief Complaint: Shortness Of Breath Stated Complaint: SHORTNESS OF BREATH Time Seen by Provider: 10/06/19 15:32 Primary Care Provider: MARIAH KEITA FNP [Primary Care Provider] - Follow up as needed Mode of Arrival: Ambulatory Information source: Patient Notes: 44-year-old man presents to the emergency department with a complaint of shortness of breath and itching with a rash. He states that he has had a rash for greater than 4 months. His doctors have given him treatment for scabies and topical creams. He states that the medications have not helped. He has a history of COPD/asthma. Running out of his inhaler and needs a refill. He also complains of some shortness of breath today. He denies fever or productive cou gh. TRAVEL OUTSIDE OF THE [place] IN LAST 30 DAYS: No - Related Data Allergies/Adverse Reactions: Sulfa (Sulfonamide Antibiotics) Allergy (Verified 10/06/19 15:50) Past Medical History - Social History Smoking Status: Former Smoker Chew tobacco use (# tins/day): No Frequency of alcohol use: Heavy Drug Abuse: None Family History: CAD, CVA - Past Medical History Cardiac Medical History: Reports: Hx Congestive Heart Failure Pulmonary Medical History: Reports: Hx COPD, Hx Pneumonia - PCP Comment Only: Hx Asthma - denies Renal/ Medical History: Denies: Hx Peritoneal Dialysis Psychiatric Medical History: Reports: Hx Depression Infectious Medical History: Reports: Hx HIV Past Surgical History: Reports: Hx Kidney (Renal Surgery) - left nephrectomy, Hx Orthopedic Surgery, Other - Left nephrectomy - Immunizations Hx Diphtheria, Pertussis, Tetanus Vaccination: Yes Hx Pneumococcal Vaccination: 05/28/12 Review of Systems - Review of Systems Notes: Constitutional: Negative for fever. HENT: Negative for sore throat. Eyes: Negative for visual changes. Cardiovascular: Negative for chest pain. Respiratory: + shortness of breath. Gastrointestinal: Negative for abdominal pain, vomiting or diarrhea. Genitourinary: Negative for dysuria. Musculoskeletal: Negative for back pain. Skin: +chronic rash + itching Neurological: Negative for headaches, weakness or numbness. 10 point ROS negative except as marked above and in HPI. Physical Exam - Vital signs Vitals: Temp Pulse Resp BP Pulse Ox 97.6 F 75 18 135/83 H 94 10/06/19 15:17 10/06/19 15:17 10/06/19 15:17 10/06/19 15:17 10/06/19 15:17 - Notes Notes: PHYSICAL EXAMINATION: Physical Exam: General: Well-nourished well-developed 44-year-old man in no acute distress HEENT: NC/AT, pupils equal round and reactive to light, MM moist,nares clear, oropharynx clear, airway patent Neck: supple, no adenopathy, no masses. Good range of motion Lungs: Good air movement, mild wheezing, no rales no rhonchi CVS: Regular rate and rhythm no murmur gallop or rub Abdomen: Soft, active, nontender, no masses, no hepatosplenomegaly Ext: No edema, clubbing or cyanosis. Neuro: Alert and responsive, moving all 4 extremities on command, cranial nerves intact, no focal findings Skin: Diffuse maculopapular rash with hyperpigmentation and lichenification of the skin behind his neck and also on the lower extremities bilaterally. He has rash also on the hands and arms bilaterally. PSYCH: Normal mood, normal affect. Course - Re-evaluation Re-evalutation: 10/06/19 20:35 Patient was given a nebulizer treatment, IM Decadron and hydroxyzine IM for itching. I have explained to the patient that we can refill his inhaler, he is given a prescription for hydroxyzine to use at home. And he is encouraged to follow-up with his primary care doctor. Referral dermatology evaluation is a reasonable plan at this point. The patient is in agreement with this plan. - Vital Signs Vital signs: Temp Pulse Resp BP Pulse Ox 97.8 F 79 22 H 135/93 H 100 10/06/19 18:03 10/06/19 18:03 10/06/19 18:03 10/06/19 18:03 10/06/19 18:03 - Laboratory Result Diagrams: 10/06/19 15:46 10/06/19 15:46 Laboratory results interpreted by me: 10/06/19 10/06/19 15:46 15:46 WBC 2.0 L RBC 4.26 L Hgb 8.5 L Hct 28.9 L MCV 68 L MCH 20.0 L MCHC 29.5 L RDW 22.5 H Plt Count 94 L Eos % (Auto) 11.7 H Absolute Neuts (auto) 1.1 L Carbon Dioxide 33 H Anion Gap 4 L AST 60 H Alkaline Phosphatase 177 H Total Protein 9.5 H 10/06/19 20:36 I have reviewed laboratory data and used this information for the treatment decisions regarding the patient. - Diagnostic Test Radiology reviewed: Image reviewed, Reports reviewed Radiology results interpreted by me: 10/06/19 20:36 Chest x-ray: Diffuse emphysema, no blebs, no infiltrate. Discharge - Discharge Clinical Impression: Pruritic rash COPD with emphysema Qualifiers: Emphysema type: unspecified Qualified Code(s): J43.9 - Emphysema, unspecified Condition: Good Disposition: HOME, SELF-CARE Instructions: Chronic Obstructive Lung Disease ([facility]) Additional Instructions: You were seen in the emergency department today with COPD and a diffuse rash which is also related with your HIV disease. Please use hydroxyzine for itching, you are given a refill for the albuterol. Follow-up with your doctor. HOME CARE INSTRUCTIONS & INFORMATION: Thank you for choosing us for your medical needs. We hope you're satisfied with the care you received. After you leave, you must properly care for your problem and, at the same time, observe its progress. Any condition can change. Some illnesses can change rapidly over hours or days. If your condition worsens, return to the Emergency Department or see your physician promptly. ABOUT YOUR X-RAYS AND EKG'S: If you had an EKG or X-rays taken, they have been read by the Emergency Physician. The X-rays and EKG's will also be read by a Radiologist or [employer] within 24 hours. If discrepancies are noted, you will be notified by telephone. Please be certain the ED has a correct telephone number & address where you can be reached. Also, realize that some fractures or abnormalities do not show up on initial X-rays. If your symptoms continue, see your physician. ABOUT YOUR LABORATORY TEST: If you had laboratory tests, the results have been reviewed by the Emergency Physician. Some test results (for example cultures) may not be available for several days. You will be contacted if any test result shows you need additional treatment. Please be certain the ED has a correct telephone number and address where you can be reached. ABOUT YOUR MEDICATIONS: You will receive instructions on how to take your medicine on the prescription label you receive. Additional information may be provided by the Pharmacy. If you have questions afterwards, call the ED for clarification or further instructions. Some prescribed medications may cause drowsiness. Do not perform tasks such as driving a car or operating machinery without consulting your Pharmacist. If you feel you need a refill of pain medication, your condition will need re-evaluation. Please do not call for a refill of any medication. ABOUT YOUR SIGNATURE: Signature of this document acknowledges to followin. Understanding that you received emergency treatment and that you may be released before al medical problems are known or treated. Please be certain the ED has a correct phone number & address where you can be reached. 2. Acknowledgement that you will arrange for follow-up care as recommended. 3. Authorization for the Emergency Physician to provide information to your follow-up Physician in order to maximize your care. AT ANY TIME, IF YOUR SYMPTOMS CHANGE SIGNIFICANTLY OR WORSEN OR YOU DEVELOP NEW SYMPTOMS, RETURN TO THE EMERGENCY DEPARTMENT IMMEDIATELY FOR RE-EVALUATION. OUR GOAL IS TO PROVIDE EXCELLENT MEDICAL CARE! WE HOPE THAT WE HAVE MET YOUR EXPECTATIONS DURING YOUR EMERGENCY DEPARTMENT VISIT AND THAT YOU FEEL YOU HAVE RECEIVED EXCELLENT CARE! Prescriptions: Albuterol Sulfate [Albuterol Sulfate Hfa] 8.5 gm IH Q6H PRN #1 [id number] PRN Reason: Shortness Of Breath Hydroxyzine Pamoate [Vistaril 25 mg Capsule] 25 mg PO Q6H PRN #30 capsule PRN Reason: Itching Referrals: MARIAH KEITA FNP [Primary Care Provider] - Follow up as needed
[2019-10-06 21:20] VITALS: BP 135/93
== END 2019-10-06 21:03 | disposition home or self-care (01) ==
LOC: ER 14:02
DX: J43.9 Emphysema, unspecified (principal); L29.9 Pruritus, unspecified; R21 Rash and other nonspecific skin eruption; R06.02 Shortness of breath; B86 Scabies; Z87.891 Personal history of nicotine dependence; I50.9 Heart failure, unspecified; Z88.2 Allergy status to sulfonamides
CPT/HCPCS: 94640; 99285; 96372; 36415; 85025; 80053; 71045; J1100

== ENCOUNTER 2020-01-08 08:19 | Emergency (ER) | payer MEDICAID ==
[2020-01-08] MEDS ORDERED: DOXYCYCLINE HYCLATE 100 MG TABLET PO ONE (08:38)
--- NOTE | 2020-01-08 09:02 | RADIOLOGY REPORT (SQ) ---
EXAM DESCRIPTION: CHEST SINGLE VIEW IMAGES COMPLETED DATE/TIME: 01/08/2020 8:50 am REASON FOR STUDY: 1; cough and wheezing COMPARISON: 10/06/2019 EXAM PARAMETERS: NUMBER OF VIEWS: One view. TECHNIQUE: Single frontal radiographic view of the chest acquired. RADIATION DOSE: NA LIMITATIONS: None. FINDINGS: LUNGS AND PLEURA: There is hyperexpansion. There is a focal opacity in the right apex whi ch was not present previously. Most likely infectious or inflammatory process. No effusions. No pn eumothorax. MEDIASTINUM AND HILAR STRUCTURES: No masses. Contour normal. HEART AND VASCULAR STRUCTURES: Heart normal in size. Normal vasculature. BONES: No acute findings. HARDWARE: None in the chest. OTHER: No other significant finding. IMPRESSION: Focal asymmetric opacity in the right apex possibly confluence of shadows or focal airsp ellen disease. Hyperexpansion remains. TECHNICAL DOCUMENTATION: JOB ID: [id number] 2010 [employer]- All Rights Reserved Reading location - IP/workstation name: [email or web address]
--- NOTE | 2020-01-08 09:04 | ER Document Report ---
ED Respiratory Problem - General Chief Complaint: COPD Exacerbation Stated Complaint: SHORTNESS OF BREATH Time Seen by Provider: 01/08/20 08:24 Primary Care Provider: MARIAH KEITA FNP [Primary Care Provider] - Follow up as needed Notes: HPI: 44-year-old male with COPD on home oxygen who presents today with some worsening shortness of breath for the last 1 to 2 weeks. Minimal cough without production. No fevers, calf pain, chest pain, leg swelling. Patient states he no longer smokes. ROS: See HPI All other review of systems reviewed and otherwise negative Reviewed vital signs and nursing note as charted by RN. PHYSICAL EXAM: CONSTITUTIONAL: Alert and oriented and responds appropriately to questions. Well-appearing; well-nourished HEAD: Normocephalic; atraumatic NECK: Supple without meningismus; non-tender; no cervical lymphadenopathy, no masses CARD: Regular rate and rhythm; no murmurs; symmetric distal pulses RESP: Normal chest excursion without splinting or tachypnea; breath sounds clear and equal bilaterally; bilateral expiratory wheezing without rales or rhonchi ABD/GI: Normal bowel sounds; non-distended; soft, non-tender BACK: The back appears normal and is non-tender to palpation EXT: Normal ROM in all joints; non-tender to palpation; no edema SKIN: No acute lesions noted NEURO: CN 2-12 intact; 5/5 bilateral upper and lower extremity strength with sensation intact to light touch PSYCH: The patient's mood and manner are appropriate. Grooming and personal hygiene are appropriate TRAVEL OUTSIDE OF THE [place] IN LAST 30 DAYS: No - Related Data Allergies/Adverse Reactions: Sulfa (Sulfonamide Antibiotics) Allergy (Verified 01/08/20 09:23) Past Medical History - Social History Smoking Status: Former Smoker Family History: CAD, CVA - Past Medical History Cardiac Medical History: Reports: Hx Congestive Heart Failure Pulmonary Medical History: Reports: Hx COPD, Hx Pneumonia - PCP Comment Only: Hx Asthma - denies Renal/ Medical History: Denies: Hx Peritoneal Dialysis Psychiatric Medical History: Reports: Hx Depression Infectious Medical History: Reports: Hx HIV Past Surgical History: Reports: Hx Kidney (Renal Surgery) - left nephrectomy, Hx Orthopedic Surgery, Other - Left nephrectomy - Immunizations Hx Diphtheria, Pertussis, Tetanus Vaccination: Yes Hx Pneumococcal Vaccination: 05/28/12 Physical Exam - Vital signs Vitals: Pulse Ox 91 L 01/08/20 08:22 Course - Re-evaluation Re-evalutation: 01/08/20 09:03 Given the above history and physical, we will provide duo nebulizers, x-ray of the chest, EKG, and reassess. I do believe ACS, PE, dissection to be unlikely given that the patient is chest pain-free. Patient does have a history of COPD and is on oxygen. Patient is in no obvious respiratory distress at this time. Will reassess. 01/08/20 09:09 EKG shows a rate of 84, normal sinus rhythm, poor R wave progression, no obvious ST elevation or depression. Previous EKG shows no appreciable change. 01/08/20 11:39 Labs as recorded. Long history of pancytopenia. Imaging shows new opacity. 01/08/20 11:50 Patient is satting well on his baseline oxygen. He denies any shortness of breath at this time. Wheezing has improved on auscultation. Patient's labs are at baseline. I have offered the patient admission but he would like to go home. He does have an inhaler. He does have a primary care follow-up. I will provide a course of steroids as well as a course of doxycycline with strict return precautions. He has been invited to return at any time for any worsening or new condition. - Vital Signs Vital signs: Temp Pulse Resp BP Pulse Ox 98.4 F 26 H 121/66 92 01/08/20 08:44 01/08/20 11:01 01/08/20 11:01 01/08/20 11:01 - Laboratory Result Diagrams: 01/08/20 08:33 01/08/20 08:33 Laboratory results interpreted by me: 01/08/20 01/08/20 08:33 08:33 WBC 2.8 L Hgb 8.7 L Hct 29.2 L MCV 65 L MCH 19.4 L MCHC 29.8 L RDW 20.1 H Plt Count 79 L Eos % (Auto) 9.0 H Absolute Neuts (auto) 1.3 L Carbon Dioxide 36 H Anion Gap 4 L Glucose 115 H Discharge - Discharge Clinical Impression: COPD exacerbation, Lung infiltrate Condition: Good Disposition: HOME, SELF-CARE Additional Instructions: Come back immediately for any worsening cough, fevers, pain, difficulty breathing or swallowing, leg swelling, or any other acute problems. Please take 2 puffs of the albuterol inhaler every 4 hours for the next 48 hours and every 6 hours as needed after that. Take the antibiotics as prescribed. Please make sure that she follow-up with the primary care physician as we have discussed. Prescriptions: Prednisone [Deltasone 20 mg Tablet] 3 tab PO DAILY 5 Days tablet Doxycycline Hyclate 100 mg PO BID #20 tablet.dr Referrals: MARIAH KEITA FNP [Primary Care Provider] - Follow up as needed
[2020-01-08] MEDS: IPRATROPIUM/ALBUTEROL 0.5-2.5 MG/3 ML AMPUL NEB SCH (09:09)
[2020-01-08 09:12] LABS: BLOOD UREA NITROGEN 8 mg/dL (7-20); CALCIUM 8.7 mg/dL (8.4-10.2); GLUCOSE 115 mg/dL (75-110); POTASSIUM 3.8 mmol/L (3.6-5.0)
[2020-01-08 09:17] LABS: CARBON DIOXIDE 36 mmol/L (22-30); CHLORIDE 98 mmol/L (98-107)
[2020-01-08 09:21] LABS: ABSOLUTE EOSINOPHILS # (AUTO) 0.3 10^3/uL (0.0-0.6); ABSOLUTE MONOCYTES (AUTO) 0.3 10^3/uL (0.1-1.4); ABSOLUTE NEUT (AUTO) 1.3 10^3/uL (1.7-8.2); ANION GAP 4 (5-19); BASOPHILS % (AUTO) 0.7 % (0-2); HEMATOCRIT 29.2 % (37.9-51.0); HEMOGLOBIN 8.7 g/dL (13.5-17.0); LYMPHOCYTES % (AUTO) 36.2 % (13-45); MEAN CORPUSCULAR HEMOGLOBIN 19.4 pg (27.0-33.4); MEAN CORPUSCULAR HGB CONC 29.8 g/dL (32.0-36.0); MEAN CORPUSCULAR VOLUME 65 fl (80-97); MONOCYTES % (AUTO) 9.1 % (3-13); RED BLOOD COUNT 4.49 10^6/uL (4.35-5.55); RED CELL DISTRIBUTION WIDTH 20.1 % (11.5-14.0); TOTAL CELLS COUNTED % (AUTO) 100 %; WHITE BLOOD COUNT 2.8 10^3/uL (4.0-10.5)
[2020-01-08 09:41] LABS: PLATELET COUNT 79 10^3/uL (150-450)
[2020-01-08 13:10] VITALS: BP 125/77
--- NOTE | 2020-01-08 18:07 | EKG REPORT ---
SEVERITY:- BORDERLINE ECG - SINUS RHYTHM BORDERLINE R WAVE PROGRESSION, ANTERIOR LEADS : Confirmed by: Jazzmine Shirley 08-Jan-2020 18:06:30
== END 2020-01-08 13:12 | disposition home or self-care (01) ==
LOC: ER 08:19
DX: J44.1 Chronic obstructive pulmonary disease with (acute) exacerbation (principal); R91.8 Other nonspecific abnormal finding of lung field; R06.02 Shortness of breath; R05 Cough; Z99.81 Dependence on supplemental oxygen; Z79.899 Other long term (current) drug therapy; Z87.891 Personal history of nicotine dependence; Z87.01 Personal history of pneumonia (recurrent); Z21 Asymptomatic human immunodeficiency virus [HIV] infection status
CPT/HCPCS: 93005; 94640; 99285; 36415; 85025; 80048; 84484; 71045; 93010; J3490